=== PATIENT | female | born 1955 | race Caucasian/White ===

== ENCOUNTER 2019-11-20 11:55 | Outpatient (CLI) | payer OTHER, SELFPAY ==
--- NOTE | 2019-11-20 12:44 | ECG_ITS ---
Measurements Intervals [place] Rate: 64 P: 35 [place]: 198 QRS: 9 QRSD: 89 T: 29 QT: 380 QTc: 392 Interpretive Statements SINUS RHYTHM BASELINE ARTIFACT- I, II, III, AVR, AVL, AVF NORMAL ECG Electronically Signed On 11-20-2019 13:54:49 WELDER TACK by Ang Saba D.O.
[2019-11-20 13:44] LABS: Blood Urea Nitrogen 21 mg/dL (7-17); Calcium 8.6 mg/dL (8.4-10.2); Carbon Dioxide 19 mmol/L (22-30); Chloride 95 mmol/L (98-107); Estimated Glomerular Filt Rate > 60; Glucose 94 mg/dL (65-105); Potassium 4.4 mmol/L (3.4-5.0); Sodium 130 mmol/L (137-145)
[2019-11-20 14:21] LABS: Valproic Acid 64.7 ug/mL (50-120)
== END 2019-11-20 11:56 | disposition home or self-care (01) ==
LOC: ANHSURGERY 11:57
PROVIDERS: Anesthesiology; PCP Internal Medicine; Visit Provider Surgery
DX: R56.9 Unspecified convulsions (principal); I10 Essential (primary) hypertension; Z79.899 Other long term (current) drug therapy; K63.5 Polyp of colon
CPT/HCPCS: 36415; 80048; 80164; 86850; 86900; 86901; 93005

== ENCOUNTER 2019-11-29 15:17 | Inpatient (IN) | payer OTHER, SELFPAY ==
[2019-11-20 13:31] VITALS: BP 148/76; PULSE 67; RESP 18; TEMP 36.6; O2SAT 98; BMI 40.2
[2019-11-29] VITALS (17 sets, daily range): BP systolic 112–160; BP diastolic 51–81; PULSE 58–82; RESP 13–20; TEMP 36.7–37; O2SAT 96–100
[2019-11-29] MEDS: ALVIMOPAN 12 MG CAPSULE PO (07:15)
[2019-11-29] MEDS: IBUPROFEN IV 800 MG/200 ML 800 MG/200 ML BAG 400 MG IVPB (07:15)
[2019-11-29] MEDS: LACTATED RINGERS 1,000 ML 30 ML IV CONT ×2 (07:15→12:34)
--- NOTE | 2019-11-29 07:24 | WPDHPUPDATE1 ---
History and Physical Update Update Date/Time: 11/29/19 07:24 History and Physical has been reviewed, including an updated exam of the patient. There are NO changes in the patient's condition. Risks, benefits, and alternatives have been discussed and questions answered. Patient agrees to proceed with procedure.
--- NOTE | 2019-11-29 07:40 | WPDANESEPPF ---
Anes - Initial Pre Proc Eval Procedure: Operation Date: 11/29/19 08:30 Proposed Procedures p Hand Assisted Laparoscopic Sigmoidectomy - Blake Fishman MD Date/Time: 11/29/19 07:40 Surgeon: Blake Fishman MD Pre Op Diagnosis: Sigmoid Colon Polyp Patient Data Age: 64 Gender: F Height: 1.5 m Weight: 90.4 kg Last Vital Signs Temp 36.6 C 11/20/19 13:31 Pulse 67 11/20/19 13:31 Resp 18 11/20/19 13:31 BP 148/76 H 11/20/19 13:31 Pulse Ox 98 11/20/19 13:31 Allergies Allergy/AdvReac Type Severity Reaction Status Date / Time codeine Allergy Intermediate Hives Verified 11/20/19 13:50 latex Allergy Unknown Hives Verified 11/20/19 13:50 Home Medications Medication Instructions Recorded Confirmed Type melatonin 10 mg PO HS 08/31/19 11/22/19 History phenobarbital 129.6 mg PO HS 08/31/19 11/22/19 History atorvastatin 20 mg tablet 20 mg PO DAILY #90 tablet 09/14/19 11/22/19 Rx enalapril maleate 10 mg tablet 10 mg PO DAILY #90 tablet 09/14/19 11/22/19 Rx levothyroxine 137 mcg tablet 137 mcg PO DAILY #90 tablet 09/14/19 11/22/19 Rx divalproex 1,000 mg PO BID 10/11/19 11/22/19 History trazodone 150 mg tablet 150 mg PO HS #30 tablet 10/25/19 11/22/19 Rx amitriptyline 25 mg tablet 50 mg PO HS 10/30/19 11/22/19 History biotin 5,000 mcg sublingual tablet 10,000 mcg SUBLINGUAL DAILY 10/30/19 11/22/19 History calcium carbonate 600 mg calcium 600 mg PO DAILY 10/30/19 11/22/19 History (1,500 mg) tablet ferrous sulfate 325 mg (65 mg 650 mg PO DAILY 10/30/19 11/22/19 History iron) tablet neomycin 500 mg tablet See Rx Instructions .ROUTE 10/31/19 11/22/19 Rx .COMPLEX #6 tablet Patient hx anesthesia problems: none Family hx anesthesia problems: none PMFSH Past Medical History Medical History (Updated 11/29/19 @ 07:41 by Obey Harrison MD) Colonic mass Epilepsy Hypercholesterolemia Hypertension Hyponatremia Hypothyroidism Hypoxia Iron deficiency anemia Morbid obesity with BMI of 40.0-44.9, adult Polyp, sigmoid colon Post-menopausal Seizure Surgical History Surgical History (Updated 10/30/19 @ 09:39 by Kavita Villa) H/O gastric bypass early 70s History of colonoscopy 2020 last one could be 5+ years ago Presence of ankle implant X2 Family History Family History (Updated 10/30/19 @ 09:19 by Gladis Barba [facility]) Father Cancer Cerebrovascular accident Hypertension Mother Breast cancer Lung cancer Diabetes mellitus Hypertension Polymyositis Sibling Hypertension Polymyositis Sibling COPD (chronic obstructive pulmonary disease) Hypertension Social History Social History Smoking status: Never smoker Alcohol intake: never Substance use: never Additional living arrangements comments: lives at [place] Gender identity (if verbalized by the patient): Female Anes - Eval Final PreProcedure Day of Procedure 11/29/19 07:40 Patient weight: morbidly obese Heart: regular rate and rhythm Lungs: clear to auscultation and normal air movement Airway: Mallampati scale class II Neurological: alert and oriented Last oral intake: >/= 8 hours ASA classification: III Emergent: no Anesthetic plan: proceed Anesthesia type and monitoring: general ETT Informed Consent: The patient's anesthetic plan and its attendant risks and benefits were discussed with the patient/family/POA. Questions were solicited and answers provided to the satisfaction of the patient/family/POA.
[2019-11-29 07:43] LABS: Hematocrit 34.1 % (37.0-47.0)
[2019-11-29 07:50] LABS: Sodium 128 mmol/L (137-145)
[2019-11-29] MEDS: ceFAZolin 2 GM/D5W 50 ML 2 GM/50 ML BAG IVPB (09:16)
[2019-11-29] MEDS: metroNIDAZOLE 500 MG/ISO 100ML 500 MG/100 ML BAG 100 MG IVPB (09:16)
[2019-11-29] MEDS: BUPIVACAINE/EPINEPHRINE 0.5% 30 ML VIAL INFILTRATE (10:23)
--- NOTE | 2019-11-29 12:15 | SUR.OPER ---
Ebl=20 [id number]
--- NOTE | 2019-11-29 12:44 | PM.PROC ---
Procedure Note - Detailed Date of procedure: 11/29/19 Pre-op diagnosis: Sigmoid Colon Polyp Sigmoid colon polyp Post-op diagnosis: same Procedure performed: Hand access laparoscopic sigmoidectomy with colorectal anastomosis Description of procedure: The patient was taken to surgery and induced into general anesthesia. She was placed in lithotomy with yellowfin stirrups. A silicone Rosales catheter was placed. Rectal irrigation using a silicone Rosales catheter was performed and used as a rectal tube. The abdomen was prepped and draped. The proposed infraumbilical midline incision was marked on the skin for the hand access port. local was infiltrated into the area of this anticipated incision. Incision was made and dissection was carried down through the midline fascia. Fascia was opened and then the peritoneum was opened. We gained access to the peritoneal cavity without difficulty. This opening was extended the length of the wound. I placed a hand in the abdomen and was able to feel some adhesions in the upper abdomen. There was a clear area in the left mid abdomen. Local anesthetic was infiltrated here and a 10 11 port was placed. We then placed the GelPort and insufflated the abdomen. I was able to see the anterior abdominal wall adhesions and a few these would need to be taken down. A 12 mm port was placed on the right mid abdomen. Another 10 11 port was placed in the right subcostal position. The camera was repositioned to the right sub costal. I took down the adhesions using the Harmonic scalpel. I only took down enough adhesions that we could safely place the midline trocar site and have good visualization of the pelvis. A 10 11 midline trocar was placed above the umbilicus. We then moved the camera back to the left sided 10 11 port. Looking in the abdomen, the tattoo was easily seen. The sigmoid colon was fairly floppy. I divided the lateral peritoneal attachments to the sigmoid colon. The tattoo was in the distal sigmoid colon as expected. The ureter was found and carefully avoided. Dissection was carried down laterally to the upper rectum. Was then able to use the Harmonic scalpel and divided the rectal mesentery over the sacral promontory. I found the area of distal dissection and using the Harmonic scalpel I divided the rectal mesentery up to this point and freed it from the rectum where we plan to divide the bowel. Similarly I divided the mesentery to the sigmoid colon leaving only the superior rectal artery. This was done to the proximal sigmoid distal descending colon junction. The superior rectal artery was divided using the Harmonic 7. This went well and there was no bleeding. The sigmoid and upper rectum were now mobile and able to proceed with anastomosis after resection of the sigmoid. We stopped insufflation and removed the GelPort, leaving the Sandip wound guard in place. I divided the upper rectum with the TLC 75 stapler. I divided the distal descending and upper sigmoid colon with the TLC 75 stapler. The sigmoid colon with the tattoo and palpable polyp were then sent off to pathology in formalin as a specimen. The 2 ends of bowel came together readily with no tension. After removing some superficial fatty tissue from the staple lines, I placed the 2 ends of bowel in proximity. A hand-sewn 2 layer anastomosis was performed. The posterior outer layer of interrupted 4 0 silk Lembert sutures was placed 1st. The staple lines were then excised from both ends of the bowel. The posterior inner layer of bidirectional running 4 0 chromic suture was then placed. The suture was tied completing the anterior inner layer. I should point out that Flo sutures were used for each end and the anterior inner layer. Finally the anterior outer layer of interrupted 4 0 silk suture was placed. The anastomosis was complete and looked quite good. I dropped this back in the abdomen. We replaced the GelPort and resumed insufflation. I laparo
--- NOTE | 2019-11-29 13:59 | SUR.PHASEI ---
1359 called to update family, but no one in waiting room at this time
--- NOTE | 2019-11-29 14:00 | SUR.PHASEI ---
[id number] iv LAC went bad, tried to get another one. dr lee ok with a midline waiting to hear from zaki
--- NOTE | 2019-11-29 14:33 | SUR.PHASEI ---
[id number] sbar faxed to floor notified. family updated and sent to floor
--- NOTE | 2019-11-29 15:03 | ADMGEN ---
This patient, Keely Perkins, was admitted to [facility]. Patient/family oriented to hospital policies and general routines including ID bracelet, bed and alarms, visiting hours, pain management, procedures, bathroom and other care routines, personal items, smoking policy, room service/diet, and visiting hours. Valuables list has been completed. Information on how to activate the Rapid Response Team has been discussed. Patient/Family are encouraged to report perceived risks to care and to ask questions if they do not understand what they are told or what they should do.
--- NOTE | 2019-11-29 15:39 | PC.NURSE ---
Notified Care coordination and Dr Tristan office patient has thoughts of suicide. Also has a plan they would stab themselves.
[2019-11-29] MEDS: LACTATED RINGERS 1,000 ML 80 ML IV CONT (15:54)
[2019-11-29] MEDS: DIVALPROEX SODIUM 250 MG TABEC 1000 MG PO (17:17)
[2019-11-29] MEDS: AMITRIPTYLINE HCL 25 MG TABLET 50 MG PO (20:24)
[2019-11-29] MEDS: TRAZODONE HCL 50 MG TABLET 150 MG PO (20:24)
[2019-11-29] MEDS: FAMOTIDINE 20 MG/2 ML VIAL IV PUSH (20:25)
[2019-11-29] MEDS: MELATONIN 5 MG TABLET 10 MG PO (20:25)
[2019-11-29] MEDS: ENOXAPARIN 30 MG/0.3 ML SYRINGE SUB-Q (20:26)
[2019-11-30 02:00] VITALS: BP 111/48; PULSE 82; RESP 18; TEMP 36.6; O2SAT 92
[2019-11-30] MEDS: LACTATED RINGERS 1,000 ML 80 ML IV CONT (04:36)
[2019-11-30] MEDS: LEVOTHYROXINE SODIUM 112 MCG TABLET PO (05:44)
[2019-11-30] MEDS: LEVOTHYROXINE SODIUM 25 MCG TABLET PO (05:44)
[2019-11-30 06:00] VITALS: BP 139/57; PULSE 80; RESP 16; TEMP 37.1; O2SAT 96
[2019-11-30 06:53] LABS: Basophils Percent Auto 0.3 % (0.2-1.2); Eosinophils Percent Auto 0.2 % (0-4.4); Hematocrit 29.4 % (37.0-47.0); Hemoglobin 9.8 g/dL (12.0-15.0); Immature Granulocyte Absolute 0.04 K/mm3 (0.00-0.031); Immature Granulocyte Percent A 0.4 % (0-0.5); Lymphocytes Absolute Auto 1.36 K/mm3 (0.9-3.2); Lymphocytes Percent Auto 13.5 % (18.3-44.2); Mean Corpuscular HGB Conc 33.3 g/dl (32-36); Mean Corpuscular Hemoglobin 31.9 pg (26-34); Mean Corpuscular Volume 95.8 fl (80-100); Mean Platelet Volume 10.8 fl (7.4-10.4); Monocytes Absolute Auto 1.5 K/mm3 (0.1-0.6); Monocytes Percent Auto 14.8 % (2.6-8.5); Neutrophils Absolute Auto 7.2 K/mm3 (1.3-6.7); Neutrophils Percent Auto 70.8 % (45.5-73.1); Platelet Count Result 137 k/mm3 (150-375); Red Blood Count 3.07 M/mm3 (4.2-5.4); Red Cell Distribution Width 12.9 % (11.5-14.5); White Blood Count 10.1 K/mm3 (4.5-10.0)
[2019-11-30 07:02] LABS: Blood Urea Nitrogen 10 mg/dL (7-17); Calcium 8.3 mg/dL (8.4-10.2); Carbon Dioxide 23 mmol/L (22-30); Chloride 92 mmol/L (98-107); Estimated Glomerular Filt Rate > 60; Glucose 94 mg/dL (65-105); Potassium 4.7 mmol/L (3.4-5.0); Sodium 126 mmol/L (137-145)
--- NOTE | 2019-11-30 07:58 | PM.PNGS ---
Progress Note: A&P Assessment and Plan (1) Polyp, sigmoid colon: Qualifiers: Colon polyp type: unspecified Qualified Code(s): K63.5 - Polyp of colon Code(s): K63.5 - Polyp of colon Status: Chronic Assessment and Plan: doing well postop day 1. Status post hand access laparoscopic sigmoidectomy. Will advance diet as tolerated. Ambulate more today. Saline lock IV. Doing well. (2) Hyponatremia: Code(s): E87.1 - Hypo-osmolality and hyponatremia Status: Acute Assessment and Plan: Will stop peripheral IV fluids. Advance diet and continue to monitor. (3) Hypertension: Qualifiers: Hypertension type: essential hypertension Qualified Code(s): I10 - Essential (primary) hypertension Code(s): I10 - Essential (primary) hypertension Status: Chronic Assessment and Plan: Continue home meds and monitor (4) Epilepsy: Qualifiers: Epilepsy type: unspecified Intractability: not intractable Status epilepticus: without status epilepticus Qualified Code(s): G40.909 - Epilepsy, unspecified, not intractable, without status epilepticus Code(s): G40.909 - Epilepsy, unspecified, not intractable, without status epilepticus Status: Chronic Assessment and Plan: continue home meds and monitor. Subjective Subjective Date/Time Seen: 11/30/19 07:58 Post Op day: 1 Patient reports: no new complaints, pain is less, tolerating liquids well and bowel movement Exam Const: General: comfortable and no acute distress; No confusion Orientation/consciousness: patient oriented x3 and No confusion Resp: Effort & Inspection: normal respiratory effort Auscultation: clear to auscultation bilaterally Cardio: Rate: regular rate Rhythm: regular rhythm GI: Inspection: non-distended, incision ( Healing well) and obesity GI Palp: Yes Soft to palpation, Yes Tenderness to palpation present (GI), No Guarding due to palpation present (GI) and No Rebound tenderness present Auscultation: normal bowel sounds Neuro: General: patient oriented x3, no focal motor deficits and No confusion Extrem: General: no calf tenderness and no edema Psych: Affect: normal affect Insight: Good insight present (Psych) Judgement: Good judgement present (Psych) Objective Data Vital Signs Vital Signs: Vital Signs - 24 hr 11/29/19 12:35 11/29/19 12:50 11/29/19 13:06 Temperature 37.0 C Pulse Rate 61 60 60 Respiratory Rate 13 13 14 Blood Pressure 129/53 L 128/57 L 138/58 L Pulse Oximetry 100 100 100 11/29/19 13:20 11/29/19 13:35 11/29/19 13:50 Temperature Pulse Rate 64 60 66 Respiratory Rate 18 14 20 Blood Pressure 142/59 H 126/71 141/67 H Pulse Oximetry 100 100 100 11/29/19 14:05 11/29/19 14:20 11/29/19 14:30 Temperature Pulse Rate 69 62 68 Respiratory Rate 18 20 18 Blood Pressure 160/81 H 140/68 Pulse Oximetry 100 100 96 11/29/19 14:45 11/29/19 15:00 11/29/19 15:15 Temperature Pulse Rate 66 69 58 L Respiratory Rate 18 18 18 Blood Pressure 134/58 L 145/53 H 112/69 Pulse Oximetry 96 100 100 11/29/19 15:45 11/29/19 16:45 11/29/19 17:48 Temperature 36.7 C Pulse Rate 61 65 Respiratory Rate 18 16 Blood Pressure 120/67 118/60 Pulse Oximetry 100 100 99 11/29/19 22:37 11/30/19 02:00 11/30/19 06:00 Temperature 36.7 C 36.6 C 37.1 C Pulse Rate 82 82 80 Respiratory Rate 18 18 16 Blood Pressure 130/57 L 111/48 L 139/57 L Pulse Oximetry 97 92 96 Intake/Output Intake/Output: Intake & Output 11/27/19 11/28/19 11/29/19 11/30/19 23:59 23:59 23:59 23:59 Intake Total 1850 1300 Output Total 1400 400 Balance 450 900 Meds/Results Medications: Active Medications Generic Name Dose Route Start Last Admin Trade Name Freq PRN Reason Stop Dose Admin Acetaminophen 500 mg 11/29/19 15:17 Tylenol Tablet PO Q6H PRN Mild Pain (1-3) or Fever Alvimopan 12 mg 11/30/19 12:33 Entereg PO 0
[2019-11-30] MEDS: ATORVASTATIN 20 MG TABLET PO (08:12)
[2019-11-30] MEDS: DIVALPROEX SODIUM 250 MG TABEC 1000 MG PO ×2 (08:12→16:33)
[2019-11-30] MEDS: CALCIUM CARBONATE (OSCAL) 500 MG TABLET PO (08:12)
[2019-11-30] MEDS: ENALAPRIL MALEATE 10 MG TABLET PO (08:13)
[2019-11-30] MEDS: FERROUS SULFATE 324 MG TABLET 648 MG PO (08:13)
[2019-11-30] MEDS: FAMOTIDINE 20 MG TABLET PO ×2 (08:15→20:28)
[2019-11-30] MEDS: ENOXAPARIN 40 MG/0.4 ML SYRINGE SUB-Q (08:15)
[2019-11-30] MEDS: FUROSEMIDE 20 MG TABLET PO (10:05)
[2019-11-30 10:30] VITALS: BMI 39.6
[2019-11-30 10:40] VITALS: BP 129/47; PULSE 76; RESP 16; TEMP 36.8; O2SAT 92
[2019-11-30] MEDS: ALVIMOPAN 12 MG CAPSULE PO ×2 (13:43→20:27)
--- NOTE | 2019-11-30 13:58 | WPDANESPN ---
Anes - Prog Note Post-Op Date/Time: 11/30/19 13:58 Cardiovascular status: normal Respiratory status: normal Airway patency: baseline Mental status: baseline Post-Op hydration status: normal Vital Signs: Last Vital Signs Temp 36.8 C 11/30/19 10:40 Pulse 76 11/30/19 10:40 Resp 16 11/30/19 10:40 BP 129/47 L 11/30/19 10:40 Pulse Ox 92 11/30/19 10:40 I/O: Intake & Output 11/29/19 11/30/19 11/30/19 23:59 07:59 15:59 Intake Total 1400 1300 0 Output Total 1400 400 Balance 0 900 0 Laboratory Tests 11/30/19 06:38 11/30/19 06:38 11/30/19 11/30/19 06:38 06:38 WBC 10.1 H RBC 3.07 L Hgb 9.8 L Hct 29.4 L MCV 95.8 MCH 31.9 MCHC 33.3 RDW 12.9 Plt Count 137 L MPV 10.8 H Immature Gran % (Auto) 0.4 Neut % (Auto) 70.8 Lymph % (Auto) 13.5 L Logan % (Auto) 14.8 H Eos % (Auto) 0.2 Baso % (Auto) 0.3 Lymph # (Auto) 1.36 Logan # (Auto) 1.5 H Eos # (Auto) 0.0 Baso # (Auto) 0.0 Abs Immat Gran (auto) 0.04 H Absolute Neuts (auto) 7.2 H Absolute Nucleated RBC 0.0 Nucleated RBC % 0.0 % Immature Plt Fraction 4.0 Sodium 126 L Potassium 4.7 Chloride 92 L Carbon Dioxide 23 BUN 10 D Creatinine 0.80 Estim Creat Clear Calc Not Reportable Estimated GFR > 60 Glucose 94 Calcium 8.3 L Post-procedural complaints: none Patient Feedback: Patient satisfied with anesthetic care.
--- NOTE | 2019-11-30 13:59 | WPDANESPN ---
Anes - Prog Note Post-Op Date/Time: 11/30/19 13:59 Cardiovascular status: normal Respiratory status: normal Airway patency: baseline Mental status: baseline Post-Op hydration status: normal Vital Signs: Last Vital Signs Temp 36.8 C 11/30/19 10:40 Pulse 76 11/30/19 10:40 Resp 16 11/30/19 10:40 BP 129/47 L 11/30/19 10:40 Pulse Ox 92 11/30/19 10:40 I/O: Intake & Output 11/29/19 11/30/19 11/30/19 23:59 07:59 15:59 Intake Total 1400 1300 0 Output Total 1400 400 Balance 0 900 0 Laboratory Tests 11/30/19 06:38 11/30/19 06:38 11/30/19 11/30/19 06:38 06:38 WBC 10.1 H RBC 3.07 L Hgb 9.8 L Hct 29.4 L MCV 95.8 MCH 31.9 MCHC 33.3 RDW 12.9 Plt Count 137 L MPV 10.8 H Immature Gran % (Auto) 0.4 Neut % (Auto) 70.8 Lymph % (Auto) 13.[address] [place] % (Auto) 14.8 H Eos % (Auto) 0.2 Baso % (Auto) 0.3 Lymph # (Auto) 1.36 [place] # (Auto) 1.5 H Eos # (Auto) 0.0 Baso # (Auto) 0.0 Abs Immat Gran (auto) 0.04 H Absolute Neuts (auto) 7.2 H Absolute Nucleated RBC 0.0 Nucleated RBC % 0.0 % Immature Plt Fraction 4.0 Sodium 126 L Potassium 4.7 Chloride 92 L Carbon Dioxide 23 BUN 10 D Creatinine 0.80 Estim Creat Clear Calc Not Reportable Estimated GFR > 60 Glucose 94 Calcium 8.3 L Post-procedural complaints: none Patient Feedback: Patient satisfied with anesthetic care.
[2019-11-30 15:00] VITALS: BP 119/49; PULSE 85; RESP 18; TEMP 36.6; O2SAT 95
[2019-11-30] MEDS: AMITRIPTYLINE HCL 25 MG TABLET 50 MG PO (20:27)
[2019-11-30] MEDS: TRAZODONE HCL 50 MG TABLET 150 MG PO (20:28)
[2019-11-30] MEDS: MELATONIN 5 MG TABLET 10 MG PO (20:28)
[2019-11-30 22:00] VITALS: BP 121/40; PULSE 85; RESP 20; TEMP 36.7; O2SAT 95
[2019-12-01] MEDS: LEVOTHYROXINE SODIUM 25 MCG TABLET PO (05:59)
[2019-12-01] MEDS: LEVOTHYROXINE SODIUM 112 MCG TABLET PO (05:59)
[2019-12-01 06:17] LABS: Hematocrit 28.4 % (37.0-47.0); Hemoglobin 9.3 g/dL (12.0-15.0); Immature Platelet Fraction Pct 3.3 % (0.9-11.2); Mean Corpuscular HGB Conc 32.7 g/dl (32-36); Mean Corpuscular Hemoglobin 31.3 pg (26-34); Mean Corpuscular Volume 95.6 fl (80-100); Mean Platelet Volume 11.1 fl (7.4-10.4); Platelet Count Result 136 k/mm3 (150-375); Red Blood Count 2.97 M/mm3 (4.2-5.4); Red Cell Distribution Width 12.9 % (11.5-14.5); White Blood Count 9.5 K/mm3 (4.5-10.0)
[2019-12-01 06:34] LABS: Blood Urea Nitrogen 12 mg/dL (7-17); Calcium 8.4 mg/dL (8.4-10.2); Carbon Dioxide 21 mmol/L (22-30); Chloride 98 mmol/L (98-107); Estimated Glomerular Filt Rate > 60; Glucose 93 mg/dL (65-105); Potassium 4.2 mmol/L (3.4-5.0); Sodium 127 mmol/L (137-145)
[2019-12-01 07:42] VITALS: BP 141/43; PULSE 90; RESP 20; TEMP 36.8; O2SAT 93
[2019-12-01] MEDS: FAMOTIDINE 20 MG TABLET PO ×2 (08:03→21:28)
[2019-12-01] MEDS: DIVALPROEX SODIUM 250 MG TABEC 1000 MG PO ×2 (08:03→17:01)
[2019-12-01] MEDS: FERROUS SULFATE 324 MG TABLET 648 MG PO (08:03)
[2019-12-01] MEDS: ATORVASTATIN 20 MG TABLET PO (08:04)
[2019-12-01] MEDS: ALVIMOPAN 12 MG CAPSULE PO (08:04)
[2019-12-01] MEDS: FUROSEMIDE 20 MG TABLET PO (08:04)
[2019-12-01] MEDS: CALCIUM CARBONATE (OSCAL) 500 MG TABLET PO (08:04)
[2019-12-01] MEDS: ENALAPRIL MALEATE 10 MG TABLET PO (08:04)
[2019-12-01] MEDS: ENOXAPARIN 40 MG/0.4 ML SYRINGE SUB-Q (08:04)
--- NOTE | 2019-12-01 08:32 | PM.PNGS ---
Progress Note: A&P Assessment and Plan (1) Polyp, sigmoid colon: Qualifiers: Colon polyp type: unspecified Qualified Code(s): K63.5 - Polyp of colon Code(s): K63.5 - Polyp of colon Status: Chronic Assessment and Plan: still having a fair amount of pain and requiring considerable assistance to ambulate. Will increase activity again today. Possibly home tomorrow. (2) Hyponatremia: Code(s): E87.1 - Hypo-osmolality and hyponatremia Status: Acute Assessment and Plan: Sodium still low at 127 today. Will start 1500 cc fluid restriction and DC Lasix. (3) Epilepsy: Qualifiers: Epilepsy type: unspecified Intractability: not intractable Status epilepticus: without status epilepticus Qualified Code(s): G40.909 - Epilepsy, unspecified, not intractable, without status epilepticus Code(s): G40.909 - Epilepsy, unspecified, not intractable, without status epilepticus Status: Chronic (4) Hypertension: Qualifiers: Hypertension type: essential hypertension Qualified Code(s): I10 - Essential (primary) hypertension Code(s): I10 - Essential (primary) hypertension Status: Chronic Subjective Subjective Date/Time Seen: 12/01/19 08:32 Post Op day: 2 Patient reports: still having pain, tolerating a regular diet, bowel movement and afebrile Exam GI: Inspection: non-distended, incision ( Wounds healing well) and obesity GI Palp: Yes Soft to palpation and Yes Tenderness to palpation present (GI) Auscultation: Hypoactive bowel sounds present Objective Data Vital Signs Vital Signs: Vital Signs - 24 hr 11/30/19 10:40 11/30/19 15:00 11/30/19 22:00 Temperature 36.8 C 36.6 C 36.7 C Pulse Rate 76 85 85 Respiratory Rate 16 18 20 Blood Pressure 129/47 L 119/49 L 121/40 L Pulse Oximetry 92 95 95 12/01/19 07:42 Temperature 36.8 C Pulse Rate 90 Respiratory Rate 20 Blood Pressure 141/43 H Pulse Oximetry 93 Intake/Output Intake/Output: Intake & Output 11/28/19 11/29/19 11/30/19 12/01/19 23:59 23:59 23:59 23:59 Intake Total 1850 2640 400 Output Total 1400 1200 Balance 450 1440 400 Meds/Results Medications: Active Medications Generic Name Dose Route Start Last Admin Trade Name Freq PRN Reason Stop Dose Admin Acetaminophen 500 mg 11/29/19 15:17 Tylenol Tablet PO Q6H PRN Mild Pain (1-3) or Fever Amitriptyline HCl 50 mg 11/29/19 21:00 11/30/19 20:27 Elavil PO 50 mg HS PHIL Administration Atorvastatin Calcium 20 mg 11/30/19 09:00 12/01/19 08:04 Lipitor PO 20 mg DAILY PHIL Administration Calcium Carbonate 500 mg 11/30/19 09:00 12/01/19 08:04 Oscal 500 Mg PO 500 mg QAM PHIL Administration Divalproex Sodium 1,000 mg 11/29/19 17:00 12/01/19 08:03 Depakote Ec Tab PO 1,000 mg BID [facility] Administration Enalapril Maleate 10 mg 11/30/19 09:00 12/01/19 08:04 Vasotec PO 10 mg DAILY PHIL Administration Enoxaparin Sodium 40 mg 11/30/19 09:00 12/01/19 08:04 Lovenox SUB-Q 40 mg DAILY [facility] Administration Famotidine 20 mg 11/30/19 09:00 12/01/19 08:03 Pepcid PO 20 mg Q12HR PHIL Administration Ferrous Sulfate 648 mg 11/30/19 09:00 12/01/19 08:03 Ferrous Sulfate PO 648 mg DAILY PHIL Administration Ibuprofen 600 mg 11/29/19 15:34 Motrin PO Q6H PRN Pain Rated 4-6 Levothyroxine Sodium 112 mcg 11/30/19 06:30 12/01/19 05:59 Synthroid PO 112 mcg DAILY@0630 PHIL Administration Levothyroxine Sodium 25 mcg 11/30/19 06:30 12/01/19 05:59 Synthroid PO 25 mcg DAILY@0630 [facility] Administration Melatonin 10 mg 11/29/19 21:00 11/30/19 20:28 Melatonin PO 10 mg HS [facility] Administration Morphine Sulfate 1 mg 11/29/19 15:17 Morphine Sulfate Inj IV PUSH Q2H PRN Pain Rated 4-6 Morphine Sulfate 2 mg 11/29/19 15:17 Morphine Sulfate Inj IV PUSH Q2H PRN Pain Rated 7-10 Nalo
[2019-12-01 14:36] VITALS: BP 147/57; PULSE 72; RESP 16; TEMP 36.5; O2SAT 97
[2019-12-01] MEDS: TRAZODONE HCL 50 MG TABLET 150 MG PO (21:27)
[2019-12-01] MEDS: MELATONIN 5 MG TABLET 10 MG PO (21:28)
[2019-12-01] MEDS: AMITRIPTYLINE HCL 25 MG TABLET 50 MG PO (21:28)
[2019-12-01 22:00] VITALS: BP 132/75; PULSE 71; RESP 20; TEMP 37.2; O2SAT 94
[2019-12-02 06:00] VITALS: BP 135/61; PULSE 77; RESP 20; TEMP 37.3; O2SAT 92
[2019-12-02] MEDS: LEVOTHYROXINE SODIUM 25 MCG TABLET PO (06:12)
[2019-12-02] MEDS: LEVOTHYROXINE SODIUM 112 MCG TABLET PO (06:12)
[2019-12-02 10:05] VITALS: BP 131/93; PULSE 75
[2019-12-02] MEDS: DIVALPROEX SODIUM 250 MG TABEC 1000 MG PO ×2 (10:07→18:11)
[2019-12-02] MEDS: ATORVASTATIN 20 MG TABLET PO (10:08)
[2019-12-02] MEDS: ENOXAPARIN 40 MG/0.4 ML SYRINGE SUB-Q (10:08)
[2019-12-02] MEDS: FAMOTIDINE 20 MG TABLET PO ×2 (10:08→21:40)
[2019-12-02] MEDS: ENALAPRIL MALEATE 10 MG TABLET PO (10:08)
[2019-12-02] MEDS: CALCIUM CARBONATE (OSCAL) 500 MG TABLET PO (10:08)
[2019-12-02] MEDS: FERROUS SULFATE 324 MG TABLET 648 MG PO (10:09)
[2019-12-02 10:21] LABS: Hematocrit 27.2 % (37.0-47.0); Hemoglobin 8.9 g/dL (12.0-15.0); Mean Corpuscular HGB Conc 32.7 g/dl (32-36); Mean Corpuscular Hemoglobin 31.7 pg (26-34); Mean Corpuscular Volume 96.8 fl (80-100); Mean Platelet Volume 11.3 fl (7.4-10.4); Platelet Count Result 95 k/mm3 (150-375); Red Blood Count 2.81 M/mm3 (4.2-5.4); Red Cell Distribution Width 12.7 % (11.5-14.5); White Blood Count 6.9 K/mm3 (4.5-10.0)
[2019-12-02 10:30] LABS: Blood Urea Nitrogen 13 mg/dL (7-17); Calcium 8.7 mg/dL (8.4-10.2); Carbon Dioxide 24 mmol/L (22-30); Chloride 100 mmol/L (98-107); Estimated Glomerular Filt Rate > 60; Glucose 87 mg/dL (65-105); Potassium 4.7 mmol/L (3.4-5.0); Sodium 127 mmol/L (137-145)
--- NOTE | 2019-12-02 13:43 | PM.PNGS ---
Progress Note: A&P Assessment and Plan (1) Polyp, sigmoid colon: Qualifiers: Colon polyp type: unspecified Qualified Code(s): K63.5 - Polyp of colon Code(s): K63.5 - Polyp of colon Status: Chronic Assessment and Plan: Healing well from surgery but still not able to get around very well. Will have physical therapy see her. Will also get the patient up in the chair more. (2) Anemia: Qualifiers: Anemia type: unspecified type Qualified Code(s): D64.9 - Anemia, unspecified Code(s): D64.9 - Anemia, unspecified Status: Acute Assessment and Plan: Probably due to dilutional factors. Will give some Bumex today. (3) Epilepsy: Qualifiers: Epilepsy type: unspecified Intractability: not intractable Status epilepticus: without status epilepticus Qualified Code(s): G40.909 - Epilepsy, unspecified, not intractable, without status epilepticus Code(s): G40.909 - Epilepsy, unspecified, not intractable, without status epilepticus Status: Chronic (4) Hyponatremia: Code(s): E87.1 - Hypo-osmolality and hyponatremia Status: Acute Assessment and Plan: Sodium still 127 today. On fluid restriction. Will give Bumex today. Subjective Subjective Date/Time Seen: 12/02/19 13:43 Still slower and requiring help to get out of bed and go to the bathroom. Does not feel like she could go home yet due to weakness and inability to get around. Post Op day: 3 Patient reports: still having pain, tolerating a regular diet, bowel movement and afebrile Exam GI: Inspection: incision ( All incisions healing well.) GI Palp: Yes Soft to palpation and Yes Tenderness to palpation present (GI) Auscultation: normal bowel sounds Objective Data Vital Signs Vital Signs: Vital Signs - 24 hr 12/01/19 14:36 12/01/19 22:00 12/02/19 06:00 Temperature 36.5 C 37.2 C 37.3 C Pulse Rate 72 71 77 Respiratory Rate 16 20 20 Blood Pressure 147/57 H 132/75 135/61 Pulse Oximetry 97 94 92 12/02/19 10:05 Temperature Pulse Rate 75 Respiratory Rate Blood Pressure 131/93 H Pulse Oximetry Intake/Output Intake/Output: Intake & Output 11/29/19 11/30/19 12/01/19 12/02/19 23:59 23:59 23:59 23:59 Intake Total 1850 2640 1590 290 Output Total 1400 1200 2000 900 Balance 450 3941 -392 -939 Meds/Results Medications: Active Medications Generic Name Dose Route Start Last Admin Trade Name Freq PRN Reason Stop Dose Admin Acetaminophen 500 mg 11/29/19 15:17 Tylenol Tablet PO Q6H PRN Mild Pain (1-3) or Fever Amitriptyline HCl 50 mg 11/29/19 21:00 12/01/19 21:28 Elavil PO 50 mg HS PHIL Administration Atorvastatin Calcium 20 mg 11/30/19 09:00 12/02/19 10:08 Lipitor PO 20 mg DAILY PHIL Administration Calcium Carbonate 500 mg 11/30/19 09:00 12/02/19 10:08 Oscal 500 Mg PO 500 mg QAM PHIL Administration Divalproex Sodium 1,000 mg 11/29/19 17:00 12/02/19 10:07 Depakote Ec Tab PO 1,000 mg BID [facility] Administration Enalapril Maleate 10 mg 11/30/19 09:00 12/02/19 10:08 Vasotec PO 10 mg DAILY [facility]IL Administration Enoxaparin Sodium 40 mg 11/30/19 09:00 12/02/19 10:08 Lovenox SUB-Q 40 mg DAILY PHIL Administration Famotidine 20 mg 11/30/19 09:00 12/02/19 10:08 Pepcid PO 20 mg Q12HR PHIL Administration Ferrous Sulfate 648 mg 11/30/19 09:00 12/02/19 10:09 Ferrous Sulfate PO 648 mg DAILY PHIL Administration Ibuprofen 600 mg 11/29/19 15:34 Motrin PO Q6H PRN Pain Rated 4-6 Levothyroxine Sodium 112 mcg 11/30/19 06:30 12/02/19 06:12 Synthroid PO 112 mcg DAILY@0630 PHIL Administration Levothyroxine Sodium 25 mcg 11/30/19 06:30 12/02/19 06:12 Synthroid PO 25 mcg DAILY@0630 PHIL Administration Melatonin 10 mg 11/29/19 21:00 12/01/19 21:28 Melatonin PO 10 mg HS PHIL Administration Morphine Sulfate 1 mg 11/29/19 15:17
[2019-12-02 14:51] VITALS: BP 123/52; PULSE 76; RESP 16; TEMP 36.9; O2SAT 92
[2019-12-02] MEDS: BUMETANIDE 1 MG TABLET 2 MG PO (15:41)
[2019-12-02] MEDS: AMITRIPTYLINE HCL 25 MG TABLET 50 MG PO (21:40)
[2019-12-02] MEDS: TRAZODONE HCL 50 MG TABLET 150 MG PO (21:40)
[2019-12-02] MEDS: MELATONIN 5 MG TABLET 10 MG PO (21:40)
[2019-12-02 22:05] VITALS: BP 138/53; PULSE 74; RESP 16; TEMP 37.2; O2SAT 92
--- NOTE | 2019-12-03 03:48 | PC.NURSE ---
Daylight Savings Time For Daylight Savings Time Ending in the Fall - Clocks are moved back. For Daylight Savings Time Beginning in the Spring - Clocks are moved ahead. For [facility], the time of change occurs at 0200 hrs. Time is taken from the senior sql server developer. This entry on the patient's chart recognizes the change in time reflected during documentation. Example: 2 entries for vital signs may be charted for 0200 hrs.
[2019-12-03] MEDS: LEVOTHYROXINE SODIUM 25 MCG TABLET PO (06:35)
[2019-12-03] MEDS: LEVOTHYROXINE SODIUM 112 MCG TABLET PO (06:35)
[2019-12-03 06:40] VITALS: BP 118/59; PULSE 74; RESP 20; TEMP 36.9; O2SAT 91
[2019-12-03 06:43] LABS: Hematocrit 28.1 % (37.0-47.0); Hemoglobin 9.2 g/dL (12.0-15.0); Mean Corpuscular HGB Conc 32.7 g/dl (32-36); Mean Corpuscular Hemoglobin 31.2 pg (26-34); Mean Corpuscular Volume 95.3 fl (80-100); Mean Platelet Volume 10.4 fl (7.4-10.4); Platelet Count Result 160 k/mm3 (150-375); Red Blood Count 2.95 M/mm3 (4.2-5.4); Red Cell Distribution Width 12.6 % (11.5-14.5); White Blood Count 6.8 K/mm3 (4.5-10.0)
[2019-12-03 07:06] LABS: Blood Urea Nitrogen 15 mg/dL (7-17); Calcium 8.9 mg/dL (8.4-10.2); Carbon Dioxide 26 mmol/L (22-30); Chloride 99 mmol/L (98-107); Estimated Glomerular Filt Rate > 60; Glucose 87 mg/dL (65-105); Sodium 130 mmol/L (137-145)
[2019-12-03] MEDS: ENOXAPARIN 40 MG/0.4 ML SYRINGE SUB-Q (09:42)
[2019-12-03] MEDS: CALCIUM CARBONATE (OSCAL) 500 MG TABLET PO (09:43)
[2019-12-03] MEDS: ENALAPRIL MALEATE 10 MG TABLET PO (09:43)
[2019-12-03] MEDS: FAMOTIDINE 20 MG TABLET PO (09:43)
[2019-12-03] MEDS: ATORVASTATIN 20 MG TABLET PO (09:43)
[2019-12-03] MEDS: DIVALPROEX SODIUM 250 MG TABEC 1000 MG PO (09:43)
[2019-12-03] MEDS: FERROUS SULFATE 324 MG TABLET 648 MG PO (09:43)
[2019-12-03] MEDS: BUMETANIDE 1 MG TABLET 2 MG PO (11:53)
--- NOTE | 2019-12-03 14:09 | PM.DS ---
DS: Diagnosis Admitting Diagnosis Admitting Diagnosis: SIGMOID COLON POLYP Discharge Diagnosis (1) Polyp, sigmoid colon: Qualifiers: Colon polyp type: unspecified Qualified Code(s): K63.5 - Polyp of colon Code(s): K63.5 - Polyp of colon Status: Chronic Assessment and Plan: STATUS POST HAND ACCESS LAPAROSCOPIC SIGMOIDECTOMY WITH HAND-SEWN ANASTOMOSIS 11/29/2019. Pathology pending on day of discharge. (2) Hyponatremia: Code(s): E87.1 - Hypo-osmolality and hyponatremia Status: Acute Assessment and Plan: IMPROVED TO 130 MILLIMOLES PER L ON DAY OF DISCHARGE. (3) Anemia: Qualifiers: Anemia type: unspecified type Qualified Code(s): D64.9 - Anemia, unspecified Code(s): D64.9 - Anemia, unspecified Status: Acute Assessment and Plan: HEMOGLOBIN STABLE AT 9.2 ON DAY OF DISCHARGE. HEMATOCRIT 28.1%. (4) Hypertension: Qualifiers: Hypertension type: essential hypertension Qualified Code(s): I10 - Essential (primary) hypertension Code(s): I10 - Essential (primary) hypertension Status: Chronic (5) Epilepsy: Qualifiers: Epilepsy type: unspecified Intractability: not intractable Status epilepticus: without status epilepticus Qualified Code(s): G40.909 - Epilepsy, unspecified, not intractable, without status epilepticus Code(s): G40.909 - Epilepsy, unspecified, not intractable, without status epilepticus Status: Chronic (6) Morbid obesity with BMI of 40.0-44.9, adult: Code(s): E66.01 - Morbid (severe) obesity due to excess calories; Z68.41 - Body mass index (BMI) 40.0-44.9, adult Status: Acute DS: Summary Time Spent with Patient Time attestation: Total time spent providing and/or coordinating discharge services: The patient is a 64-year-old woman who underwent colonoscopy by Dr. Linares on 10/17/2019 for iron deficiency anemia. In the distal sigmoid a friable circumferential villous submucosal mass was seen at approximately 25 cm.. Biopsy showed semi pedunculated tubulovillous adenoma. There were many pieces. It was unable to be removed colonoscopically. Patient was seen in the office by Dr. lee. She was noted to have hyponatremia preoperatively. She was seen by her primary care physician. It is noted that she had fluctuating serum sodiums that were low for several years. It was felt this was likely related to Lasix. Her lasix was stopped preoperatively. She was prepared for surgery and on 11/29/2019 underwent hand access laparoscopic sigmoidectomy. A hand-sewn colorectal anastomosis in 2 layers was performed. Postoperatively the patient voiced concerns about suicide to nursing on their admission assessment. Precautions were taken. Seizure precautions were also taken and she was given her home medications. The day of surgery she received clear liquids and her diet was advanced to regular diet by postop day 2. The patient however was sore and had difficulty getting in and out of bed independently. She does have morbid obesity and is fairly frail. Her serum sodium did decrease from 128 to as low as 126 but then increased to 130 by the day of discharge. She was given a dose of Bumex on 12/02/2019 and also another 1 on 12/03/2019. She diuresed very well. Her potassium level was 4.0 on the day of discharge. Her wounds were healing well. She was comfortable on oral analgesics. She was discharged in good condition on 12/03/2019 postop day 4. Exam Const: General: comfortable and no acute distress; No confusion Orientation/consciousness: patient oriented x3 and No confusion Resp: Effort & Inspection: normal respiratory effort Auscultation: clear to auscultation bilaterally Cardio: Rate: regular rate Rhythm: regular rhythm GI: Inspection: non-distended and incision ( All incisions healing well) GI Palp: Yes Soft to palpation, Ye
--- NOTE | 2019-12-03 14:40 | PCPTNOTE ---
Attempted to see patient in PM for Physical Therapy, however patient declined due to discharging soon. Patient's RN present and finishing up discharge with patient.
== END 2019-12-03 15:00 | disposition home or self-care (01) | DRG 231 ==
LOC: ANHSURGERY 15:32 → ANH3MEDSUR 15:32
PROVIDERS: Anesthesiology; Admitting Provider Surgery; PCP Internal Medicine; Visit Provider Surgery
PROC: 0D1E4Z4 Bypass Large Intestine to Cutaneous, Percutaneous Endoscopic Approach (ICD-10-PCS; principal; 2019-11-29 08:30)
DX: D12.5 Benign neoplasm of sigmoid colon (principal); I10 Essential (primary) hypertension; E03.9 Hypothyroidism, unspecified; Z98.84 Bariatric surgery status; E78.00 Pure hypercholesterolemia, unspecified; G40.909 Epilepsy, unspecified, not intractable, without status epilepticus; D50.9 Iron deficiency anemia, unspecified; E87.1 Hypo-osmolality and hyponatremia; T50.1X5A Adverse effect of loop [high-ceiling] diuretics, initial encounter; E66.01 Morbid (severe) obesity due to excess calories; Z68.39 Body mass index [BMI] 39.0-39.9, adult
CPT/HCPCS: 36415; 80048; 84295; 85014; 85018; 85025; 85027; 85055; 87081; 88305; 88309; 97161; A9270; C1713; J0131; J0690; J1100; J1650; J1741; J2250; J2405; J2704; J2710; J3010; J7030; J7120

== ENCOUNTER 2019-12-06 10:41 | Outpatient (CLI) | payer OTHER, SELFPAY ==
[2019-12-06 11:41] LABS: Hematocrit 30.7 % (37.0-47.0); Hemoglobin 9.9 g/dL (12.0-15.0); Mean Corpuscular HGB Conc 32.2 g/dl (32-36); Mean Corpuscular Hemoglobin 31.3 pg (26-34); Mean Corpuscular Volume 97.2 fl (80-100); Mean Platelet Volume 9.8 fl (7.4-10.4); Platelet Count Result 221 k/mm3 (150-375); Red Blood Count 3.16 M/mm3 (4.2-5.4); Red Cell Distribution Width 12.9 % (11.5-14.5); White Blood Count 5.6 K/mm3 (4.5-10.0)
[2019-12-06 12:04] LABS: Blood Urea Nitrogen 21 mg/dL (7-17); Calcium 8.7 mg/dL (8.4-10.2); Carbon Dioxide 24 mmol/L (22-30); Chloride 97 mmol/L (98-107); Estimated Glomerular Filt Rate > 60; Glucose 86 mg/dL (65-105); Potassium 4.4 mmol/L (3.4-5.0); Sodium 129 mmol/L (137-145)
== END 2019-12-06 10:42 | disposition home or self-care (01) ==
PROVIDERS: PCP Internal Medicine; Visit Provider Surgery
DX: E87.1 Hypo-osmolality and hyponatremia (principal); D64.9 Anemia, unspecified
CPT/HCPCS: 36415; 80048; 85027

== ENCOUNTER 2019-12-25 14:47 | Outpatient (CLI) | payer OTHER, SELFPAY ==
--- NOTE | 2019-12-25 14:51 | ECHO_ITS ---
Patient Info Name: Keely Perkins Age: 64 years : 1955 Gender: Female Ht: 60 in Wt: 186 lbs BSA: 1.93 m2 HR: 74 bpm BP: 148 / 72 mmHg Technical Quality: Good Exam Date: 12/25/2019 3:01 PM Exam Location: [facility] Patient Status: Outpatient Admit Date: 12/25/2019 Staff Ordering Physician: Tracie Medrano NP Director Of Pediatric Rehabilitation: Bekah Chandler RDCS Attending Provider: Tracie Medrano NP Referring Physician: Marcela RAMSEY; Exam Type: CA echo doppler color flow Study Info Complete two-dimensional, color flow and Doppler transthoracic echocardiogram is performed. Summary 1. Left ventricular chamber dimension is normal. 2. Left ventricular systolic function is normal, estimated at 65-70%. 3. The left ventricular diastolic function is abnormal. 4. E/e' 15 is elevated. 5. Left atrial chamber dimension is moderately enlarged. 6. The mitral valve has mildly calcified annulus. 7. There is trace tricuspid valve regurgitation. 8. No pulmonary hypertension, estimated pulmonary arterial systolic pressure is 24 mmHg. Left Ventricle E/e' 15 is elevated. Left ventricular chamber dimension is normal. Left ventricular systolic function is normal, estimated at 65-70%. The left ventricular diastolic function is abnormal. Right Ventricle Right ventricular chamber dimension is normal. Right ventricular systolic function is normal. Left Atria Left atrial chamber dimension is moderately enlarged. Right Atria Right atrial chamber dimension is normal. Aortic Valve The aortic valve is trileaflet. There is no aortic valve stenosis. There is no aortic valve regurgitation. Pulmonic Valve There is no pulmonic regurgitation. Mitral Valve The mitral valve has mildly calcified annulus. There is no mitral valve stenosis. There is no mitral valve regurgitation. Tricuspid Valve There is trace tricuspid valve regurgitation. No pulmonary hypertension, estimated pulmonary arterial systolic pressure is 24 mmHg. Pericardium/Pleural There is no pericardial effusion. Inferior Vena Cava Normal inferior vena cava with >50% collapse upon inspiration consistent with normal right atrial pressure, 5 mmHg. Aorta The aortic root size at the sinus of Valsalva is normal. Left Ventricular Outflow Tract Name Value Normal LVOT 2D LVOT Diameter 2.0 cm LVOT Doppler LVOT Peak Gradient 6 mmHg LVOT Mean Gradient 4 mmHg LVOT VTI 30 cm LVOT VTI/AV VTI Ratio 0.8 LVOT Stroke Volume 90 ml LVOT CO 17.0 l/min LVOT CI 8.8 l/min/m2 Pulmonic Valve Name Value Normal PV Doppler PV Peak Gradient 3 mmHg Mitral Valve
== END 2019-12-25 14:48 | disposition home or self-care (01) ==
PROVIDERS: Visit Provider Nurse Practitioner
DX: R60.9 Edema, unspecified (principal); I51.7 Cardiomegaly
CPT/HCPCS: 93306

== ENCOUNTER 2020-04-15 13:56 | Outpatient (CLI) | payer OTHER, SELFPAY ==
[2020-04-15 14:40] LABS: Basophils Absolute Auto 0.1 K/mm3 (0.0-0.1); Eosinophils Absolute Auto 0.1 K/mm3 (0-0.3); Eosinophils Percent Auto 1.5 % (0-4.4); Hematocrit 34.4 % (37.0-47.0); Hemoglobin 11.1 g/dL (12.0-15.0); Immature Granulocyte Absolute 0.01 K/mm3 (0.00-0.031); Immature Granulocyte Percent A 0.2 % (0-0.5); Lymphocytes Absolute Auto 1.61 K/mm3 (0.9-3.2); Lymphocytes Percent Auto 30.9 % (18.3-44.2); Mean Corpuscular HGB Conc 32.3 g/dl (32-36); Mean Corpuscular Hemoglobin 30.5 pg (26-34); Mean Corpuscular Volume 94.5 fl (80-100); Mean Platelet Volume 10.5 fl (7.4-10.4); Monocytes Absolute Auto 0.9 K/mm3 (0.1-0.6); Monocytes Percent Auto 17.5 % (2.6-8.5); Neutrophils Absolute Auto 2.6 K/mm3 (1.3-6.7); Neutrophils Percent Auto 48.9 % (45.5-73.1); Platelet Count Result 148 k/mm3 (150-375); Red Blood Count 3.64 M/mm3 (4.2-5.4); White Blood Count 5.2 K/mm3 (4.5-10.0)
[2020-04-15 14:56] LABS: Alanine Aminotransferase 11 U/L (4-35); Albumin Level 3.6 g/dL (3.5-5.1); Alkaline Phosphatase 74 U/L (38-126); Aspartate Amino Transferase 21 U/L (14-36); Bilirubin,Total 0.3 mg/dL (0.2-1.3); Blood Urea Nitrogen 19 mg/dL (7-17); Calcium 8.9 mg/dL (8.4-10.2); Carbon Dioxide 20 mmol/L (22-30); Chloride 98 mmol/L (98-107); Estimated Glomerular Filt Rate > 60; Glucose 81 mg/dL (65-105); Potassium 4.7 mmol/L (3.4-5.0); Sodium 128 mmol/L (137-145)
[2020-04-15 15:28] LABS: Thyroid Stimulating Hormone 0.478 uIU/mL (0.465-4.680)
[2020-04-15 15:33] LABS: Free T4 Free Thyroxine 1.32 ng/mL (0.78-2.19)
[2020-04-15 16:09] LABS: Folic Acid > 20.0 ng/mL (2.76->20)
== END 2020-04-15 13:57 | disposition home or self-care (01) ==
PROVIDERS: Referring Provider Psychiatry & Neurology Neurology; Visit Provider Clinical Nurse Specialist
DX: R56.9 Unspecified convulsions (principal)
CPT/HCPCS: 36415; 80053; 82607; 82746; 84439; 84443; 85025

== ENCOUNTER 2020-09-23 11:14 | Emergency (ER) | payer OTHER, SELFPAY ==
[2020-09-23] VITALS (25 sets, daily range): BP systolic 117–173; BP diastolic 56–126; PULSE 71; RESP 18; TEMP 36.5; O2SAT 95–100
--- NOTE | 2020-09-23 11:34 | PC.NURSE ---
patient brought back to ED room 5 with c/o LLE pain. see initial notes. patient was seen here a few weeks ago for same. venous doppler then was (-) for DVT. saw PCP today. patient screamed when PCP was palpating her LLE due to increased edema. patient's POA in room now states patient has mentality of a 10 year old due to seizures as a child. patient slightly uncooperative with care at times. in gown. on BP and O2 monitors.
--- NOTE | 2020-09-23 12:01 | PC.NURSE ---
provider has seen patient. order for d-dimer only at this time.
--- NOTE | 2020-09-23 12:09 | ED.GENADULT ---
HPI - General Adult General Chief complaint: Extremity Injury, Lower Stated complaint: left leg swelling Time Seen by Provider: 09/23/20 11:40 Source: patient Mode of arrival: ambulatory Limitations: no limitations History of Present Illness HPI narrative: 65 years old white female referred to the emergency room by her family physician to rule out the possibility of deep vein thrombosis. Patient had history of swelling of the lower extremities for months, left one is bigger than the right one. Venous Doppler on September 12 showed no deep vein thrombosis.. Patient went see her family physician today for regular checkup, during examination he noticed that patient legs hurt when he squeezed it. Patient denies any trauma, new pain, new swelling or shortness of breath. Currently patient is asymptomatic. Related Data Home Medications Medication Instructions Recorded Confirmed amitriptyline 25 mg DAILY 09/23/20 atorvastatin 40 mg HS 09/23/20 divalproex 500 mg PO BID 09/23/20 enalapril maleate 10 mg DAILY 09/23/20 furosemide 20 mg DAILY 09/23/20 levothyroxine 137 mcg DAILY 09/23/20 metoprolol succinate 25 mg PO BID 09/23/20 phenobarbital 64.8 mg DAILY 09/23/20 trazodone 150 mg HS 09/23/20 Allergies Allergy/AdvReac Type Severity Reaction Status Date / Time codeine Allergy Rash Verified 09/23/20 11:42 latex Allergy Rash Verified 09/23/20 11:42 Review of Systems Review of Systems: Narrative: CONSTITUTIONAL: Denies fever, chills, or sweats. EYES: Denies visual changes, redness, or discharge. ENT: Denies rhinorrhea, congestion, sore throat, or otalgia. CARDIOVASCULAR: Denies chest pain, palpitations, or edema. RESPIRATORY: Denies cough or dyspnea. GASTROINTESTINAL: Denies abdominal pain, nausea, vomiting, or diarrhea. GENITOURINARY: Denies dysuria or hematuria. SKIN: Denies rash or itching. MUSCULOSKELETAL: Denies back pain, joint pain, or myalgia. NEUROLOGIC: Denies headache, numbness, or weakness. PSYCHIATRIC: Denies anxiety or depression. [facility] Social History Social History (Updated 09/23/20 @ 12:11 by Concepción Pascal MD) Social History: Patient denies smoking, drinking or using drugs Second hand tobacco smoke exposure: No Exam Narrative: Exam Narrative: General appearance: Well-developed, well-nourished Skin: Normal color Head: Normocephalic, nontraumatic Eyes: Clear conjunctiva ENT: Oropharynx normal, ears normal, nose normal Neck: Supple, nontender Chest and respiratory: Airway patent, no respiratory distress, no accessory muscle use Heart: Regular rate/rhythm Abdomen: Soft, nontender, no organomegaly, quiet bowel sounds Vascular: Normal peripheral pulses, normal capillary refill. Musculoskeletal: Left lower leg is slightly larger than the right 1, diffuse tenderness with bilateral squeezing of the calf muscles or the leg anteriorly mainly on the left side. No erythema, no rash, no blisters discharge. 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 Patient is asympto
--- NOTE | 2020-09-23 12:30 | PC.NURSE ---
patient difficult stick for labs. 3rd RN to bedside. patient and sister aware that d-dimer is the only order at this time. on panel monitor. has warm blanket. call light in reach.
--- NOTE | 2020-09-23 13:40 | PC.NURSE ---
patient was difficult stick. multiple staff attempted. labs finally obtained and sent to lab. patient and sister aware of all and expected wait time.
[2020-09-23 14:00] LABS: D Dimer 0.49 ug/mL (<0.48)
--- NOTE | 2020-09-23 14:16 | PC.NURSE ---
lab resulted. D-dimer elevated. waiting for further orders vs disposition from provider.
--- NOTE | 2020-09-23 15:45 | PC.NURSE ---
provider in room. reviewed lab results with patient. patient's d-dimer at baseline. no need for further testing per Dr. Pascal. patient and sister aware and agreeable to discharge. discussed care for chronic edema with patient and her sister.
== END 2020-09-23 15:56 | disposition home or self-care (01) ==
PROVIDERS: Emergency Provider Emergency Medicine; PCP Emergency Medicine
DX: R60.0 Localized edema (principal)
CPT/HCPCS: 36415; 85380; 99283

== ENCOUNTER 2020-09-25 10:46 | Outpatient (CLI) | payer OTHER, SELFPAY ==
--- NOTE | ~2020-09-25 | US_ITS ---
EXAMINATION: US venous doppler [facility] DATE: 09/25/2020 11:14 INDICATION: Left lower limb pain TECHNIQUE: Grayscale ultrasound images without and with compression and Doppler ultrasound images of the left lower extremity veins were obtained. COMPARISON: None. FINDINGS: The visualized portions of left common femoral vein, profunda (deep) femoral vein, femoral vein, popl iteal vein, peroneal veins, posterior tibial veins, gastrocnemius vein and greater saphenous vein out flow are patent. IMPRESSION: 1. No deep venous thrombosis in the left lower limb. Reviewed, dictated and finalized at location A. H BUGGY OPERATOR
== END 2020-09-25 10:47 | disposition home or self-care (01) ==
LOC: ANHIMG 10:47
PROVIDERS: PCP Emergency Medicine; Visit Provider Emergency Medicine
DX: M79.605 Pain in left leg (principal)
CPT/HCPCS: 93971

== ENCOUNTER 2021-05-13 08:38 | Emergency (ER) | payer OTHER, SELFPAY ==
[2021-05-13 08:51] VITALS: BP 119/51; PULSE 62; RESP 16; TEMP 35.6; O2SAT 98
--- NOTE | 2021-05-13 10:12 | ED.SKABFB ---
HPI - Skin/Abscess/Foreign Bdy General Chief complaint: Skin/Abscess/Foreign Body Stated complaint: Bumps on head,headache History of Present Illness HPI narrative: This is a 66-year-old female comes in complaining of 2 kn on her head the back patient states of couple days ago she was fell back and hit her head and she believes that these nodules are from the patient states they are painful she denies any dizziness nausea vomiting and/or diarrhea. Patient states when she fell she did not lose consciousness Related Data Home Medications Medication Instructions Recorded Confirmed melatonin 10 mg PO HS 08/31/19 05/13/21 biotin 5,000 mcg sublingual tablet 10,000 mcg SUBLINGUAL DAILY 10/30/19 05/13/21 calcium carbonate 600 mg calcium 600 mg PO DAILY 10/30/19 05/13/21 (1,500 mg) tablet atorvastatin 40 mg HS 09/23/20 05/13/21 divalproex 500 mg PO BID 09/23/20 05/13/21 furosemide 20 mg DAILY 09/23/20 05/13/21 metoprolol succinate 25 mg PO BID 09/23/20 05/13/21 Allergies Allergy/AdvReac Type Severity Reaction Status Date / Time codeine Allergy Intermediate Hives Verified 05/13/21 10:04 latex Allergy Unknown Hives Verified 05/13/21 10:04 Review of Systems Review of Systems: CONSTITUTIONAL: Denies fever, chills, or sweats. EYES: Denies visual changes, redness, or discharge. ENT: Denies rhinorrhea, congestion, sore throat, or otalgia. CARDIOVASCULAR:Denies chest pain, palpitations, or edema. RESPIRATORY: Denies cough or dyspnea. GASTROINTESTINAL: Denies abdominal pain, nausea, vomiting, or diarrhea. GENITOURINARY: Denies dysuria or hematuria. SKIN:[Denies rash or itching. Reports a nodule on the back of the head MUSCULOSKELETAL:Denies back pain, joint pain, or myalgia. NEUROLOGIC: Denies headache, numbness, or weakness. PSYCHIATRIC:Denies anxiety or depression [facility] Past Medical History Medical History (Updated 05/13/21 @ 10:13 by Colin Espinosa NP) Epilepsy History of open sigmoidectomy Hypercholesterolemia Hypertension Hyponatremia Hypothyroidism Hypoxia Iron deficiency anemia Morbid obesity with BMI of 40.0-44.9, adult Polyp, sigmoid colon Post-menopausal Seizure Surgical History Surgical History (System 09/26/20 @ 14:05 by Imelda Wood) H/O gastric bypass early 70s History of colonoscopy 2020 last one could be 5+ years ago Presence of ankle implant X2 S/P laparoscopic-assisted sigmoidectomy JEREMY sigmoidectomy with colorectal anastomosis 11/29/19 Family History Family History (System 09/26/20 @ 14:05 by Imelda Wood) Father Cancer Cerebrovascular accident Hypertension Mother Breast cancer Lung cancer Diabetes mellitus Hypertension Polymyositis Sibling Hypertension Polymyositis Sibling COPD (chronic obstructive pulmonary disease) Hypertension Social History Social History (System 09/26/20 @ 14:05 by Imelda Wood) Social History: Patient denies smoking, drinking or using drugs Smoking status: Never smoker Second hand tobacco smoke exposure: No Alcohol intake: never Substance use: never Additional living arrangements comments: lives at [place] Gender identity (if verbalized by the patient): Female Spiritual care concerns: No Agree to blood products: Yes Comments At time as signature, I have reviewed and agree with nursing past medical, social, surgical and family history. Please see nursing chart for further information. There is no relevant family history pertinent to the presenting complaint. Exam Narrative: GENERAL:Well-appearing, well-nourished, and in no acute distress. HEAD:Normocephalic, atraumatic. EYES: PERRLA and EOMI. ENT: Nares clear, no rhinorrhea or epistaxis. Mucous membranes moist. NECK: Supple. CHEST: Clear to auscultation. No respiratory distress. HEART: Regular rate and rhythm. ABDOMEN: Soft, nontender, nondistended, normal active bowel sounds. EXTREMITIES: Normal range of motion. No edema.
== END 2021-05-13 10:39 | disposition home or self-care (01) ==
PROVIDERS: Emergency Provider Nurse Practitioner Family; PCP Emergency Medicine
DX: L02.811 Cutaneous abscess of head [any part, except face] (principal); G40.909 Epilepsy, unspecified, not intractable, without status epilepticus; E78.00 Pure hypercholesterolemia, unspecified; I10 Essential (primary) hypertension; E03.9 Hypothyroidism, unspecified; D50.9 Iron deficiency anemia, unspecified; E66.01 Morbid (severe) obesity due to excess calories; Z68.41 Body mass index [BMI] 40.0-44.9, adult; Z98.84 Bariatric surgery status
CPT/HCPCS: 10060; 87070; 87075; 87147; 87186; 87205; 99213; G0463

== ENCOUNTER 2021-07-11 17:45 | Emergency (ER) | payer OTHER, SELFPAY ==
[2021-07-11 17:56] VITALS: BP 139/78; PULSE 62; RESP 20; TEMP 36.2; O2SAT 100
--- NOTE | 2021-07-11 18:26 | ED.HA ---
HPI - Headache General Chief Complaint: Headache Stated Complaint: jaimes Time Seen by Provider: 07/11/21 18:28 Source: patient Mode of arrival: ambulatory Limitations: no limitations History of Present Illness HPI Narrative: Keely Perkins is a 66 yo female with a PMH of high cholesterol, seizures, hypothyroid, HTN, who comes to [facility] with headache. She had nosebleed for 1 hour and a half on Wednesday blood pressure check and was within normal range Related Data Home Medications Medication Instructions Recorded Confirmed melatonin 10 mg PO HS 08/31/19 05/13/21 biotin 5,000 mcg sublingual tablet 10,000 mcg SUBLINGUAL DAILY 10/30/19 05/13/21 calcium carbonate 600 mg calcium 600 mg PO DAILY 10/30/19 05/13/21 (1,500 mg) tablet atorvastatin 40 mg HS 09/23/20 05/13/21 divalproex 500 mg PO BID 09/23/20 05/13/21 furosemide 20 mg DAILY 09/23/20 05/13/21 metoprolol succinate 25 mg PO BID 09/23/20 05/13/21 Allergies Allergy/AdvReac Type Severity Reaction Status Date / Time codeine Allergy Intermediate Hives Verified 07/11/21 18:26 latex Allergy Unknown Hives Verified 07/11/21 18:26 Review of Systems Review of Systems: CONSTITUTIONAL: Denies fever, chills, sweats. EYES: Denies visual changes, redness, discharge. ENT: Denies rhinorrhea, congestion, sore throat, otalgia. CARDIOVASCULAR: Denies chest pain, palpitations, edema. RESPIRATORY: Denies dyspnea, wheezing, cough GASTROINTESTINAL: Denies abdominal pain, nausea, vomiting, diarrhea. GENITOURINARY: Denies dysuria, hematuria, abnormal discharge SKIN: Denies rash or itching. Had a nosebleed on Wednesday, now has a headache that has been there since the NEUROLOGIC: Denies numbness, or focal weakness. PSYCHIATRIC: Denies anxiety or depression. [facility] Past Medical History Medical History Epilepsy History of open sigmoidectomy Hypercholesterolemia Hypertension Hyponatremia Hypothyroidism Hypoxia Iron deficiency anemia Morbid obesity with BMI of 40.0-44.9, adult Polyp, sigmoid colon Post-menopausal Seizure Surgical History Surgical History H/O gastric bypass early 70s History of colonoscopy 2020 last one could be 5+ years ago Presence of ankle implant X2 S/P laparoscopic-assisted sigmoidectomy JEREMY sigmoidectomy with colorectal anastomosis 11/29/19 Family History Family History Father Cancer Cerebrovascular accident Hypertension Mother Breast cancer Lung cancer Diabetes mellitus Hypertension Polymyositis Sibling Hypertension Polymyositis Sibling COPD (chronic obstructive pulmonary disease) Hypertension Social History Social History Social History: Patient denies smoking, drinking or using drugs Smoking status: Never smoker Second hand tobacco smoke exposure: No Alcohol intake: never Substance use: never Additional living arrangements comments: lives at [place] Gender identity (if verbalized by the patient): Female Spiritual care concerns: No Agree to blood products: Yes Comments At time of signature, I agree with nursing past medical, surgical, social and family history. There is no relevant family history pertinent to the presenting complaint. Exam Narrative: GENERAL: This is a well-nourished, well-developed patient, in mild distress. HEAD: normocephalic, atraumatic. EYES: PERRL. Sclera clear/white. Vision is grossly intact. Cranial nerves grossly intact EARS: External ears normal, auditory canals clear . Hearing grossly intact. NOSE: External nose normal without nasal discharge, nares without redness, no rhinorrhea. THROAT: Mucous membranes moist, NECK: Neck supple, non-tender CARDIOVASCULAR: Regular rate and rhythm without murmurs, gallops, or rubs. RESPIRATORY: Clear to auscultation
== END 2021-07-11 18:55 | disposition short-term general hospital (02) ==
PROVIDERS: Emergency Provider Nurse Practitioner
DX: R51.9 Headache, unspecified (principal); E78.00 Pure hypercholesterolemia, unspecified; I10 Essential (primary) hypertension; E03.9 Hypothyroidism, unspecified; D50.9 Iron deficiency anemia, unspecified; E66.01 Morbid (severe) obesity due to excess calories; Z68.37 Body mass index [BMI] 37.0-37.9, adult
CPT/HCPCS: 99212; G0463

== ENCOUNTER 2021-07-11 19:16 | Emergency (ER) | payer OTHER, SELFPAY ==
--- NOTE | ~2021-07-11 | CT_ITS ---
EXAMINATION: CT brain wo con DATE: 07/11/2021 22:53 INDICATION: Left-sided headache. TECHNIQUE: Computed tomography (CT) of the head was performed without intravenous contrast. The mA wa s adjusted according to patient size. Iterative reconstruction technique was employed. The dose-lengt h product was 605.33 mGy-cm. COMPARISON: Head CT 11/22/2015 FINDINGS: There is diffuse brain volume loss. There are scattered areas of low attenuation in the cer ebral white matter, which is within normal limits for the patient's age. There is no intracranial hem orrhage, acute infarction, or abnormal intracranial mass lesion. The ventricles are normal in size. T here is mucosal thickening in the paranasal sinuses with thickening and sclerosis of the sinus clinton, consistent with chronic sinusitis. There are changes of ethmoidectomies. The mastoid air cells are n ormal. The orbits are normal. IMPRESSION: 1. Normal aging brain. 2. Chronic sinusitis. Reviewed, dictated and finalized at location A.
[2021-07-11 19:42] VITALS: BP 163/65; PULSE 62; RESP 18; TEMP 36.2; O2SAT 100
--- NOTE | 2021-07-11 21:36 | ED.HA ---
HPI - Headache General Chief Complaint: Headache Stated Complaint: headache x 5 days sent from urgent care Time Seen by Provider: 07/11/21 21:21 Source: patient Mode of arrival: ambulatory Limitations: no limitations History of Present Illness HPI Narrative: This is a 66 year old female presents for evaluation of headache. Patient states starting on Wednesday she develop left frontal headache and eye pain. She reports pain is constant throbbing pain. She has been taking tylenol for her pain without relief. She denies associated nausea, vomiting or fever. She states this all started at same time as a nose bleed. Her bleeding only lasted 1 hours and it has not returned since. She reports mild blurred vision. She denies focal deficits. Related Data Allergies Allergy/AdvReac Type Severity Reaction Status Date / Time codeine Allergy Rash Verified 07/11/21 21:56 latex Allergy Rash Verified 07/11/21 21:56 Review of Systems Review of Systems: All systems reviewed & are unremarkable except as noted in HPI and below PMFSH Past Medical History Medical History (Updated 07/12/21 @ 01:39 by Carline Regalado MD) Chronic headache Hypertension Hypothyroid Insomnia Seizure disorder Social History Social History (System 09/26/20 @ 14:05 by Imelda Wood) Social History: Patient denies smoking, drinking or using drugs Second hand tobacco smoke exposure: No Exam Const: General: no acute distress and alert Orientation/consciousness: patient oriented x3 HENMT: Head: normocephalic, atraumatic and no temporal artery tenderness Face and sinus: normal facial exam, sinuses nontender and face symmetric Mouth: Yes Normal oral and palatal mucosa present, Yes lip normal, Yes oropharynx normal and Yes moist mucous membranes Eyes: Conjunctivae: conjunctivae normal Pupils: Equal, round and reactive pupils present EOM: EOMs intact bilaterally Other: IOP right- 17, left -14 Chest: Chest palpation & inspection: normal inspection of the chest Resp: Effort & Inspection: normal respiratory effort and no retractions Auscultation: clear to auscultation bilaterally Cardio: Rate: regular rate Rhythm: regular rhythm Heart sounds: no murmurs GI: GI Palp: Yes Soft to palpation, No Tenderness to palpation present (GI) and No Guarding due to palpation present (GI) Auscultation: normal bowel sounds Skin: General skin exam: normal color Rashes: no rashes Neuro: General: patient oriented x3, moves all extremities and CN's II-XI intact bilaterally Psych: Mental Status: mental status grossly normal Affect: normal affect Course Reevaluation(s) Reevaluation #1: I discussed with patient CT findings. I discussed reasoning behind ordering CTA brain . I discussed with her symptoms I was evaluating for possible venous thrombosis as cause of her pain. I Discussed risk of not performing CTA and she states she understands risk of not getting diagnosis and treatment. She is signing AMA . Date: 07/12/21 Time: 01:10 Vital Signs Vital signs: Vital Signs Temperature 97.2 F L 07/11/21 19:42 Pulse Rate 62 07/11/21 19:42 Respiratory Rate 18 07/11/21 19:42 Blood Pressure 163/65 H 07/11/21 19:42 Pulse Oximetry 100 07/11/21 19:42 Temperature 98.3 F 07/11/21 21:45 Pulse Rate 68 07/12/21 00:53 Respiratory Rate 18 07/12/21 00:53 Blood Pressure 167/73 H 07/12/21 00:53 Pulse Oximetry 100 07/12/21 00:53 MDM - Headache Lab Data Attestation: I reviewed the patient's lab results. Result diagrams: 07/11/21 21:40 07/11/21 22:25 Labs: Lab Results 07/11/21 07/11/21 07/11/21 Range/Units 21:40 21:40 21:40 WBC 5.4 (4.5-10.0) K/mm3 RBC 4.01 L (4.2-5.4) M/mm3 Hgb 12.5 (12.0-15.0) g/dL Hct 41.6 (37.0-47.0) % MCV 103.7 H (80-100) fl MCH 31.2 (26-34) pg MCHC 30.0 L (32-36) g/dl RDW 13.7 (11.5-14.5) % Plt Count 137 L (150-
[2021-07-11 21:45] VITALS: BP 162/70; PULSE 70; RESP 18; TEMP 36.8; O2SAT 99
[2021-07-11 21:55] LABS: INR 0.9; Prothrombin Time 12.4 Seconds (11.1-14.7)
[2021-07-11 21:56] LABS: Partial Thromboplastin Time 27.8 SECONDS (22.3-36.8)
[2021-07-11 22:01] LABS: Basophils Percent Auto 0.6 % (0.2-1.2); Eosinophils Absolute Auto 0.1 K/mm3 (0-0.3); Hematocrit 41.6 % (37.0-47.0); Hemoglobin 12.5 g/dL (12.0-15.0); Immature Granulocyte Absolute 0.03 K/mm3 (0.00-0.031); Immature Granulocyte Percent A 0.6 % (0-0.5); Lymphocytes Absolute Auto 1.62 K/mm3 (0.9-3.2); Lymphocytes Percent Auto 29.8 % (18.3-44.2); Mean Corpuscular Hemoglobin 31.2 pg (26-34); Mean Corpuscular Volume 103.7 fl (80-100); Monocytes Absolute Auto 0.8 K/mm3 (0.1-0.6); Monocytes Percent Auto 15.1 % (2.6-8.5); Neutrophils Absolute Auto 2.8 K/mm3 (1.3-6.7); Neutrophils Percent Auto 51.9 % (45.5-73.1); Platelet Count Result 137 k/mm3 (150-375); Red Blood Count 4.01 M/mm3 (4.2-5.4); Red Cell Distribution Width 13.7 % (11.5-14.5); White Blood Count 5.4 K/mm3 (4.5-10.0)
[2021-07-11 22:54] LABS: Alanine Aminotransferase 12 U/L (4-35); Albumin Level 3.8 g/dL (3.5-5.1); Alkaline Phosphatase 95 U/L (38-126); Anion Gap 8 mmol/L (8-16); Aspartate Amino Transferase 19 U/L (14-36); Bilirubin,Total 0.3 mg/dL (0.2-1.3); Blood Urea Nitrogen 20 mg/dL (7-17); CRP 8.5 mg/dL (<1.0); Calcium 9.3 mg/dL (8.4-10.2); Carbon Dioxide 21 mmol/L (22-30); Chloride 105 mmol/L (98-107); Estimated CRCL calculation 51 ml/min; Estimated Glomerular Filt Rate > 60; Glucose 103 mg/dL (65-110); Potassium 4.9 mmol/L (3.4-5.0); Sodium 134 mmol/L (137-145)
[2021-07-11 23:28] LABS: Erythrocyte Sedimentation Rate 53 mm/hr (0-20)
[2021-07-11] MEDS: SODIUM CHLORIDE 0.9% IV 500 ML 999 ML IV CONT (23:52)
[2021-07-11] MEDS: METOCLOPRAMIDE HCL INJ 10 MG/2 ML VIAL IV PUSH (23:53)
[2021-07-11] MEDS: KETOROLAC 30 MG/ML VIAL (*BKC) IV PUSH (23:55)
[2021-07-11] MEDS: diphenhydrAMINE HCl INJ 50 MG/ML VIAL 25 MG IV PUSH (23:56)
[2021-07-12 00:53] VITALS: BP 167/73; PULSE 68; RESP 18; O2SAT 100
== END 2021-07-12 01:58 | disposition left against medical advice (07) ==
PROVIDERS: Emergency Provider General Practice; PCP Emergency Medicine
DX: R51.9 Headache, unspecified (principal); I10 Essential (primary) hypertension; E03.9 Hypothyroidism, unspecified; G40.909 Epilepsy, unspecified, not intractable, without status epilepticus; J32.9 Chronic sinusitis, unspecified
CPT/HCPCS: 36415; 70450; 80053; 85025; 85610; 85652; 85730; 86140; 96361; 96374; 96375; 99284; J1200; J1885; J2765; J7040

== ENCOUNTER 2021-08-31 14:21 | Emergency (ER) | payer OTHER, SELFPAY ==
--- NOTE | 2021-08-31 14:23 | ED.DENTAL ---
HPI - Dental/Oral General Chief complaint: Dental/Oral Stated complaint: left cheek swelling/tooth pain Time Seen by Provider: 08/31/21 14:23 Source: patient, family and RN notes reviewed History of Present Illness HPI Narrative: Patient is a 66-year-old female who presents the urgent care with her sister with complaints of left-sided facial swelling and left lower dental pain. Patient states that it started last night and progressively got worse this morning. Patient has taken Tylenol. Denies of any fever, chills, nausea, vomiting. Patient does not have a dentist but plans to try to obtain a dentist due to her chronic on and off lower left dental pain. No other acute complaints. No acute distress noted. Patient and sister aware of the plan of care. Some parts of this dictation were generated by voice recognition software and may contain typographical and/or grammatical inaccuracies. Related Data Home Medications Medication Instructions Recorded Confirmed melatonin 10 mg PO HS 08/31/19 07/14/21 biotin 5,000 mcg sublingual tablet 10,000 mcg SUBLINGUAL DAILY 10/30/19 07/14/21 calcium carbonate 600 mg calcium 600 mg PO DAILY 10/30/19 07/14/21 (1,500 mg) tablet atorvastatin 40 mg HS 09/23/20 07/14/21 furosemide 20 mg DAILY 09/23/20 07/14/21 metoprolol succinate 25 mg PO BID 09/23/20 07/14/21 triamcinolone acetonide TOPICAL 08/31/21 Allergies Allergy/AdvReac Type Severity Reaction Status Date / Time codeine Allergy Intermediate Hives Verified 07/14/21 14:04 latex Allergy Unknown Hives Verified 07/14/21 14:04 Review of Systems Review of Systems: CONSTITUTIONAL: Denies fever, chills, or sweats. EYES: Denies visual changes, redness, or discharge. ENT: Denies rhinorrhea, congestion, sore throat, or otalgia. Reports of left-sided facial swelling and left lower dental pain CARDIOVASCULAR: Denies chest pain, palpitations, or edema. RESPIRATORY: Denies cough or dyspnea. GASTROINTESTINAL: Denies abdominal pain, nausea, vomiting, or diarrhea. GENITOURINARY: Denies dysuria or hematuria. SKIN: Denies rash or itching. MUSCULOSKELETAL: Denies back pain, joint pain, or myalgia. NEUROLOGIC: Denies headache, numbness, or weakness. All other systems reviewed are negative, except as documented in HPI. [facility] Past Medical History Medical History Epilepsy History of open sigmoidectomy Hypercholesterolemia Hypertension Hyponatremia Hypothyroidism Hypoxia Iron deficiency anemia Morbid obesity with BMI of 40.0-44.9, adult Polyp, sigmoid colon Post-menopausal Seizure Surgical History Surgical History H/O gastric bypass early 70s History of colonoscopy 2020 last one could be 5+ years ago Presence of ankle implant X2 S/P laparoscopic-assisted sigmoidectomy JEREMY sigmoidectomy with colorectal anastomosis 11/29/19 Family History Family History Father Cancer Cerebrovascular accident Hypertension Mother Breast cancer Lung cancer Diabetes mellitus Hypertension Polymyositis Sibling Hypertension Polymyositis Sibling COPD (chronic obstructive pulmonary disease) Hypertension Social History Social History Social History: Patient denies smoking, drinking or using drugs Smoking status: Never smoker Second hand tobacco smoke exposure: No Alcohol intake: never Substance use: never Additional living arrangements comments: lives at [facility] Gender identity (if verbalized by the patient): Female Spiritual care concerns: No Agree to blood products: Yes Comments At the time of my signature, I reviewed and agree with the nursing past medical, surgical, social, and family history. There is no relevant family history pertinent to the patient complaint. Exam Narrative: GENERAL: This is a well-nourishe
[2021-08-31 14:30] VITALS: BP 141/73; PULSE 80; RESP 16; TEMP 37.2; O2SAT 98
== END 2021-08-31 14:56 | disposition home or self-care (01) ==
PROVIDERS: Emergency Provider Nurse Practitioner Family; PCP Emergency Medicine
DX: K04.7 Periapical abscess without sinus (principal); E78.00 Pure hypercholesterolemia, unspecified; I10 Essential (primary) hypertension; D50.9 Iron deficiency anemia, unspecified; E03.9 Hypothyroidism, unspecified; E66.01 Morbid (severe) obesity due to excess calories; Z68.39 Body mass index [BMI] 39.0-39.9, adult
CPT/HCPCS: 99213; G0463

== ENCOUNTER 2021-09-01 15:12 | Outpatient (CLI) | payer OTHER, SELFPAY ==
--- NOTE | ~2021-09-01 | US_ITS ---
EXAMINATION: US soft tissue head and neck DATE: 09/01/2021 15:40 INDICATION: Posterior scalp mass. TECHNIQUE: Multiple grayscale and Doppler ultrasound images of the head and neck were obtained. COMPARISON: Head CT 07/11/2021, 11/22/2015 FINDINGS: In the posterior scalp, there is a 14 x 12 x 28 mm subcutaneous mixed cystic and solid hypo echoic mass. In the posterior scalp on the right, there is a 7 mm hypoechoic subcutaneous mass. IMPRESSION: 1. Subcutaneous masses in the posterior scalp, most likely inflamed sebaceous cysts and/or hematomas. Reviewed, dictated and finalized at location A. IM ADVOCATE IMPRESSION: 1. Subcutaneous masses in the posterior scalp, most likely inflamed sebaceous c ysts and/or hematomas.
== END 2021-09-01 15:13 | disposition home or self-care (01) ==
LOC: ANHIMG 15:17
PROVIDERS: PCP Emergency Medicine; Visit Provider Emergency Medicine
DX: R22.0 Localized swelling, mass and lump, head (principal)
CPT/HCPCS: 76536

== ENCOUNTER 2021-10-02 11:19 | Outpatient (CLI) | payer OTHER, SELFPAY ==
[2021-10-02 11:49] LABS: Basophils Absolute Auto 0.1 K/mm3 (0.0-0.1); Basophils Percent Auto 0.6 % (0.2-1.2); Eosinophils Absolute Auto 0.1 K/mm3 (0-0.3); Eosinophils Percent Auto 1.2 % (0-4.4); Hematocrit 34.1 % (37.0-47.0); Hemoglobin 10.3 g/dL (12.0-15.0); Immature Granulocyte Absolute 0.05 K/mm3 (0.00-0.031); Immature Granulocyte Percent A 0.6 % (0-0.5); Lymphocytes Percent Auto 23.5 % (18.3-44.2); Mean Corpuscular HGB Conc 30.2 g/dl (32-36); Mean Corpuscular Hemoglobin 30.6 pg (26-34); Mean Corpuscular Volume 101.2 fl (80-100); Mean Platelet Volume 9.5 fl (7.4-10.4); Monocytes Absolute Auto 0.8 K/mm3 (0.1-0.6); Monocytes Percent Auto 10.3 % (2.6-8.5); Neutrophils Absolute Auto 5.2 K/mm3 (1.3-6.7); Neutrophils Percent Auto 63.8 % (45.5-73.1); Platelet Count Result 263 k/mm3 (150-375); Red Blood Count 3.37 M/mm3 (4.2-5.4); White Blood Count 8.1 K/mm3 (4.5-10.0)
[2021-10-02 11:53] LABS: Blood Urea Nitrogen 15 mg/dL (8-26); Carbon Dioxide 23 mmol/L (22-30); Chloride 105 mmol/L (98-109); Estimated Glomerular Filt Rate > 60; Glucose 91 mg/dL (70-105); Sodium 135 mmol/L (138-146)
[2021-10-02 14:20] LABS: Iron 75 ug/dL (37-170)
[2021-10-02 14:29] LABS: Percent Iron Saturation 37 % (20-50)
[2021-10-02 15:27] LABS: Folic Acid 6.3 ng/mL (2.76->20); Vitamin B12 > 1000.0 pg/mL (239-931)
== END 2021-10-02 11:20 | disposition home or self-care (01) ==
LOC: ANHLAB 11:23
PROVIDERS: PCP Emergency Medicine; Visit Provider Internal Medicine Hematology & Oncology
DX: D64.9 Anemia, unspecified (principal)
CPT/HCPCS: 36415; 80048; 82607; 82746; 83540; 83550; 85025

== ENCOUNTER 2021-11-19 01:53 | Day surgery (SDC) | payer OTHER, SELFPAY ==
[2021-11-10 09:26] VITALS: BMI 61.4
--- NOTE | 2021-11-10 09:50 | PC.NURSE ---
Report to the Outpatient Waiting Room, entrance under the green pavilion located off [facility], at time _0800_ on date _11/19/21_. OR Time: _1000__. - You will be asked a series of questions to screen for COVID 19 for your protection. - A mask is required within the hospital. - No visitors are allowed at this time. Preoperative COVID Testing Requirements: NONE Patients may have clear liquids (water, carbonated beverages, clear teas, apple juice) until 3 hours prior to surgery (0700 AM) with a maximum of 20 ounces. - No food from midnight until time of surgery Take the following medications with a SIP of water the morning of surgery: _DIVALPROEX, LEVOTHYROXINE, LIOTHYRONINE, METOPROLOL_ Medications to discontinue per physician __ALL VITAMINS AND SUPPLEMENTS 3 DAYS PRIOR TO SURGERY___ Date to take last dose 11/15/21 Please no make-up, nail mexican, hairspray, perfume, deodorant, or body powder the day of surgery. No jewelry (including any body piercings) or valuables the day of surgery, leave them at home. Please take a shower or bath the night before, or the morning of, surgery with an antibacterial soap. Wear comfortable, loose fitting clothing. - Jewelry must be removed prior to entering the operating room. Rings and piercings that are not removed may be cut off. - The hospital will not accept responsibility for valuables. - Please leave all valuables, including medications, at home the day of surgery. If you are going home after surgery, a licensed class a regional truck driver must drive you home. - NO public transportation without another adult. - We recommend that an adult stay with you for 24 hours following discharge. - We also recommend that you do not drive, make important decision, drink alcoholic beverages, or take any drugs that were not prescribed by your health care provider for at least 24 hours after your discharge time. Follow any additional instructions given to you from your surgeon. Telephone instructions given to __PT'S SISTER Hernando AZEVEDO and asked if any additional questions and then verbalized understanding. Patient advised to call surgeon office or pre surgery nurse liaison [phone] if any additional questions.
--- NOTE | 2021-11-18 14:16 | PM.SD2 ---
Same Day Admit/Disch: HPI History of Present Illness Chief complaint: scalp cyst Narrative: Keely Perkins is a 66 year old female Whom I know from previous sigmoidectomy for a benign polyp 2 years ago. She has seizure disorder and other medical problems. She is not able to live independently and resides at [facility]. She noticed about 6 months ago subcutaneous nodules at the posterior and lower scalp. These were tender and 3 months ago she had 1 of these drained at an urgent care center. The drainage plus antibiotics have reduced the cysts in size but they still are sometimes painful. She had an ultrasound on September 01 which showed a 2.8 cm subcutaneous mass likely cyst. After being seen in the office, she is taken to surgery now for excision of the remnants of scalp cysts. [facility] Past Medical History Medical History Chronic headache Epilepsy History of open sigmoidectomy Hypercholesterolemia Hypertension Hypertension Hyponatremia Hypothyroid Hypothyroidism Hypoxia Insomnia Iron deficiency anemia Morbid obesity with BMI of 40.0-44.9, adult Polyp, sigmoid colon Post-menopausal Seizure Seizure disorder Surgical History Surgical History H/O gastric bypass early 70s History of colonoscopy 2020 last one could be 5+ years ago Presence of ankle implant X2 S/P laparoscopic-assisted sigmoidectomy JEREMY sigmoidectomy with colorectal anastomosis 11/29/19 Family History Family History Father Cancer Cerebrovascular accident Hypertension Mother Breast cancer Lung cancer Diabetes mellitus Hypertension Polymyositis Sibling Hypertension Polymyositis Sibling COPD (chronic obstructive pulmonary disease) Hypertension Social History Social History Social History: Patient denies smoking, drinking or using drugs Smoking status: Never smoker Second hand tobacco smoke exposure: No Alcohol intake: never Substance use: never Substance use type: does not use Living arrangements: alone Additional living arrangements comments: [facility] Gender identity (if verbalized by the patient): Female Spiritual care concerns: No Agree to blood products: Yes Same Day Admit/Disch: Med Pre-admit Medications Home Medications Medication Instructions Recorded Confirmed Type melatonin 10 mg PO HS 08/31/19 11/10/21 History biotin 5,000 mcg sublingual tablet 10,000 mcg SUBLINGUAL DAILY 10/30/19 11/10/21 History calcium carbonate 600 mg calcium 600 mg PO DAILY 10/30/19 11/10/21 History (1,500 mg) tablet atorvastatin 40 mg HS 09/23/20 11/10/21 History furosemide 20 mg DAILY 09/23/20 11/10/21 History metoprolol succinate 25 mg PO BID 09/23/20 11/19/21 History levothyroxine 137 mcg tablet 137 mcg PO DAILY #30 tablet 11/05/20 11/19/21 Rx enalapril maleate 10 mg tablet 10 mg PO DAILY #30 tablet 05/15/21 11/10/21 Rx divalproex 500 mg tablet,delayed See Rx Instructions .ROUTE 07/21/21 11/19/21 Rx release .COMPLEX #120 tablet amitriptyline 25 mg tablet See Rx Instructions .ROUTE 07/31/21 11/10/21 Rx .COMPLEX #60 tablet phenobarbital 64.8 mg tablet 129.6 mg PO HS #60 tablet 08/13/21 11/10/21 Rx triamcinolone acetonide 0.1 applic TOPICAL PRN PRN 08/31/21 11/10/21 History liothyronine 5 mcg BID 11/10/21 11/10/21 History trazodone 150 mg PO HS PRN 11/10/21 11/10/21 History tramadol 50 mg PO Q6H PRN #10 tablet 11/19/21 Rx Exam Const: General: comfortable, no acute distress, alert and awake HENMT: Head: normocephalic and atraumatic Mouth: Yes Normal oral and palatal mucosa present Eyes: Conjunctivae: conjunctivae normal Pupils: Equal, round and reactive pupils present EOM: EOMs intact bilaterally Neck: Neck: normal visual inspection, no l
[2021-11-19 08:00] VITALS: BP 148/63; PULSE 60; RESP 18; TEMP 36.1; O2SAT 100; BMI 40.8
[2021-11-19] MEDS: ACETAMINOPHEN 500 MG TABLET 1000 MG PO (08:00)
--- NOTE | 2021-11-19 08:09 | WPDHPUPDATE1 ---
History and Physical Update Update Date/Time: 11/19/21 08:09 History and Physical has been reviewed, including an updated exam of the patient. There are NO changes in the patient's condition. Risks, benefits, and alternatives have been discussed and questions answered. Patient agrees to proceed with procedure.
[2021-11-19] MEDS: LACTATED RINGERS 1,000 ML 30 ML IV CONT (09:00)
--- NOTE | 2021-11-19 09:29 | WPDANESEPPF ---
Anes - Initial Pre Proc Eval Procedure: Operation Date: 11/19/21 10:00 Proposed Procedures p Excision of Posterior Scalp Cyst - Blake Fishman MD Date/Time: 11/19/21 09:29 Surgeon: Blake Fishman MD Pre Op Diagnosis: scalp cyst Patient Data Age: 66 Gender: F Height: 1.5 m Weight: 91.6 kg Last Vital Signs Temp 36.1 C L 11/19/21 08:00 Pulse 60 11/19/21 08:00 Resp 18 11/19/21 08:00 BP 148/63 H 11/19/21 08:00 Pulse Ox 100 11/19/21 08:00 Allergies Allergy/AdvReac Type Severity Reaction Status Date / Time codeine Allergy Intermediate Hives Verified 11/19/21 08:42 latex Allergy Unknown Hives Verified 11/19/21 08:42 Home Medications Medication Instructions Recorded Confirmed Type melatonin 10 mg PO HS 08/31/19 11/10/21 History biotin 5,000 mcg sublingual tablet 10,000 mcg SUBLINGUAL DAILY 10/30/19 11/10/21 History calcium carbonate 600 mg calcium 600 mg PO DAILY 10/30/19 11/10/21 History (1,500 mg) tablet atorvastatin 40 mg HS 09/23/20 11/10/21 History furosemide 20 mg DAILY 09/23/20 11/10/21 History metoprolol succinate 25 mg PO BID 09/23/20 11/19/21 History levothyroxine 137 mcg tablet 137 mcg PO DAILY #30 tablet 11/05/20 11/19/21 Rx enalapril maleate 10 mg tablet 10 mg PO DAILY #30 tablet 05/15/21 11/10/21 Rx divalproex 500 mg tablet,delayed See Rx Instructions .ROUTE 07/21/21 11/19/21 Rx release .COMPLEX #120 tablet amitriptyline 25 mg tablet See Rx Instructions .ROUTE 07/31/21 11/10/21 Rx .COMPLEX #60 tablet phenobarbital 64.8 mg tablet 129.6 mg PO HS #60 tablet 08/13/21 11/10/21 Rx triamcinolone acetonide 0.1 applic TOPICAL PRN PRN 08/31/21 11/10/21 History liothyronine 5 mcg BID 11/10/21 11/10/21 History trazodone 150 mg PO HS PRN 11/10/21 11/10/21 History Patient hx anesthesia problems: none Family hx anesthesia problems: none Results Review: All pre-operative results and documents have been reviewed as part of the pre-operative evaluation. [facility] Past Medical History Medical History Chronic headache Epilepsy History of open sigmoidectomy Hypercholesterolemia Hypertension Hypertension Hyponatremia Hypothyroid Hypothyroidism Hypoxia Insomnia Iron deficiency anemia Morbid obesity with BMI of 40.0-44.9, adult Polyp, sigmoid colon Post-menopausal Seizure Seizure disorder Surgical History Surgical History H/O gastric bypass early 70s History of colonoscopy 2020 last one could be 5+ years ago Presence of ankle implant X2 S/P laparoscopic-assisted sigmoidectomy JEREMY sigmoidectomy with colorectal anastomosis 11/29/19 Family History Family History Father Cancer Cerebrovascular accident Hypertension Mother Breast cancer Lung cancer Diabetes mellitus Hypertension Polymyositis Sibling Hypertension Polymyositis Sibling COPD (chronic obstructive pulmonary disease) Hypertension Social History Social History Social History: Patient denies smoking, drinking or using drugs Smoking status: Never smoker Second hand tobacco smoke exposure: No Alcohol intake: never Substance use: never Substance use type: does not use Living arrangements: alone Additional living arrangements comments: [facility] Gender identity (if verbalized by the patient): Female Spiritual care concerns: No Agree to blood products: Yes Anes - Eval Final PreProcedure Day of Procedure 11/19/21 09:29 Patient weight: obese Heart: regular rate and rhythm Lungs: clear to auscultation Airway: Mallampati scale class II Neurological: alert and oriented Last oral intake: >/= 8 hours ASA classification: III Emergent: no Anesthetic plan: proceed Anesthesia type and monitoring: general GIVS and standard monitoring
[2021-11-19] MEDS: ceFAZolin 2 GM/D5W 50 ML 2 GM/50 ML BAG IVPB (10:15)
[2021-11-19] MEDS: BUPIVACAINE/EPINEPHRINE 0.5% 10 ML VIAL INFILTRATE (10:56)
[2021-11-19 11:02] VITALS: BP 108/60; PULSE 68; RESP 16
--- NOTE | 2021-11-19 11:04 | P.OP_ITS ---
Procedure Note - Detailed Date of Procedure 11/19/21 Pre-op Diagnosis scalp cyst Post-op Diagnosis same Procedure Performed Excision of 4.1 cm posterior scalp cyst with 2 mm margins. 4.5 cm excision. Surgeon Blake Fishman MD Lining Strap Closer Meenakshi Koch MACHINE DYER Anesthesia MAC and local (0.5% Marcaine with epinephrine) Indications The patient is disabled due to seizure disorder. She resides in a nursing facility. She has a history of infected posterior scalp cysts which had to be drained at an urgent care center. An ultrasound had shown these cysts. She was seen in the office and cyst remnants along with a scar were noted. She is taken to surgery now to excise these cyst remnants to avoid recurrence of the cyst and cyst infection. Findings No real cyst material was noted although the scar was noted as well as some bumps in the superficial skin. Description of Procedure The patient was checked in the preoperative holding area. It was difficult to find the area of the scar and cyst remnants. This had been relatively easy in the office. Eventually these were found. They were marked on the scalp. The patient was then taken to surgery and placed in right lateral decubitus position. Some of the hair over the area was clipped heard away. Residual hair was retracted out of the way. Prep and drape was carried out. A 4.5 cm ellipse was drawn around the area of the old scar. The area of the scar was 4.1 cm and excision would give at least 2 mm margins all around the area of the previous cyst. Local anesthetic was then infiltrated in the area of the ellipse and the deeper subcutaneous tissues. Incision was made through the skin and then into the subcutaneous taking subcutaneous and skin throughout the area that had been marked previously. No cyst wall or cyst material was noted at the lines of resection. This was passed off to pathology in formalin. The wound was made hemostatic with the cautery. I undermined some of the subcutaneous on the caudal margin of the excision to increase the mobility of the skin here. I then closed the wound with vertical mattress suture of 2-0 nylon in interrupted fashion. The wound was dressed with antibiotic ointment. The patient was returned to a supine position, awakened and taken to outpatient surgery in good condition. Counts were correct x2. Estimated Blood Loss -5 Drains No Packing No Pathology yes (Scalp cyst remnants) Complications No immediate complications Condition stable Disposition same day
[2021-11-19 11:30] VITALS: BP 130/58; PULSE 58
[2021-11-19 11:45] VITALS: BP 123/56; PULSE 55
== END 2021-11-19 12:05 | disposition home or self-care (01) ==
PROVIDERS: PCP Emergency Medicine; Visit Provider Surgery
PROC: (CPT 11426; principal; 2021-11-19 10:00)
DX: L90.5 Scar conditions and fibrosis of skin (principal); G40.909 Epilepsy, unspecified, not intractable, without status epilepticus; I10 Essential (primary) hypertension; E78.00 Pure hypercholesterolemia, unspecified; E03.9 Hypothyroidism, unspecified; D50.9 Iron deficiency anemia, unspecified; E66.01 Morbid (severe) obesity due to excess calories; Z68.41 Body mass index [BMI] 40.0-44.9, adult; Z98.84 Bariatric surgery status; Z98.0 Intestinal bypass and anastomosis status; Z90.49 Acquired absence of other specified parts of digestive tract
CPT/HCPCS: 11426; 88305; A9270; J0690; J2250; J2704; J3010; J7120

== ENCOUNTER 2022-01-14 08:42 | Outpatient (CLI) | payer OTHER, SELFPAY ==
--- NOTE | ~2022-01-14 | CT_ITS ---
Macro CT muscle skeletal EXAMINATION: CT pelvis wo con DATE: 01/14/2022 09:14 INDICATION: Localized swelling, mass and lump. TECHNIQUE: High resolution computed tomography (CT) of the pelvis was performed without intravenous c ontrast. Additional sagittal and coronal reconstructions were performed. The dose-length product was 964.42 mGy-cm. COMPARISON: None FINDINGS: 4.0 x 3.6 cm subcutaneous mass which extends to the level of the skin surface at the right side of th e cephalad aspect of the gluteal cleft. Attenuation is relatively low but less than simple fluid atte nuation. Suture line along the tip the cecum likely related to prior appendectomy. Additional postope rative changes with anastomotic suture line along the terminal ileum. No bowel obstruction. Bladder i s normal. Age-appropriate atrophic uterus and bilateral adnexa. No free fluid in the pelvis. No patho logically enlarged pelvic or inguinal lymphadenopathy. Mild degenerative and enthesopathic skeletal c hanges in the pelvis and lower lumbar spine. IMPRESSION: 1. Nonspecific 4.0 x 3.6 cm subcutaneous mass versus complex/sebaceous cyst along the right gluteal c left. Could consider ultrasound-guided biopsy for pathologic correlation. Reviewed, dictated and finalized at location A. IMPRESSION: 1. Nonspecific 4.0 x 3.6 cm subcutaneous mass versus complex/sebaceous cyst sami ng the right gluteal cleft. Could consider ultrasound-guided biopsy for patholo gic correlation.
== END 2022-01-14 08:43 | disposition home or self-care (01) ==
PROVIDERS: PCP Emergency Medicine; Visit Provider Surgery
DX: R22.2 Localized swelling, mass and lump, trunk (principal)
CPT/HCPCS: 72192

== ENCOUNTER 2022-01-14 09:29 | Outpatient (CLI) | payer OTHER, SELFPAY ==
[2022-01-16 12:02] LABS: Tissue Transglutaminase IgG Ab <1.0 U/mL (<15.0)
[2022-01-16 22:10] LABS: Tissue Transglutaminase IgA Ab <1.0 U/mL (<15.0)
== END 2022-01-14 09:30 | disposition home or self-care (01) ==
LOC: ANHLAB 09:32
PROVIDERS: PCP Emergency Medicine; Visit Provider Nurse Practitioner Family
DX: R19.7 Diarrhea, unspecified (principal)
CPT/HCPCS: 36415; 83516

== ENCOUNTER 2022-02-16 13:42 | Outpatient (CLI) | payer OTHER, SELFPAY ==
--- NOTE | 2022-02-16 13:49 | ECG_ITS ---
Measurements Intervals [place] Rate: 55 P: 83 [place]: 202 QRS: 4 QRSD: 94 T: 22 QT: 419 QTc: 404 Interpretive Statements SINUS BRADYCARDIA BORDERLINE AV CONDUCTION DELAY CONSIDER INFERIOR INFARCT, AGE INDETERMINATE BASELINE ARTIFACT- I, III, AVR, AVL, AVF ABNORMAL ECG Electronically Signed On 02-16-2022 14:10:25 CDT by Ang Saba D.O.
[2022-02-16 14:18] LABS: Chloride 102 mmol/L (98-107)
[2022-02-16 14:30] LABS: Anion Gap 6 mmol/L (8-16); Blood Urea Nitrogen 20 mg/dL (7-17); Calcium 8.7 mg/dL (8.4-10.2); Carbon Dioxide 24 mmol/L (22-30); Estimated Glomerular Filt Rate > 60; Glucose 99 mg/dL (65-110); Potassium 5.2 mmol/L (3.4-5.0); Sodium 132 mmol/L (137-145)
[2022-02-16 15:06] LABS: Valproic Acid 73.9 ug/mL (50-120)
== END 2022-02-16 13:43 | disposition home or self-care (01) ==
PROVIDERS: Anesthesiology; PCP Emergency Medicine; Visit Provider Surgery
DX: Z01.818 Encounter for other preprocedural examination (principal); I10 Essential (primary) hypertension; G40.909 Epilepsy, unspecified, not intractable, without status epilepticus; R94.31 Abnormal electrocardiogram [ECG] [EKG]
CPT/HCPCS: 36415; 80048; 80164; 93005

== ENCOUNTER 2022-02-20 00:58 | Day surgery (SDC) | payer OTHER, SELFPAY ==
--- NOTE | 2022-02-16 11:02 | PC.NURSE ---
Addendum entered by Jolly López RN 02/16/22 11:22: MELATONIN HOLD 3 DAYS PRE OP.LAST DOSE 02/16/22 Original Note: Report to the Outpatient Waiting Room, entrance under the green pavilion located off [facility], at time __0600 on date _02/20/22 . OR Time: _0730 . - You and your visitor will be asked a series of questions to screen for COVID 19 for your protection. - Only one visitor is allowed at this time. - The patient visitor is requested to leave or wait in car when not with patient. - A mask is required within the hospital. Patients may have clear liquids (water, carbonated beverages, clear teas, apple juice) until 3 hours prior to surgery with a maximum of 20 ounces. - No food from midnight until time of surgery - Infants may have breast milk until 4 hours before surgery, formula 6 hours prior to surgery. - Children will be allowed to drink immediately following surgery. If applicable, please bring a bottle or sippy cup to assist with drinking. Juice, water, soda, and popsicles are readily available. For infants on formula, please bring formula the day of surgery. Pacifiers are allowed. Take the following medications with a SIP of water the morning of surgery: _DEPAKOTE,LEVOTHYROXINE,METOPROLOL Medications to discontinue per physician BIOTIN 3 DAYS PRE OP Date to take last dose____02/16/22 Please no make-up, nail arabic, hairspray, perfume, deodorant, or body powder the day of surgery. No jewelry (including any body piercings) or valuables the day of surgery, leave them at home. Please take a shower or bath the night before, or the morning of, surgery with an antibacterial soap. Wear comfortable, loose fitting clothing. Children are encouraged to wear pajamas. - Jewelry must be removed prior to entering the operating room. Rings and piercings that are not removed may be cut off. - The hospital will not accept responsibility for valuables. - Please leave all valuables, including medications, at home the day of surgery. If you are going home after surgery, a licensed cpr ambulance driver must drive you home. - NO public transportation without another adult. - We recommend that an adult stay with you for 24 hours following discharge. - We also recommend that you do not drive, make important decision, drink alcoholic beverages, or take any drugs that were not prescribed by your health care provider for at least 24 hours after your discharge time. For Pediatric surgeries, we recommend two adults accompany the child home (only one inside the building at this time). Follow any additional instructions given to you from your surgeon. If you or anyone in your household have experienced Covid symptoms in the past week, please notify your surgeon or the nurse liaison at the phone number below for possible testing. Telephone instructions given to VERBAL CONSENT FROM PT TO GIVE INST TO SISTER JOLLY and asked if any additional questions and then verbalized understanding. Patient advised to call surgeon office or pre surgery nurse liaison [phone] if any additional questions.
[2022-02-16 11:13] VITALS: BMI 38.8
[2022-02-20] VITALS (8 sets, daily range): BP systolic 110–173; BP diastolic 41–67; PULSE 50–62; RESP 16–22; TEMP 36.1–36.6; O2SAT 92–100
--- NOTE | 2022-02-20 06:53 | WPDANESEPPF ---
Anes - Initial Pre Proc Eval Procedure: Operation Date: 02/20/22 07:30 Proposed Procedures p Excision Subcutaneous Mass Right Buttock - Blake Fishman MD Date/Time: 02/20/22 06:53 Surgeon: Blake Fishman MD Pre Op Diagnosis: sub q mass right buttock Patient Data Age: 67 Gender: F Height: 1.52 m Weight: 90.3 kg Allergies Allergy/AdvReac Type Severity Reaction Status Date / Time codeine Allergy Intermediate Hives Verified 02/20/22 06:31 latex Allergy Unknown Hives Verified 02/20/22 06:31 Home Medications Medication Instructions Recorded Confirmed Type melatonin 10 mg tablet 10 mg PO HS 08/31/19 02/20/22 History biotin 5,000 mcg sublingual tablet 10,000 mcg sublingual DAILY 10/30/19 02/20/22 History atorvastatin 40 mg tablet 40 mg PO HS 09/23/20 02/20/22 History furosemide 20 mg tablet 20 mg PO DAILY 09/23/20 02/20/22 History metoprolol succinate 50 mg 25 mg PO BID 09/23/20 02/20/22 History tablet,extended release 24 hr enalapril maleate 10 mg tablet 10 mg PO DAILY #30 tabs 05/15/21 02/20/22 Rx divalproex 500 mg tablet,delayed See Rx Instructions .Route 07/21/21 02/20/22 Rx release .COMPLEX #120 tabs amitriptyline 25 mg tablet See Rx Instructions .Route 07/31/21 02/20/22 Rx .COMPLEX #60 tabs triamcinolone acetonide 0.1 % 0.1 applic topical PRN PRN Skin 08/31/21 02/20/22 History topical ointment Irritation phenobarbital 64.8 mg tablet 129.6 mg PO HS #60 tabs 02/03/22 02/20/22 Rx levothyroxine 137 mcg tablet 137 mcg PO EVERY OTHER DAY 02/16/22 02/20/22 History levothyroxine 150 mcg tablet 150 mcg PO EVERY OTHER DAY 02/16/22 02/20/22 History Patient hx anesthesia problems: none Family hx anesthesia problems: none Results Review: All pre-operative results and documents have been reviewed as part of the pre-operative evaluation. [facility] Past Medical History Medical History Chronic headache Epilepsy History of open sigmoidectomy Hx of hyperlipidemia Hypercholesterolemia Hypertension Hyponatremia Hypothyroid Hypothyroidism Hypoxia Insomnia Iron deficiency anemia Morbid obesity with BMI of 40.0-44.9, adult Polyp, sigmoid colon Post-menopausal Seizure Seizure disorder Surgical History Surgical History H/O excision of mass 4.1 cm posterior scalp cyst, 4.5 cm excision 11/19/21 H/O gastric bypass early 70s History of colonoscopy 2020 last one could be 5+ years ago Presence of ankle implant X2 S/P laparoscopic-assisted sigmoidectomy JEREMY sigmoidectomy with colorectal anastomosis 11/29/19 Family History Family History Father Cancer Cerebrovascular accident Hypertension Mother Breast cancer Lung cancer Diabetes mellitus Hypertension Polymyositis Sibling Hypertension Polymyositis Sibling COPD (chronic obstructive pulmonary disease) Hypertension Social History Social History Social History: Patient denies smoking, drinking or using drugs Second hand tobacco smoke exposure: No Alcohol intake: never Substance use: never Substance use type: does not use Living arrangements: with family Gender identity (if verbalized by the patient): Female Spiritual care concerns: No Agree to blood products: Yes Anes - Eval Final PreProcedure Day of Procedure 02/20/22 06:53 Patient weight: obese Heart: regular rate and rhythm Lungs: clear to auscultation Airway: Mallampati scale class II Neurological: alert and oriented Last oral intake: >/= 8 hours ASA classification: III Emergent: no Anesthetic plan: proceed Anesthesia type and monitoring: general GIVS and standard monitoring Results Review: All pre-operative results and documents have been reviewed as part of the pre-operative evaluation. Informed Consent: The patient's
--- NOTE | 2022-02-20 07:06 | PM.SD2 ---
Same Day Admit/Disch: HPI History of Present Illness Chief complaint: sub q mass right buttock Narrative: Keely Perkins is a 67 year old female With a longstanding subcutaneous nodule in the right upper buttocks near the intergluteal crease. CT scan showed a nonspecific 4 cm subcutaneous mass. By examination, it appears to be an inclusion cyst. She is taken to surgery now for excision. 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 History of colonoscopy 2020 last one could be 5+ years ago Presence of ankle implant X2 S/P laparoscopic-assisted sigmoidectomy JEREMY sigmoidectomy with colorectal anastomosis 11/29/19 Family History Family History Father Cancer Cerebrovascular accident Hypertension Mother Breast cancer Lung cancer Diabetes mellitus Hypertension Polymyositis Sibling Hypertension Polymyositis Sibling COPD (chronic obstructive pulmonary disease) Hypertension Social History Social History Social History: Patient denies smoking, drinking or using drugs Second hand tobacco smoke exposure: No Alcohol intake: never Substance use: never Substance use type: does not use Living arrangements: with family Gender identity (if verbalized by the patient): Female Spiritual care concerns: No Agree to blood products: Yes Same Day Admit/Disch: Med Pre-admit Medications Home Medications Medication Instructions Recorded Confirmed Type melatonin 10 mg tablet 10 mg PO HS 08/31/19 02/20/22 History biotin 5,000 mcg sublingual tablet 10,000 mcg sublingual DAILY 10/30/19 02/20/22 History atorvastatin 40 mg tablet 40 mg PO HS 09/23/20 02/20/22 History furosemide 20 mg tablet 20 mg PO DAILY 09/23/20 02/20/22 History metoprolol succinate 50 mg 25 mg PO BID 09/23/20 02/20/22 History tablet,extended release 24 hr enalapril maleate 10 mg tablet 10 mg PO DAILY #30 tabs 05/15/21 02/20/22 Rx divalproex 500 mg tablet,delayed See Rx Instructions .Route 07/21/21 02/20/22 Rx release .COMPLEX #120 tabs amitriptyline 25 mg tablet See Rx Instructions .Route 07/31/21 02/20/22 Rx .COMPLEX #60 tabs triamcinolone acetonide 0.1 % 0.1 applic topical PRN PRN Skin 08/31/21 02/20/22 History topical ointment Irritation phenobarbital 64.8 mg tablet 129.6 mg PO HS #60 tabs 02/03/22 02/20/22 Rx levothyroxine 137 mcg tablet 137 mcg PO EVERY OTHER DAY 02/16/22 02/20/22 History levothyroxine 150 mcg tablet 150 mcg PO EVERY OTHER DAY 02/16/22 02/20/22 History ibuprofen 600 mg tablet 600 mg PO Q6H PRN pain #10 tabs 02/20/22 Rx tramadol 50 mg tablet 50 mg PO Q6H PRN pain #10 tabs 02/20/22 Rx Exam Const: General: comfortable, no acute distress, alert and awake HENMT: Head: normocephalic and atraumatic Mouth: Yes Normal oral and palatal mucosa present Eyes: Conjunctivae: conjunctivae normal Pupils: Equal, round and reactive pupils present EOM: EOMs intact bilaterally Neck: Neck: normal visual inspection, no lymphadenopathy and nontender Resp: Effort & Inspection: normal respiratory effort Auscultation: clear to auscultation bilaterally Cardio: Rate: regular rate Rhythm: regular rhythm Heart sounds: no gallops, no murmurs and no rubs GI: Inspection: non-distended GI Palp: Yes Soft to palpation, No Tenderness to palpation present (GI), No H
[2022-02-20] MEDS: LACTATED RINGERS 1,000 ML 30 ML IV CONT (07:10)
--- NOTE | 2022-02-20 07:10 | WPDHPUPDATE1 ---
History and Physical Update Update Date/Time: 02/20/22 07:10 History and Physical has been reviewed, including an updated exam of the patient. There are NO changes in the patient's condition. Risks, benefits, and alternatives have been discussed and questions answered. Patient agrees to proceed with procedure.
[2022-02-20] MEDS: ceFAZolin 2 GM/D5W 50 ML 2 GM/50 ML BAG IVPB (07:26)
[2022-02-20] MEDS: LIDO 1%/EPINEPHRINE/PF 1:200,000 30 ML VIAL 60 ML INFILTRATE (07:56)
--- NOTE | 2022-02-20 08:33 | W.PM.PROC2 ---
Procedure Note - Detailed Date of Procedure 02/20/22 Pre-op Diagnosis sub q mass right buttock Post-op Diagnosis Other (Epithelial inclusion cyst right upper buttock) Procedure Performed Excision 4.5 cm skin cyst of the buttock, 13 cm layered closure Surgeon Blake Fishman MD Supervisor Ovens Meenakshi Koch [facility] Anesthesia General and Local (1% lidocaine with epinephrine) Indications Patient is a 67-year-old woman with a subcutaneous mass in the right upper buttock near the intergluteal crease. It is painful particularly when sitting or rolling over on it. Clinically appears to be an inclusion cyst. CT scan was indeterminate. She is taken to surgery now for excision. Findings Showed a 4.5 x 4 x 4 cm epithelial inclusion cyst Description of Procedure Patient was taken to surgery and induced into general anesthesia. She was then turned onto the operating table in a prone position so that the upper gluteal crease was well exposed. Prep and drape was carried out. A sagittally oriented ellipse was drawn on the skin over the subcutaneous mass. Local was infiltrated thoroughly into the areas of the anticipated incision and into the subcutaneous tissue. Incision was made and dissection was carried into the subcutaneous. We carefully dissected around the lesion at its lateral aspects and dissected it away from the subcutaneous. Eventually the entire ellipse was completely excised. I then measured the cyst with findings as above. The wound defect was 13 cm in length. I undermined the subcutaneous particularly on the medial side of the wound so that it would close with less tension. Cautery was used for hemostasis. We then closed the subcutaneous with interrupted 3-0 Vicryl. Multiple subcuticular 3-0 Vicryl interrupted suture were placed. The skin was finally closed with vertical mattress sutures of 3-0 nylon. The wound was dressed with Xeroform gauze fluffs and Medipore tape. Patient was returned to a supine position awakened extubated and then taken to recovery in good condition. Sponge and needle counts were correct x2. Estimated Blood Loss -5 Drains No Packing No Pathology Yes (Subcutaneous mass right upper buttock) Complications No immediate complications Condition Stable Disposition PACU [facility] Billing Surgery - Charge Forward: Surgery Billing (Excision 4.5 cm skin cyst with 13 cm layered closure, no margins.)
== END 2022-02-20 10:34 | disposition home or self-care (01) ==
PROVIDERS: PCP Emergency Medicine; Visit Provider Surgery
PROC: (CPT 11406; principal; 2022-02-20 07:30)
DX: L72.0 Epidermal cyst (principal); I10 Essential (primary) hypertension; D50.9 Iron deficiency anemia, unspecified; E03.9 Hypothyroidism, unspecified; G40.909 Epilepsy, unspecified, not intractable, without status epilepticus; E78.00 Pure hypercholesterolemia, unspecified; Z98.84 Bariatric surgery status; Z90.49 Acquired absence of other specified parts of digestive tract; Z98.0 Intestinal bypass and anastomosis status; E66.9 Obesity, unspecified; Z68.39 Body mass index [BMI] 39.0-39.9, adult
CPT/HCPCS: 11406; 12035; 88304; 88305; A9270; J0330; J0690; J2250; J2270; J2405; J2704; J7120

== ENCOUNTER 2022-03-07 13:40 | Inpatient (IN) | payer OTHER, SELFPAY ==
--- NOTE | ~2022-03-07 | XR_ITS ---
EXAM: XR abdomen obstructive series DATE: 03/07/2022 19:49 HISTORY: diarrhea, recent surg for cyst in buttock area . COMPARISON: None available. FINDINGS: Subsegmental bibasilar opacities may reflect atelectasis. No bowel dilation. Ascending and transverse colonic wall thickening. No organomegaly. Surgical material at the GE junction, anastomot ic sutures in the left mid abdomen. Degenerative changes in the spine. IMPRESSION: Colonic wall thickening as can be seen with colitis. No radiographic evidence of obstruct ion or ileus. Reviewed, dictated and finalized at location K. IMPRESSION: Colonic wall thickening as can be seen with colitis. No radiographi c evidence of obstruction or ileus.
[2022-03-07 13:45] VITALS: BP 127/98; PULSE 87; RESP 16; TEMP 36.1; O2SAT 100
--- NOTE | 2022-03-07 14:08 | ED.GENADULT ---
HPI - General Adult General Chief complaint: Skin/Abscess/Foreign Body Stated complaint: rectal incision may be infected Time Seen by Provider: 03/07/22 13:50 Source: RN notes reviewed History of Present Illness HPI narrative: Patient presents emergency department from home for possible wound infection. Patient states that she had a cyst removed from her right buttocks by Dr Foster on 02/20/2022. She states that she was recently seen in the office and had sutures removed and there was a small opening over the inferior aspect that had had silver nitrate placed states that the area has become more reddened over the past 2 days and then opened today with drainage of purulent material. Patient does note some tenderness to the area she denies any fevers or chills abdominal pain nausea vomiting or any other symptoms states she is not currently on any antibiotics Related Data Home Medications Medication Instructions Recorded Confirmed melatonin 10 mg tablet 10 mg PO HS 08/31/19 03/02/22 biotin 5,000 mcg sublingual tablet 10,000 mcg sublingual DAILY 10/30/19 03/02/22 atorvastatin 40 mg tablet 40 mg PO HS 09/23/20 03/02/22 furosemide 20 mg tablet 20 mg PO DAILY 09/23/20 03/02/22 metoprolol succinate 50 mg 25 mg PO BID 09/23/20 03/02/22 tablet,extended release 24 hr triamcinolone acetonide 0.1 % 0.1 applic topical PRN PRN Skin 08/31/21 03/02/22 topical ointment Irritation levothyroxine 137 mcg tablet 137 mcg PO EVERY OTHER DAY 02/16/22 03/02/22 levothyroxine 150 mcg tablet 150 mcg PO EVERY OTHER DAY 02/16/22 03/02/22 cyanocobalamin (vitamin B-12) ml 03/07/22 1,000 mcg/mL injection solution ergocalciferol (vitamin D2) 1,250 cap 03/07/22 mcg (50,000 unit) capsule Allergies Allergy/AdvReac Type Severity Reaction Status Date / Time codeine Allergy Intermediate Hives Verified 03/07/22 14:11 latex Allergy Unknown Hives Verified 03/07/22 14:11 Review of Systems Review of Systems: Gen.: Denies fevers or chills ENT: Denies congestion Respiratory: Denies shortness of breath CV: Denies chest pain GI: Denies abdominal pain nausea, emesis Musculoskeletal: Denies back pain or muscle pain Neuro: Denies headache or weakness Skin: See HPI Except as documented, all other systems reviewed and negative PMFSH Past Medical History Medical History Chronic headache Epilepsy History of open sigmoidectomy Hx of hyperlipidemia Hypercholesterolemia Hypertension Hyponatremia Hypothyroid Hypothyroidism Hypoxia Insomnia Iron deficiency anemia Morbid obesity with BMI of 40.0-44.9, adult Polyp, sigmoid colon Post-menopausal Seizure Seizure disorder Surgical History Surgical History H/O excision of mass 4.1 cm posterior scalp cyst, 4.5 cm excision 11/19/21 H/O gastric bypass early 70s History of colonoscopy 2020 last one could be 5+ years ago Hx of excision of mass exc of rt buttock mass 02/20/22 Presence of ankle implant X2 S/P laparoscopic-assisted sigmoidectomy JEREMY sigmoidectomy with colorectal anastomosis 11/29/19 Family History Family History Father Cancer Cerebrovascular accident Hypertension Mother Breast cancer Lung cancer Diabetes mellitus Hypertension Polymyositis Sibling Hypertension Polymyositis Sibling COPD (chronic obstructive pulmonary disease) Hypertension Social History Social History Social History: Patient denies smoking, drinking or using drugs Smoking status: Never smoker Second hand tobacco smoke exposure: No Alcohol intake: never Substance use: never Substance use type: does not use Gender identity (if verbalized by the patient): Female Spiritual care concerns: No Agree to blood products: Yes Exam Narrative: APPEARANCE: No acute dis
--- NOTE | 2022-03-07 14:09 | PC.NURSE ---
PT AND HER FAMILY IS REFUSING ANY BLOOD DRAWS OR IV ATTEMPTS UNLESS OBTAINED BY ULTRASOUND.
[2022-03-07 15:36] LABS: Basophils Absolute Auto 0.1 K/mm3 (0.0-0.1); Basophils Percent Auto 0.9 % (0.2-1.2); Eosinophils Absolute Auto 0.1 K/mm3 (0-0.3); Eosinophils Percent Auto 1.3 % (0-4.4); Hematocrit 33.4 % (37.0-47.0); Hemoglobin 10.6 g/dL (12.0-15.0); Immature Granulocyte Absolute 0.02 K/mm3 (0.00-0.031); Immature Granulocyte Percent A 0.4 % (0-0.5); Lymphocytes Absolute Auto 1.37 K/mm3 (0.9-3.2); Lymphocytes Percent Auto 25.1 % (18.3-44.2); Mean Corpuscular HGB Conc 31.7 g/dl (32-36); Mean Corpuscular Hemoglobin 30.5 pg (26-34); Monocytes Absolute Auto 0.8 K/mm3 (0.1-0.6); Neutrophils Absolute Auto 3.1 K/mm3 (1.3-6.7); Neutrophils Percent Auto 57.3 % (45.5-73.1); Platelet Count Result 208 k/mm3 (150-375); Red Blood Count 3.48 M/mm3 (4.2-5.4); Red Cell Distribution Width 14.3 % (11.5-14.5); White Blood Count 5.5 K/mm3 (4.5-10.0)
[2022-03-07 15:50] LABS: Alanine Aminotransferase 10 U/L (6-35); Albumin Level 3.3 g/dL (3.5-5.1); Alkaline Phosphatase 86 U/L (38-126); Anion Gap 7 mmol/L (8-16); Aspartate Amino Transferase 21 U/L (14-36); Bilirubin,Total 0.2 mg/dL (0.2-1.3); Blood Urea Nitrogen 16 mg/dL (7-17); Calcium 8.3 mg/dL (8.4-10.2); Carbon Dioxide 21 mmol/L (22-30); Chloride 109 mmol/L (98-107); Estimated CRCL calculation 52 ml/min; Estimated Glomerular Filt Rate > 60; Glucose 102 mg/dL (65-110); Potassium 4.2 mmol/L (3.4-5.0); Sodium 137 mmol/L (137-145)
[2022-03-07 16:07] VITALS: BP 147/57; PULSE 67; RESP 17; O2SAT 96
--- NOTE | 2022-03-07 16:51 | PC.NURSE ---
Patient's dinner tray ordered to meet her in room 347 at this time.
--- NOTE | 2022-03-07 18:08 | ADMGEN ---
This patient, Keely Perkins, was admitted to Medical Room 347-. Patient/family oriented to hospital policies and general routines including ID bracelet, bed and alarms, visiting hours, pain management, procedures, bathroom and other care routines, personal items, smoking policy, room service/diet, and visiting hours. Information on how to activate the Rapid Response Team has been discussed. Patient/Family are encouraged to report perceived risks to care and to ask questions if they do not understand what they are told or what they should do.
[2022-03-07 18:16] VITALS: BP 123/46; PULSE 76; RESP 16; TEMP 36.7; O2SAT 99; BMI 37.9
[2022-03-07 18:22] VITALS: BMI 37.9
--- NOTE | 2022-03-07 18:45 | PM.IMCN ---
Assessment and Plan Assessment and plan (1) Postoperative wound infection: Code(s): T81.49XA - Infection following a procedure, other surgical site, initial encounter Status: Acute (2) Ruptured epithelial inclusion cyst: Code(s): L72.0 - Epidermal cyst Status: Acute (3) Anemia: Qualifiers: Anemia type: unspecified type Qualified Code(s): D64.9 - Anemia, unspecified Code(s): D64.9 - Anemia, unspecified Status: Acute (4) KENNY (obstructive sleep apnea): Code(s): G47.33 - Obstructive sleep apnea (adult) (pediatric) Status: Acute (5) Seizure disorder: Code(s): G40.909 - Epilepsy, unspecified, not intractable, without status epilepticus Status: Acute (6) Hypertension: Qualifiers: Hypertension type: essential hypertension Qualified Code(s): I10 - Essential (primary) hypertension Code(s): I10 - Essential (primary) hypertension Status: Chronic (7) Hypothyroidism: Qualifiers: Hypothyroidism type: unspecified Qualified Code(s): E03.9 - Hypothyroidism, unspecified Code(s): E03.9 - Hypothyroidism, unspecified Status: Acute Plan Patient has been admitted to medical floor. Continue cefazolin. Continue wound dressing changes. Follow-up on cultures. It appears that she has a chronic anemia. Was noted to be B12 deficient in the past but this has been corrected. Recent iron studies earlier this year showed low TIBC but no iron deficiency. Anemia could be related to her medications. Will continue to monitor. She has sleep apnea and is compliant with CPAP at home. We will continue that here. Resume home medications once a been verified. Check valproic acid level. Monitor blood pressure and adjust medications as needed. Resume home medications once they have been verified. No recent TSH listed so will check this tomorrow. Continue levothyroxine. Lovenox for DVT prophylaxis. Will check obstructive series to exclude fecal impaction given her recent complaints of stool incontinence. Thank you so much for allowing me to be part of this patient's care. Will continue to follow along with you. HPI Data of Consult Consult date: 03/07/22 Requesting Physician: Blake Fishman MD Primary Care Provider: Oscar Mcelroy MD Consult Narrative Reason for consult: Medical management Narrative: Keely Perkins is a 67 year old female with hx of HTN and seizures who presents with complains of wound drainage. Patient was having buttock pain and was found to have a large right buttock cyst. She was seen by General surgery and underwent an excision of a 4.5 cm epithelial inclusion cyst 02/20/2022. Pathology was of a ruptured epidermal inclusion cyst. The patient's sister has been covering the wound with dry dressing since surgery. On March 02, patient was seen in follow-up and the sutures were removed. Patient states that there was a red pruritic rash around this area for about a week and was felt that she may be allergic to the sutures. There was drainage noted from the wound as well. There was superficial bleeding after the sutures were removed and silver nitrate was applied. Patient was discharged home from the office with instructions to apply silver nitrate to wound opening daily and cover with dry gauze. Yesterday the patient states the wound was improving but today they noted greenish yellow exudate from the wound. There was also bleeding noted as well. Patient has been compliant with not sitting on the area. She denies any fever or chills. No abdominal pain, nausea or vomiting. She has over the past 4 months been having loose stools at times with even stool incontinence but no melena or hematochezia. Her last colonoscopy was 2 years ago which was unrevealing. Because of the increasing drainage and concern for infection, she presented to the emergency room for evaluation. In the emergency room, she was [place]
[2022-03-07 20:38] VITALS: BP 130/53; PULSE 69; RESP 14; TEMP 37.4; O2SAT 97
[2022-03-07] MEDS: traZODone HCL 50 MG TABLET PO (21:01)
[2022-03-07] MEDS: MELATONIN 5 MG TABLET 10 MG PO (21:01)
[2022-03-07] MEDS: PHENobarbital (*CRX) 60 MG TABLET 120 MG PO (21:01)
[2022-03-07] MEDS: AMITRIPTYLINE HCL 25 MG TABLET 50 MG PO (21:01)
[2022-03-07] MEDS: DIVALPROEX SODIUM DR 250 MG TABEC 1000 MG PO (21:01)
[2022-03-07] MEDS: WATER FOR IRRIGATION, STERILE 1,000 ML BOTTLE 1000 ML (21:04)
[2022-03-07 21:16] VITALS: PULSE 80; RESP 20; O2SAT 98
[2022-03-08] VITALS (7 sets, daily range): BP systolic 108–153; BP diastolic 47–67; PULSE 58–80; RESP 16–20; TEMP 36.7–37.2; O2SAT 96–99
[2022-03-08] MEDS: LEVOTHYROXINE SODIUM 150 MCG TABLET PO (05:47)
[2022-03-08 06:07] LABS: Basophils Absolute Auto 0.1 K/mm3 (0.0-0.1); Eosinophils Absolute Auto 0.1 K/mm3 (0-0.3); Eosinophils Percent Auto 2.7 % (0-4.4); Hematocrit 34.8 % (37.0-47.0); Hemoglobin 10.8 g/dL (12.0-15.0); Immature Granulocyte Absolute 0.03 K/mm3 (0.00-0.031); Immature Granulocyte Percent A 0.6 % (0-0.5); Lymphocytes Absolute Auto 1.66 K/mm3 (0.9-3.2); Lymphocytes Percent Auto 31.7 % (18.3-44.2); Mean Corpuscular Hemoglobin 30.6 pg (26-34); Mean Corpuscular Volume 98.6 fl (80-100); Mean Platelet Volume 10.1 fl (7.4-10.4); Monocytes Absolute Auto 0.9 K/mm3 (0.1-0.6); Monocytes Percent Auto 16.4 % (2.6-8.5); Neutrophils Absolute Auto 2.5 K/mm3 (1.3-6.7); Neutrophils Percent Auto 47.6 % (45.5-73.1); Platelet Count Result 192 k/mm3 (150-375); Red Blood Count 3.53 M/mm3 (4.2-5.4); Red Cell Distribution Width 14.2 % (11.5-14.5); White Blood Count 5.2 K/mm3 (4.5-10.0)
[2022-03-08 07:03] LABS: Valproic Acid 42.3 ug/mL (50-120)
[2022-03-08 07:05] LABS: Alanine Aminotransferase 9 U/L (6-35); Albumin Level 2.9 g/dL (3.5-5.1); Alkaline Phosphatase 86 U/L (38-126); Anion Gap 6 mmol/L (8-16); Aspartate Amino Transferase 20 U/L (14-36); Bilirubin,Total 0.2 mg/dL (0.2-1.3); Blood Urea Nitrogen 16 mg/dL (7-17); Calcium 8.6 mg/dL (8.4-10.2); Carbon Dioxide 21 mmol/L (22-30); Chloride 109 mmol/L (98-107); Estimated CRCL calculation 57 ml/min; Estimated Glomerular Filt Rate > 60; Glucose 89 mg/dL (65-110); Potassium 4.1 mmol/L (3.4-5.0); Sodium 136 mmol/L (137-145)
[2022-03-08] MEDS: DIVALPROEX SODIUM DR 250 MG TABEC 1000 MG PO ×2 (08:38→20:14)
[2022-03-08] MEDS: FUROSEMIDE 20 MG TABLET PO (08:39)
[2022-03-08] MEDS: ENALAPRIL MALEATE 10 MG TABLET PO (08:39)
[2022-03-08] MEDS: ATORVASTATIN 40 MG TABLET PO (08:39)
[2022-03-08] MEDS: METOPROLOL SUCCINATE EXT REL 12.5 MG TABCR PO ×2 (08:41→20:14)
[2022-03-08] MEDS: ENOXAPARIN 40 MG/0.4 ML SYRINGE SUB-Q (08:41)
--- NOTE | 2022-03-08 11:03 | PM.IMHP ---
H&P: HPI History of Present Illness Date/Time: 03/08/22 11:03 Chief Complaint: Buttocks wound problems Narrative: patient is a 67-year-old woman who developed a large inclusion cyst on the upper right buttock. She was seen in the office and, after discussion, was taken to surgery on 02/20/2022. The 4.5 cm inclusion cyst was excised with a 13 cm layered closure. Pathology showed a ruptured epidermal inclusion cyst, however, the cyst was not ruptured. I opened the cyst after it was removed and it appeared to be ruptured on submission to pathology. Patient was to follow up with me in 6 days (02/26/22), but instead was seen in the office on 03/02/2022. She spends most of her time in a wheelchair and her sisters admit that she was in her wheelchair at least as often as usual after the surgery. The wound had started draining a couple of days before the office visit. In the office, the wound was very erythematous with edema and drainage. It was severely inflamed due to the pressure of sitting on the area as well as the foreign body suture material being in place. Sutures were removed and a 2 cm area of skin in the lower 3rd of the wound. This area was cleaned and some silver nitrate cautery was used to control oozing from skin and subcutaneous. Patient was to clean the wound daily with soap and water and apply dry gauze dressing daily and p.r.n.. She was to see me in the office tomorrow, 03/09/2022 for follow-up appointment. Her sister called me yesterday, reporting that the wound was having increased drainage and looking infected. Patient was not having significant pain but her sister was very uncomfortable with the status of the wound thinking it looked worse. She felt it was necessary to bring Keely to the emergency room. I should point out that the patient does have significant disability and is cared for by her very supportive sisters and her family. 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 Her sister reports that her mental capacity is that of a 10-year-old. The patient can briefly stand with assistance but does not ambulate and spends most of her time in a wheelchair. I have known the patient for some time. She had a sigmoid colon polyp and underwent hand access laparoscopic sigmoidectomy in November of 2019. I also excised scalp cysts on 11/19/2021 as an outpatient at [place]. Patient was seen in the emergency room and we empirically started our on antibiotics even though her white blood cell count was normal. With her disability and concerns over her poorly healing wound, we brought her into the hospital for observation and wound care. She was noted to be afebrile with a normal white count in the emergency room as well as this morning. Hospitalist service has kindly seen her for consultation and medical management. She has been lying largely on her left side since admission. Review of Systems Review of Systems: All systems reviewed & are unremarkable except as noted in HPI and below Constitutional: Constitutional: Reports as per HPI, Denies anorexia, Denies body ache(s), Denies chills, Denies fever(s), Denies headache(s) and Denies night sweats Cardiovascular: Cardiovascular: Denies chest pain and Denies dyspnea Respiratory: Respiratory: Denies cough and Denies dyspnea Gastrointestinal: Gastrointestinal: Denies abdominal pain, Denies bloating, Denies GI cramping, Denies diarrhea, Denies nausea and Denies vomiting Musculoskeletal: Musculoskeletal: Reports as per HPI, Reports abnormal gait and Reports muscle weakness Integumentary/Breasts: Skin/Breast: Reports as per HPI, Denies lesions and Denies rash Neurologic: Reports as per HPI, Denies confusion, Denies headache(s) and Reports disequilibrium Psychiatric: Psychiatric: Reports as per HPI [facility] Past Medical History Medical History B12 deficiency anemia Chronic headache H
[2022-03-08] MEDS: MORPHINE SULFATE (*CRX) 2 MG/ML INJ IV PUSH ×2 (11:29→20:15)
[2022-03-08] MEDS: COLLAGENASE OINT 30 GM TUBE 1 APPLIC TOPICAL (13:00)
--- NOTE | 2022-03-08 14:48 | PM.IMPN ---
Progress Note: A&P Assessment and Plan (1) Postoperative wound infection: Code(s): T81.49XA - Infection following a procedure, other surgical site, initial encounter Status: Deleted (2) Ruptured epithelial inclusion cyst: Code(s): L72.0 - Epidermal cyst Status: Chronic (3) Anemia: Qualifiers: Anemia type: unspecified type Qualified Code(s): D64.9 - Anemia, unspecified Code(s): D64.9 - Anemia, unspecified Status: Acute (4) KENNY (obstructive sleep apnea): Code(s): G47.33 - Obstructive sleep apnea (adult) (pediatric) Status: Acute (5) Seizure disorder: Code(s): G40.909 - Epilepsy, unspecified, not intractable, without status epilepticus Status: Chronic (6) Hypertension: Qualifiers: Hypertension type: essential hypertension Qualified Code(s): I10 - Essential (primary) hypertension Code(s): I10 - Essential (primary) hypertension Status: Chronic (7) Hypothyroidism: Qualifiers: Hypothyroidism type: unspecified Qualified Code(s): E03.9 - Hypothyroidism, unspecified Code(s): E03.9 - Hypothyroidism, unspecified Status: Acute Plan Patient has been admitted to medical floor. Cultures collected and are pending. BCx NGTD. Abx stopped. Continue wound dressing changes. Follow-up on cultures. rehabilitation services counselor to follow. It appears that she has a chronic anemia. Was noted to be B12 deficient in the past but this has been corrected. Recent iron studies earlier this year showed low TIBC but no iron deficiency. Anemia could be related to her medications. Hgb remaining stable. Will continue to monitor. She has sleep apnea and CPAP continued here. Valproic acid level noted but no recent seizures so no change in regiment. BP well controlled. Continue to monitor blood pressure and adjust medications as needed. TSH normal. Continue levothyroxine. She has been having stool incontinence so obstructive series obtained to exclude fecal impaction but this shows colonic wall thickening but doubt colitis. Follow clinically. Add fibercon. DVT prophylaxis: Lovenox Code Status: Full (but patient wishes to be DNR - will clarify) Subjective Date/time seen: 03/08/22 14:48 Interval history: 67yo female with KENNY, seizure disorder and HTN here for post-op wound infection. Patient feels well today. Still with pain in the buttock area requiring morphine. No chest pain or shortness of breath. Tolerated her BiPAP last night Exam Narrative: AF 98.2 108/65 73 16 96% ra Gen - NARD Chest - CTA bilaterally, nml RR CV - RRR S1/S2 Abd - Soft, NT/ND, Positive BS Ext - No pedal edema Psych - Nml mood and affect Skin - Warm and dry. right medial buttock wound with no odor and scant discharge on the ayah. thick adherent yellowish material in the wound Objective Data Vital Signs Vital Signs: Vital Signs - 24 hr 03/07/22 16:07 03/07/22 18:16 03/07/22 20:38 Temperature 98.1 F 99.3 F Pulse Rate 67 76 69 Respiratory Rate 17 16 14 Blood Pressure 147/57 H 123/46 L 130/53 L Pulse Oximetry 96 99 97 Oxygen Delivery 03/07/22 21:16 03/08/22 02:30 03/08/22 06:00 Temperature 98.1 F Pulse Rate 80 80 58 L Respiratory Rate 20 20 16 Blood Pressure 119/47 L Pulse Oximetry 98 98 97 Oxygen Delivery Autopap Autopap 03/08/22 08:00 03/08/22 14:12 Temperature 98.2 F Pulse Rate 73 Respiratory Rate 16 Blood Pressure 108/65 Pulse Oximetry 96 Oxygen Delivery Autopap Intake/Output Intake/Output: Intake & Output 03/05/22 03/06/22 03/07/22 03/08/22 23:59 23:59 23:59 23:59 Intake Total 600 590 Output Total 250 300 Balance 350 290 Meds/Results Medications: Active Medications Generic Name Dose Route Start Last Admin Trade Name Freq PRN Reason Stop Dose Admin Acetaminophen 650 mg 03/08/22 11:40 Acetaminophen 325 Mg Tablet PO Q4H PRN Mild Pain (1-3) or Fever Amitriptyline
[2022-03-08] MEDS: PHENobarbital (*CRX) 60 MG TABLET 120 MG PO (20:14)
[2022-03-08] MEDS: AMITRIPTYLINE HCL 25 MG TABLET 50 MG PO (20:14)
[2022-03-08] MEDS: MELATONIN 5 MG TABLET 10 MG PO (20:14)
[2022-03-08] MEDS: traZODone HCL 50 MG TABLET PO (20:15)
[2022-03-09] VITALS (7 sets, daily range): BP systolic 104–126; BP diastolic 32–63; PULSE 63–82; RESP 14–18; TEMP 35.8–37.1; O2SAT 96–99; BMI 37.9
[2022-03-09] MEDS: LEVOTHYROXINE SODIUM 112 MCG TABLET PO (05:31)
[2022-03-09] MEDS: LEVOTHYROXINE SODIUM 25 MCG TABLET PO (05:31)
[2022-03-09] MEDS: DIVALPROEX SODIUM DR 250 MG TABEC 1000 MG PO ×2 (08:26→20:13)
[2022-03-09] MEDS: FUROSEMIDE 20 MG TABLET PO (08:26)
[2022-03-09] MEDS: METOPROLOL SUCCINATE EXT REL 12.5 MG TABCR PO ×2 (08:26→20:13)
[2022-03-09] MEDS: ENALAPRIL MALEATE 10 MG TABLET PO (08:26)
[2022-03-09] MEDS: ATORVASTATIN 40 MG TABLET PO (08:26)
[2022-03-09] MEDS: COLLAGENASE OINT 30 GM TUBE 1 APPLIC TOPICAL (08:27)
[2022-03-09] MEDS: ENOXAPARIN 40 MG/0.4 ML SYRINGE SUB-Q (08:27)
[2022-03-09] MEDS: calcium polycarbophiL 625 MG TABLET PO (08:27)
[2022-03-09] MEDS: MORPHINE SULFATE (*CRX) 2 MG/ML INJ IV PUSH ×3 (14:18→20:31)
[2022-03-09] MEDS: LIDO 1%/EPINEPHRINE 1:100,000 20 ML VIAL INFILTRATE (14:22)
[2022-03-09] MEDS: HYDROGEN PEROXIDE 3% SOLN(*SP) 473 ML BOTTLE 20 ML IRRIGATION (14:22)
--- NOTE | 2022-03-09 14:47 | PM.IMPN ---
Progress Note: A&P Assessment and Plan (1) Open wound of right buttock: Code(s): S31.819A - Unspecified open wound of right buttock, initial encounter Status: Acute (2) Ruptured epithelial inclusion cyst: Code(s): L72.0 - Epidermal cyst Status: Chronic (3) Anemia: Qualifiers: Anemia type: unspecified type Qualified Code(s): D64.9 - Anemia, unspecified Code(s): D64.9 - Anemia, unspecified Status: Acute (4) KENNY (obstructive sleep apnea): Code(s): G47.33 - Obstructive sleep apnea (adult) (pediatric) Status: Acute (5) Seizure disorder: Code(s): G40.909 - Epilepsy, unspecified, not intractable, without status epilepticus Status: Chronic (6) Hypertension: Qualifiers: Hypertension type: essential hypertension Qualified Code(s): I10 - Essential (primary) hypertension Code(s): I10 - Essential (primary) hypertension Status: Chronic (7) Hypothyroidism: Qualifiers: Hypothyroidism type: unspecified Qualified Code(s): E03.9 - Hypothyroidism, unspecified Code(s): E03.9 - Hypothyroidism, unspecified Status: Acute (8) Postoperative wound infection: Code(s): T81.49XA - Infection following a procedure, other surgical site, initial encounter Status: Deleted Assessment and Plan: Not felt to be infected - post-op wound infection ruled out Plan Patient has been admitted to medical floor. Wound Cx collected and now growing Bacteroides, Staph aureus and EColi. BCx NGTD. Abx stopped since not felt to be a wound infection. Continue wound dressing changes. route rider supervisor to follow. It appears that she has a chronic anemia. Was noted to be B12 deficient in the past but this has been corrected. Recent iron studies earlier this year showed low TIBC but no iron deficiency. Anemia could be related to her medications. Hgb remaining stable. Will continue to monitor. She has sleep apnea and compliant with CPAP here. Valproic acid level noted but no recent seizures so no change in regiment. Continue PB and VPA. BP well controlled. Continue to monitor blood pressure and adjust medications as needed. TSH normal. Continue levothyroxine. She has been having stool incontinence so obstructive series obtained which excluded fecal impaction but this shows colonic wall thickening but doubt colitis. Follow clinically. Fibercon added. DVT prophylaxis: Lovenox Code Status: DNR Subjective Date/time seen: 03/09/22 14:47 Interval history: 67yo female with KENNY, seizure disorder and HTN here for post-op wound infection. No issues overnight. She denies fever or chills. No nausea or vomiting. Normal bowel movements. Exam Narrative: AF 96.5 104/32 63 14 96% ra Gen - NARD Chest - CTA bilaterally, nml RR CV - RRR S1/S2 Abd - Soft, NT/ND, Positive BS Ext - No pitting pedal edema Psych - Nml mood and affect Skin - Warm and dry. right medial buttock wound not visualized today Objective Data Vital Signs Vital Signs: Vital Signs - 24 hr 03/08/22 20:14 03/08/22 20:00 03/08/22 22:00 Temperature 98.9 F Pulse Rate 63 63 Respiratory Rate 18 Blood Pressure 153/67 H Pulse Oximetry 99 Oxygen Delivery Room Air Fraction of Inspired Oxygen 03/08/22 22:44 03/08/22 22:45 03/09/22 02:46 Temperature Pulse Rate 79 82 Respiratory Rate 17 18 Blood Pressure Pulse Oximetry 97 97 98 Oxygen Delivery Autopap CPAP Autopap Fraction of Inspired Oxygen 03/09/22 05:28 03/09/22 08:26 03/09/22 13:45 Temperature 97.4 F L 96.5 F L Pulse Rate 78 80 63 Respiratory Rate 16 14 Blood Pressure 126/63 104/32 L Pulse Oximetry 99 96 Oxygen Delivery Fraction of Inspired Oxygen Intake/Output Intake/Output: Intake & Output 03/06/22 03/07/22 03/08/22 03/09/22 23:59 23:59 23:59 23:59 Intake Total 488 079 0282 Output Total 250 300 600 Balance 350 440 430 Meds/
--- NOTE | 2022-03-09 15:03 | PM.PNGS ---
Progress Note: A&P Assessment and Plan (1) Open wound of right buttock: Code(s): S31.819A - Unspecified open wound of right buttock, initial encounter Status: Acute Assessment and Plan: wound now found to have a deeper subcutaneous pocket which will need to be addressed. I will open wound at the bedside under local anesthetic. Wound care nurses were present when I was evaluating the wound today. Most likely we will proceed with wound VAC application after the wound is opened. We will then arrange for home health as well as outpatient wound VAC care. Patient will likely be in the hospital a couple more days. 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 (3) Seizure disorder: Code(s): G40.909 - Epilepsy, unspecified, not intractable, without status epilepticus Status: Chronic (4) KENNY (obstructive sleep apnea): Code(s): G47.33 - Obstructive sleep apnea (adult) (pediatric) Status: Acute Subjective Subjective Date/Time Seen: 03/09/22 15:03 Patient reports: no new complaints, tolerating a regular diet, bowel movement and afebrile Review of Systems Review of Systems: All systems reviewed & are unremarkable except as noted in HPI and below ( HPI and those items noted below) Constitutional: Constitutional: Denies body ache(s), Denies chills, Denies fever(s) and Denies malaise Exam Const: General: cooperative, alert and awake Back/Spine/Pelvis: Sacrum: tenderness on the right ( Upper buttocks wound) Other: right upper buttocks wound shows decreased exudate but on probing with a Q-tip, shows a deeper pocket with serosanguineous fluid in the pocket. On probing this with my finger, a deep subcutaneous pocket was noted. Objective Data Vital Signs Vital Signs: Vital Signs - 24 hr 03/08/22 20:14 03/08/22 20:00 03/08/22 22:00 Temperature 37.2 C Pulse Rate 63 63 Respiratory Rate 18 Blood Pressure 153/67 H Pulse Oximetry 99 Oxygen Delivery Room Air Fraction of Inspired Oxygen 03/08/22 22:44 03/08/22 22:45 03/09/22 02:46 Temperature Pulse Rate 79 82 Respiratory Rate 17 18 Blood Pressure Pulse Oximetry 97 97 98 Oxygen Delivery Autopap CPAP Autopap Fraction of Inspired Oxygen 03/09/22 05:28 03/09/22 08:26 03/09/22 13:45 Temperature 36.3 C L 35.8 C L Pulse Rate 78 80 63 Respiratory Rate 16 14 Blood Pressure 126/63 104/32 L Pulse Oximetry 99 96 Oxygen Delivery Fraction of Inspired Oxygen Intake/Output Intake/Output: Intake & Output 03/06/22 03/07/22 03/08/22 03/09/22 23:59 23:59 23:59 23:59 Intake Total 678 301 3849 Output Total 250 300 600 Balance 350 440 430 Meds/Results Medications: Active Medications Generic Name Dose Route Start Last Admin Trade Name Freq PRN Reason Stop Dose Admin Acetaminophen 650 mg 03/08/22 11:40 Acetaminophen 325 Mg Tablet PO Q4H PRN Mild Pain (1-3) or Fever Amitriptyline HCl 50 mg 03/07/22 21:00 03/08/22 20:14 Amitriptyline Hcl 25 Mg Tablet PO 50 mg HS PHIL Administration Atorvastatin Calcium 40 mg 03/08/22 09:00 03/09/22 08:26 Atorvastatin 40 Mg Tablet PO 40 mg DAILY PHIL Administration Calcium Polycarbophil 625 mg 03/09/22 09:00 03/09/22 08:27 Calcium Polycarbophil 625 Mg Tablet PO 625 mg QAM PHIL Administration Cyanocobalamin 1,000 mcg 03/14/22 09:00 Cyanocobalamin Inj 1,000 Mcg/Ml Vial IM [id number] PHIL Divalproex Sodium 1,000 mg 03/07/22 21:00 03/09/22 08:[address] 250 Mg Tabec PO 1,000 mg Q12HR PHIL Administration Enalapril Maleate 10 mg 03/08/22 09:00 03/09/22 08:26 Enalapril Maleate 10 Mg Tablet PO 10 mg DAILY PHIL Administration Enoxaparin Sodium 40 mg 03/08/22 09:00 03/09/22 08:27 Enoxaparin 40 Mg/0.4 Ml Syringe SUB-Q 40 mg DAILY PHIL Administration Furosemide 20 mg 03/08/22 09:00 03/09/22 08:26 Furose
--- NOTE | 2022-03-09 15:08 | W.PM.PROC2 ---
Procedure Note - Detailed Date of Procedure 03/09/22 Pre-op Diagnosis Open postsurgical wound Post-op Diagnosis Same Procedure Performed Incision and drainage of open postoperative wound Surgeon Blake Fishman MD Anesthesia Local ( 1% lidocaine with epinephrine) Indications patient had a large inclusion cyst removed from the right buttocks on 02/20/2022. She is disabled and spends much of her time in a chair. When she came to the office on 03/02 for suture removal, the wound was very red and macerated and edematous. The sutures were removed and a small area of the skin opened. she came to the emergency room on Wednesday as her family thought the wound was looking worse. She was admitted for wound care. Today it was found that there is a deep subcutaneous pocket associated with the location of the cyst that is not being adequately drained. She is having incision and drainage of the deeper wound pocket at the bedside at this time. Findings seroma and hematoma were found. No purulent fluid. No necrosis. The deep pocket was associated with the location of the large cyst. Description of Procedure The patient was in left lateral decubitus position in her hospital bed. Local anesthetic was infiltrated into the subcutaneous as well as the skin associated with the upper more parts of the previous wound. When these areas were thoroughly anesthetized, an 11 blade scalpel was used and the skin and some subcutaneous closure was opened. There was minimal bleeding. Using gauze, I was able to examine the wound. I also palpated the wound. There were no further pockets. The surgical wound was completely opened. No necrosis or purulent fluid was noted. Some blood and seroma fluid was noted. The wound was packed with plans to place a wound VAC later today. Estimated Blood Loss -10 Urine Output 0 Packing Yes ( 4 x 4 gauze packing) Pathology None sent Complications None Condition Stable Disposition No change [facility] Billing Surgery - Charge Forward: Surgery Billing ( incision and drainage of open postsurgical wound)
--- NOTE | 2022-03-09 15:17 | PCNSR ---
On 03/09/22, the student, Leon Barragan, provided care and completed [facility] documentation on this patient. I have reviewed the student's documentation and agree with the findings.
[2022-03-09] MEDS: SILVER NITRATE (*SP) STICK 10 EACH TOPICAL (16:51)
[2022-03-09] MEDS: PHENobarbital (*CRX) 60 MG TABLET 120 MG PO (20:13)
[2022-03-09] MEDS: MELATONIN 5 MG TABLET 10 MG PO (20:13)
[2022-03-09] MEDS: AMITRIPTYLINE HCL 25 MG TABLET 50 MG PO (20:13)
[2022-03-10 05:45] VITALS: BP 90/54; PULSE 65; RESP 18; TEMP 36.7; O2SAT 98
[2022-03-10] MEDS: LEVOTHYROXINE SODIUM 150 MCG TABLET PO (05:58)
[2022-03-10] MEDS: MORPHINE SULFATE (*CRX) 2 MG/ML INJ IV PUSH ×4 (09:15→20:22)
[2022-03-10] MEDS: DIVALPROEX SODIUM DR 250 MG TABEC 1000 MG PO ×2 (09:15→20:20)
[2022-03-10] MEDS: calcium polycarbophiL 625 MG TABLET PO (09:15)
[2022-03-10 09:16] VITALS: PULSE 70
[2022-03-10] MEDS: METOPROLOL SUCCINATE EXT REL 12.5 MG TABCR PO ×2 (09:16→20:21)
[2022-03-10] MEDS: ATORVASTATIN 40 MG TABLET PO (09:16)
[2022-03-10] MEDS: ENOXAPARIN 40 MG/0.4 ML SYRINGE SUB-Q (09:16)
[2022-03-10] MEDS: FUROSEMIDE 20 MG TABLET PO (09:16)
[2022-03-10] MEDS: ENALAPRIL MALEATE 10 MG TABLET PO (09:16)
--- NOTE | 2022-03-10 11:05 | PM.PNGS ---
Progress Note: A&P Assessment and Plan (1) Open wound of right buttock: Code(s): S31.819A - Unspecified open wound of right buttock, initial encounter Status: Acute Assessment and Plan: Wound VAC in place working well. So far, unable to find home health for home wound VAC care. (2) Seizure disorder: Code(s): G40.909 - Epilepsy, unspecified, not intractable, without status epilepticus Status: Chronic Assessment and Plan: Has associated cognitive impairment as well as some physical disability, only able to ambulate short distances. (3) KENNY (obstructive sleep apnea): Code(s): G47.33 - Obstructive sleep apnea (adult) (pediatric) Status: Acute Assessment and Plan: Uses CPAP at home. Subjective Subjective Date/Time Seen: 03/10/22 11:05 Post Op day: 1 Patient reports: no new complaints, still having pain ( Hurts to lay or sit on wound VAC.), tolerating a regular diet, bowel movement and afebrile Interval history: wound VAC placed yesterday. Has been working well. Review of Systems Review of Systems: All systems reviewed & are unremarkable except as noted in HPI and below ( HPI. No additional complaints.) ROS unobtainable: Yes unobtainable due to medical condition ( Cognitive impairment from seizure disorder) Exam GI: Rectal Exam: other ( Wound VAC in place over right upper buttocks wound, working well.) Objective Data Vital Signs Vital Signs: Vital Signs - 24 hr 03/09/22 13:45 03/09/22 20:13 03/09/22 20:36 Temperature 35.8 C L 37.1 C Pulse Rate 63 65 66 Respiratory Rate 14 18 Blood Pressure 104/32 L 111/50 L Pulse Oximetry 96 96 Oxygen Delivery 03/09/22 23:07 03/10/22 05:45 03/10/22 09:16 Temperature 36.7 C Pulse Rate 65 70 Respiratory Rate 18 Blood Pressure 90/54 L Pulse Oximetry 96 98 Oxygen Delivery Room Air Intake/Output Intake/Output: Intake & Output 03/07/22 03/08/22 03/09/22 03/10/22 23:59 23:59 23:59 23:59 Intake Total 013 596 5163 240 Output Total 250 300 600 Balance 350 440 910 240 Meds/Results Medications: Active Medications Generic Name Dose Route Start Last Admin Trade Name Laurent PRN Reason Stop Dose Admin Acetaminophen 650 mg 03/08/22 11:40 Acetaminophen 325 Mg Tablet PO Q4H PRN Mild Pain (1-3) or Fever Amitriptyline HCl 50 mg 03/07/22 21:00 03/09/22 20:13 Amitriptyline Hcl 25 Mg Tablet PO 50 mg HS PHIL Administration Atorvastatin Calcium 40 mg 03/08/22 09:00 03/10/22 09:16 Atorvastatin 40 Mg Tablet PO 40 mg DAILY PHIL Administration Calcium Polycarbophil 625 mg 03/09/22 09:00 03/10/22 09:15 Calcium Polycarbophil 625 Mg Tablet PO 625 mg QAM PHIL Administration Cyanocobalamin 1,000 mcg 03/14/22 09:00 Cyanocobalamin Inj 1,000 Mcg/Ml Vial IM [id number] PHIL Divalproex Sodium 1,000 mg 03/07/22 21:00 03/10/22 09:[address] 250 Mg Tabec PO 1,000 mg Q12HR PHIL Administration Enalapril Maleate 10 mg 03/08/22 09:00 03/10/22 09:16 Enalapril Maleate 10 Mg Tablet PO 10 mg DAILY PHIL Administration Enoxaparin Sodium 40 mg 03/08/22 09:00 03/10/22 09:16 Enoxaparin 40 Mg/0.4 Ml Syringe SUB-Q 40 mg DAILY PHIL Administration Furosemide 20 mg 03/08/22 09:00 03/10/22 09:16 Furosemide 20 Mg Tablet PO 20 mg DAILY PHIL Administration Ibuprofen 600 mg 03/08/22 11:06 Ibuprofen 600 Mg Tablet PO Q6H PRN Cramping Levothyroxine Sodium 25 mcg 03/09/22 06:30 03/09/22 05:31 Levothyroxine Sodium 25 Mcg Tablet PO 25 mcg Q48H PHIL Administration Levothyroxine Sodium 150 mcg 03/08/22 06:30 03/10/22 05:58 Levothyroxine Sodium 150 Mcg Tablet PO 150 mcg Q48H PHIL Administration Levothyroxine Sodium 112 mcg 03/09/22 06:30 03/09/22 05:31 Levothyroxine Sodium 112 Mcg Tablet PO 112 mcg Q48H PHIL Administration Melatonin 10 mg 03/07/22 21:00 03/09/22 20:13
[2022-03-10 14:00] VITALS: BP 93/58; PULSE 68; RESP 18; TEMP 36.8; O2SAT 98
--- NOTE | 2022-03-10 14:08 | PM.IMPN ---
Progress Note: A&P Assessment and Plan (1) Open wound of right buttock: Code(s): S31.819A - Unspecified open wound of right buttock, initial encounter Status: Acute (2) Ruptured epithelial inclusion cyst: Code(s): L72.0 - Epidermal cyst Status: Chronic (3) Anemia: Qualifiers: Anemia type: unspecified type Qualified Code(s): D64.9 - Anemia, unspecified Code(s): D64.9 - Anemia, unspecified Status: Deleted (4) KENNY (obstructive sleep apnea): Code(s): G47.33 - Obstructive sleep apnea (adult) (pediatric) Status: Acute (5) Seizure disorder: Code(s): G40.909 - Epilepsy, unspecified, not intractable, without status epilepticus Status: Chronic (6) Hypertension: Qualifiers: Hypertension type: essential hypertension Qualified Code(s): I10 - Essential (primary) hypertension Code(s): I10 - Essential (primary) hypertension Status: Chronic (7) Hypothyroidism: Qualifiers: Hypothyroidism type: unspecified Qualified Code(s): E03.9 - Hypothyroidism, unspecified Code(s): E03.9 - Hypothyroidism, unspecified Status: Acute Plan Patient has been admitted to medical floor. Wound Cx collected and now growing Bacteroides, Staph aureus and EColi. BCx NGTD. Abx stopped since not felt to be a wound infection; probably colonization. Wound vac added. 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 It appears that she has a chronic anemia. Was noted to be B12 deficient in the past but this has been corrected. Recent iron studies earlier this year showed low TIBC but no iron deficiency. Anemia could be related to her medications. Hgb remaining stable. Check periodically. She has sleep apnea and compliant with CPAP here. Valproic acid level noted but no recent seizures so no change in regiment. Continue PB and VPA. BP softer now. Will hold Lasix. Continue to monitor blood pressure and adjust medications as needed. TSH normal. Continue levothyroxine. She has been having stool incontinence so obstructive series obtained which excluded fecal impaction but this shows colonic wall thickening but doubt colitis. Follow clinically. Continue Fibercon. DVT prophylaxis: Lovenox Code Status: DNR Subjective Date/time seen: 03/10/22 14:08 Interval history: 67yo female with KENNY, seizure disorder and HTN here for post-op wound infection. More pain since the procedure yesterday. Wound vac in place now. No nausea or vomiting. Pain is controlled with current medications. Exam Narrative: AF 98.1 90/54 70 18 98% ra Gen - NARD Chest - CTA bilaterally, nml RR CV - RRR S1/S2 Abd - Soft, NT/ND, Positive BS Ext - No pitting pedal edema Psych - Nml mood and affect Skin - Warm and dry. wound vac to the right buttock Objective Data Vital Signs Vital Signs: Vital Signs - 24 hr 03/09/22 20:13 03/09/22 20:36 03/09/22 23:07 Temperature 98.8 F Pulse Rate 65 66 Respiratory Rate 18 Blood Pressure 111/50 L Pulse Oximetry 96 96 Oxygen Delivery Room Air 03/10/22 05:45 03/10/22 09:16 03/10/22 08:45 Temperature 98.1 F Pulse Rate 65 70 Respiratory Rate 18 Blood Pressure 90/54 L Pulse Oximetry 98 Oxygen Delivery Room Air Intake/Output Intake/Output: Intake & Output 03/07/22 03/08/22 03/09/22 03/10/22 23:59 23:59 23:59 23:59 Intake Total 783 047 4462 240 Output Total 250 300 600 Balance 350 440 910 240 Meds/Results Medications: Active Medications Generic Name Dose Route Start Last Admin Trade Name Freq PRN Reason Stop Dose Admin Acetaminophen 650 mg 03/08/22 11:40 Acetaminophen 325 Mg Tablet PO Q4H PRN Mild Pain (1-3) or Fever Amitriptyline HCl 50 mg 03/07/22 21:00 03/09/22 20:13 Amitriptyline Hcl 25 Mg Tablet PO 50 mg HS PHIL Administration Atorvastatin Calcium 40 mg 03/08/22 09:00 03/10/22 09:16 Atorvastatin 40 Mg Tablet PO 40 mg DAILY PHIL Administration
[2022-03-10] MEDS: AMITRIPTYLINE HCL 25 MG TABLET 50 MG PO (20:20)
[2022-03-10] MEDS: PHENobarbital (*CRX) 60 MG TABLET 120 MG PO (20:20)
[2022-03-10] MEDS: MELATONIN 5 MG TABLET 10 MG PO (20:20)
[2022-03-10 20:21] VITALS: PULSE 68
[2022-03-10 20:45] VITALS: BP 104/52; PULSE 66; RESP 18; TEMP 36.4; O2SAT 96
[2022-03-10 22:52] VITALS: PULSE 80; O2SAT 96
[2022-03-11 04:21] VITALS: BP 102/46; PULSE 58; RESP 16; TEMP 36.6; O2SAT 95
[2022-03-11] MEDS: LEVOTHYROXINE SODIUM 112 MCG TABLET PO (05:43)
[2022-03-11] MEDS: LEVOTHYROXINE SODIUM 25 MCG TABLET PO (05:43)
[2022-03-11 08:19] VITALS: PULSE 62
[2022-03-11] MEDS: METOPROLOL SUCCINATE EXT REL 12.5 MG TABCR PO ×2 (08:19→20:48)
[2022-03-11] MEDS: MORPHINE SULFATE (*CRX) 2 MG/ML INJ IV PUSH (08:19)
[2022-03-11] MEDS: calcium polycarbophiL 625 MG TABLET PO (08:19)
[2022-03-11] MEDS: ATORVASTATIN 40 MG TABLET PO (08:19)
[2022-03-11] MEDS: DIVALPROEX SODIUM DR 250 MG TABEC 1000 MG PO ×2 (08:19→20:47)
[2022-03-11] MEDS: ENOXAPARIN 40 MG/0.4 ML SYRINGE SUB-Q (08:20)
[2022-03-11] MEDS: ENALAPRIL MALEATE 10 MG TABLET PO (08:20)
--- NOTE | 2022-03-11 13:26 | PM.IMPN ---
Progress Note: A&P Assessment and Plan (1) Open wound of right buttock: Code(s): S31.819A - Unspecified open wound of right buttock, initial encounter Status: Acute (2) Ruptured epithelial inclusion cyst: Code(s): L72.0 - Epidermal cyst Status: Chronic (3) Anemia: Qualifiers: Anemia type: unspecified type Qualified Code(s): D64.9 - Anemia, unspecified Code(s): D64.9 - Anemia, unspecified Status: Deleted (4) KENNY (obstructive sleep apnea): Code(s): G47.33 - Obstructive sleep apnea (adult) (pediatric) Status: Acute (5) Seizure disorder: Code(s): G40.909 - Epilepsy, unspecified, not intractable, without status epilepticus Status: Chronic (6) Hypertension: Qualifiers: Hypertension type: essential hypertension Qualified Code(s): I10 - Essential (primary) hypertension Code(s): I10 - Essential (primary) hypertension Status: Chronic (7) Hypothyroidism: Qualifiers: Hypothyroidism type: unspecified Qualified Code(s): E03.9 - Hypothyroidism, unspecified Code(s): E03.9 - Hypothyroidism, unspecified Status: Acute Plan # buttock postop wound infection. Wound culture growing Bacteroides, Staph aureus, E coli. Blood culture no growth to date. Debridement done and is currently on wound VAC. wound Care and General surgery following # chronic anemia: Was noted to be B12 deficient in the past but this has been corrected. Recent iron studies earlier this year showed low TIBC but no iron deficiency. Anemia could be related to her medications. Hgb remaining stable. Continue to monitor # She has sleep apnea and compliant with CPAP here. # seizure disorder Valproic acid level noted but no recent seizures so no change in regiment. Continue PB and VPA. # hypertension BP softer now. Will hold Lasix. Continue to monitor blood pressure and adjust medications as needed. # hypothyroidism TSH normal. Continue levothyroxine. # stool incontinence She has been having stool incontinence so obstructive series obtained which excluded fecal impaction but this shows colonic wall thickening but doubt colitis. Follow clinically. Continue Fibercon. # DVT prophylaxis: Lovenox # Code Status: DNR Subjective Date/time seen: 03/11/22 13:26 Interval history: 67yo female with KENNY, seizure disorder and HTN here for post-op wound infection. No new complaint. Back still hurts. Wound VAC in place. No fever chills. Denies any abdominal pain nausea vomiting. Discussed the patient and family at bedside Review of Systems Review of Systems: All systems reviewed & are unremarkable except as noted in HPI and below Exam Narrative: Gen - NARD Chest - CTA bilaterally, nml RR CV - RRR S1/S2 Abd - Soft, NT/ND, Positive BS Ext - No pitting pedal edema Psych - Nml mood and affect Skin - Warm and dry. wound vac to the right buttock Objective Data Vital Signs Vital Signs: Vital Signs - 24 hr 03/10/22 14:00 03/10/22 20:21 03/10/22 20:45 Temperature 98.3 F 97.6 F Pulse Rate 68 68 66 Respiratory Rate 18 18 Blood Pressure 93/58 L 104/52 L Pulse Oximetry 98 96 Oxygen Delivery 03/10/22 22:52 03/11/22 04:21 03/11/22 08:19 Temperature 97.8 F Pulse Rate 80 58 L 62 Respiratory Rate 16 Blood Pressure 102/46 L Pulse Oximetry 96 95 Oxygen Delivery 03/11/22 08:45 Temperature Pulse Rate Respiratory Rate Blood Pressure Pulse Oximetry Oxygen Delivery Room Air Intake/Output Intake/Output: Intake & Output 03/08/22 03/09/22 03/10/22 03/11/22 23:59 23:59 23:59 23:59 Intake Total 740 1510 1710 240 Output Total 300 600 53 Balance 948 248 9512 240 Meds/Results Medications: Active Medications Generic Name Dose Route Start Last Admin Trade Name Freq PRN Reason Stop Dose Admin Acetaminophen 650 mg 03/08/22 11:40 Acetaminophen 325 Mg Tablet PO Q4H PRN Mild Pain (1-
[2022-03-11 14:00] VITALS: BP 120/54; PULSE 64; RESP 18; TEMP 36.8; O2SAT 96
--- NOTE | 2022-03-11 14:33 | PM.PNGS ---
Progress Note: A&P Assessment and Plan (1) Open wound of right buttock: Code(s): S31.819A - Unspecified open wound of right buttock, initial encounter Status: Acute Assessment and Plan: Wound vac changed today and right buttock wound appears to be healing well with granulation tissue forming. Will try to transition to oral analgesics for pain control. Continue wound vac therapy. Spoke with care coordination - plan is for the patient to discharge home with [facility] to her residence in [place]. Her sister, Erica, will stay with her there. Could be discharged in the next few days if she continues to improve and pain is controlled. (2) Seizure disorder: Code(s): G40.909 - Epilepsy, unspecified, not intractable, without status epilepticus Status: Chronic Assessment and Plan: Has associated cognitive impairment as well as some physical disability, only able to ambulate short distances. Hospitalist managing medications. (3) KENNY (obstructive sleep apnea): Code(s): G47.33 - Obstructive sleep apnea (adult) (pediatric) Status: Acute Assessment and Plan: Continue CPAP while inpatient. Plan I have discussed the patient's case and plan of care with Dr. Fishman. Subjective Subjective Date/Time Seen: 03/11/22 14:33 Patient reports: no new complaints, still having pain and afebrile Interval history: Patient seen and examined with the wound care nurses. Her sister, Erica, is also at the bedside. She is still receiving IV Morphine for her right buttock wound pain. No other complaints at this time. Per , plan is for patient to discharge to her residence in [place] and [facility] is set up. Review of Systems Review of Systems: ROS unobtainable: Yes unobtainable due to medical condition ( Cognitive impairment from seizure disorder) Exam Const: General: comfortable and no acute distress Orientation/consciousness: patient oriented x3 Skin: Other: Right buttock wound vac dressing removed, the entire wound bed appears to have healthy granulating tissue forming with serosanguineous drainage, no surrounding erythema or warmth Psych: Insight: Limited insight present (Psych) Judgement: Limited judgement present (Psych) Objective Data Vital Signs Vital Signs: Vital Signs - 24 hr 03/10/22 20:21 03/10/22 20:45 03/10/22 22:52 Temperature 97.6 F Pulse Rate 68 66 80 Respiratory Rate 18 Blood Pressure 104/52 L Pulse Oximetry 96 96 Oxygen Delivery 03/11/22 04:21 03/11/22 08:19 03/11/22 08:45 Temperature 97.8 F Pulse Rate 58 L 62 Respiratory Rate 16 Blood Pressure 102/46 L Pulse Oximetry 95 Oxygen Delivery Room Air Intake/Output Intake/Output: Intake & Output 03/08/22 03/09/22 03/10/22 03/11/22 23:59 23:59 23:59 23:59 Intake Total 740 1510 1710 240 Output Total 300 600 53 Balance 812 646 9181 240 Meds/Results Medications: Active Medications Generic Name Dose Route Start Last Admin Trade Name Freq PRN Reason Stop Dose Admin Acetaminophen 650 mg 03/08/22 11:40 Acetaminophen 325 Mg Tablet PO Q4H PRN Mild Pain (1-3) or Fever Amitriptyline HCl 50 mg 03/07/22 21:00 03/10/22 20:20 Amitriptyline Hcl 25 Mg Tablet PO 50 mg HS PHIL Administration Atorvastatin Calcium 40 mg 03/08/22 09:00 03/11/22 08:19 Atorvastatin 40 Mg Tablet PO 40 mg DAILY PHIL Administration Calcium Polycarbophil 625 mg 03/09/22 09:00 03/11/22 08:19 Calcium Polycarbophil 625 Mg Tablet PO 625 mg QAM PHIL Administration Cyanocobalamin 1,000 mcg 03/14/22 09:00 Cyanocobalamin Inj 1,000 Mcg/Ml Vial IM [id number] PHIL Divalproex Sodium 1,000 mg 03/07/22 21:00 03/11/22 08:[address] 250 Mg Tabec PO 1,000 mg Q12HR PHIL Administration Enalapril Maleate 10 mg 03/08/22 09:00 03/11/22 08:20 Enalapril Maleate 10 Mg Tablet PO 10 mg DAILY PHIL Administration Enoxap
[2022-03-11] MEDS: HYDROcodone/acetaminophen (*CRX) 5-325 MG TABLET 1 TAB PO (16:36)
[2022-03-11 19:29] VITALS: BP 155/89; PULSE 65; RESP 18; TEMP 36.6; O2SAT 100
[2022-03-11] MEDS: PHENobarbital (*CRX) 60 MG TABLET 120 MG PO (20:47)
[2022-03-11] MEDS: MELATONIN 5 MG TABLET 10 MG PO (20:47)
[2022-03-11] MEDS: AMITRIPTYLINE HCL 25 MG TABLET 50 MG PO (20:47)
[2022-03-11 20:48] VITALS: PULSE 68
[2022-03-11] MEDS: HYDROcodone/acetaminophen (*CRX) 7.5-325 MG TABLET 1 TAB PO (20:48)
[2022-03-12 04:23] VITALS: BP 121/55; PULSE 54; RESP 16; TEMP 36.1; O2SAT 95
[2022-03-12] MEDS: HYDROcodone/acetaminophen (*CRX) 7.5-325 MG TABLET 1 TAB PO (04:29)
[2022-03-12] MEDS: LEVOTHYROXINE SODIUM 150 MCG TABLET PO (05:49)
[2022-03-12 08:00] VITALS: PULSE 54; RESP 16; O2SAT 95
[2022-03-12] MEDS: METOPROLOL SUCCINATE EXT REL 12.5 MG TABCR PO ×2 (08:41→20:33)
[2022-03-12] MEDS: ENALAPRIL MALEATE 10 MG TABLET PO (08:41)
[2022-03-12] MEDS: DIVALPROEX SODIUM DR 250 MG TABEC 1000 MG PO ×2 (08:41→20:32)
[2022-03-12] MEDS: ENOXAPARIN 40 MG/0.4 ML SYRINGE SUB-Q (08:41)
[2022-03-12] MEDS: ATORVASTATIN 40 MG TABLET PO (08:42)
[2022-03-12] MEDS: calcium polycarbophiL 625 MG TABLET PO (08:42)
[2022-03-12] MEDS: MORPHINE SULFATE (*CRX) 2 MG/ML INJ IV PUSH (08:50)
--- NOTE | 2022-03-12 11:08 | PM.DS ---
DS: Admitting Diagnosis Discharge Date 03/13/22 Admitting Diagnosis Open wound of right buttock Ruptured epithelial inclusion cyst s/p excision on 02/20/22 Seizure disorder KENNY Hypertension Hypothyroidism Wheelchair dependent BMI 38 DS: Discharge Diagnosis Discharge Diagnosis (1) Open wound of right buttock: Code(s): S31.819A - Unspecified open wound of right buttock, initial encounter Status: Acute Assessment and Plan: See discharge summary. (2) Ruptured epithelial inclusion cyst: Code(s): L72.0 - Epidermal cyst Status: Chronic Assessment and Plan: S/p excision 4.5 cm skin cyst of right buttock with layered closure on 02/20/[address] Fishman. Pathology showed ruptured epidermal inclusion cyst. (3) Seizure disorder: Code(s): G40.909 - Epilepsy, unspecified, not intractable, without status epilepticus Status: Chronic Assessment and Plan: Home medications resumed. Managed by the Hospitalist, who was consulted for medical management. Valproic acid and phenobarbital levels checked. VA level low, but no seizure activity so medication was continued at current dose. (4) KENNY (obstructive sleep apnea): Code(s): G47.33 - Obstructive sleep apnea (adult) (pediatric) Status: Acute Assessment and Plan: CPAP with home settings continued while inpatient. (5) Hypertension: Qualifiers: Hypertension type: essential hypertension Qualified Code(s): I10 - Essential (primary) hypertension Code(s): I10 - Essential (primary) hypertension Status: Chronic Assessment and Plan: Home medications resumed post-op and continued. BP monitored and remained stable. Medications were adjusted as needed. (6) Hypothyroidism: Qualifiers: Hypothyroidism type: unspecified Qualified Code(s): E03.9 - Hypothyroidism, unspecified Code(s): E03.9 - Hypothyroidism, unspecified Status: Acute Assessment and Plan: Home medication resumed. TSH checked and normal. Continue home medication on discharge. F/u with PCP. (7) B12 deficiency anemia: Code(s): D51.9 - Vitamin B12 deficiency anemia, unspecified Status: Acute Assessment and Plan: Patient with chronic anemia, noted to be B12 deficient int he past but this has not been corrected. Recent iron studies this year showed low TIBC but no iron deficiency. Anemia could be related to her medications. Hemoglobin 10.6 on admission, monitored with labs, and remained stable. No active bleeding. Follow-up with PCP. (8) Wheelchair bound: Code(s): Z99.3 - Dependence on wheelchair Status: Acute (9) BMI 38.0-38.9,adult: Code(s): Z68.38 - Body mass index [BMI] 38.0-38.9, adult Status: Chronic DS: Summary Hospital Course Reason for hospitalization: This is a 67-year-old woman who developed a large inclusion cyst on the upper right buttock.? She was seen in the office and, after discussion, was taken to surgery on 02/20/2022. The 4.5 cm inclusion cyst was excised with a 13 cm layered closure.? Pathology showed a ruptured epidermal inclusion cyst, however, the cyst was not ruptured. The cyst was opened after it was removed and it appeared to be ruptured on submission to pathology.? Patient was seen in the office on 03/02/2022 due to concerns with the wound.?In the office, the wound was very erythematous with edema and drainage, and the sutures were removed. There was a 2 cm area of skin in the lower 3rd of the wound.? This area was cleaned and some silver nitrate cautery was used to control oozing from skin and subcutaneous.? Patient was to clean the wound daily with soap and water and apply dry gauze dressing daily and p.r.n.. She had multiple seizures as a child resulting in cognitive and physical impairment.? She has significant disability and is cared for by her sisters and family at home (See H&P for full descriptive history). She was to see Dr. Fishman in the o
--- NOTE | 2022-03-12 12:21 | PM.IMPN ---
Progress Note: A&P Assessment and Plan (1) Open wound of right buttock: Code(s): S31.819A - Unspecified open wound of right buttock, initial encounter Status: Acute (2) Ruptured epithelial inclusion cyst: Code(s): L72.0 - Epidermal cyst Status: Chronic (3) Anemia: Qualifiers: Anemia type: unspecified type Qualified Code(s): D64.9 - Anemia, unspecified Code(s): D64.9 - Anemia, unspecified Status: Deleted (4) KENNY (obstructive sleep apnea): Code(s): G47.33 - Obstructive sleep apnea (adult) (pediatric) Status: Acute (5) Seizure disorder: Code(s): G40.909 - Epilepsy, unspecified, not intractable, without status epilepticus Status: Chronic (6) Hypertension: Qualifiers: Hypertension type: essential hypertension Qualified Code(s): I10 - Essential (primary) hypertension Code(s): I10 - Essential (primary) hypertension Status: Chronic (7) Hypothyroidism: Qualifiers: Hypothyroidism type: unspecified Qualified Code(s): E03.9 - Hypothyroidism, unspecified Code(s): E03.9 - Hypothyroidism, unspecified Status: Acute Plan # buttock postop wound infection. Wound culture growing Bacteroides, Staph aureus, E coli. Blood culture no growth to date. Debridement done and is currently on wound VAC. wound Care and General surgery following. Pain control per General surgery. Plan for discharge per General surgery # chronic anemia: Was noted to be B12 deficient in the past but this has been corrected. Recent iron studies earlier this year showed low TIBC but no iron deficiency. Anemia could be related to her medications. Hgb remaining stable. Continue to monitor # She has sleep apnea and compliant with CPAP here. # seizure disorder Valproic acid level noted but no recent seizures so no change in regiment. Continue PB and VPA. # hypertension BP softer now. Will hold Lasix. Continue to monitor blood pressure and adjust medications as needed. # hypothyroidism TSH normal. Continue levothyroxine. # stool incontinence She has been having stool incontinence so obstructive series obtained which excluded fecal impaction but this shows colonic wall thickening but doubt colitis. Follow clinically. Continue Fibercon. # DVT prophylaxis: Lovenox # Code Status: DNR Subjective Date/time seen: 03/12/22 12:21 Interval history: 67yo female with KENNY, seizure disorder and HTN here for post-op wound infection. Patient continues to complain of pain in her buttocks with wound VAC is in place. Denies any fever or chills. No nausea vomiting abdominal pain or diarrhea. Review of Systems Review of Systems: All systems reviewed & are unremarkable except as noted in HPI and below Exam Narrative: Gen - NARD Chest - CTA bilaterally, nml RR CV - RRR S1/S2 Abd - Soft, NT/ND, Positive BS Ext - No pitting pedal edema Psych - Nml mood and affect Skin - Warm and dry. wound vac to the right buttock Objective Data Vital Signs Vital Signs: Vital Signs - 24 hr 03/11/22 14:00 03/11/22 19:29 03/11/22 20:48 Temperature 98.2 F 97.8 F Pulse Rate 64 65 68 Respiratory Rate 18 18 Blood Pressure 120/54 L 155/89 H Pulse Oximetry 96 100 Oxygen Delivery Fraction of Inspired Oxygen 03/12/22 04:23 03/12/22 08:00 Temperature 97 F L Pulse Rate 54 L 54 L Respiratory Rate 16 16 Blood Pressure 121/55 L Pulse Oximetry 95 95 Oxygen Delivery Room Air Fraction of Inspired Oxygen 21 Intake/Output Intake/Output: Intake & Output 03/09/22 03/10/22 03/11/22 03/12/22 23:59 23:59 23:59 23:59 Intake Total 1510 1710 480 440 Output Total 600 53 Balance 910 1657 480 440 Meds/Results Medications: Active Medications Generic Name Dose Route Start Last Admin Trade Name Freq PRN Reason Stop Dose Admin Acetaminophen 650 mg 03/08/22 11:40 Acetaminophen 325 Mg Tablet PO Q4H PRN Mild Pain (1-3)
[2022-03-12 14:00] VITALS: BP 105/43; PULSE 66; RESP 18; TEMP 36.5; O2SAT 95
[2022-03-12] MEDS: MELATONIN 5 MG TABLET 10 MG PO (20:32)
[2022-03-12 20:33] VITALS: PULSE 68
[2022-03-12] MEDS: AMITRIPTYLINE HCL 25 MG TABLET 50 MG PO (20:33)
[2022-03-12] MEDS: traZODone HCL 50 MG TABLET PO (20:34)
[2022-03-12] MEDS: PHENobarbital (*CRX) 60 MG TABLET 120 MG PO (20:36)
[2022-03-12] MEDS: HYDROcodone/acetaminophen (*CRX) 5-325 MG TABLET 1 TAB PO (21:11)
[2022-03-12 21:30] VITALS: BP 114/43; PULSE 61; RESP 18; TEMP 36.5; O2SAT 100
[2022-03-13 04:30] VITALS: BP 120/54; PULSE 55; RESP 16; TEMP 36.5; O2SAT 99
[2022-03-13] MEDS: LEVOTHYROXINE SODIUM 112 MCG TABLET PO (06:59)
[2022-03-13] MEDS: LEVOTHYROXINE SODIUM 25 MCG TABLET PO (06:59)
[2022-03-13] MEDS: ATORVASTATIN 40 MG TABLET PO (09:22)
[2022-03-13] MEDS: DIVALPROEX SODIUM DR 250 MG TABEC 1000 MG PO (09:22)
[2022-03-13] MEDS: ENALAPRIL MALEATE 10 MG TABLET PO (09:22)
--- NOTE | 2022-03-13 09:22 | PM.DS ---
DS: Admitting Diagnosis Discharge Date 03/13/2022 Admitting Diagnosis open wound right buttock history excision epithelial inclusion cyst right buttock seizure disorder DS: Discharge Diagnosis Discharge Diagnosis (1) Open wound of right buttock: Code(s): S31.819A - Unspecified open wound of right buttock, initial encounter Status: Acute Assessment and Plan: initially seemed to be a skin separation. Probing revealed a deep subcutaneous seroma. With the location of the wound and the patient's disability requiring that she has been most of her time sitting, this was judged to be high risk for infection. The wound was opened under local anesthesia at the bedside and wound VAC therapy was started. Wound VAC worked well and the patient is discharged with continued wound VAC therapy and home health. (2) Seizure disorder: Code(s): G40.909 - Epilepsy, unspecified, not intractable, without status epilepticus Status: Chronic (3) Ruptured epithelial inclusion cyst: Code(s): L72.0 - Epidermal cyst Status: Chronic Assessment and Plan: excised 02/20/2022 (4) B12 deficiency anemia: Code(s): D51.9 - Vitamin B12 deficiency anemia, unspecified Status: Chronic Assessment and Plan: Supplemented (5) KENNY (obstructive sleep apnea): Code(s): G47.33 - Obstructive sleep apnea (adult) (pediatric) Status: Chronic (6) BMI 38.0-38.9,adult: Code(s): Z68.38 - Body mass index [BMI] 38.0-38.9, adult Status: Chronic DS: Summary Time Spent with Patient Time attestation: Total time spent providing and/or coordinating discharge services: Discharge Plan Discharge Attending physician on discharge: Blake Fishman Consulting providers: Anup Ochoa ; Martínez Loco Anticipated Discharge Date/Time: 03/13/22 12:00 Patient Disposition: Home Health Service Activity: other - see discharge instructions Wound Care Instructions: keep dressing dry Discharge Instructions: Care Coordination: Patient to have [facility] for wound care. They can be reached at [phone] and will contact you to schedule their first visit. Patient Instructions: Antibiotic Form Stand Alone Forms: General Discharge Information Follow-up/Referrals: Blake Fishman MD [Physician] - 2 Weeks Discharge Medications: Continued melatonin 10 mg Tablet 10 mg PO HS triamcinolone acetonide 0.1 % ointment 0.1 applic TOPICAL PRN PRN (Reason: Skin Irritation) Rx Instructions: breast and abdomen folds, groin biotin 5,000 mcg tablet, sublingual 10,000 mcg SUBLINGUAL DAILY cyanocobalamin (vitamin B-12) 1,000 mcg/mL solution 1 ml IM [id number] trazodone 50 mg tablet 1 tablet PO HS divalproex 500 mg tablet,delayed release (DR/EC) 1,000 mg PO QAM AND QHS amitriptyline 25 mg tablet 50 mg PO HS atorvastatin 40 mg tablet 40 mg PO DAILY metoprolol succinate 50 mg tablet extended release 24 hr 12.5 mg PO BID furosemide 20 mg tablet 20 mg PO DAILY levothyroxine 137 mcg tablet 137 mcg PO EVERY OTHER DAY Rx Instructions: LAST REFILL UNTIL SEEN levothyroxine 150 mcg Tablet 150 mcg PO EVERY OTHER DAY ibuprofen 600 mg tablet 600 mg PO Q6H PRN (Reason: pain) Qty: 10 0RF enalapril maleate 10 mg tablet 10 mg PO DAILY Qty: 30 0RF Rx Instructions: LAST REFILL UNTIL SEEN phenobarbital 64.8 mg tablet 129.6 mg PO HS Qty: 60 5RF Rx Instructions: 2 at hs Date of admission: 03/09/22 16:56 Primary Care Provider: Oscar Mcelroy Admitting Provider: Blake Fishman Attending physician on admission: Blake Fishman Condition: Stable Quality VTE Prophylaxis VTE prophylaxis: pharmacologic ordered
[2022-03-13 09:23] VITALS: PULSE 55
[2022-03-13] MEDS: calcium polycarbophiL 625 MG TABLET PO (09:23)
[2022-03-13] MEDS: ENOXAPARIN 40 MG/0.4 ML SYRINGE SUB-Q (09:23)
[2022-03-13] MEDS: HYDROcodone/acetaminophen (*CRX) 7.5-325 MG TABLET 1 TAB PO (09:26)
--- NOTE | 2022-03-13 10:53 | PCNFU ---
Nutrition Follow-Up Complete: Increased protein needs related to woundvac on pressure ulcer as evidenced by increased daily protein needs of 63-72gms/day at 1.4-1.6g/kg. Goal: Increased protein intake and Jama supplement BID (90 kcal, 2.5 gms protein each). Pt is not meeting goal, continue with current goal. Pt current nutrition is heart healthy diet. Last recorded weight is 88.1 kg, no new weight records. Bowel Motility:+BM (03/13). Labs Reviewed: No new labs reported. Meds Noted: B-complex, B-12,l FiberCon (laxative). Skin: Wound vac right buttocks Additional Notes: Pt reports good appetite and that she is drinking her Jama supplements BID. However, she states food is dull tasting and for that reason her oral intake is about 50%, down 40% from initial meeting. Monitor meal intake % with Jama and labs every 5 days.
--- NOTE | 2022-03-13 12:15 | PCNSR ---
On 03/13/22, the student, Leon Barragan, provided care and completed [facility] documentation on this patient. I have reviewed the student's documentation and agree with the findings.
== END 2022-03-13 14:40 | disposition home health service (06) | DRG 793 ==
LOC: ANHED 15:54 → ANH3MED 16:45
PROVIDERS: Internal Medicine; Admitting Provider Surgery; Emergency Provider Emergency Medicine; PCP Emergency Medicine; Visit Provider Nurse Practitioner Family
DX: L76.34 Postprocedural seroma of skin and subcutaneous tissue following other procedure (principal); L76.32 Postprocedural hematoma of skin and subcutaneous tissue following other procedure; Z22.39 Carrier of other specified bacterial diseases; B96.89 Other specified bacterial agents as the cause of diseases classified elsewhere; D64.9 Anemia, unspecified; G47.33 Obstructive sleep apnea (adult) (pediatric); G40.909 Epilepsy, unspecified, not intractable, without status epilepticus; E03.9 Hypothyroidism, unspecified; I10 Essential (primary) hypertension; R15.9 Full incontinence of feces; G31.84 Mild cognitive impairment of uncertain or unknown etiology; Z99.3 Dependence on wheelchair
CPT/HCPCS: 36415; 74019; 80053; 80164; 80184; 83605; 84443; 85025; 87040; 87070; 87075; 87076; 87077; 87147; 87181; 87186; 87205; 94002; 96365; 96372; 96374; 96375; 96376; 99285; A9270; G0378; G0379; J0690; J1650; J2270

== ENCOUNTER 2022-05-04 07:25 | Outpatient (RCR) | payer OTHER, SELFPAY ==
--- NOTE | 2022-03-23 12:54 | WPDWOUNDNOTE ---
Wound Care Note Date/Time: 03/23/22 12:54 History: History of excision inclusion cyst right upper buttocks near intergluteal crease. Developed wound separation and subcutaneous pocket. Wound history: Wound opened during recent hospitalization and wound VAC therapy started. Wound approximation: No Drainage: Serosanguineous Surrounding tissue appearance: Some fungal dermatitis Percentage granulation tissue: 100%, some evidence of fungus in the wound too. Treatment/Procedures: Continue wound VAC therapy Dressings: Sprinkle crushed 250 mg metronidazole capsule into wound prior to wound VAC replacement. Tolnaftate 1% powder antifungal to skin around buttocks wound. Assessment and Plan Assessment and plan (1) Open wound of right buttock: Code(s): S31.819A - Unspecified open wound of right buttock, initial encounter Status: Acute Assessment and Plan: Continue wound VAC therapy with home health. Start antifungal powder to skin around the wound. Crush metronidazole tablet and sprinkle into wound prior to wound VAC replacement each time wound VAC is changed. Recheck in 2 weeks. Review of Systems Review of Systems: All systems reviewed & are unremarkable except as noted in HPI and below (Wound care note above) Exam Const: General: cooperative, comfortable and no acute distress Back/Spine/Pelvis: Sacrum: erythema, tenderness and other (Granulating open wound with yeast in and around wound) Other: See wound care note
[2022-03-23 14:50] VITALS: BMI 37.9
--- NOTE | 2022-04-07 17:09 | WPDWOUNDNOTE ---
Wound Care Note Date/Time: 04/06/22 08:19 History: Excision sebaceous cyst right upper buttocks Wound history: wound drainage after suture removal, seroma and subsequent opening of the entire wound. Wound VAC placed. Wound approximation: No Wound width: 2 cm, improved from 2.5 cm Wound length: 6.5 cm, improved from 8.5 cm Wound depth: 1.5 cm, much improved from 4.9 cm deep. Drainage: Serosanguineous Surrounding tissue appearance: some maceration Tunneling: none Percentage granulation tissue: 100 Treatment/Procedures: none Dressings: DC wound VAC. Start gentamicin and Aquacel Silver rope daily. Assessment and Plan Assessment and plan (1) Open wound of right buttock: Code(s): S31.819A - Unspecified open wound of right buttock, initial encounter Status: Chronic Assessment and Plan: Wound is much smaller and beefy red. Will DC wound VAC which has made the patient quite happy. Will start gentamicin to the wound bed with Aquacel Silver rope and gauze daily. Recheck again in 2 weeks. Making good progress at this point. Review of Systems Review of Systems: All systems reviewed & are unremarkable except as noted in HPI and below ( Wound care note) Constitutional: Constitutional: Denies chills and Denies fever(s) Exam GI: Other: right upper buttocks wound beefy red and much smaller than on previous visit. Some reddish areas of maceration and irritation from wound VAC on surrounding skin.
--- NOTE | 2022-04-20 08:23 | P.PNWOUND_ITS ---
Wound Care Note Date/Time: 04/20/22 08:23 History: Patient is a 67-year-old woman with cognitive and physical disability. She can ambulate but spends most of her time in a chair. She always rides to her office visits in a wheelchair. She had a 4.5 cm skin cyst on the right upper bu ttocks which was painful for her. On February 20, 2022 she had this excised in the operating room. When she was seen in the office there was a lot of swelling and edema associated with the incision. Her sutures were removed but some of the incision had skin separation. Patient was at home on wound care but came to the emergency room on March 08 with further wound problems. After being admitted, it was found there was a deep subcutaneous seroma hematoma that was draining and the wound had to be fully opened. Cultures were obtained but showed multiple bacteria consistent with colonization. Wound history: Patient was on wound VAC therapy after her discharge on 03/13/2022. This worked well. She had some problems was yeast in the wound and in the surrounding skin. Metronidazole tablets were sprinkled into the wound prior to each wound VAC change. She was also started on Gerald to the triple antifungal cream. These problems resolved. The wound VAC was discontinued on 04/06/2022 and she was started on gentamicin ointment to the wound bed with Aquacel Silver rope daily. She is seen now for 2 week follow-up. Wound approximation: No Wound width: 1 cm, decreased from 2 cm on 04/06/2022 Wound length: 4.5 cm, decreased to 4 cm from 8.5 cm 03/23/2022 Wound depth: 0.5 cm, decreased from 4.9 cm 03/23/2022 Drainage: pink serosanguineous Surrounding tissue appearance: dry, healthy Tunneling: none Percentage granulation tissue: 100% Treatment/Procedures: lateral edge had some hypertrophic granulation tissue which was treated with silver nitrate cautery Dressings: continue gentamicin ointment with Aquacel Silver rope and ABD. Assessment and Plan Assessment and plan (1) Open wound of right buttock: Code(s): S31.819A - Unspecified open wound of right buttock, initial encounter Status: Deleted (2) Unspecified open wound of right buttock, subsequent encounter: Code(s): S31.819D - Unspecified open wound of right buttock, subsequent encounter Status: Chronic Assessment and Plan: rate of wound healing has increased significantly. Granulation tissue will be treated with silver nitrate but otherwise continue gentamicin ointment with silver rope and gauze or ABD dressings. Will see patient again in 2-3 weeks in the [facility]ound Clinic. Should be close to healed by that time. Review of Systems Review of Systems: All systems reviewed & are unremarkable except as noted in HPI and below ( Wound care note and those items below) Constitutional: Constitutional: Denies body ache(s), Denies chills and Denies fever(s) Gastrointestinal: Gastrointestinal: Denies diarrhea, Denies loose stools and Denies nausea Exam GI: Other: right buttocks wound pink and granulating, nearly half the size it was the last time I saw her patient. Depth as come in significantly.
--- NOTE | 2022-05-04 19:45 | WPDWOUNDNOTE ---
Wound Care Note Date/Time: 05/04/22 08:45 History: skin cyst removed right upper buttocks. Wound problems resulted in open wound. Wound history: wound vac followed by daily care, wound healing well Wound approximation: No Wound width: .2 cm Wound length: 1.8c, Wound depth: 0.1cm Drainage: serous Surrounding tissue appearance: dry, healthy Percentage granulation tissue: 100 Treatment/Procedures: none Dressings: Stop Aquacel Ag, use gent ointment, dry gauze daily. Assessment and Plan Assessment and plan (1) Unspecified open wound of right buttock, subsequent encounter: Code(s): S31.819D - Unspecified open wound of right buttock, subsequent encounter Status: Chronic Assessment and Plan: essentially healed. Stop dressings when no further drainage and no open wound. If not closed in 2 weeks, call Dr. Fishman. Otherwise f/u prn. Review of Systems Constitutional: Constitutional: Denies fever(s) Exam Back/Spine/Pelvis: Coccyx: Other pelvic findings (healing superficial wound, nearly closed.)
== END 2022-06-21 23:59 | disposition home or self-care (01) ==
LOC: ANHWOC 07:25
PROVIDERS: PCP Emergency Medicine; Visit Provider Surgery
DX: Z48.01 Encounter for change or removal of surgical wound dressing (principal); S31.819D Unspecified open wound of right buttock, subsequent encounter
CPT/HCPCS: 97605; 99212; 99213; A9270; G0463

== ENCOUNTER 2022-05-29 08:18 | Emergency (ER) | payer OTHER, SELFPAY ==
--- NOTE | 2022-05-29 08:20 | ED.DENTAL ---
HPI - Dental/Oral General Chief complaint: Dental/Oral Stated complaint: lft side facial swelling Time Seen by Provider: 05/29/22 08:28 Source: patient, RN notes reviewed and old records reviewed Mode of arrival: ambulatory Limitations: no limitations History of Present Illness HPI Narrative: 67-year-old female presents to the [facility] with sister with complaints of left lower facial swelling, dental pain to the left lower molars. Has a history of an abscess to the same side a year or so ago per sister. Sister states that she has been trying to get her into a dental provider but cannot find one to take her insurance. No cellulitic changes noted. MD Complaint: tooth pain Related Data Home Medications Medication Instructions Recorded Confirmed melatonin 10 mg tablet 10 mg PO HS 08/31/19 05/29/22 biotin 5,000 mcg sublingual tablet 10,000 mcg sublingual DAILY 10/30/19 05/29/22 atorvastatin 40 mg tablet 40 mg PO DAILY 09/23/20 05/29/22 furosemide 20 mg tablet 20 mg PO DAILY 09/23/20 05/29/22 metoprolol succinate 50 mg 12.5 mg PO BID 09/23/20 05/29/22 tablet,extended release 24 hr triamcinolone acetonide 0.1 % 0.1 applic topical PRN PRN Skin 08/31/21 05/29/22 topical ointment Irritation levothyroxine 137 mcg tablet 137 mcg PO EVERY OTHER DAY 02/16/22 05/29/22 levothyroxine 150 mcg tablet 150 mcg PO EVERY OTHER DAY 02/16/22 05/29/22 amitriptyline 25 mg tablet 50 mg PO HS 03/07/22 05/29/22 cyanocobalamin (vitamin B-12) 1 ml IM [id number] 03/07/22 05/29/22 1,000 mcg/mL injection solution divalproex 500 mg tablet,delayed 1,000 mg PO QAM AND QHS 03/07/22 05/29/22 release trazodone 50 mg tablet 1 tablet PO HS 03/07/22 05/29/22 Allergies Allergy/AdvReac Type Severity Reaction Status Date / Time codeine Allergy Intermediate Hives Verified 05/29/22 08:27 latex Allergy Unknown Hives Verified 05/29/22 08:27 Review of Systems Review of Systems: All systems reviewed & are unremarkable except as noted in HPI and below Constitutional: Constitutional: Reports no additional constitutional complaints, Denies chills and Denies fever(s) Eyes: Eyes: Reports no additional eye complaints ENT: Reports as per HPI Comments: Dental pain left lower. Swelling Cardiovascular: Cardiovascular: Reports no additional cardiovascular complaints, Denies chest pain and Denies dyspnea Respiratory: Respiratory: Reports no additional respiratory complaints, Denies cough and Denies dyspnea Musculoskeletal: Musculoskeletal: Reports no additional musculoskeletal complaints Integumentary/Breasts: Skin/Breast: Reports system reviewed and no additional complaints, except as docu Neurologic: Reports system reviewed and no additional complaints, except as documented Psychiatric: Psychiatric: Reports no additional psychiatric complaints Allergic/Immunologic: Allergic/Immunologic: Reports no additional allergic/immunologic complaints [facility] Past Medical History Medical History B12 deficiency anemia Chronic headache History of open sigmoidectomy Hypercholesterolemia Hypertension Hyponatremia Hypothyroidism Insomnia Learning disability KENNY (obstructive sleep apnea) Polyp, sigmoid colon Post-menopausal Scalp cyst Seizure disorder Vision loss, left eye Surgical History Surgical History H/O excision of mass 4.1 cm posterior scalp cyst, 4.5 cm excision 11/19/21 H/O gastric bypass early 70s History of colonoscopy 2020 last one could be 5+ years ago Hx of excision of mass exc of rt buttock mass 02/20/22 Presence of ankle implant X2 S/P laparoscopic-assisted sigmoidectomy JEREMY sigmoidectomy with colorectal anastomosis 11/29/19 Family History Family History Father Cancer Cerebrovascular accident Hypertension Mother Breast cancer Lung cancer Diabetes mellitus Hypertension
[2022-05-29 08:32] VITALS: BP 144/57; PULSE 84; RESP 20; TEMP 35.9; O2SAT 97
== END 2022-05-29 08:43 | disposition home or self-care (01) ==
PROVIDERS: Emergency Provider Nurse Practitioner; PCP Emergency Medicine
DX: K04.7 Periapical abscess without sinus (principal); E78.00 Pure hypercholesterolemia, unspecified; I10 Essential (primary) hypertension; E03.9 Hypothyroidism, unspecified; G47.33 Obstructive sleep apnea (adult) (pediatric); E53.8 Deficiency of other specified B group vitamins; Z98.84 Bariatric surgery status
CPT/HCPCS: 99213; G0463

== ENCOUNTER 2023-02-23 08:16 | Outpatient (CLI) | payer OTHER, SELFPAY ==
[2023-02-23 08:38] LABS: Basophils Percent Auto 0.7 % (0.2-1.2); Eosinophils Absolute Auto 0.1 K/mm3 (0-0.3); Eosinophils Percent Auto 1.7 % (0-4.4); Hematocrit 33.2 % (37.0-47.0); Hemoglobin 10.6 g/dL (12.0-15.0); Immature Granulocyte Absolute 0.01 K/mm3 (0.00-0.031); Immature Granulocyte Percent A 0.2 % (0-0.5); Lymphocytes Absolute Auto 1.68 K/mm3 (0.9-3.2); Lymphocytes Percent Auto 27.9 % (18.3-44.2); Mean Corpuscular HGB Conc 31.9 g/dl (32-36); Mean Corpuscular Hemoglobin 30.6 pg (26-34); Mean Platelet Volume 10.2 fl (7.4-10.4); Monocytes Absolute Auto 0.7 K/mm3 (0.1-0.6); Neutrophils Absolute Auto 3.5 K/mm3 (1.3-6.7); Neutrophils Percent Auto 57.5 % (45.5-73.1); Platelet Count Result 146 k/mm3 (150-375); Red Blood Count 3.46 M/mm3 (4.2-5.4); Red Cell Distribution Width 14.1 % (11.5-14.5)
[2023-02-23 09:55] LABS: Alanine Aminotransferase 15 U/L (6-35); Albumin Level 3.7 g/dL (3.5-5.1); Alkaline Phosphatase 97 U/L (38-126); Anion Gap 8 mmol/L (8-16); Aspartate Amino Transferase 21 U/L (14-36); Bilirubin,Total 0.3 mg/dL (0.2-1.3); Blood Urea Nitrogen 23 mg/dL (7-17); Calcium 8.1 mg/dL (8.4-10.2); Carbon Dioxide 21 mmol/L (22-30); Chloride 100 mmol/L (98-107); Estimated Glomerular Filt Rate > 60; Glucose 84 mg/dL (65-110); Potassium 4.5 mmol/L (3.4-5.0); Sodium 129 mmol/L (137-145)
[2023-02-23 10:11] LABS: Iron 89 ug/dL (37-170)
[2023-02-23 10:21] LABS: Percent Iron Saturation 33 % (20-50)
[2023-02-23 10:48] LABS: Ferritin 7.77 ng/mL (11.1-264)
[2023-02-23 11:12] LABS: Folic Acid > 20.0 ng/mL (2.76->20); Vitamin B12 > 1000.0 pg/mL (239-931)
== END 2023-02-23 08:17 | disposition home or self-care (01) ==
PROVIDERS: PCP Emergency Medicine; Visit Provider Internal Medicine Hematology & Oncology
DX: D64.9 Anemia, unspecified (principal)
CPT/HCPCS: 36415; 80053; 82607; 82728; 82746; 83540; 83550; 85025

== ENCOUNTER 2023-03-03 06:36 | Outpatient (CLI) | payer OTHER, SELFPAY ==
--- NOTE | ~2023-03-03 | MR_ITS ---
EXAMINATION: MR pituitary wo/w con DATE: 03/03/2023 07:43 INDICATION: Abnormal pituitary function tests. TECHNIQUE: Magnetic resonance imaging (MRI) of the brain and brainstem was performed without and with 17 mL MultiHance intravenous contrast. COMPARISON: Head CT 07/11/2021 FINDINGS: There is diffuse brain volume loss. The pituitary is normal in size with height of 5 mm and concave superior margin. There is no intracranial hemorrhage, acute infarction, or abnormal intracra nial mass lesion. There are scattered areas of nonspecific increased T2-weighted signal intensity in the cerebral white matter, which is within normal limits for the patient's age. The ventricles are no rmal in size. There is mild mucosal thickening in the paranasal sinuses. The orbits are normal. There is a small right mastoid effusion. IMPRESSION: 1. Normal aging brain. Normal pituitary. Reviewed, dictated and finalized at location A.
== END 2023-03-03 06:37 | disposition home or self-care (01) ==
PROVIDERS: PCP Emergency Medicine; Visit Provider Internal Medicine Endocrinology, Diabetes & Metabolism
DX: R94.7 Abnormal results of other endocrine function studies (principal)
CPT/HCPCS: 70553; A9577

== ENCOUNTER 2023-03-15 06:37 | Outpatient (CLI) | payer OTHER, SELFPAY ==
--- NOTE | ~2023-03-15 | XR_ITS ---
Clinical Indication: Hyponatremia PA and lateral views of the chest: Comparison: 11/25/2015 Findings: The lungs are clear, without evidence of focal consolidation or pleural effusion. Cardiome diastinal silhouette is within normal limits. 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 Impression: Clear lungs. Reviewed, dictated and finalized at location . Impression: Clear lungs.
[2023-03-15 07:51] LABS: Appearance Urine Cloudy (Clear); Bacteria Urine Rare /hpf; Bilirubin Urine Negative (Negative); Color Urine Yellow (Yellow); Glucose Urine UA Negative (Negative); Ketones Urine Negative (Negative); Leukocyte Esterase Ur 3+ LEU/UL (NEGATIVE); Nitrate Urine Negative (Negative); Non Pathogenic Casts 0-2; Protein Urine 1+ mg/dL (Negative); RBC Urine 0-2 /hpf (0-2); Specific Grav Ur 1.012 (1.001-1.035); Squamous Epithelial Cell Urine None seen /hpf (Few); WBC Urine >100 /hpf (0-3)
[2023-03-15 08:01] LABS: Add Urine Microscopic? YES
[2023-03-15 08:13] LABS: Creatinine Urine 46.6 mg/dL; Total Protein Urine Random 42 mg/dL
[2023-03-18 01:16] LABS: Albumin 3.4 g/dL (3.8-4.8); Alpha 1 Globulin 0.4 g/dL (0.2-0.3); Alpha 2 Globulin 0.5 g/dL (0.5-0.9); Beta 1 Globulin 0.4 g/dL (0.4-0.6); Gamma Globulin 0.9 g/dL (0.8-1.7)
[2023-03-18 20:17] LABS: Osmolality, Urine 350 mOsm/kg (50-1200)
== END 2023-03-15 06:38 | disposition home or self-care (01) ==
PROVIDERS: PCP Emergency Medicine; Visit Provider Internal Medicine Nephrology
DX: E87.1 Hypo-osmolality and hyponatremia (principal); R94.7 Abnormal results of other endocrine function studies; I95.1 Orthostatic hypotension; E87.5 Hyperkalemia
CPT/HCPCS: 36415; 71046; 81001; 82533; 82570; 83930; 83935; 84155; 84156; 84165; 96372; J0834

== ENCOUNTER 2023-03-16 14:20 | Outpatient (CLI) | payer OTHER, SELFPAY | END 2023-03-16 14:21 | disposition home or self-care (01) | PROVIDERS: PCP Emergency Medicine; Visit Provider Internal Medicine Nephrology | DX: R82.81 Pyuria (principal) | CPT/HCPCS: 87077; 87086; 87088; 87186 ==

== ENCOUNTER 2023-04-01 08:05 | Outpatient (CLI) | payer OTHER, SELFPAY ==
--- NOTE | ~2023-04-01 | DEXA_ITS ---
Bone Density Report Name: DAVEY BEYER Age: 68 Sex: Female Ethnicity: White Date of : 1955 Indication: postmenopausal; screening for osteoporosis; height loss; seizure disorder; Referring Provider: DENISSE FERNANDES Study: Bone densitometry was performed. Exam Date: April 01, 2023 Accession number: [id number] Bone Density: Region BMD T-score Z-score Classification AP Spine(L1, L2) 1.151 1.6 3.5 Normal Femoral Neck (Left) 0.655 -1.7 0.1 Osteopenia Total Hip (Left) 0.791 -1.2 0.3 Osteopenia Femoral Neck (Right) 0.693 -1.4 0.4 Osteopenia Total Hip (Right) 0.824 -1.0 0.5 Normal Total Hip Mean 0.807 -1.1 0.4 Osteopenia World Health Organization criteria for BMD impression classify patients as: Normal (T-score at or above -1.0), Osteopenia (T-score between -1.0 and -2.5), or Osteoporosis (T-score at or below -2.5). 10-year Fracture Risk(1): Major Osteoporotic Fracture 9.4% Hip Fracture 1.5% Reported Risk Factors: [place] (), Neck BMD=0.655, BMI=38.8 (1) FRAX(R) Version 3.08. Fracture probability calculated for an untreated patient. Fracture probability may be lower if the patient has received treatment. Clinical Information Provided by Patient: Has used the following medications: Vitamin D, Calcium Has the following medical conditions: Any Seizure Disorders Patient maximum height was 63 Menopause Age: 38 Drinks caffeinated beverages Onset of menses at age 11 Number of children 0 Impression: The patient has low bone mass, based on the Left Femoral Neck T-score. The patient has an estimated ten-year risk of hip fracture of 1.5% and an estimated ten-year risk of major fracture of 9.4%, based on the WHO FRAX algorithm. Discussion: BONE DENSITY IS LOW AT ONE OR MORE SKELETAL SITES. This patient's lowest T-score is low at one or more skeletal sites. It meets the World Health Organization's (WHO) criteria for ?low bone mass? (T-score between -1.0 and -2.5). The patient's 10-year risk of fracture as calculated by FRAX is less than the threshold where pharmacological therapy is recommended by the National Osteoporosis Foundation (NOF). However, all treatment decisions require clinical judgment and consideration of individual patient factors, including patient preferences, comorbidities, previous drug use, risk factors not captured in the FRAX model (e.g., frailty, falls, vitamin D deficiency, increased bone turnover, interval significant decline in bone density) and possible under or overestimation of fracture risk by FRAX. The patient should follow a healthful lifestyle (good nutrition with adequate calcium and vitamin D, and appropriate weight-bearing exercise). Follow-Up: Consider repeating this study in 2 to 3 years to reassess this patient's status, or sooner if there is s
--- NOTE | ~2023-04-01 | MM_ITS ---
EXAMINATION: MM screening eva BI w leon HISTORY: Screening mammogram, family history of breast cancer in her mother. TECHNIQUE: Craniocaudal and mediolateral oblique 3-D tomosynthesis images were obtained and synthetic 2-D images were generated. CAD analysis was submitted and interpreted. COMPARISON: 10/16/2019 BREAST PARENCHYMAL COMPOSITION: There are scattered areas of fibroglandular density. FINDINGS: No suspicious mass, calcification, or architectural distortion are identified in either juliana ast to suggest malignancy. There has been no suspicious interval change. IMPRESSION: 1. No mammographic evidence of malignancy. 2. Recommend routine screening mammography in one year. BI-RADS Category 1: Negative Reviewed, dictated and finalized at location A.
== END 2023-04-01 08:06 | disposition home or self-care (01) ==
LOC: ANHIMG 08:07
PROVIDERS: PCP Emergency Medicine; Visit Provider Emergency Medicine
DX: Z12.31 Encounter for screening mammogram for malignant neoplasm of breast (principal); Z78.0 Asymptomatic menopausal state; M85.852 Other specified disorders of bone density and structure, left thigh; M85.851 Other specified disorders of bone density and structure, right thigh
CPT/HCPCS: 77063; 77067; 77080

== ENCOUNTER 2023-08-25 08:02 | Outpatient (CLI) | payer OTHER, SELFPAY ==
[2023-08-25 08:20] LABS: Basophils Absolute Auto 0.1 K/mm3 (0.0-0.1); Basophils Percent Auto 0.7 % (0.2-1.2); Eosinophils Absolute Auto 0.2 K/mm3 (0-0.3); Hematocrit 35.2 % (37.0-47.0); Hemoglobin 11.6 g/dL (12.0-15.0); Immature Granulocyte Absolute 0.05 K/mm3 (0.00-0.031); Immature Granulocyte Percent A 0.7 % (0-0.5); Mean Corpuscular Hemoglobin 30.9 pg (26-34); Mean Corpuscular Volume 93.9 fl (80-100); Mean Platelet Volume 10.1 fl (7.4-10.4); Monocytes Absolute Auto 1.1 K/mm3 (0.1-0.6); Monocytes Percent Auto 15.2 % (2.6-8.5); Neutrophils Absolute Auto 3.7 K/mm3 (1.3-6.7); Neutrophils Percent Auto 50.4 % (45.5-73.1); Platelet Count Result 139 k/mm3 (150-375); Red Blood Count 3.75 M/mm3 (4.2-5.4); White Blood Count 7.4 K/mm3 (4.5-10.0)
[2023-08-25 14:19] LABS: Alanine Aminotransferase 13 U/L (6-35); Albumin Level 3.5 g/dL (3.5-5.1); Alkaline Phosphatase 82 U/L (38-126); Anion Gap 8 mmol/L (8-16); Aspartate Amino Transferase 21 U/L (14-36); Bilirubin,Total 0.3 mg/dL (0.2-1.3); Blood Urea Nitrogen 15 mg/dL (7-17); Carbon Dioxide 24 mmol/L (22-30); Chloride 99 mmol/L (98-107); Estimated Glomerular Filt Rate > 60; Glucose 85 mg/dL (65-110); Potassium 5.1 mmol/L (3.4-5.0); Sodium 131 mmol/L (137-145)
[2023-08-25 15:22] LABS: Folic Acid > 20.0 ng/mL (2.76->20); Vitamin B12 > 1000.0 pg/mL (239-931)
== END 2023-08-25 08:03 | disposition home or self-care (01) ==
LOC: ANHLAB 08:04
PROVIDERS: PCP Emergency Medicine; Visit Provider Internal Medicine Hematology & Oncology
DX: D64.9 Anemia, unspecified (principal)
CPT/HCPCS: 36415; 80053; 82607; 82746; 85025

== ENCOUNTER 2024-02-29 08:00 | Outpatient (CLI) | payer OTHER, SELFPAY ==
[2024-02-29 08:23] LABS: Basophils Percent Auto 0.7 % (0.2-1.2); Eosinophils Absolute Auto 0.1 K/mm3 (0-0.3); Hematocrit 33.3 % (37.0-47.0); Hemoglobin 10.9 g/dL (12.0-15.0); Immature Granulocyte Absolute 0.05 K/mm3 (0.00-0.031); Immature Granulocyte Percent A 0.9 % (0-0.5); Lymphocytes Absolute Auto 1.67 K/mm3 (0.9-3.2); Lymphocytes Percent Auto 29.1 % (18.3-44.2); Mean Corpuscular HGB Conc 32.7 g/dl (32-36); Mean Corpuscular Hemoglobin 30.7 pg (26-34); Mean Corpuscular Volume 93.8 fl (80-100); Mean Platelet Volume 9.3 fl (7.4-10.4); Monocytes Absolute Auto 0.9 K/mm3 (0.1-0.6); Monocytes Percent Auto 16.4 % (2.6-8.5); Neutrophils Percent Auto 51.9 % (45.5-73.1); Platelet Count Result 141 k/mm3 (150-375); Red Blood Count 3.55 M/mm3 (4.2-5.4); Red Cell Distribution Width 14.4 % (11.5-14.5); White Blood Count 5.7 K/mm3 (4.5-10.0)
[2024-02-29 10:17] LABS: Anion Gap 4 mmol/L (4-12); Blood Urea Nitrogen 12 mg/dL (7-17); Calcium 9.1 mg/dL (8.4-10.2); Carbon Dioxide 23 mmol/L (22-30); Chloride 100 mmol/L (98-107); Estimated Glomerular Filt Rate > 60; Glucose 90 mg/dL (65-110); Iron 88 ug/dL (37-170); Potassium 5.2 mmol/L (3.4-5.0); Sodium 127 mmol/L (137-145)
[2024-02-29 10:26] LABS: Percent Iron Saturation 37 % (20-50)
[2024-02-29 11:28] LABS: Folic Acid > 20.0 ng/mL (2.76->20); Vitamin B12 > 1000.0 pg/mL (239-931)
== END 2024-02-29 08:01 | disposition home or self-care (01) ==
LOC: ANHLAB 08:03
PROVIDERS: PCP Emergency Medicine; Visit Provider Internal Medicine Hematology & Oncology
DX: D64.9 Anemia, unspecified (principal)
CPT/HCPCS: 36415; 80048; 82607; 82728; 82746; 83540; 83550; 85025

== ENCOUNTER 2024-09-01 17:54 | Emergency (ER) | payer OTHER, SELFPAY ==
[2024-09-01 18:08] VITALS: BP 157/57; PULSE 63; RESP 20; TEMP 36.9; O2SAT 100
--- NOTE | 2024-09-01 18:45 | ED_ITS ---
HPI - URI/Sore Throat General Chief Complaint: Upper Respiratory Infection Stated Complaint: cold symptoms Time Seen by Provider: 09/01/24 18:45 Source: patient, RN notes reviewed and old records reviewed Mode of arrival: ambulatory Limitations: no limitations History of Present Illness HPI Narrative: Patient presents accompanied by her sister. She is complaining of productive cough with occasional wheezing. Symptoms present for 3 weeks. Patient reports she only came today because she is concerned because she has cataract surgery scheduled for next week. She denies all injury and trauma. She is not in any distress, including respiratory distress. Related Data Home Medications Medication Instructions Recorded Confirmed biotin 5,000 mcg sublingual tablet 10,000 mcg sublingual DAILY 10/30/19 09/01/24 atorvastatin 40 mg tablet 40 mg PO DAILY 09/23/20 09/01/24 furosemide 20 mg tablet 20 mg PO DAILY 09/23/20 09/01/24 levothyroxine 125 mcg tablet 125 mcg PO DAILY 09/28/23 09/01/24 (Unithroid) Allergies Allergy/AdvReac Type Severity Reaction Status Date / Time codeine Allergy Intermediate Hives Verified 09/01/24 18:06 latex Allergy Unknown Hives Verified 09/01/24 18:06 Review of Systems Review of Systems: All systems reviewed & are unremarkable except as noted in HPI and below Constitutional: Constitutional: Reports no additional constitutional complaint s and Reports lethargy ENT: Reports system reviewed and no additional complaints, except as documented Cardiovascular: Cardiovascular: Reports no additional cardiovascular complaints Respiratory: Respiratory: Reports no additional respiratory complaints, Reports chest congestion and Reports cough Gastrointestinal: Gastrointestinal: Reports no additional gastrointestinal complaints [facility] Past Medical History Medical History B12 deficiency anemia Chronic headache History of open sigmoidectomy Hypercholesterolemia Hypertension Hyponatremia Hypothyroidism Insomnia Learning disability KENNY (obstructive sleep apnea) Polyp, sigmoid colon Post-menopausal Scalp cyst Seizure disorder Vision loss, left eye Surgical History Surgical History H/O excision of mass 4.1 cm posterior scalp cyst, 4.5 cm excision 11/19/21 H/O gastric bypass early 70s History of colonoscopy 2020 last one could be 5+ years ago Hx of excision of mass exc of rt buttock mass 02/20/22 Presence of ankle implant X2 S/P laparoscopic-assisted sigmoidectomy JEREMY sigmoidectomy with colorectal anastomosis 11/29/19 Family History Family History Father Cancer Cerebrovascular accident Hypertension Mother Breast cancer Lung cancer Diabetes mellitus Hypertension Polymyositis Sibling Hypertension Polymyositis Sibling COPD (chronic obstructive pulmonary disease) Hypertension Social History Social History (Updated 08/08/24 @ 08:32 by Agustina Christopher) Social History: Patient denies smoking, drinking or using drugs. She lives alone. She lives in senior housing. 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 She nominates Karyn, her sister to be the individual would make medical decisions for her if she is unable. Smoking status: Never smoker Second hand tobacco smoke exposure: No Alcohol intake: never Substance use: never Substance use type: does not use Do You Feel Safe in your Home?: Yes Lack of Transportation: No Lack of Food: Never True Current Housing: I Have Housing Concerned About Future Housing: No Difficulty Paying Gas/Electric Bills: Decline to Answer Difficulty Paying for Meds: No Currently Unemployed: No Education: Decline to Answer Difficulty w/ Childcare or Family Care: No Living arrangements: with family Occupation/Education: unemployed Gender identity (if verbalized by the patient): Female Spiritual care concerns: No Agree to blood products: Yes Comments At the time of my signature, I reviewed and agree with the nursing past medical, surgical, social, and family history. There is no relevant family his tory pertinent to the patient complaint. Exam Const: General: no acute distress, alert and awake; No acute distress Orientation/consciousness: oriented to person, oriented to place and oriented to time HENMT: Head: normal to inspection Ears: TM's normal bilaterally Mouth: Yes moist mucous membranes Throat: posterior oropharynx abnormal erythema Resp: Effort & Inspection: normal respiratory effort and able to speak in complete sentences Auscultation: clear to auscultation bilaterally, no crackles, no rales, no rhonchi and no wheezes Cardio: Palpation: normal PMI Rate: regular rate Rhythm: regular rhythm Heart sounds: S1 normal heart sound present and S2 normal heart sound present Neuro: General: oriented to person, oriented to place and oriented to time Cranial nerves: Yes CN's II-XII intact bilaterally Psych: Appearance: grossly normal Thought process: Normal thought process present Insight: Good insight present (Psych) Judgement: Good judgement present (Psych) Course Course Level of Care: Express Care Visit Vital Signs Vital signs: Vital Signs Temperature 98.4 F 09/01/24 18:08 Pulse Rate 63 09/01/24 18:08 Respiratory Rate 20 09/01/24 18:08 Blood Pressure 157/57 H 09/01/24 18:08 Pulse Oximetry 100 09/01/24 18:08 Oxygen Delivery Room Air 09/01/24 18:08 Temperature 98.4 F 09/01/24 18:08 Pulse Rate 63 09/01/24 18:08 Respiratory Rate 20 09/01/24 18:08 Blood Pressure 157/57 H 09/01/24 18:08 Pulse Oximetry 100 09/01/24 18:08 Oxygen Delivery Room Air 09/01/24 18:08 Reviewed MDM - URI/Sore Throat MDM Narrative Medical decision making narrative: Patient reports 3 weeks of symptoms. She verbalizes that she would prefer not to have any treatment. She vehemently refuses steroid treatment. Will prescribe azithromycin for anti-inflammatory benefits, albuterol. Patient advised to follow with primary care provider, alert surgeon that she has current symptoms. She reports that she has no intention of doing this. She is advised to go to emergency department with new or worse symptoms. Discharge instructions reviewed with patient, as well as provided in writing per nursing staff. The instructions also include specific and strict return/GO TO THE ER as well as f/u information. All questions have been answered, and the patient deny any further questions with discharge and discharge plan. Some parts of this dictation were generated by voice recognition software and may contain typographical and/or grammatical inaccuracies. Differential Diagnosis Differential diagnosis: Likely upper respiratory infection, sinusitis, viral infection and bronchitis Medical Records Attestation: I reviewed the patient's medical records. Discharge Plan Discharge Clinical Impression: Bronchitis Patient Disposition: Home, Self-Care Condition: Stable Instructions: Antibiotic Form, Acute Bronchitis (ED) Additional Instructions: Take medications as prescribed. Follow-up with primary care provider. Emergency department for new or worsening symptoms. It is highly recommended that she contact the doctor who is scheduled to perform your surgery next week and make this person aware that you have had a cough Patient Language: Sammarinese Prescriptions: New azithromycin 250 mg tablet See Rx Instructions .ROUTE .COMPLEX Qty: 6 0RF Rx Instructions: For 250 mg dose pack: take 500 mg today (day 1), then 250 mg for 4 days (days 2-5) albuterol sulfate [Ventolin HFA] 90 mcg/actuation HFA aerosol inhaler 2 puff inhalation QID PRN (Reason: shortness of breath or wheezing) Qty: 8.5 0RF No Action levothyroxine [Unithroid] 125 mcg tablet 125 mcg PO DAILY biotin 5,000 mcg tablet, sublingual 10,000 mcg SUBLINGUAL DAILY divalproex 500 mg tablet,delayed release (DR/EC) See Rx Instructions .ROUTE .COMPLEX Qty: 120 11RF Dose Instruction: TAKE 2 TABLETS BY MOUTH TWICE A DAY Rx Instructions: TAKE 2 TABLETS BY MOUTH TWICE A DAY amitriptyline 25 mg tablet 50 mg PO QHS Qty: 90 0RF atorvastatin 40 mg tablet 40 mg PO DAILY furosemide 20 mg tablet 20 mg PO DAILY enalapril maleate 10 mg tablet 10 mg PO DAILY Qty: 30 0RF Rx Instructions: LAST REFILL UNTIL SEEN phenobarbital 64.8 mg tablet 129.6 mg PO HS Qty: 60 5RF Follow-up/Referrals: Oscar Mcelroy MD [Primary Care Provider] - 1 Week Time of Disposition: 18:55
== END 2024-09-01 19:00 | disposition home or self-care (01) ==
PROVIDERS: Emergency Provider Nurse Practitioner Family; PCP Emergency Medicine
DX: J40 Bronchitis, not specified as acute or chronic (principal); I10 Essential (primary) hypertension; E78.00 Pure hypercholesterolemia, unspecified; E03.9 Hypothyroidism, unspecified; Z66 Do not resuscitate
CPT/HCPCS: 99213; G0463

== ENCOUNTER 2024-09-15 07:59 | Outpatient (CLI) | payer OTHER, SELFPAY ==
--- NOTE | ~2024-09-15 | MM_ITS ---
EXAMINATION: MM screening eva BI w leon HISTORY: Screening TECHNIQUE: Craniocaudal and mediolateral oblique 3-D tomosynthesis images were obtained and synthetic 2-D images were generated. CAD analysis was submitted and interpreted. COMPARISON: Comparison to multiple prior studies sequentially, with oldest reviewed study dated 10/16. BREAST PARENCHYMAL COMPOSITION: Not dense: There are scattered areas of fibroglandular density. FINDINGS: There is no evidence of suspicious mass, calcification, or architectural distortion to sugg est malignancy in either breast. There has been no suspicious interval change. IMPRESSION: 1. No mammographic evidence of malignancy. 2. Recommend routine screening mammography in one year. BI-RADS Category 1: Negative Reviewed, dictated and finalized at location B. 6 [employer]
== END 2024-09-15 08:00 | disposition home or self-care (01) ==
LOC: ANHIMG 08:02
PROVIDERS: PCP Emergency Medicine; Visit Provider Emergency Medicine
DX: Z12.31 Encounter for screening mammogram for malignant neoplasm of breast (principal)
CPT/HCPCS: 77063; 77067

== ENCOUNTER 2024-11-02 13:24 | Emergency (ER) | payer OTHER, SELFPAY ==
--- NOTE | 2024-11-02 13:28 | ED.URI ---
HPI - URI/Sore Throat General Chief Complaint: Upper Respiratory Infection Stated Complaint: Cough Time Seen by Provider: 11/02/24 13:40 Source: patient Mode of arrival: ambulatory Limitations: no limitations History of Present Illness HPI Narrative: Keely is a 69 year old female patient presenting to the clinic today with c/o cough x 1 week. No fever, chills, body aches, or chest pain, or shortness of breath. Cough is productive with some clear sputum. Family wanted her to be brought in to make sure that she did not have bronchitis. Offer to do COVID and influenza testing and she declined. MD elicited complaint: sore throat and nasal congestion Related Data Home Medications ?Medication ?Instructions ?Recorded ?Confirmed ?Last Taken ?Type biotin 5,000 mcg sublingual tablet 10,000 mcg sublingual DAILY 10/30/19 09/01/24 11/26/19 History atorvastatin 40 mg tablet 40 mg PO DAILY 09/23/20 09/01/24 Unknown History furosemide 20 mg tablet 20 mg PO DAILY 09/23/20 09/01/24 Unknown History levothyroxine 125 mcg tablet 125 mcg PO DAILY 09/28/23 09/01/24 Unknown History (Unithroid) Allergies Allergy/AdvReac Type Severity Reaction Status Date / Time codeine Allergy Intermediate Hives Verified 11/02/24 13:44 latex Allergy Unknown Hives Verified 11/02/24 13:44 Review of Systems Review of Systems: Pertinent positives per HPI. Patient denies any fever, chills, rash, headache, visual changes, dizziness, shortness of breath, chest pain, palpitations, nausea, vomiting, diarrhea, constipation, abdominal pain, or any urinary issues. [facility] Past Medical History Medical History B12 deficiency anemia Chronic headache History of open sigmoidectomy Hypercholesterolemia Hypertension Hyponatremia Hypothyroidism Insomnia Learning disability KENNY (obstructive sleep apnea) Polyp, sigmoid colon Post-menopausal Scalp cyst Seizure disorder Vision loss, left eye Surgical History Surgical History H/O excision of mass 4.1 cm posterior scalp cyst, 4.5 cm excision 11/19/21 H/O gastric bypass early 70s History of colonoscopy 2020 last one could be 5+ years ago Hx of excision of mass exc of rt buttock mass 02/20/22 Presence of ankle implant X2 S/P laparoscopic-assisted sigmoidectomy JEREMY sigmoidectomy with colorectal anastomosis 11/29/19 Family History Family History Father Cancer Cerebrovascular accident Hypertension Mother Breast cancer Lung cancer Diabetes mellitus Hypertension Polymyositis Sibling Hypertension Polymyositis Sibling COPD (chronic obstructive pulmonary disease) Hypertension Social History Social History (Updated 08/08/24 @ 08:32 by Agustina Christopher) Social History: Patient denies smoking, drinking or using drugs. She lives alone. She lives in senior housing. 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 She nominates Karyn, her sister to be the individual would make medical decisions for her if she is unable. Smoking status: Never smoker Second hand tobacco smoke exposure: No Alcohol intake: never Substance use: never Substance use type: does not use Do You Feel Safe in your Home?: Yes Lack of Transportation: No Lack of Food: Never True Current Housing: I Have Housing Concerned About Future Housing: No Difficulty Paying Gas/Electric Bills: Decline to Answer Difficulty Paying for Meds: No Currently Unemployed: No Education: Decline to Answer Difficulty w/ Childcare or Family Care: No Living arrangements: with family Occupation/Education: unemployed Gender identity (if verbalized by the patient): Female Spiritual care concerns: No Agree to blood products: Yes Comments At the time of my signature, I reviewed and agree with the nursing past medical, surgical, social, and family history. There is no relevant family history pertinent to the patient complaint. Exam Narrative: General: Well-developed, well nourished, in no apparent distress Head: Normocephalic, atraumatic Eyes: Pupils equally round and reactive to light bilaterally, EOM intact, sclera and conjunctive clear, no discharge, lids normal Ears: TMs intact and clear, ear canals clear, no drainage, grossly hearing normal. Nose: Nares patent, clear nasal discharge, no inflammation, no sinus tenderness. Mouth: Oral pharynx without lesions or masses, good dentition, MMM. Postnasal drip Neck: Supple, trachea midline, no enlargement of anterior or posterior cervical nodes, no thyroid masses or goiter palpable. Cardio: Regular rate and rhythm, s1 and s2 normal, no murmur appreciated. Resp: Clear to auscultation bilaterally, no rhonchi, rales, wheezing or rubs Course Course Emergency Course: Portions of this record may have been created with voice recognition software. Level of Care: Express Care Visit Vital Signs Vital signs: Vital signs reviewed MDM - URI/Sore Throat MDM Narrative Medical decision making narrative: At the time of visit patient is resting comfortably on the exam table. Patient appears to be nontoxic. Plan: Patient declined COVID and influenza testing. Patient is coughing up clear sputum and is having postnasal drip. I suspect patient has URI/rhinitis Discussed using Flonase and [id number] antihistamines. We will send in a prescription for Tessalon Perles. Supportive measures were discussed with the patient and they voiced understanding discharge instructions and agrees to treatment plan. Return precautions reviewed Differential Diagnosis Differential diagnosis: Likely upper respiratory infection, otitis media, sinusitis, viral infection, bronchitis, influenza, pharyngitis and other (COVID) Discharge Plan Discharge Clinical Impression: URI (upper respiratory infection) Qualifiers: URI type: unspecified URI Qualified Code(s): J06.9 - Acute upper respiratory infection, unspecified Patient Disposition: Home, Self-Care Condition: Stable Instructions: Antibiotic Form, Upper Respiratory Infection (ED) Additional Instructions: You declined COVID and influenza testing in the clinic today. Lungs are clear there is no sign of a bacterial infection in the clinic today Take prescription medications only as prescribed-Tessalon Perles Increase fluids and stay well hydrated Tylenol/motrin for pain/fever Flonase and OTC antihistamines as directed Vicks vapor rub to open sinuses Sinus rinses for congestion Cepacol spray, cough drops, throat lozenges, warm tea with honey/lemon, gargle salt water to soothe throat BRAT diet for diarrhea Clear liquids x 24 hours then advance as tolerated for nausea/vomiting Go to the ED if you develop a worsening in your condition- high fever not controlled by Tylenol or Motrin, dehydration, weakness, lethargy, shortness of breath, or chest pain. Follow up with your PCP in 3-5 days if symptoms persist. Patient Language: Greek Prescriptions: New benzonatate 200 mg capsule 200 mg PO TID 7 Days Qty: 21 0RF No Action albuterol sulfate [Ventolin HFA] 90 mcg/actuation HFA aerosol inhaler 2 puff inhalation QID PRN (Reason: shortness of breath or wheezing) Qty: 8.5 0RF levothyroxine [Unithroid] 125 mcg tablet 125 mcg PO DAILY biotin 5,000 mcg tablet, sublingual 10,000 mcg SUBLINGUAL DAILY atorvastatin 40 mg tablet 40 mg PO DAILY furosemide 20 mg tablet 20 mg PO DAILY enalapril maleate 10 mg tablet 10 mg PO DAILY Qty: 30 0RF Rx Instructions: LAST REFILL UNTIL SEEN phenobarbital 64.8 mg tablet 129.6 mg PO HS Qty: 60 5RF amitriptyline 25 mg tablet 50 mg PO QHS Qty: 90 0RF divalproex 500 mg tablet,delayed release (DR/EC) See Rx Instructions .ROUTE .COMPLEX Qty: 120 1RF Dose Instruction: TAKE 2 TABLETS BY MOUTH TWICE A DAY Rx Instructions: TAKE 2 TABLETS BY MOUTH TWICE A DAY Follow-up/Referrals: Oscar Mcelroy MD [Primary Care Provider] - Time of Disposition: 13:52 Quality NIHSS Nursing Documentation ED NIHSS nursing documentation: reviewed/agree
[2024-11-02 13:37] VITALS: BP 134/46; PULSE 89; RESP 15; TEMP 36.7; O2SAT 100
[2024-11-02 13:40] VITALS: PULSE 89; RESP 15; O2SAT 100
== END 2024-11-02 13:55 | disposition home or self-care (01) ==
PROVIDERS: Emergency Provider Nurse Practitioner Family; PCP Emergency Medicine
DX: J06.9 Acute upper respiratory infection, unspecified (principal); I10 Essential (primary) hypertension; E78.00 Pure hypercholesterolemia, unspecified; E03.9 Hypothyroidism, unspecified; Z98.84 Bariatric surgery status
CPT/HCPCS: 99213; G0463

== ENCOUNTER 2025-01-25 08:16 | Outpatient (CLI) | payer OTHER, SELFPAY ==
--- OUTSIDE RECORDS SUMMARY | 2025-01-25 08:21 | XMS_ITS | Encounter Summary ---
Author Organization [facility] Address [address] [place] [address] Care Team Providers Care Nursing Education Specialist Name Role Phone Oscar Mcelroy MD Primary Care Provider Encounter Details Date Type Department Care Team (Late st Contact Info) Description 10/26/2002 Outpatient [facility] [address] [place] [address]. 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 Gender Identity Not on file Sexual Orientation Not on file documented as of this encounter Plan of Treatment Upcoming Encounters Date Type Department Care Team (Late st Contact Info) Description 01/26/2025 9:45 AM CDT Office Visit [facility] Oncology and Hematology - [place] [address] [facility] [address] [place] [address] Bird Sales MD [address] [facility] [address] [place] [address] documented as of this encounter Visit Diagnoses Not on filedocumented in this encounter Care Teams Nursing Education Specialist Relationship Specialty Start Date End Date Oscar Mcelroy MD [address] [place] [address] [address] [place] [id number] PCP - General Emergency Medicine 08/29/20 documented as of this encounter
--- OUTSIDE RECORDS SUMMARY | 2025-01-25 08:21 | XMS_ITS | Clinical Summary ---
Author Organization [address] Address [address] [place] [address] Care Team Providers Care Broke Beater Machine Operator Name Role Phone Oscar Mcelroy MD Primary Care Provider [phone] Allergies Active Allergy Reactions Criticality Noted Date Comments Codeine Rash,Itching Reaction: Rash, Itching, Latex Rash,Itching Reaction: Rash, Itching, Medications atorvastatin (LIPITOR) 20 mg tablet Take 2 tablets (40 mg total) by mouth daily Active biotin 5 mg capsule biotin 5 mg capsule [address] (DEPAKOTE) 500 mg EC tablet Take 2 tablets (1,000 mg total) by mouth 2 (two) times a day Active enalapril (VASOTEC) 10 mg tablet Take 1 tablet (10 mg total) by mouth daily Active furosemide (LASIX) 20 mg tablet Take 1 tablet (20 mg total) by mouth daily Active ibuprofen (ADVIL,MOTRIN) 600 mg tablet ibuprofen 600 mg tablet Active melatonin tablet melatonin 3 mg tablet 969 Active metoprolol XL (TOPROL-XL) 50 mg extended release tablet Take 0.5 tablets (25 mg total) by mouth 2 (two) times a day Active nystatin ointment nystatin 100,000 unit/gram topical ointment PLEASE SEE ATTACHED FOR DETAILED DIRECTIONS Active PHENobarbitaL 64.8 mg tablet Take by mouth nightly Active syringe with needle (BD Luer-Alireza Syringe) 3 mL 25 gauge x 1 syringe Use twice monthly with B12 injections. 023 Active BD SafetyGlide TB Reg Bevel 1 mL 27 x 1/2 syringe USE WITH B-12 INJECTIONS. Active triamcinolone (KENALOG) 0.1 % ointment triamcinolone acetonide 0.1 % topical ointment Active Unithroid 125 mcg tabletIndications :Acquired hypothyroidism Take 1 tablet (125 mcg total) by mouth every morning 90 tablet 3 024 2024 Active ergocalciferol (VITAMIN D) 50,000 unit capsuleIndication s:Vitamin D deficiency Take 1 capsule (50,000 Units total) by mouth once a week 4 capsule 3 025 Active ergocalciferol (VITAMIN D) 50,000 unit capsule TAKE 1 CAPSULE BY MOUTH ONE TIME PER WEEK 4 capsule 025 2024 Discontinued Active Problems Problem Noted Date Diagnosed Date Acquired hypothyroidism 03/06/2024 Assessment & Plan (03/06/2024 2:17 PM CDT): Chronic, unknown status Patient currently on Unithroid 125 mcg oral daily Recheck thyroid function test today and further plans based on it Vitamin D deficiency 03/06/2024 Assessment & Plan (03/06/2024 2:18 PM CDT): Continue current vitamin-D supplements Hypertension 01/09/2013 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 Class 3 severe obesity due t o excess calories with serious comorbidity and body mass index (BMI) of 40.0 to 44.9 in adult 08/19/2010 Assessment & Plan (03/06/2024 2:18 PM CDT): Advised patient to include resistance training exercises 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 Medical History Medical History Date Comments High blood pressure Seizure (HCC) Family History Medical History Relation Name Comments Cancer Father Hypertension Father Cancer Mother Hypertension Mother Relation Name Status Comments Father Mother Social History Tobacco Use Types Packs/Day Years Used Date Smoking Tobacco: Never Smokeless Tobacco: Never Tobacco Cessation:Counseling Given: Not Answered Personal Safety Answer Date Recorded Getting School Help Needed Not on file 10/04 Comments Unknown Sex and Gender Information Value Date Recorded Sex Assigned at Not on file 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 Gender Identity Not on file Sexual Orientation Not on file Obstetrics History Last Filed Vital Signs Vital Sign Reading Time Taken Comments Blood Pressure 136/70 03/06/2024 1:42 PM CDT Pulse 56 03/06/2024 1:42 PM CDT Temperature 36.4 C (97.6 F) 07/14/2015 2:19 AM CDT Respiratory Rate - - Oxygen Saturation 97% 07/14/2015 2:19 AM CDT Inhaled Oxygen Concentration - - Weight 84.4 kg (186 lb) 03/06/2024 1:42 PM CDT Height 142.2 cm (4' 8 ) 03/06/2024 1:42 PM CDT Body Mass Index 41.7 03/06/2024 1:42 PM CDT Plan of Treatment Health Maintenance Due Date Last Done Comments Breast Cancer Screening-Mammogram 1955 Colon Cancer Screening-Colonoscopy 1955 Depression Screening 1955 Hepatitis C Screening 1955 Osteoporosis Screening-Bone Density Scan 1955 DTaP/Tdap/Td Vaccine (1 - Tdap) 01/23/1964 Hepatitis B Screening 1971 Zoster Vaccine (1 of 2) 2003 Well Visit 65+ 2018 Covid-19 Vaccine (2023-2 5 season) 2024 08/26/2023, 07/04/2021, 12/17/2020, Additional history exists Fall Risk Assessment 03/06/2025 03/06/2024 Influenza Vaccine (Season Ended) 2025 08/26/2023, 06/28/2021, 06/17/2020, Additional history exists Pneumococcal vaccine 65+ Completed 023, 06/10/2018, 07/14/2015, Additional history exists Insurance [facility] Nahid White [address] Advance Directives For more information, please contact: [phone] Documents on File Type Date Recorded Patient Revenue Investigator Expl anation ADVANCE DIRECTIVE 07/18/2015 12:00 AM POW ER OF HOSPICE VOLUNTEER COORDINATOR FINANCIAL/MEDICAL Care Teams Broke Beater Machine Operator Relationship Specialty Start Date End Date Oscar Mcelroy MD PCP - General Emergency Medicine 10/04/23
--- OUTSIDE RECORDS SUMMARY | 2025-01-25 08:21 | XMS_ITS | Encounter Summary ---
Author Organization [facility] Address 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 Gender Identity Not on file Sexual Orientation Not on file documented as of this encounter Plan of Treatment Upcoming Encounters Date Type Department Care Team (Late st Contact Info) Description 01/26/2025 9:45 AM CDT Office Visit [facility] Oncology and Hematology - [place] [address] [place] [address] [address] [place] [address] [place] [address] [place] [address] [address] [place] [address] documented as of this encounter Visit Diagnoses Not on filedocumented in this encounter Care Teams Trimmer And Reinforcer Relationship Specialty Start Date End Date Oscar Mcelroy MD [address] [place] [address] [address] [place] [address] PCP - General Emergency Medicine 08/29/20 documented as of this encounter
--- OUTSIDE RECORDS SUMMARY | 2025-01-25 08:21 | XMS_ITS | CONTINUITY OF CARE DOCUMENT ---
Author Name tabitha lu Address Unknown Organization [facility] Address [address] [place] [address] Phone [phone] Care Team Providers Care Traffic Monitor Specialist Name Role Phone Shukri VIEIRA, Ashanti Ku Unavailable [phone] DENISSE FERNANDES MD Unavailable [phone] DENISSE FERNANDES MD Unavailable [phone] PROBLEMS Condition Status Date Provider Notes Family History of Hypertension: active Black Sheth NP Family History of CVA or Stroke: active Skye Sheth NP Family History of Hypertension: active Black Sheth NP Palpitations active Fatoumata Sheth NP Edema, chronic. LLE worse than RLE active Caprice Sheth NP Hyperlipidemia: LDL 126 active Fatoumata reed [employer]INE[employer] HTN active Fatoumata Sheth NP Increased frequency of urination active Skye Sheth NP Leg pain, left active Ashanti Watt MD Hyperthyroidism active Ashanti Watt MD Cardiovascular Condition Screening active Caprice Watt MD Bradycardia - sinus active Ashanti Watt MD Sleep apnea active Ashanti Watt MD SARS-associated coronavirus active Ashanti Watt MD Hypothyroidism active Ashanti Watt MD Cardiology examination active Ashanti ley MD ENCOUNTERS Date Type Provider Location Encounter Diag nosis 7 - 6 In-person encounter Office Visit Ashanti Watt MD [facility] 8 - 5 In-person encounter Office Visit Ashanti Watt MD [facility] Cardiology examination 4 - 4 In-person encounter Office Visit Ashanti Watt MD [facility] 8 - 8 In-person encounter Office Visit Ashanti Watt MD [facility] 7 - 9 In-person encounter Office Visit Ashanti Watt MD [facility] Hypothyroidism 1 - 1 In-person encounter Office Visit Ashanti Watt MD [facility] 1 - 1 In-person encounter Office Visit Ashanti Watt MD [facility] 9 - 0 In-person encounter Office Visit Ashanti Watt MD [facility] Sleep apneaSARS-associated coronavirus 5 - 5 In-person encounter Office Visit Ashanti Watt MD [facility] HyperthyroidismCardiovascular Condition ScreeningBradycardia - sinus 7 - 3 In-person encounter Office Visit Ashanti Watt MD [facility] Leg pain, left 0 - 1 In-person encounter Office Visit Gloria Jones MD [facility] Family History of Hypertension:Family History of CVA or Stroke:Family History of Hypertension:PalpitationsEdema, chronic. LLE worse than RLEHyperlipidemia: LDL 126HTNIncreased frequency of urination VITAL SIGNS Date Observation Value Provider Body Mass Index (Ratio) 33.82 kg/m2 Desire Watt MD blood pressure, diastolic 73 mm[Hg] Li nkLogic blood pressure, systolic 141 mm[Hg] Preeti kLogic oxygen saturation, oximetry 98 % Anna Castrejon pulse rate 58 /min Anna [facility] weight E&M 179 [lb_av] Anna [facility] blood pressure, cuff size regular Wilber carrillo [facility] blood pressure, diastolic 73 mm[Hg] Wilber carrillo [facility] blood pressure, systolic 141 mm[Hg] Vani will [facility] height E&M 61 [in_i] Anna [facility] Body Mass Index (Ratio) 33.33 kg/m2 Desire Watt MD blood pressure, cuff size large Tanner rodriguez Montiel blood pressure, diastolic 64 mm[Hg] Tanner rodriguez Montiel blood pressure, systolic 144 mm[Hg] Tab jose manuela [place] oxygen saturation, oximetry 94 % Vaishnavi Montiel pulse rate 52 /min Vaishnavi Montiel weight E&M 176.4 [lb_av] Vaishnavi Montiel respiratory rate E&M 12 /min Vaishnavi Montiel height E&M 61 [in_i] Vaishnavi [place]rie Body Mass Index (Ratio) 34.95 kg/m2 Desire Watt MD blood pressure, diastolic 75 mm[Hg] Soco nkLogic blood pressure, systolic 146 mm[Hg] Preeti kLogic blood pressure, cuff size regular Micky rret blood pressure, diastolic 75 mm[Hg] Ja rret blood pressure, systolic 146 mm[Hg] Jar ret pulse rate 68 /min Librado er y oxygen saturation, oximetry 96 % Librado respiratory rate E&M 12 /min Librado weight E&M 185 [lb_av] Librado erda y height E&M 61 [in_i] Librado erda y Body Mass Index (Ratio) 36.84 kg/m2 Desire Watt MD blood pressure, diastolic 66 mm[Hg] Li nkLogic blood pressure, systolic 129 mm[Hg] Preeti kLogic blood pressure, diastolic 66 mm[Hg] Mi lilli [place] blood pressure, systolic 129 mm[Hg] Darryl helarlen [place] blood pressure, cuff size large June reeder [place] oxygen saturation, oximetry 96 % Imelda Tripp pulse rate 74 /min Imelda bates weight E&M 195 [lb_av] Imelda bates respiratory rate E&M 16 /min Toya Tripp height E&M 61 [in_i] Imelda bates Body Mass Index (Ratio) 37.03 kg/m2 Desire Watt MD blood pressure, diastolic 75 mm[Hg] Ri lilli Vanegaserson blood pressure, systolic 159 mm[Hg] Anshu tato Quinones blood pressure, cuff size large Ri lilli [place] oxygen saturation, oximetry 99 % Jelena Quinones respiratory rate E&M 16 /min Fatou Quinones pulse rate 71 /min Jelena Brantley son weight E&M 196 [lb_av] Jleena Brantley son height E&M 61 [in_i] Jelena Brantley son Body Mass Index (Ratio) 38.54 kg/m2 Desire Watt MD blood pressure, cuff size large Ke rri Gustabo blood pressure, diastolic 80 mm[Hg] Ke rri Adityanfbj blood pressure, systolic 132 mm[Hg] Ker salty [place] oxygen saturation, oximetry 96 % Natali Dahlmaritzaaubreebj respiratory rate E&M 14 /min Natali del rosario pulse rate 60 /min Natali Prado mervin weight E&M 204 [lb_av] Natali Prado mervin height E&M 61 [in_i] Natali Prado mervin Body Mass Index (Ratio) 39.49 kg/m2 Desire Watt MD blood pressure, cuff size large June reeder Qasim blood pressure, diastolic 72 mm[Hg] June reeder Tripp blood pressure, systolic 136 mm[Hg] Darryl tato Tripp oxygen saturation, oximetry 90 % Imelda Tripp respiratory rate E&M 16 /min Toya Tripp pulse rate 66 /min Imelda bates weight E&M 209 [lb_av] Imelda bates height E&M 61 [in_i] Imelda bates Body Mass Index (Ratio) 39.67 kg/m2 Desire Watt MD blood pressure, diastolic 61 mm[Hg] Soco nkLogjonna blood pressure, systolic 114 mm[Hg] Preeti Doughertyogjonna blood pressure, diastolic 61 mm[Hg] Ezra Sequeira blood pressure, systolic 114 mm[Hg] Rho beni Sequeira oxygen saturation, oximetry 98 % Kourtney Sequeira respiratory rate E&M 18 /min Kourtney Sequeira pulse rate 58 /min Kourtney Sequeira blood pressure, resting Yes Reji Morgan blood pressure, cuff size regular Ezra Sequeira weight E&M 210 [lb_av] Kourtney Sequeira height E&M 61 [in_i] Kourtney Sequeira Body Mass Index (Ratio) 38.92 kg/m2 Desire Watt MD blood pressure, cuff size regular Fabian Johnsonby pulse rate 58 /min Marcela [place] blood pressure, diastolic 70 mm[Hg] Fabian Johnsonby blood pressure, systolic 142 mm[Hg] Fabiani gurmeet Johnsonby respiratory rate E&M 19 /min Marcela Leela weight E&M 206 [lb_av] Marcela Leela height E&M 61 [in_i] Marcela Leela Body Mass Index (Ratio) 37.03 kg/m2 Desire Watt MD blood pressure, diastolic 80 mm[Hg] Br ittany Block blood pressure, systolic 136 mm[Hg] Yadira ttany Block oxygen saturation, oximetry 91 % Nimco Block pulse rate 60 /min Nimco Block weight E&M 196 [lb_av] Nimco Block blood pressure, resting Yes Brit jarett Block respiratory rate E&M 16 /min [facility] E&M 61 [in_i] Nimco Block Body Mass Index (Ratio) 37.75 kg/m2 Jesse Jones MD blood pressure, diastolic 70 mm[Hg] Cl Bloom blood pressure, systolic 148 mm[Hg] Lolis Bloom oxygen saturation, oximetry 96 % Anni Bloom respiratory rate E&M 20 /min Giselle Bloom pulse rate 64 /min Anni hagen weight E&M 199.8 [lb_av] Anni reyna height E&M 61 [in_i] Anni hagen ALLERGIES Allergy Name Onset Date Reaction Criticality Status LATEX High Criticality active CODEINE High Criticality active RESULTS Date Observation Value Provider Reference Range Interpretation Location 4 alanine aminotransferase (SGPT), serum 15 1/L [facility] 6-29 Normal 4 aspartate aminotransferase (SGOT), serum 19 1/L [facility] 10-35 Normal 4 alkaline phosphatase, serum 84 1/L [facility] 37-153 Normal 4 bilirubin, serum, total 0.4 mg/dL [facility] 0.2-1.2 Normal 4 albumin/globulin ratio, serum 1.5 (calc) [facility] 1.0-2.5 Normal 4 globulins, serum, total 2.6 G/DL (CALC) [facility] 1.9-3.7 Normal 4 albumin, serum 3.8 g/dL [facility] 3.6-5.1 Normal 4 protein, total, serum 6.4 g/dL [facility] 6.1-8.1 Normal 4 calcium, serum 9.3 mg/dL [facility] 8.6-10.4 Normal 4 carbon dioxide, venous blood 25 mmol/L [facility] 20-32 Normal 4 chloride, serum 98 mmol/L [facility] 98-110 Normal 4 potassium, serum 4.3 mmol/L [facility] 3.5-5.3 Normal 4 sodium, serum 129 mmol/L [facility] 135-146 Low 4 urea nitrogen/creatinine ratio, serum SEE NOTE: (calc) [facility] 6-22 4 creatinine, serum 0.75 mg/dL [facility] 0.60-1.00 Normal 4 urea nitrogen, blood 23 mg/dL [facility] 7-25 Normal 4 blood glucose, random 89 mg/dL [facility] 65-99 Normal 4 cholesterol, non-HDL, total 119 MG/DL (CALC) [facility] <130 Normal 4 cholesterol/HDL ratio, serum, percent 2.4 (calc) [facility] <5.0 Normal 4 LDL cholesterol, serum 102 MG/DL (CALC) [facility] High 4 triglyceride, serum, fasting 81 mg/dL [facility] <150 Normal 4 HDL cholesterol, serum 85 mg/dL Link[facility]ic > OR = 50 Normal 4 cholesterol, serum 204 mg/dL [facility] <200 High HISTORY OF MEDICATION USE Medication Status Instructions Dates Provider Indications Com ments metoprolol succinate 50 mg tablet extended release 24 hr completed TAKE 1/2 TABLET BY MOUTH ONCE A DAY (TAKE ONLY 25 MG) - Ashanti Watt MD Unithroid 125 mcg tablet active Imelda Tripp metoprolol succinate 50 mg tablet extended release 24 hr completed TAKE 1/2 TABLET BY MOUTH TWICE DAILY - Fatoumata Donaldson metoprolol succinate 50 mg tablet extended release 24 hr completed TAKE A HALF TABLET TWICE A DAY - Izabela Yeh atorvastatin 40 mg tablet active TAKE 1 TABLET BY MOUTH EVERY DAY Kana Polk furosemide 20 mg tablet active TAKE 1 TABLET BY MOUTH EVERY DAY Kana Polk meclizine 25 mg tablet active Take 1 tablet by mouth once a day Marcela Swenson cyanocobalamin (vitamin B-12) 1,000 mcg tablet active Take 1 tablet by mouth once a day Marcela Swenson phenobarbital 64.8 mg tablet active Take 2 tablet by mouth once a day Marcela Swenson #60, 30 days supply, Prescribed by KIKA DIAS, Filled 12/14/2020 amitriptyline 25 mg tablet active Take 2 tablet by mouth every night Marcela Swenson #60, 30 days supply, Prescribed by KIKA DIAS, Filled 12/14/2020 cyanocobalamin (vitamin B-12) 1,000 mcg/mL solution active INJECT 1 ML IM WEEKLY FOR THE FIRST 5 WEEKS AND THEN MONTHLY Marcela Swenson Hyperlipidemi a: LDL 126 #4, 28 days supply, Prescribed by DALIA MELCHOR, Filled 01/03/2021 Lasix 20 mg tablet completed 1 tablet by mouth once a day - Fatoumata Sheth NP metoprolol succinate 50 mg tablet extended release 24 hr completed Take 0.5 tablet twice a day - Mikaela Jernigan melatonin 3 mg tablet active 10 mg every night Anni Bloom biotin 5 mg capsule active 2 tablet once a day Anni Bloom FE TABS 325 (65 FE) MG ORAL TABLET DELAYED RELEASE completed ONE TABLET DAILY - Marcela Swenson CALCIUM CARBONATE 600 MG ORAL TABLET completed ONE TAB BY MOUTH DAILY - Marcela Swenson TRAZODONE HCL TABLET active 150 mg every night Anni Bloom AMITRIPTYLINE HCL 10 MG ORAL TABLET completed ONE TAB. twice DAILY - Marcela Swenson atorvastatin 40 mg tablet completed 1 tablet once a day - Fatoumata Sheth NP enalapril maleate 10 mg tablet active 1 tablet once a day Anni Bloom levothyroxine 137 mcg tablet completed 1 tablet once a day - Imelda Tripp Depakote ER 500 mg tablet extended release 24 hr active 2 tablet twice a day Anni Bloom SOCIAL HISTORY Date Observation Value Provider smoking status Never smoker Ashanti ley MD smoking status Never smoker Ashanti ley MD smoking status Never smoker Ashanti ley MD social history E&M S moking History: Quang miller has never smoked. Ashanti Watt MD social history reviewed E&M revi ewed - no changes required Ashanti Watt MD smoking status Never smoker Imelda Lazcano social history E&M S moking History: Quang miller has never smoked. Ashanti Watt MD social history reviewed E&M revi ewed - no changes required Ashanti Watt MD smoking status Never smoker Jelena rubio social history E&M S moking History: P angela has never smoked. Ashanti Watt MD social history reviewed E&M revi ewed - no changes required Ashanti Watt MD smoking status Never smoker Natali Dahlaashish noelle smoking status Never smoker Imelda Tylor and social history E&M S moking History: P angela has never smoked. Ashanti Watt MD social history reviewed E&M revi ewed - no changes required Ashanti Watt MD smoking status Never smoker Kourtneybeni Sequeira social history E&M S moking History: P angela has never smoked. Ashanti Watt MD social history reviewed E&M revi ewed - no changes required Ashanti Watt MD smoking status Never smoker Marcela Johnsonby number of grandchildren Ashanti Watt MD social history E&M S moking History: Quang miller has never smoked. Ashanti Watt MD social history reviewed E&M revi ewed - no changes required Ashanti Watt MD smoking status Never smoker Nimco andrade number of grandchildren Gloria Sheth NP social history E&M S moking History: Quang miller has never smoked. Fatoumata Sheth NP social history reviewed E&M revi ewed - no changes required Fatoumata Sheth NP smoking status Never smoker Annimajo Zhou FAMILY HISTORY Family Member Condition Father Family History of Hy pertension: Father Family History of CV A or Stroke: Mother Family History of Hy pertension: Mother Family History of Di abetes: INSURANCE PROVIDERS Payer name Policy type / Coverage type [place] [employer] [place] [employer] MEDICAID (2) Medicaid [id number] ADVANCE DIRECTIVES Name Date DISCUSSED - NO DECISION MADE TREATMENT PLAN Date Name Performer [id number],C, P susanne for titration study. Moderate KENNY AHI January 15, 2022 P ending KENNY equipment N ovember 2021 g ot cpap but not using the machine February 11, 2023 r einforced the importance of using cpap. s he has moderate KENNY Ashanti Watt MD [id number],C,o n synthroid and metoprolol H er updated medication list for this problem includes: Levothyroxine 137 Mcg Tablet (Levothyroxine) ..... 1 tablet once a day Ashanti aWtt MD [id number],C, H er updated medication list for this problem includes: Metoprolol Succinate 50 Mg Tablet Extended Release 24 Hr (Metoprolol succinate) ..... Take a half tablet twice a day Ashanti Watt MD [id number],C, B P today: 159/75 P rior BP: 132/80 (01/15/2022) Her updated medication list for this problem includes: Furosemide 20 Mg Tablet (Furosemide) ..... Take 1 tablet by mouth every day Metoprolol Succinate 50 Mg Tablet Extended Release 24 Hr (Metoprolol succinate) ..... Take a half tablet twice a day Enalapril Maleate 10 Mg Tablet (Enalapril maleate) ..... 1 tablet once a day Ashanti aWtt MD [id number],C, H er updated medication list for this problem includes: Atorvastatin 40 Mg Tablet (Atorvastatin) ..... Take 1 tablet by mouth every day Ashanti Watt MD [id number],S, I mproved with compression stockings and diauretic August 13, 2022 n ot using compression stockings Ashanti Watt MD [id number],C, P susanne for titration study. Moderate KENNY AHI January 15, 2022 P ending KENNY equipment N ovember 2021 g ot cpap but not using the machine Ashanti Watt MD [id number],C, b radycardia, will reduce beta shereen, check telemonitor, home sleep study April 24, 2021 R martinawed results of sleep study. moderate KENNY. Patient will get titration study Sinus Rhythm First Degree with Rare Ventricular Ectopy M inimum Heart Rate was 48 bpm, Average Heart Rate was 66 bpm, and Maximum Heart Rate was 112 bpm. S inus Bradycardia minutes were 1171; and Sinus Tachycardia minutes were 72. V entricular Ectopy was 55, with 1 V-Run. August 13, 2022 SR on the ekg Ashanti Watt MD [id number],C, H er updated medication list for this problem includes: Atorvastatin 40 Mg Tablet (Atorvastatin) ..... Take 1 tablet by mouth every day Ashanti Watt MD [id number],C, I mproved with compression stockings and diauretic Ashanti Watt MD [id number],C, A BI 08/16/2020 rules out PVD for the cause of her swelling and pain. FINDINGS: R ight Lower Extremity: Triphasic waveforms are seen in the common femoral, proximal femoral, mid femoral and distal f emoral. Biphasic waveforms are seen in the profunda femoris, popliteal, anterior tibial and posterior tibial. The TAMERA is 1.09. L eft Lower Extremity: Triphasic waveforms are seen in the proximal femoral, mid femoral and distal femoral. Biphasic waveforms a re seen in the common femoral, profunda femoris, popliteal, anterior tibial and posterior tibial. The TAMERA is 1.14. - C ONCLUSIONS: 1 . Mild arterial disease of the lower extremities bilaterally. NO SIGNIFICANT ARTERIAL DISEASE NOTED A pril 2021 S till has left greater than right has MTS most likely. Offered her IVUS and Venogram/Stenting will think about it Ashanti Watt MD [id number],C, B P today: 132/80 P rior BP: 136/72 (07/17/2021) Her updated medication list for this problem includes: Metoprolol Succinate 50 Mg Tablet Extended Release 24 Hr (Metoprolol succinate) ..... Take a half tablet twice a day Furosemide 20 Mg Tablet (Furosemide) ..... Take 1 tablet by mouth every day Enalapril Maleate 10 Mg Tablet (Enalapril maleate) ..... 1 tablet once a day Ashanti Watt MD [id number],C, s /p vaccination Ashanti Watt MD [id number],C, P susanne for titration study. Moderate KENNY AHI January 15, 2022 P ending KENNY equipment Ashanti Watt MD [id number],S, H er updated medication list for this problem includes: Metoprolol Succinate 50 Mg Tablet Extended Release 24 Hr (Metoprolol succinate) ..... Take 0.5 tablet twice a day Ashanti Watt MD [id number],C, H er updated medication list for this problem includes: Atorvastatin 40 Mg Tablet (Atorvastatin) ..... 1 tablet once a day Ashanti Watt MD [id number],C, b radycardia, will reduce beta shereen, check telemonitor, home sleep study April 24, 2021 R eviewed results of sleep study. moderate KENNY. Patient will get titration study Sinus Rhythm First Degree with Rare Ventricular Ectopy M inimum Heart Rate was 48 bpm, Average Heart Rate was 66 bpm, and Maximum Heart Rate was 112 bpm. S inus Bradycardia minutes were 1171; and Sinus Tachycardia minutes were 72. V entricular Ectopy was 55, with 1 V-Run. Ashanti Watt MD [id number],C, s /p vaccination Ashanti Watt MD [id number],S, P susanne for titration study. Moderate KENNY AHI Ashanti Watt MD [id number],C, s /p vaccination Ashanti Watt MD [id number],S, R eveiewed with her regarding treatment for KENNY. Needs titration CONCLUSIONS: 1 . Technically difficult study, limited views secondary to poor acoustic windows. Interpretation is based on available limited v iews. Normal left ventricular systolic function. Normal left ventricular size. Normal left ventricular wall thickness. Normal l eft ventricular diastolic function. E/E': 5.0. Left ventricular ejection fraction is measured at 65 %. 2 . Normal right ventricular size. Normal right ventricular systolic function. 3 . There is trace physiologic mitral valve regurgitation. 4 . There is trace physiologic tricuspid valve regurgitation. 5 . There is trace physiologic pulmonic valve regurgitation. Ashanti Watt MD [id number],C, T elemonitor and reduce Lopressor. On Thyroid, sees endocrine April 24, 2021 c moo sleep titration study. S inus Rhythm First Degree with Rare Ventricular Ectopy M inimum Heart Rate was 48 bpm, Average Heart Rate was 66 bpm, and Maximum Heart Rate was 112 bpm. S inus Bradycardia minutes were 1171; and Sinus Tachycardia minutes were 72. V entricular Ectopy was 55, with 1 V-Run. R eport Date: 01/29/2021///LA E nd of Session P age Ashanti Watt MD [id number],C, B P today: 114/61 P rior BP: 142/70 (01/09/2021) Ashanti Watt MD [id number],S, b radycardia, will reduce beta shereen, check telemonitor, home sleep study April 24, 2021 R eviewed results of sleep study. moderate KENNY. Patient will get titration study Sinus Rhythm First Degree with Rare Ventricular Ectopy M inimum Heart Rate was 48 bpm, Average Heart Rate was 66 bpm, and Maximum Heart Rate was 112 bpm. S inus Bradycardia minutes were 1171; and Sinus Tachycardia minutes were 72. V entricular Ectopy was 55, with 1 V-Run. Ashanti Watt MD [id number],S,M oderate KENNY. Reviewed pros and cons of CPAP. Recommend titration and equipment. Ashanti Watt MD Cardiology: H er updated medication list for this problem includes: Atorvastatin 40 Mg Tablet (Atorvastatin) ..... Take 1 tablet by mouth every day Ashanti Watt MD Cardiology:This visi t has been a part of the consistent, comprehensive, and ongoing management of the chronic medical condition(s) listed above for the patient. T he following medications were removed from the medication list: Metoprolol Succinate 50 Mg Tablet Extended Release 24 Hr (Metoprolol succinate) ..... Take 1/2 tablet by mouth once a day (take only 25 mg) Her updated medication list for this problem includes: Furosemide 20 Mg Tablet (Furosemide) ..... Take 1 tablet by mouth every day Enalapril Maleate 10 Mg Tablet (Enalapril maleate) ..... 1 tablet once a day BP today: 141/73 P rior BP: 144/64 (04/13/2024) Ashanti Watt MD Cardiology:Reviewed home bp and Hr consisstently in 60s, will D/C Lopressor 25 mg Ashanti Watt MD Cardiology:The patie nt is using CPAP on a regular basis. The patient has been benefiting from therapy and should continue use. This visit has been a part of the consistent, comprehensive, and ongoing management of the chronic medical condition(s) listed above for the patient. FInally got fitting mask with cpap Ashanti Watt MD Cardiology: H er updated medication list for this problem includes: Atorvastatin 40 Mg Tablet (Atorvastatin) ..... Take 1 tablet by mouth every day Ashanti Watt MD Cardiology:This visi t has been a part of the consistent, comprehensive, and ongoing management of the chronic medical condition(s) listed above for the patient. Discussion of benefits for remote patient monitoring took place. Patient gives consent for remote monitoring of physiologic parameters including, but not limited to, weight, blood pressure, pulse oximetry, respiratory flow rate. T LAWRENCE 1/2 TABLET BY MOUTH ONCE A DAY (TAKE ONLY 25 MG) H er updated medication list for this problem includes: Metoprolol Succinate 50 Mg Tablet Extended Release 24 Hr (Metoprolol succinate) ..... Take 1/2 tablet by mouth once daily Furosemide 20 Mg Tablet (Furosemide) ..... Take 1 tablet by mouth every day Enalapril Maleate 10 Mg Tablet (Enalapril maleate) ..... 1 tablet once a day BP today: 144/64 P rior BP: 146/75 (09/30/2023) Ashanti Watt MD Cardiology: R eveiewed with her regarding treatment for KENNY. Needs titration CONCLUSIONS: 1 . Technically difficult study, limited views secondary to poor acoustic windows. Interpretation is based on available limited v iews. Normal left ventricular systolic function. Normal left ventricular size. Normal left ventricular wall thickness. Normal l eft ventricular diastolic function. E/E': 5.0. Left ventricular ejection fraction is measured at 65 %. 2 . Normal right ventricular size. Normal right ventricular systolic function. 3 . There is trace physiologic mitral valve regurgitation. 4 . There is trace physiologic tricuspid valve regurgitation. 5 . There is trace physiologic pulmonic valve regurgitation. Ashanti Watt MD Cardiology:Needs mask readjustme nt Ashanti Watt MD Cardiology:Says she is on thryoid meds Ashanti Watt MD Cardiology: A BI 08/16/2020 rules out PVD for the cause of her swelling and pain. FINDINGS: R ight Lower Extremity: Triphasic waveforms are seen in the common femoral, proximal femoral, mid femoral and distal f emoral. Biphasic waveforms are seen in the profunda femoris, popliteal, anterior tibial and posterior tibial. The TAMERA is 1.09. L eft Lower Extremity: Triphasic waveforms are seen in the proximal femoral, mid femoral and distal femoral. Biphasic waveforms a re seen in the common femoral, profunda femoris, popliteal, anterior tibial and posterior tibial. The TAMERA is 1.14. - C ONCLUSIONS: 1 . Mild arterial disease of the lower extremities bilaterally. NO SIGNIFICANT ARTERIAL DISEASE NOTED A pril 2021 S till has left greater than right has MTS most likely. Offered her IVUS and Venogram/Stenting will think about it September 30, 2023 N otices improvement in leg swelling since she started using CPAP daily. Ashanti Watt MD Cardiology: b radycardia, will reduce beta shereen, check telemonitor, home sleep study April 24, 2021 R eviewed results of sleep study. moderate KENNY. Patient will get titration study S inus Rhythm First Degree with Rare Ventricular Ectopy M inimum Heart Rate was 48 bpm, Average Heart Rate was 66 bpm, and Maximum Heart Rate was 112 bpm. S inus Bradycardia minutes were 1171; and Sinus Tachycardia minutes were 72. V entricular Ectopy was 55, with 1 V-Run. August 13, 2022 SR on the ekg Ashanti Watt MD Cardiology: o n synthroid and metoprolol H er updated medication list for this problem includes: Levothyroxine 137 Mcg Tablet (Levothyroxine) ..... 1 tablet once a day Ashanti Watt MD Cardiology: I mproved with compression stockings and diauretic Ashanti Watt MD Cardiology: H er updated medication list for this problem includes: Atorvastatin 40 Mg Tablet (Atorvastatin) ..... Take 1 tablet by mouth every day Ashanti Watt MD Cardiology: B P today: 146/75 P rior BP: 129/66 (02/11/2023) Her updated medication list for this problem includes: Metoprolol Succinate 50 Mg Tablet Extended Release 24 Hr (Metoprolol succinate) ..... Take 1/2 tablet by mouth twice a day Furosemide 20 Mg Tablet (Furosemide) ..... Take 1 tablet by mouth every day Enalapril Maleate 10 Mg Tablet (Enalapril maleate) ..... 1 tablet once a day Ashanti Watt MD Cardiology: P susanne for titration study. Moderate KENNY AHI January 15, 2022 P ending KENNY equipment N ovember 2021 g ot cpap but not using the machine February 11, 2023 r einforced the importance of using cpap. s he has moderate KENNY September 30, 2023 O n CPAP, notices improvement in fatigue. The patient is using CPAP on a regular basis. The patient has been benefiting from therapy and should continue use. Ashanti Watt MD Cardiology: P susanne for titration study. Moderate KENNY AHI January 15, 2022 P ending KENNY equipment N ovember 2021 g ot cpap but not using the machine February 11, 2023 r einforced the importance of using cpap. s he has moderate KENNY Ashanti Watt MD Cardiology:on synthr oid and metoprolol H er updated medication list for this problem includes: Levothyroxine 137 Mcg Tablet (Levothyroxine) ..... 1 tablet once a day Ashanti Watt MD Cardiology: H er updated medication list for this problem includes: Metoprolol Succinate 50 Mg Tablet Extended Release 24 Hr (Metoprolol succinate) ..... Take a half tablet twice a day Ashanti Watt MD Cardiology: B P today: 159/75 P rior BP: 132/80 (01/15/2022) Her updated medication list for this problem includes: Furosemide 20 Mg Tablet (Furosemide) ..... Take 1 tablet by mouth every day Metoprolol Succinate 50 Mg Tablet Extended Release 24 Hr (Metoprolol succinate) ..... Take a half tablet twice a day Enalapril Maleate 10 Mg Tablet (Enalapril maleate) ..... 1 tablet once a day Ashanti Watt MD Cardiology: H er updated medication list for this problem includes: Atorvastatin 40 Mg Tablet (Atorvastatin) ..... Take 1 tablet by mouth every day Ashanti Watt MD Cardiology: I mproved with compression stockings and diauretic August 13, 2022 n ot using compression stockings Ashanti Watt MD Cardiology: P susanne for titration study. Moderate KENNY AHI January 15, 2022 P ending KENNY equipment N ovember 2021 g ot cpap but not using the machine Ashanti Watt MD Cardiology: b radycardia, will reduce beta shereen, check telemonitor, home sleep study April 24, 2021 R martinawed results of sleep study. moderate KENNY. Patient will get titration study S inus Rhythm First Degree with Rare Ventricular Ectopy M inimum Heart Rate was 48 bpm, Average Heart Rate was 66 bpm, and Maximum Heart Rate was 112 bpm. S inus Bradycardia minutes were 1171; and Sinus Tachycardia minutes were 72. V entricular Ectopy was 55, with 1 V-Run. August 13, 2022 SR on the ekg Ashanti Watt MD Cardiology: H er updated medication list for this problem includes: Atorvastatin 40 Mg Tablet (Atorvastatin) ..... Take 1 tablet by mouth every day Ashanti Watt MD Cardiology: I mproved with compression stockings and diauretic Ashanti Watt MD Cardiology: A BI 08/16/2020 rules out PVD for the cause of her swelling and pain. FINDINGS: R ight Lower Extremity: Triphasic waveforms are seen in the common femoral, proximal femoral, mid femoral and distal f emoral. Biphasic waveforms are seen in the profunda femoris, popliteal, anterior tibial and posterior tibial. The TAMERA is 1.09. L eft Lower Extremity: Triphasic waveforms are seen in the proximal femoral, mid femoral and distal femoral. Biphasic waveforms a re seen in the common femoral, profunda femoris, popliteal, anterior tibial and posterior tibial. The TAMERA is 1.14. - C ONCLUSIONS: 1 . Mild arterial disease of the lower extremities bilaterally. NO SIGNIFICANT ARTERIAL DISEASE NOTED A pril 2021 S till has left greater than right has MTS most likely. Offered her IVUS and Venogram/Stenting will think about it Ashanti Watt MD Cardiology: B P today: 132/80 P rior BP: 136/72 (07/17/2021) Her updated medication list for this problem includes: Metoprolol Succinate 50 Mg Tablet Extended Release 24 Hr (Metoprolol succinate) ..... Take a half tablet twice a day Furosemide 20 Mg Tablet (Furosemide) ..... Take 1 tablet by mouth every day Enalapril Maleate 10 Mg Tablet (Enalapril maleate) ..... 1 tablet once a day Ashanti Watt MD Cardiology: s /p vaccination Ashanti Watt MD Cardiology: P susanne for titration study. Moderate KENNY AHI January 15, 2022 P ending KENNY equipment Ashanti Watt MD Cardiology: H er updated medication list for this problem includes: Metoprolol Succinate 50 Mg Tablet Extended Release 24 Hr (Metoprolol succinate) ..... Take 0.5 tablet twice a day Ashanti Watt MD Cardiology: H er updated medication list for this problem includes: Atorvastatin 40 Mg Tablet (Atorvastatin) ..... 1 tablet once a day Ashanti Watt MD Cardiology: b radycardia, will reduce beta shereen, check telemonitor, home sleep study April 24, 2021 R martinawed results of sleep study. moderate KENNY. Patient will get titration study S inus Rhythm First Degree with Rare Ventricular Ectopy M inimum Heart Rate was 48 bpm, Average Heart Rate was 66 bpm, and Maximum Heart Rate was 112 bpm. S inus Bradycardia minutes were 1171; and Sinus Tachycardia minutes were 72. V entricular Ectopy was 55, with 1 V-Run. Ashanti Watt MD Cardiology: s /p vaccination Ashanti Watt MD Cardiology: P susanne for titration study. Moderate KENNY AHI 21 Ashanti Watt MD Cardiology: s /p vaccination Ashanti Watt MD Cardiology: R chidieiewed with her regarding treatment for KENNY. Needs titration CONCLUSIONS: 1 . Technically difficult study, limited views secondary to poor acoustic windows. Interpretation is based on available limited v iews. Normal left ventricular systolic function. Normal left ventricular size. Normal left ventricular wall thickness. Normal l eft ventricular diastolic function. E/E': 5.0. Left ventricular ejection fraction is measured at 65 %. 2 . Normal right ventricular size. Normal right ventricular systolic function. 3 . There is trace physiologic mitral valve regurgitation. 4 . There is trace physiologic tricuspid valve regurgitation. 5 . There is trace physiologic pulmonic valve regurgitation. Ashanti Watt MD Cardiology: T elemonitor and reduce Lopressor. On Thyroid, sees endocrine April 24, 2021 wilmer cortés sleep titration study. S inus Rhythm First Degree with Rare Ventricular Ectopy M inimum Heart Rate was 48 bpm, Average Heart Rate was 66 bpm, and Maximum Heart Rate was 112 bpm. S inus Bradycardia minutes were 1171; and Sinus Tachycardia minutes were 72. V entricular Ectopy was 55, with 1 V-Run. R eport Date: 01/29/2021///LA E nd of Session P age Ashanti Watt MD Cardiology: B P today: 114/61 P rior BP: 142/70 (01/09/2021) Ashanti Watt MD Cardiology: b radycardia, will reduce beta shereen, check telemonitor, home sleep study April 24, 2021 R eviewed results of sleep study. moderate KENNY. Patient will get titration study S inus Rhythm First Degree with Rare Ventricular Ectopy M inimum Heart Rate was 48 bpm, Average Heart Rate was 66 bpm, and Maximum Heart Rate was 112 bpm. S inus Bradycardia minutes were 1171; and Sinus Tachycardia minutes were 72. V entricular Ectopy was 55, with 1 V-Run. Ashanti Watt MD Cardiology:Moderate KENNY. Reviewed pros and cons of CPAP. Recommend titration and equipment. Ashanti Watt MD Cardiology:bradycard ia, will reduce beta shereen, check telemonitor, home sleep study Ashanti Watt MD Cardiology:CONCLUSIO NS: 1 . Technically difficult study, limited views secondary to poor acoustic windows. Interpretation is based on available limited v iews. Normal left ventricular systolic function. Normal left ventricular size. Normal left ventricular wall thickness. Normal l eft ventricular diastolic function. E/E': 5.0. Left ventricular ejection fraction is measured at 65 %. 2 . Normal right ventricular size. Normal right ventricular systolic function. 3 . There is trace physiologic mitral valve regurgitation. 4 . There is trace physiologic tricuspid valve regurgitation. 5 . There is trace physiologic pulmonic valve regurgitation. Ashanti Watt MD Cardiology:Sees endo , on synthrodi H er updated medication list for this problem includes: Metoprolol Succ Er 50 Mg Tab (Metoprolol succinate) ..... Take 1/2 tablet by mouth once daily Ashanti Watt MD Cardiology:Telemonit or and reduce Lopressor. On Thyroid, sees endocrine Ashanti Watt MD Cardiology:Improved with compression stockings and diauretic Ashanti Watt MD Cardiology:Reduce Lo pressor to 25 once daily B P today: 142/70 P rior BP: 136/80 (09/12/2020) Her updated medication list for this problem includes: Lasix 20 Mg Oral Tablet (Furosemide) ..... One tab by mouth daily Metoprolol Succ Er 50 Mg Tab (Metoprolol succinate) ..... Take 1/2 tablet by mouth once daily Enalapril Maleate 10 Mg Oral Tablet (Enalapril maleate) ..... One tab. once daily Ashanti Watt MD Cardiology:Venous US rules out venous insufficiency. The patient has swelling L worse than R but her sx are not lifestyle limiting. She was presented with the option of undergoing a venogram to rule out May-Thurners but would like to proceed with just compression therapy at this time. CONCLUSIONS: 1 . No evidence of a deep vein thrombosis of the lower extremities bilaterally. 2 . No evidence of significant venous insufficiency of the lower extremities bilaterally. 3 . Pulsitile venous flow seen bilaterally consistant with elevated right heart pressures. Venous Study somewhat suggestive of haing May thurners. Reviewed with patients sister. Would recommend non invasive management with compression stockings which can be graduated from XL-Large. Ashanti Watt MD Cardiology: 0 Echo C ONCLUSIONS: 1 . Technically difficult study, limited views secondary to poor acoustic windows. Interpretation is based on available limited v iews. Normal left ventricular systolic function. Normal left ventricular size. Normal left ventricular wall thickness. Normal l eft ventricular diastolic function. E/E': 5.0. Left ventricular ejection fraction is measured at 65 %. 2 . Normal right ventricular size. Normal right ventricular systolic function. 3 . There is trace physiologic mitral valve regurgitation. 4 . There is trace physiologic tricuspid valve regurgitation. 5 . There is trace physiologic pulmonic valve regurgitation. BP is well controlled. HR of 60. Would continue with med rx BP today: 136/80 P rior BP: 148/70 (08/16/2020) Her updated medication list for this problem includes: Lasix 20 Mg Oral Tablet (Furosemide) ..... One tab by mouth daily Metoprolol Succinate Er 50 Mg Oral Tablet Extended Release 24 Hour (Metoprolol succinate) ..... 1/2 tab twice a day Enalapril Maleate 10 Mg Oral Tablet (Enalapril maleate) ..... One tab. once daily Ashanti Watt MD Cardiology:TAMERA 08/16 rules out PVD for the cause of her swelling and pain. FINDINGS: R ight Lower Extremity: Triphasic waveforms are seen in the common femoral, proximal femoral, mid femoral and distal f emoral. Biphasic waveforms are seen in the profunda femoris, popliteal, anterior tibial and posterior tibial. The TAMERA is 1.09. L eft Lower Extremity: Triphasic waveforms are seen in the proximal femoral, mid femoral and distal femoral. Biphasic waveforms a re seen in the common femoral, profunda femoris, popliteal, anterior tibial and posterior tibial. The TAMERA is 1.14. - C ONCLUSIONS: 1 . Mild arterial disease of the lower extremities bilaterally. NO SIGNIFICANT ARTERIAL DISEASE NOTED Ashanti Watt MD Cardiology:Will eval uate with TAMERA, venous doppler. W ill start her on lasix 20mg. She was advised to take 40mg for the first three days L LE is markedly more swollen than RLE W ill obtain echo Fatoumata Sheth NP Cardiology:Will eval uate with TAMERA, venous doppler. W ill start her on lasix 20mg. She was advised to take 40mg for the first three days L LE is markedly more swollen than RLE Fatoumata Sheth NP Cardiology:Does not want to undergo holter study W ill start on Toprol 25mg one tablet per day Fatoumata Sheth NP Cardiology:LDL 126, will increase lipitor to 40mg one tablet per day H er updated medication list for this problem includes: Atorvastatin Calcium 40 Mg Oral Tablet (Atorvastatin calcium) ..... One tab daily Fatoumata Sheth NP Cardiology:Slightly elevated today. Started on Metorpolol BP today: 148/70 Her updated medication list for this problem includes: Lasix 20 Mg Oral Tablet (Furosemide) ..... One tab by mouth daily Metoprolol Succinate Er 25 Mg Oral Tablet Extended Release 24 Hour (Metoprolol succinate) ..... One tablet twice daily Enalapril Maleate 10 Mg Oral Tablet (Enalapril maleate) ..... One tab. once daily Fatoumata Sheth BEBA Date Name Complete Echo LIPID PANEL COMPREHENSIVE METABO LIC PANEL, W/EGFR Complete Echo RPM (remote patient monitoring) Holter Monitor 48 hr EKG Stress Regadenoson Sleep Study Titratio n Sleep Study Titratio n Sleep Study Home Monitor - Telemetry (Mobile Cardiac) Complete Echo Venous Doppler Bilat eral LE - Reflux Arterial Duplex Bi-L jacobo EX HISTORY OF PROCEDURES Procedure Date Procedure Name Provider Procedure Notes S tatus Complex e/m visit ad d on Dino Carpenter MD completed EKG Dino Carpenter MD completed Complex e/m visit ad d on Ashanti Watt MD completed EKG Ashanti Watt MD compl eted EKG Ashanti Watt MD compl eted EKG Ashanti Watt MD compl eted EKG Ashanti Watt MD compl eted EKG Ashanti Watt MD compl eted EKG Ashanti Watt MD compl eted Event Monitor Ashanti Watt MD co mpleted EKG Ashanti Watt MD compl eted EKG Ashanti Watt MD compl eted EKG Gloria Jones MD comp leted
--- OUTSIDE RECORDS SUMMARY | 2025-01-25 08:21 | XMS_ITS | Referral Summary ---
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 Advance Directives For more information, please contact: [phone] Documents on File Type Date Recorded Patient General Merchandise Salesperson Expl anation ADVANCE DIRECTIVE 07/18/2015 12:00 AM POW ER OF SECURITIES TRADER FINANCIAL/MEDICAL Care Teams Glove Maker Relationship Specialty Start Date End Date Oscar Mcelroy MD PCP - General Emergency Medicine 10/04/23
--- OUTSIDE RECORDS SUMMARY | 2025-01-25 08:21 | XMS_ITS | Clinical Summary ---
Author Organization [facility] Address [address] [facility] [place] [address] Care Team Providers Care Playground Director Name Role Phone Oscar Mcelroy MD Primary Care Provider [phone] Allergies Active Allergy Reactions Criticality Noted Date Comments Codeine Itching,Rash High 08/16/2020 Reaction: Rash, Itching, Reaction: Rash, Itching, Reaction: Rash, Itching, Latex Itching,Rash,Anaphylaxis High 08/16/2020 Reaction: Rash, Itching, Medications atorvastatin (LIPITOR) 40 mg tablet Take by mouth. 0 Active divalproex (DEPAKOTE) 500 mg delayed release tablet TAKE 2 TABLETS BY MOUTH TWICE A DAY 0 Active enalapril (VASOTEC) 10 mg tablet TAKE 1 TABLET BY MOUTH EVERY DAY 0 Active furosemide (Lasix) 20 mg tablet Take by mouth. 0 Active levothyroxine 137 mcg tablet TAKE 1 TABLET BY MOUTH EVERY DAY 0 Active metoprolol succinate (TOPROL XL) 50 mg Extended Release 24 hour tablet Take 25 mg by mouth 2 times daily. 0 Active PHENobarbitaL (LUMINAL) 64.8 mg Tablet tablet 0 Active triamcinolone acetonide (KENALOG) 0.1 % Ointment triamcinolone acetonide 0.1 % topical ointment Active ibuprofen (MOTRIN) 600 mg tablet ibuprofen 600 mg tablet Active nystatin (MYCOSTATIN) 100,000 unit/gram Ointment nystatin 100,000 unit/gram topical ointment PLEASE SEE ATTACHED FOR DETAILED DIRECTIONS Active atorvastatin (LIPITOR) 20 mg tablet atorvastatin 20 mg tablet TAKE 1 TABLET BY MOUTH DAILY Active metoprolol succinate (TOPROL XL) 25 mg Extended Release 24 hour tablet metoprolol succinate ER 25 mg tablet,extended release 24 hr Active Syringe with Needle, Disp, (BD Luer-Alireza Syringe) 3 mL 25 gauge x 1 SyringeIndicat ions:Other dietary vitamin B12 deficiency anemia Use twice monthly with B12 injections. 6 Each 4 3 Active Syringe with Needle, Disp, 1 mL 27 x 1/2 Syringe Use with B-12 injections. 1 Each 2 4 Active cyanocobalamin (VITAMIN B-12) 1,000 mcg/mL Solution INJECT 1 ML (1,000 MCG) BY INTRAMUSCULAR INJECTION EVERY 6 WEEKS. 1 mL 3 4 Active Active Problems Problem Noted Date Diagnosed Date Other dietary vitamin B12 deficiency anemia 08/29 Chronic anemia 09/11/2020 Seizure disorder 09/11/2020 Hypothyroidism 09/11/2020 Benign hypertension 09/11/2020 Encounters Date Type Department Care Team Description 01/25/2025 Orders Only [facility] [place] [address] [place] [address] Bird Sales MD Chronic anemia (Primary Dx) 12/13/2024 External Device Data STL ABSTRACTION Provider, Abstract 12/02/2024 External Device Data STL ABSTRACTION Provider, Abstract 12/01/2024 External Device Data STL ABSTRACTION Provider, Abstract 11/28/2024 External Device Data STL ABSTRACTION Provider, Abstract 11/14/2024 External Device Data STL ABSTRACTION Provider, Abstract from Last 3 Months Family History Medical History Relation Name Comments Healthy Brother 1 Healthy Brother 2 Brain Cancer Father Breast Cancer Mother Emphysema Sister 1 Healthy Sister 2 Healthy Sister 3 Relation Name Status Comments Brother 1 Alive Brother 2 Alive Father Mother Sister 1 Alive Sister 2 Alive Sister 3 Alive Social History Tobacco Use Types Packs/Day Years Used Date Smoking Tobacco: Never Tobacco Cessation:Counseling Given: Not Answered Alcohol Use Standard Drinks/Week Comments Never 0 (1 standard drink = 0.6 oz pur e alcohol) Comments No Sex and Gender Information Value Date Recorded Sex Assigned at Not on file Legal 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 Female 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 Gender Identity Not on file Sexual Orientation Not on file Last Filed Vital Signs Vital Sign Reading Time Taken Comments Blood Pressure 159/65 03/01/2024 9:50 AM CDT Pulse 56 03/01/2024 9:47 AM CDT Temperature 36.2 C (97.1 F) 03/01/2024 9:47 AM CDT Respiratory Rate 14 03/01/2024 9:47 AM CDT Oxygen Saturation 95% 03/01/2024 9:47 AM CDT Inhaled Oxygen Concentration - - Weight 84.8 kg (187 lb) 03/01/2024 9:47 AM CDT Height 147.3 cm (4' 10 ) 10/02/2021 10:41 AM TIRE GROOVER Body Mass Index 39.08 10/02/2021 10:41 AM TIRE GROOVER Plan of Treatment Upcoming Encounters Date Type Department Care Team (Late st Contact Info) Description 01/26/2025 9:45 AM CDT Office Visit [facility] [address] [facility] [address] [place] [address] Bird Sales MD [address] [facility] [address] [place] [address] Health Maintenance Due Date Last Done Comments DTAP/TDAP/TD VACCINES (1 - Tdap) 01/23/1972 Preventative Visit-Managed Medicaid 01/23/1972 BREAST CANCER SCREENING 1993 COLORECTAL SCREENING 1998 Colorectal Cancer Screening 1998 FIT-DNA Q 3 years 1998 FIT/FOBT Q 1 year 1998 Flex Sig/CT Colonography Q 5 years 1998 PNEUMOCOCCAL VACCINE 50+ YEA RS (1 of 1 - PCV) 2003 05/28/2013 ZOSTER VACCINE (1 of 2) 2003 OSTEOPOROSIS SCREENING 2018 INFLUENZA VACCINE (#1) 2024 , 06/17/2020, 06/17/2020 RSV VACCINE (60+ or ) (1 - 1-dose 75+ series) 01/23/2028 Procedures Procedure Name Priority Date/Time Associated Diagnosis Comments VITAMIN B12 AND FOLATE Routine 01/15/2025 7:59 AM CDT Chronic anemia IRON, TIBC, AND PERCENT SATURATION Routine 01/15/2025 7:59 AM CDT Chronic anemia FERRITIN Routine 01/15/2025 7:59 AM CDT Chronic anemia from Last 3 Months Results * (ABNORMAL) VITAMIN B12 AND FOLATE (01/15/2025 7:59 AM CDT) VITAMIN B12 1137(H) 200 - 1100 pg/mL [facility] FOLATE, SERUM 17.9 ng/mL [facility] Comment: Reference Range Low: <3.4 Borderline: 3.4-5.4 Normal: >5.4 FASTING:YES FASTING: YES Test Performed at: [facility] [address] Shahla Vasquez MD Blood 01/15/2025 7:59 AM CDT 01/15/2025 8:00 AM CDT us Bird Sales MD CHEMISTRY ORDERABLES Final Resu lt [facility] [phone] [facility] [address] * IRON, TIBC, AND PERCENT SATURATION (01/15/2025 7:59 AM CDT) IRON 90 45 - 160 mcg/dL [facility] TIBC 262 250 - 450 mcg/dL (calc) [facility] IRON % SATURATION 34 16 - 45 % (calc) [facility] Comment: FASTING:YES FASTING: YES Test Performed at: [facility] [address] Shahla Vasquez MD Blood 01/15/2025 7:59 AM CDT 01/15/2025 8:00 AM CDT us Bird Sales MD CHEMISTRY ORDERABLES Final Resu lt [facility] [phone] [facility] [address] [place] [address] * FERRITIN (01/15/2025 7:59 AM CDT) FERRITIN 32 16 - 288 ng/mL [facility] Comment: Test Performed at: [facility] [address] [place] [phone] Shahla Vasquez MD Blood 01/15/2025 7:59 AM CDT 01/15/2025 8:00 AM CDT us Bird Sales MD CHEMISTRY ORDERABLES Final Resu lt [facility] [phone] [facility] [address] [place] [address] from Last 3 Months Insurance Care Teams Playground Director Relationship Specialty Start Date End Date Oscar Mcelroy MD [address] [place] [phone] PCP - General Emergency Medicine 08/29/20
--- OUTSIDE RECORDS SUMMARY | 2025-01-25 08:21 | XMS_ITS | Encounter Summary ---
Author Organization [facility] Address [address] [place] [address] Care Team Providers Care Change House Attendant Name Role Phone Oscar Mcelroy MD Primary Care Provider [phone] Encounter Details Date Type Department Care Team (Late Contact Info) Description 10/22/2002 Outpatient Historical [facility], [address] Social History Tobacco Use Types Packs/Day Years Used Date Smoking Tobacco: Never Assessed Comments Unknown Sex and Gender Information Value Date Recorded Sex Assigned at Not on file Legal Sex Female 2:41 AM MANAGER ED Gender Identity Not on file Sexual Orientation Not on file documented as of this encounter Plan of Treatment Upcoming Encounters Date Type Department Care Team (Late st Contact Info) Description 01/26/2025 9:45 AM CDT Office Visit [facility] Oncology and Hematology - [place] [address] [place] [address] [address] [place] [address] [place] [address] [place] [address] [address] [place] [address] documented as of this encounter Visit Diagnoses Not on filedocumented in this encounter Care Teams Change House Attendant Relationship Specialty Start Date End Date Oscar Mcelroy MD [address] [place] [address] [address] [place] [address] PCP - General Emergency Medicine 08/29/20 documented as of this encounter
--- OUTSIDE RECORDS SUMMARY | 2025-01-25 08:22 | XMS_ITS | Clinical Summary ---
Author Organization [facility] Address [address] [place] [address] Care Team Providers Care Professor Of Kinesiology Name Role Phone Oscar Mcelroy MD Primary Care Provider [phone] Source Comments [facility],non-[facility] Affiliates and Associated Physician Practices is amultiple site organization consisting of ambulatory clinics and hospital sitesin [place], [place], [place] and [place]. This disclosure is being madepursuant to the Care Everywhere program and may not contain all information available regarding this patient. Last updated 18.[facility] Allergies Active Allergy Reactions Criticality Noted Date Comments Codeine Itching,Rash Medium 09/11/2020 Reaction: Rash, Itching, Reaction: Rash, Itching, Medications * Be aware that medications may not be up to date on this document. Alwaysverify current medications with the patient. amitriptyline (ELAVIL) 25 MG tablet Take 50 mg by mouth 0 Active atorvastatin (LIPITOR) 40 MG tablet Take 40 mg by mouth once daily [address] (DEPAKOTE) 500 MG tablet TAKE 2 TABLETS BY MOUTH TWICE A DAY 0 Active enalapril (VASOTEC) 10 MG tablet TAKE 1 TABLET BY MOUTH EVERY DAY 0 Active levothyroxine (SYNTHROID) 137 MCG tablet TAKE 1 TABLET BY MOUTH EVERY DAY 0 Active metoprolol succinate XL 24hr (TOPROL XL) 50 MG tablet Take 25 mg by mouth 2 times daily 0 Active PHENobarbital (LUMINAL) 64.8 MG tablet 0 Active traZODone (DESYREL) 150 MG tablet TRAZODONE HCL TABLET 0 Active amitriptyline (Elavil) 25 MG tablet Take 2 (two) tablets by mouth at bedtime 2 Active atorvastatin (Lipitor) 20 MG tablet Take 2 (two) tablets by mouth once daily Active cyanocobalamin (Vitamin B-12) injection cyanocobalamin (vit B-12) 1,000 mcg/mL injection solution INJECT 1 ML EVERY [address] (Depakote) 500 MG tablet Take 2 (two) tablets by mouth 2 times daily 2 Active enalapril (Vasotec) 10 MG tablet Take 1 (one) tablet by mouth once daily 2 Active furosemide (Lasix) 20 MG tablet furosemide 20 mg tablet 1 Active metoprolol succinate XL 24hr (Toprol XL) 25 MG tablet metoprolol succinate ER 25 mg tablet,extended release 24 hr Active PHENobarbital (Luminal) 64.8 MG tablet Take 2 (two) tablets by mouth at bedtime 2 Active Active Problems Problem Noted Date Diagnosed Date Hypertensive disorder 10/21/2020 Hyperlipidemia 08/16/2020 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 (FLUZONE HIGH-DOSE QUADRIVALENT; 65Y+), 0.7 ML (HD-IIV4) 06/17/2020 Social History Tobacco Use Types Packs/Day Years Used Date Smoking Tobacco: Never Smokeless Tobacco: Never Alcohol Use Standard Drinks/Week Comments Never 0 (1 standard drink = 0.6 oz pur e alcohol) AUDIT-C Answer Date Recorded Q1: How often do you have a drink containing alc ohol? Never 10/09/2020 Average Number of Drinks Not on file 021 Frequency of Binge Drinking Not on file 09/27 Comments Unknown Sex and Gender Information Value Date Recorded Sex Assigned at Not on file Legal Sex Female 3:58 PM MARKETING SALES REPRESENTATIVE Gender Identity Not on file Sexual Orientation Not on file Last Filed Vital Signs Vital Sign Reading Time Taken Comments Blood Pressure 136/80 10/09/2020 10:03 AM MARKETING SALES REPRESENTATIVE Pulse 70 11/27/2020 10:21 AM MARKETING SALES REPRESENTATIVE Temperature 36.1 C (97 F) 11/27/2020 10:21 AM MARKETING SALES REPRESENTATIVE Respiratory Rate 18 11/27/2020 10:21 AM MARKETING SALES REPRESENTATIVE Oxygen Saturation 100% 11/27/2020 10:21 AM MARKETING SALES REPRESENTATIVE Inhaled Oxygen Concentration - - Weight 91.6 kg (202 lb) 11/27/2020 10:21 AM MARKETING SALES REPRESENTATIVE Height 152.4 cm (5') 11/27/2020 10:21 AM MARKETING SALES REPRESENTATIVE Body Mass Index 39.45 11/27/2020 10:21 AM MARKETING SALES REPRESENTATIVE Plan of Treatment Health Maintenance Due Date Last Done Comments BONE DENSITY TESTING 1955 COLOGUARD (AGES 45-75) - COL ON CA SCREENING 1955 COLON MONITORING 1953 COLONOSCOPY - COLON CA SCREENING 1953 CT COLONOGRAPHY - COLON CA SCREENING 1953 Colorectal Cancer Screening 1955 FIT - COLON CA SCREENING 1953 FLEX SIG - COLON CA SCREENING 1955 MAMMOGRAM 1953 HEPATITIS C SCREENING 01/18/1971 DTAP/TDAP/TD VACCINES (1 - Tdap) 01/23/1972 PNEUMOCOCCAL VACCINE 50+ (1 of 1 - PCV) 2003 ZOSTER VACCINE (1 of 2) 2003 SCREENING FOR DIABETES 10/09/2020 COVID-19 VACCINE (1 - 2023-2 5 season) 2024 DEPRESSION SCREENING 09/27/2024 INFLUENZA VACCINE (Season Ended) 2025 09/27/2020, 06/17/2020 Respiratory Syncytial Virus (RSV) Vaccine Pt: or over 60 yrs (1 - 1-dose 75+ series) 01/23/2028 HEPATITIS B VACCINE Aged Out No longe r eligible based on patient's age to complete this topic HIB VACCINE Aged Out No longer eligi ble based on patient's age to complete this topic HPV VACCINE Aged Out No longer eligi ble based on patient's age to complete this topic MENINGOCOCCAL (Group B) VACCINE SHARED DECISION-MAKING Aged Out No longer eligible based on patient's age to complete this topic MENINGOCOCCAL GROUPS A/C/Y/W VACCINE Aged Out No longer eligible b ased on patient's age to complete this topic Insurance Care Teams Professor Of Kinesiology Relationship Specialty Start Date End Date Oscar Mcelroy MD [address] [facility] [address] [place] [address] PCP - General 11/20/21
--- OUTSIDE RECORDS SUMMARY | 2025-01-25 08:22 | XMS_ITS | Encounter Summary ---
Author Organization [facility] [employer] Address [address] [place] [address] Care Team Providers Care Vehicle Dismantler Name Role Phone Oscar Mcelroy MD Primary Care Provider [phone] Encounter Details Date Type Department Care Team (Late Contact Info) Description 01/25/2025 Orders Only [facility] Oncology and Hematology - [place] [address] [place] [address] Bird Sales MD [address] [place] [phone] Chronic anemia (Primary Dx) Social History Tobacco Use Types Packs/Day Years Used Date Smoking Tobacco: Never Alcohol Use Standard Drinks/Week Comments Never 0 (1 standard drink = 0.6 oz pur e alcohol) Comments No Sex and Gender Information Value Date Recorded Sex Assigned at Not on file Legal Sex Female 2:41 AM CHIEF ANALYTICS OFFICER Gender Identity Not on file Sexual Orientation Not on file documented as of this encounter Plan of Treatment Upcoming Encounters Date Type Department Care Team (Late st Contact Info) Description 01/26/2025 9:45 AM CDT Office Visit [facility] Oncology and Hematology - [place] [address] [place] [address] Bird Sales MD [address] [place] [address] Scheduled Orders Name Type Priority Associated Diagnoses Orde r Schedule CBC WITH DIFFERENTIAL Lab Routine Chronic anemia Expected: 01/25/2025, Expires: 01/25/2026 documented as of this encounter Visit Diagnoses Diagnosis Chronic anemia- Primary Anemia, unspecified documented in this encounter Care Teams Vehicle Dismantler Relationship Specialty Start Date End Date Oscar Mcelroy MD [address] [place] [id number] PCP - General Emergency Medicine 08/29/20 documented as of this encounter
--- OUTSIDE RECORDS SUMMARY | 2025-01-25 08:22 | XMS_ITS | Data Portability ---
Author Organization [facility], [place] Address [address] [place] [address] Care Team Providers Care Floriculture Teacher Name Role Phone DENISSE FERNANDES Primary Care Provider [phone] Assessment Encounter Date Assessment Date Assessment LastModified by Organization Details LastModified Time 10/21/2020 10/21/2020 healthy female exam/menopause pap done, one more at 68 mammogram UTD colonoscopy UTD, unsure when FU colonoscopy should be dexa due in next couple years likely, sister will find out when discussed LS diagnosis and need for vulvar biopsy due to ulcerated area. will schedule. Encouraged weight bearing exercise and 1500mg daily of Calcium with Vitamin D FU 1 year or prn [email or web address] Not available 10/21/2020 12:08:42 10/30/2020 10/30/2020 vulvar biopsy done, will contact with results, call in 1 week if has not heard strongly suspect LS, will start clobetasol FU 09/2021 for WWE [email or web address] Not available 10/30/2020 13:17:27 02/17/2021 02/17/2021 stop nystatin continue triamcinolone, but once weekly. consider clobetasol ointment if still symptomatic. WWE due in Oct Not available 02/17/2021 14:13:21 Plan of Treatment Reminders Order Date Submit Date Provider Last Modified By Organization Details Last Modified Time Details Appointments None record ed. Lab None record ed. Referral None record ed. Procedures None record ed. Surgeries None record ed. Imaging None record ed. Medication Orders None record ed. Patient TargetsNo targets recorded. Patient InstructionsNo instructions recorded. Reason for Referral None Reported. Results Created Date Observation Date Name Description Value Unit Range Abnormal Flag Note LastModifiedBy Organization Detail LastModifiedTime Result Notes None recorded. Problems Name Problem SNOMED Code Status Onset Date Resolution Date Notes Provider Name and Address Organization Details Recorded Time Seizure disorder 450207426 Active 2020 Sade Garsia MD [address], [place], [address], [facility] 11:52:59 Body mass index 30+ - obesity 874044698 Active 2020 Sade Garsia MD [address], [place], [address], [facility] 11:53:05 Hypothyroidi sm 15184666 Active 2020 Sade Garsia MD [address], [place], [address], [facility] 11:53:12 Hypertensive disorder 71456808 Active 2020 Sade Garsia MD [address], [place], [address], [facility] 11:53:20 Genital lichen sclerosus 025188644 Active 2020 Sade Garsia MD [address], [place], [address], [facility] 13:13:36 Lichen sclerosus of female genitalia Active 2020 Sade Garsia MD [address], [place], [address], [facility] 14:12:36 Problem Notes None recorded. Procedures Surgical History Date Name Laterality Status Provider Name and Address Organization Details Recorded Time 10/30/19 21 Vulvar Biopsy completed Sade Garsia MD [address], [place], [address], [facility] 10/30/2020 13:14:55 10/29/19 21 Date of Last Pap Smear completed Anika Whiteside [facility] 11/25/2020 10:43:11 11/26/19 20 partial resection of colon completed Sade Garsia MD [address], [place], [address], [facility] 10/21/2020 11:54:04 09/27/18 80 procedure on ankle completed Gissel [facility] 10/21/2020 11:42:40 09/27/18 70 laparoscopic sleeve gastrectomy completed [facility] 10/21/2020 11:56:56 Imaging Results None recorded. Procedure Notes None recorded. Medical Equipment None Reported. Allergies Allergen ID Allergen Name Allergen Category Reaction Reaction Severity Criticality Documentation Date Start Date Code Code System Note Provider Name and Address Organization Details Recorded Time 55720 codeine medicatio n Not available Not available Not available 10/21/2020 2670 RxNorm [facility], [facility] 11:33:30 94570 latex environme nt,medica tion Not available Not available Not available 10/21/2020 46783 91 RxNorm Gissel [facility] eric [facility] 11:33:34 Medications Name Sig Start Date Stop Date Status Note LastModified by Organization Details LastModified Time atorvastati n 40 mg tablet TAKE 1 TABLET BY MOUTH EVERY DAY active Not Available Not Available No t Available levothyroxi ne 137 mcg tablet TAKE 1 TABLET BY MOUTH EVERY DAY active Not Available Not Available No t Available atorvastati n 20 mg tablet TAKE 1 TABLET BY MOUTH DAILY 10/21 completed Not Available Not Available Not Available erythromyci n 500 mg tablet TAKE 2 TABLETS AT 12PM AND 1PM,AND,1 1PM,THE DAY PRIOR TO SURGERY 10/21 completed Not Available Not Available Not Available enalapril maleate 10 mg tablet TAKE 1 TABLET BY MOUTH EVERY DAY active Not Available Not Available No t Available trazodone 50 mg tablet TAKE 1 TABLET BY MOUTH EVERY DAY AT BEDTIME NEEDED active Not Available Not Available No t Available nystatin 100,000 unit/gram topical ointment PLEASE SEE ATTACHED FOR DETAILED DIRECTION S active Not Available Not Available No t Available metoprolol succinate ER 50 mg tablet,exte nded release 24 hr TAKE 1/2 TABLET BY MOUTH TWICE A DAY active Not Available Not Available No t Available BD Luer-Alireza Syringe 3 mL 20 gauge x 1 TO BE USED WITH B12 INJECTION S active Not Available Not Available No t Available divalproex 500 mg tablet,prema yed release TAKE 2 TABLETS BY MOUTH TWICE A DAY active Not Available Not Available No t Available nystatin-tr iamcinolone 100,000 unit/gram-0 .1 % topical ointment Apply to affected area twice a day for 4 weeks active Not Available Not Available No t Available oxycodone-a cetaminophe n 5 mg-325 mg tablet TAKE 1/2 1 TABLET BY MOUTH EVERY 6 HOURS NEEDED FOR PAIN 10/21 completed Not Available Not Available Not Available amitriptyli ne 25 mg tablet TAKE 2 TABLETS BY MOUTH AT BEDTIME active Not Available Not Available No t Available dexamethaso ne 1 mg tablet TAKE 1 TABLET NEEDED BY ORAL ROUTE AT BEDTIME FOR 1 DAY. active Not Available Not Available No t Available cyanocobala min (vit B-12) 1,000 mcg/mL injection solution INJECT 1 ML IM WEEKLY FOR THE FIRST 5 WEEKS AND THEN MONTHLY active Not Available Not Available No t Available trazodone 150 mg tablet TAKE 1 TABLET BY MOUTH AT BEDTIME 02/17 completed Not Available Not Available Not Available triamcinolo ne acetonide 0.1 % topical ointment APPLY TO AFFECTED AREA 2X/DAY FOR 4 WEEKS, THEN DAILY FOR 4 WEEKS, THEN 3 TIMES PER WEEK FOR 4 WEEKS 2021 active Not Available Not Available Not Avai lable phenobarbit al 64.8 mg tablet TAKE 2 TABLETS BY MOUTH EVERY DAY active Not Available Not Available No t Available furosemide 20 mg tablet TAKE 1 TABLET BY MOUTH EVERY DAY active Not Available Not Available No t Available metoprolol succinate ER 25 mg tablet,exte nded release 24 hr 02/17 completed Not Available Not Available Not Available ibuprofen 600 mg tablet TAKE 1 TABLET BY MOUTH EVERY 6 HOURS NEEDED FOR PAIN 10/21 completed Not Available Not Available Not Available neomycin 500 mg tablet TAKE 2 TABLETS BY MOUTH AT 12:00 P.M., 1:00 P.M. AND 11:00 P.M. 10/21 completed Not Available Not Available Not Available nitrofurant oin monohydrate /macrocryst als 100 mg capsule TAKE 1 CAPSULE BY MOUTH EVERY 12 HOURS FOR 3 DAYS WITH FOOD 10/21 completed Not Available Not Available Not Available Vitamin B-6 active Not Available Not A vailable Not Available melatonin active Not Available Not Ashley ilable Not Available atorvastati n 02/17 completed Not Available Not Available Not Available calcium active Not Available Not Avail able Not Available folic acid active Not Available Not Av ailable Not Available biotin active Not Available Not Availa ble Not Available meclizine active Not Available Not Ashley ilable Not Available Vitamin D3 active Not Available Not Av ailable Not Available Fluzone High-Dose Quad 2020-21 (PF) 240 mcg/0.7 mL IM syringe PHARMACY ADMINISTE [facility] 10/21 completed Not Available Not Available Not Available Vitals Date Recorded Body height Body mass index (BMI) Body weight Systolic blood pressure Diastolic blood pressure Provider Name and Address Organization Details Last Updated DateTime 11/25/2020 152.4 cm 39.5 kg/m2 48887.66 g 138 mm[Hg] 78 mm[Hg] Anika Whiteside [facility] 12:25:41 Date Recorded Body height Body mass index (BMI) Body weight Systolic blood pressure Diastolic blood pressure Provider Name and Address Organization Details Last Updated DateTime 02/17/2021 152.4 cm 40.2 kg/m2 14573.03 g 131 mm[Hg] 66 mm[Hg] Gissel [facility] 1 10:06:33 Date Recorded Body height Body mass index (BMI) Body weight Systolic blood pressure Diastolic blood pressure Systolic blood pressure Diastolic blood pressure Provider Name and Address Organization Details Last Updated DateTime 152.4 cm 38.3 kg/m2 13045.1 g 146 mm[Hg] 85 mm[Hg] 130 mm[Hg] 70 mm[Hg] [facility] 11:33:25 Date Recorded Body height Body mass index (BMI) Body weight Systolic blood pressure Diastolic blood pressure Provider Name and Address Organization Details Last Updated DateTime 10/30/2020 152.4 cm 38.7 kg/m2 06114.29 g 139 mm[Hg] 83 mm[Hg] Gissel Box [facility] 12:48:07 Social History Question Answer Notes LastModified by [employer] Details LastModified Time Tobacco Smoking Status Never Smoker Gissel Box [facility], [facility] 10/21/2020 11:34:10 What Is Your Level Of Alcohol Consumption? None Information not available 10/21/2020 What Is Your Level Of Caffeine Consumption? Moderate Information not available 10/21/2020 How Many Days Of Moderate To Strenuous Exercise, Like A Brisk Walk, Did You Do In The Last 7 Days? 0 Information not available 10/21/2020 Do You Use Any Illicit Or Recreational Drugs? No Information not available 10/21/2020 Has Tobacco Cessation Counseling Been Provided? No Information not available 10/21/2020 Do You Or Have You Ever Used Any Other Forms Of Tobacco Or Nicotine? No Information not available 10/21/2020 Sex: Unknown Functional Status Question Answer Note LastModified by [employer] Details LastModified Time What is your exercise level? Occasional Information not available 10/21/2020 Mental Status None recorded. Family History Relationship Description Onset Age of this Age Resolved Age Notes LastModified by Organization Details LastModified Time Mother Carcinoma in situ of breast [email or web address] Not available 2020 11:40:03 Mother Diabetes mellitus [email or web address] Not available 2020 11:40:10 Mother Carcinoma in situ of lung [email or web address] Not available 11:40:33 Father Carcinoma in situ of lung [email or web address] Not available 11:40:33 Father Carcinoma of brain [email or web address] Not available 2020 11:41:05 Medical History Condition Response Allergies (Food, seasonal, environmental ) N Other N Drug/Latex Allergies/Reactions N Breast Cancer N Blood Transfusion N Lung Disease N Dermatologic Disorders N Defects or Inherited Disease N Breast Problem N Gestational Diabetes N Hematologic disorders N Anesthesia Complications N History of STI N Deep Vein Thrombosis N Polycystic ovary syndrome N Anxiety Disorder N Autoimmune disease N Arthritis N Polyps N Infertility N History of abnormal pap N Acid Reflux (GERD) N Cancer N Varicosities N Stroke N Neurologic/Epilepsy Y Endometriosis N High Cholesterol N Headaches N Fibromyalgia N Kidney Disease N Heart Problems N Thyroid Problems Y Kidney or Bladder Problems N GI Problems N Eating Disorder N Anemia Y Art (IVF or FET) N Psychiatric Illness N Ovarian Cancer N Diabetes N Pulmonary (TB, Asthma) N Hepatitis/Liver Disease N Eczema N Urinary Tract Infection N Abuse/Domestic Violence N Asthma N Trauma/Violence N Depression/ depression N Heart Disease N Pre-Eclampsia N Hypertension Y Osteoporosis N Thrombophilias N Gynecological History Statement/Question Response Date of Last Pap Smear 10/29/2020 Current Control Method None Desired Control Method None Obstetrics History GPAL:G 0 P 0 0 0 0 Past Encounters Encounter ID Performer Location Encounter Start Date Encounter Closed Date Diagnosis/Indication Diagnosis SNOMED-CT Code Diagnosis ICD10 Code Diagnosis Note [id number] Sade Garsia MD [place] [address],[place] [address] 10/21/2020 11:21:56 10/21/2020 12:10:29 Gynecologic examination 85812545 Z01.419 Body mass index 30+ - obesity 581799216 Z68.38 Lichen scl erosus of female genitalia 637929234 N90.4 [id number] Sade Garsia MD [place] [address],[place] [address] 10/30/2020 12:16:57 10/30/2020 17:58:33 Genital lichen sclerosus 761770758 L90.0 Ulceration of vulva 6864 0004 N76.6 [id number] [facility] [address],[place] [address] 11/25/2020 12:11:57 11/25/2020 15:27:22 Genital lichen sclerosus 242130145 L90.0 We reviewed biopsy results in full and discuss at length LS with handouts given for home review. She has only just started the mycolog ointment x 1wks due to a delay in insurance coverage. Medication is covered separately but not mixed together as mycolog She is noticing much improvemen t in regards to itching frequency. We reviewed the vulvar guidelines list with emphasis on vegetable based moisturize r of choice as a imperative addition to her current plan of care. We reviewed again how to use Mycolog ointment (lay on moisturize r, triamcinol one & nystatin as instructed ). We will have her use this regimen for the next 2.5-3mos then RTO for a f/u to assess her progress. Caregiver Erica also voices she herself has this condition & see's Dr. Elizabeth Eubanks at [facility] where she uses a similar regimen. We agreed that if we are not able to adequately manage moving forward a referral to [facility] vulvar clinic will be necessary F/U with Dr. Garsia next visit. Additional precaution lary measures were taken to minimize potential exposure to the Covid-19 virus during this patient s visit, including available hand banquet prep cook upon arrive, temperatur e check and being asked a series of screening questions. All staff wore face coverings during this encounter, as well as provided additional cleaning and sanitizing of all surfaces, including countertop s, pens, chairs, door handles, light switches, etc, prior to and following the patient s visit. Time spent in visit is a total of 28 mins with at least 50% of visit consisting of counseling and review of plan of care not including time spent charting/r eviewing results/no tito. [id number] Sade Garsia MD [place] [address] [address] 02/17/2021 09:43:14 02/17/2021 16:43:52 Lichen sclerosus of female genitalia 842137239 N90.4 Health Concerns Section Related Observation LastModified by Organization Detai ls LastModified Time None Recorded Concern Status LastModified by Organization Details LastModified Time None Recorded Advance Directives Directive None Recorded Payers Encounter Date Sequence Insurance Name Policy Number Policy Cifuentes Covered Member ID Cifuentes Member ID Guarantor Name 10/21/2020 1 [facility] PRIOR TO 03/27/2021 (MEDICAID REPLACEMENT - HMO) Keely Perkins [id number] Keely Perkins 10/30/2020 1 [facility] PRIOR TO 03/27/2021 (MEDICAID REPLACEMENT - HMO) Keely Perkins [id number] Keely Perkins 11/25/2020 1 [facility] PRIOR TO 2021 (MEDICAID REPLACEMENT - HMO) Keely Perkins [id number] Keely Perkins 02/17/2021 1 [facility] PRIOR TO 2021 (MEDICAID REPLACEMENT - HMO) Keely Meyerin [id number] Keely Perkins Notes Date Note Type Note Provider Name and Address Organization Details Recorded Time 10/21/2020 text/html Patient is a 65y o G0 who presents for an annual exam. Here with her sister. Was in detention, now living with her. Has not seen nuclear spectroscopist in 30 years. Menopause age 43. last pap-30 years mammo-03/2020 colonoscopy-10/2019, had benign mass removed in November dexa-few years menopause-43 sexually active-no seatbelts-yes exercise-no, encouraged depression-denies domestic violence-denies tobacco-no concerns-no Sade Garsia MD [address], [place], [address], [facility] 10/21/2020 12:09:55 10/30/2020 text/html here for vulvar biopsy suspected LS but ulcerated area inner right labia Sade Garsia MD [address], [place], [address], [facility] 10/30/2020 13:18:17 11/25/2020 text/html Patient is a 65y o postmenopausal female here today with caregiver Erica to review recent vulvar bx results. RYLIE Cruz- [address], [place], [address], [facility] 11/25/2020 14:13:57 02/17/2021 text/html Here for follow up lichen sclerosus. Diagnosed in Oct, seen by CF in November. Using nystatin cream and triamcinolone cream both TID. Itching and rash much better. NO other concerns. no bleeding. Sade Garsia MD [address], [place], [address], [facility] 02/17/2021 14:13:37 OBGyn Episode No OBEpisode recorded.
--- OUTSIDE RECORDS SUMMARY | 2025-01-25 08:22 | XMS_ITS | Data Portability ---
Author Organization [facility] [employer], Main Office Address [address] [place] [address] Care Team Providers Care Rn Corrections Name Role Phone DENISSE FERNANDES Primary Care Provider [phone] Assessment No assessment recorded. Plan of Treatment Reminders Order Date Submit Date Provider Last Modified By Organization Details Last Modified Time Details Appointments None recorded. Lab vitamin D, 25-hydroxy, total, serum 2022 023 [facility], [address] , [place], [address], 3 08:54:58 TSH + free T4, serum 2022 023 [facility], [address], [place], [address], 3 08:54:59 T3, free, serum or plasma 2022 023 [facility], [address], [place], [address], 3 08:54:57 vitamin B12 + folate, serum or blood 2022 023 [facility], [address], [place], [address], 3 08:54:56 CMP, serum or plasma 2022 023 [facility], [address], [place], [address], 3 21:28:13 Referral None recorded. Procedures None recorded. Surgeries None recorded. Imaging bone density 2022 023 [facility], [address], [place], [address], 3 09:43:14 Medication Orders ergocalcife rol (vitamin D2) 1,250 mcg (50,000 unit) capsule 2022 023 [id number], [address] [place], [address], 3 09:49:06 Unithroid 125 mcg tablet 2022 023 [id number], [address] [place], [address], 3 09:48:03 cholecalcif matt (vitamin D3) 50 mcg (2,000 unit) capsule 2022 023 [id number], [address] [place], [address], 3 09:33:56 Unithroid 125 mcg tablet 2022 023 [id number] [address] [place], [address], 3 09:33:56 Patient TargetsNo targets recorded. Patient InstructionsNo instructions recorded. Reason for Referral None Reported. Results Created Date Observation Date Name Description Value Unit Range Abnormal Flag Note LastModifiedBy Organization Detail LastModifiedTime 10/20/1910/24/2021 TSH+F REE T4 TSH 0.78 mIU/L 0.40-4 .50 normal Not Available [facility] [address] [place], [address], 10/24/2021 05:01:39 10/20/19 22 10/24/2021 TSH+F REE T4 T4, free 1.3 NG/dL 0.8-1. 8 normal Not Available [facility] [address] [place], [address], 10/24/2021 05:01:39 10/20/19 22 10/24/2021 T3, FREE T3, free 2.8 pg/mL 2.3-4. 2 normal Not Available [address], [address], 10/24/2021 05:01:38 10/20/19 22 10/24/2021 ACTH, PLASM A acth, plasma 18 pg/mL 6-50 Refer ence range appli es only to speci mens colle cted betwe en 7am-1 0am. Not Available [address], [address], 10/24/2021 05:01:38 01/22/20 22 01/26/2022 TSH+F REE T4 TSH 1.08 mIU/L 0.40-4 .50 normal Not Available [address], [address], 01/26/2022 17:33:11 01/22/20 22 01/26/2022 TSH+F REE T4 T4, free 1.2 NG/dL 0.8-1. 8 normal Not Available [address], [address], 01/26/2022 17:33:11 01/22/20 22 01/26/2022 T3, FREE T3, free 2.8 pg/mL 2.3-4. 2 normal Not Available [address], [address], 01/26/2022 17:33:10 01/22/20 22 01/26/2022 CORTI JACLYN, A.M. cortisol, A.M. 10.4 mcg/d L normal Refer ence Range 8 a.m. (7-9 a.m.) Speci men: 4.0-2 2.0 Not Available [address], [address], 01/26/2022 17:33:09 01/22/20 22 01/26/2022 THYRO ID PEROX IDASE ANTIB ODIES thyroid peroxidase antibodies 5 IU/mL <9 normal Not Available [address], [address], 01/26/2022 17:33:09 01/22/20 22 01/26/2022 ACTH, PLASM A acth, plasma 29 pg/mL 6-50 Refer ence range appli es only to speci mens colle cted betwe en 7am-1 0am. Not Available [address], [address], 01/26/2022 17:33:08 01/22/20 22 01/26/2022 COMPR EHENS CABRERA METAB OLIC PANEL creatinine 0.79 mg/dL 0.50-0 .99 normal For patie nts >49 years of age, the refer ence limit for Creat inine is appro ximat kyra 13% highe r for peopl e ident ified as Afric an-Am ke n. Not Available [address], [address], 01/26/2022 17:33:08 01/22/20 22 01/26/2022 COMPR EHENS CABRERA METAB OLIC PANEL glucose 83 mg/dL 65-99 normal Fasti ng refer ence inter marbella Not Available [address], [address], 01/26/2022 17:33:08 01/22/20 22 01/26/2022 COMPR EHENS CABRERA METAB OLIC PANEL urea nitrogen (BUN) 17 mg/dL 7-25 normal Not Available [address], [address], 01/26/2022 17:33:08 01/22/20 22 01/26/2022 COMPR EHENS CABRERA METAB OLIC PANEL eGFR non-afr. swazi 77 mL/mi n/1.7 3m2 > or = 60 normal Not Available [facility] [address] [place], [address], 01/26/2022 17:33:08 01/22/20 22 01/26/2022 COMPR EHENS CABRERA METAB OLIC PANEL eGFR 89 mL/mi n/1.7 3m2 > or = 60 normal Not Available [address], [address], 01/26/2022 17:33:08 01/22/20 22 01/26/2022 COMPR EHENS CABRERA METAB OLIC PANEL BUN/creatini ne ratio not applic able (calc ) 6-22 Not Available [address], [address], 01/26/2022 17:33:08 01/22/20 22 01/26/2022 COMPR EHENS CABRERA METAB OLIC PANEL sodium 138 mmol/ L 135-14 6 normal Not Available [address], [address], 01/26/2022 17:33:08 01/22/20 22 01/26/2022 COMPR EHENS CABRERA METAB OLIC PANEL potassium 5.1 mmol/ L 3.5-5. 3 normal Not Available [address], [address], 01/26/2022 17:33:08 01/22/20 22 01/26/2022 COMPR EHENS CABRERA METAB OLIC PANEL chloride 106 mmol/ L 98-110 normal Not Available [address], [address], 01/26/2022 17:33:08 01/22/20 22 01/26/2022 COMPR EHENS CABRERA METAB OLIC PANEL carbon dioxide 23 mmol/ L 20-32 normal Not Available [address], [address], 01/26/2022 17:33:08 04/27/20 22 01/26/2022 COMPR EHENS CABRERA METAB OLIC PANEL calcium 8.4 mg/dL 8.6-10 .4 low Not Available [address], [address], 01/26/2022 17:33:08 01/22/20 22 01/26/2022 COMPR EHENS CABRERA METAB OLIC PANEL protein, total 6.0 g/dL 6.1-8. 1 low Not Available [address], [address], 01/26/2022 17:33:08 01/22/20 22 01/26/2022 COMPR EHENS CABRERA METAB OLIC PANEL albumin 3.5 g/dL 3.6-5. 1 low Not Available [address], [address], 01/26/2022 17:33:08 01/22/20 22 01/26/2022 COMPR EHENS CABRERA METAB OLIC PANEL globulin 2.5 g/dL_ (calc ) 1.9-3. 7 normal Not Available [address], [address], 01/26/2022 17:33:08 01/22/20 22 01/26/2022 COMPR EHENS CABRERA METAB OLIC PANEL albumin/glob ulin ratio 1.4 (calc ) 1.0-2. 5 normal Not Available [address], [address], 01/26/2022 17:33:08 01/22/20 22 01/26/2022 COMPR EHENS CABRERA METAB OLIC PANEL bilirubin, total 0.3 mg/dL 0.2-1. 2 normal Not Available [address], [address], 01/26/2022 17:33:08 01/22/20 22 01/26/2022 COMPR EHENS CABRERA METAB OLIC PANEL alkaline phosphatase 82 U/L 37-153 normal Not Available [facility] [employer] [address], [address], 01/26/2022 17:33:08 01/22/20 22 01/26/2022 COMPR EHENS CABRERA METAB OLIC PANEL AST 14 U/L 10-35 normal Not Available [address], [address], 01/26/2022 17:33:08 01/22/20 22 01/26/2022 COMPR EHENS CABRERA METAB OLIC PANEL ALT 8 U/L 6-29 normal Not Available [address], [address], 01/26/2022 17:33:08 07/22/20 22 07/23/2022 TSH+F REE T4 TSH 0.26 mIU/L 0.40-4 .50 low Not Available [address], [address], 07/23/2022 17:22:22 07/22/20 22 07/23/2022 TSH+F REE T4 T4, free 1.1 NG/dL 0.8-1. 8 normal Not Available [address], [address], 07/23/2022 17:22:22 07/22/20 22 07/23/2022 VITAM IN D,25- OH,TO KLARISSA,I A vitamin D,25-oh,tota l,ia 40 NG/mL 30-100 normal Vitam in D Statu s 25-OH Vitam in D: Defic iency : <20 ng/mL Insuf ficie ncy: 20 - 29 ng/mL Optim al: > or = 30 ng/mL For 25-OH Vitam in D testi ng on patie nts on D2-machado pplem entat ion and patie nts for whom quant itati on of D2 and D3 fract ions is requi red, the [facility] Ass[facility] eD(TM ) 25-OH VIT D, (D2,D 3), LC/MS /MS is recom carmen d: order code 43794 (terrance ents >2yrs ). See Note 1 Note 1 For addit ional infor micheline bowles refer to http: //[facility] maria luz Jessicaia gnost ics.c om/fa q/FAQ 199 (This link is being provi ded for infor iesha lance/ miguel douglas purpo ses only. ) Not Available [address] [place], [address], 07/23/2022 17:22:21 07/22/20 22 07/23/2022 T3, FREE T3, free 2.2 pg/mL 2.3-4. 2 low Not Available [address], [address], 07/23/2022 17:22:21 07/22/20 22 07/23/2022 VITAM IN B12/F OLATE , SERUM PANEL vitamin B12 795 pg/mL 200-11 00 normal Not Available [address], [address], 07/23/2022 17:22:21 07/22/20 22 07/23/2022 VITAM IN B12/F OLATE , SERUM PANEL folate, serum >24.0 NG/mL normal Refer ence Range Low: <3.4 Borde rline : 3.4-5 .4 Marline l: >5.4 Not Available [address], [address], 07/23/2022 17:22:21 07/22/20 22 07/23/2022 THYRO ID PEROX IDASE ANTIB ODIES thyroid peroxidase antibodies 7 IU/mL <9 normal Not Available [address], [address], 07/23/2022 17:22:20 10/26/20 22 07/23/2022 COMPR EHENS CABRERA METAB OLIC PANEL eGFR 72 mL/mi n/1.7 3m2 > or = 60 normal The eGFR is based on the CKD-E PI 2020 equat ion. To calcu late the new eGFR from a previ ous Creat inine or Cysta tin C resul t, go to https ://renee stanford.patito tapia/torey velez s/ kdoqi /gfr% 5Fcal culat or Not Available [address], [address], 07/23/2022 17:22:19 07/22/20 22 07/23/2022 COMPR EHENS CABRERA METAB OLIC PANEL glucose 82 mg/dL 65-99 normal Fasti ng refer ence inter marbella Not Available [address], [address], 07/23/2022 17:22:19 07/22/20 22 07/23/2022 COMPR EHENS CABRERA METAB OLIC PANEL urea nitrogen (BUN) 23 mg/dL 7-25 normal Not Available [address], [address], 07/23/2022 17:22:19 07/22/20 22 07/23/2022 COMPR EHENS CABRERA METAB OLIC PANEL creatinine 0.87 mg/dL 0.50-1 .05 normal Not Available [address], [address], 07/23/2022 17:22:19 07/22/20 22 07/23/2022 COMPR EHENS CABRERA METAB OLIC PANEL BUN/creatini ne ratio not applic able (calc ) 6-22 Not Available [address], [address], 07/23/2022 17:22:19 07/22/20 22 07/23/2022 COMPR EHENS CABRERA METAB OLIC PANEL sodium 131 mmol/ L 135-14 6 low Not Available [address], [address], 07/23/2022 17:22:19 07/22/20 22 07/23/2022 COMPR EHENS CABRERA METAB OLIC PANEL potassium 5.2 mmol/ L 3.5-5. 3 normal Not Available [address], [address], 07/23/2022 17:22:19 07/22/20 22 07/23/2022 COMPR EHENS CABRERA METAB OLIC PANEL chloride 101 mmol/ L 98-110 normal Not Available [address], [address], 07/23/2022 17:22:19 07/22/20 22 07/23/2022 COMPR EHENS CABRERA METAB OLIC PANEL carbon dioxide 22 mmol/ L 20-32 normal Not Available [address], [address], 07/23/2022 17:22:19 07/22/20 22 07/23/2022 COMPR EHENS CABRERA METAB OLIC PANEL calcium 8.2 mg/dL 8.6-10 .4 low Not Available [address], [address], 07/23/2022 17:22:19 07/22/20 22 07/23/2022 COMPR EHENS CABRERA METAB OLIC PANEL protein, total 5.9 g/dL 6.1-8. 1 low Not Available [address], [address], 07/23/2022 17:22:19 07/22/20 22 07/23/2022 COMPR EHENS CABRERA METAB OLIC PANEL albumin 3.4 g/dL 3.6-5. 1 low Not Available [address], [address], 07/23/2022 17:22:19 07/22/20 22 07/23/2022 COMPR EHENS CABRERA METAB OLIC PANEL globulin 2.5 g/dL_ (calc ) 1.9-3. 7 normal Not Available [address], [address], 07/23/2022 17:22:19 07/22/20 22 07/23/2022 COMPR EHENS CABRERA METAB OLIC PANEL albumin/glob ulin ratio 1.4 (calc ) 1.0-2. 5 normal Not Available [address], [address], 07/23/2022 17:22:19 07/22/20 22 07/23/2022 COMPR EHENS CABRERA METAB OLIC PANEL bilirubin, total 0.2 mg/dL 0.2-1. 2 normal Not Available [address], [address], 07/23/2022 17:22:19 07/22/20 22 07/23/2022 COMPR EHENS CABRERA METAB OLIC PANEL alkaline phosphatase 75 U/L 37-153 normal Not Available [address], [address], 07/23/2022 17:22:19 07/22/20 22 07/23/2022 COMPR EHENS CABRERA METAB OLIC PANEL AST 19 U/L 10-35 normal Not Available [address], [address], 07/23/2022 17:22:19 07/22/20 22 07/23/2022 COMPR EHENS CABRERA METAB OLIC PANEL ALT 10 U/L 6-29 normal Not Available [address], [address], 07/23/2022 17:22:19 12/31/19 23 12/31/2022 LIPID PANEL , STAND BILLIE cholesterol, total 199 mg/dL <200 normal Not Available [address], [address], 12/31/2022 05:54:21 12/31/19 23 12/31/2022 LIPID PANEL , STAND BILLIE HDL cholesterol 85 mg/dL > or = 50 normal Not Available [address], [address], 12/31/2022 05:54:21 12/31/19 23 12/31/2022 LIPID PANEL , STAND BILLIE triglyceride s 62 mg/dL <150 normal Not Available [address], [address], 12/31/2022 05:54:21 12/31/19 23 12/31/2022 LIPID PANEL , STAND BILLIE LDL-choleste rol 100 mg/dL _(sara c) high Refer ence range : <100 Jen able range <100 mg/dL for prima ry preve ntion ; <70 mg/dL for patie nts with CHD or diabe tic patie nts with > or = 2 CHD risk facto rs. LDL-C is now calcu lated using the April n-Hop kins calcu latwisam n, which is a valid ated novel remy rodriguez accur acy than the Fried tigre equat ion in the estim ation of LDL-C . April kasper SS et al. HONEY. 2013; 310(1 9): 2061- 2068 (http ://ed ucati on.Chandana Zepeda SIRION BIOTECH. com/f aq/FA Q164) Not Available [address], [address], 12/31/2022 05:54:21 12/31/19 23 12/31/2022 LIPID PANEL , STAND BILLIE chol/HDLC ratio 2.3 (calc ) <5.0 normal Not Available [address], [address], 12/31/2022 05:54:21 12/31/19 23 12/31/2022 LIPID PANEL , STAND BILLIE non HDL cholesterol 114 mg/dL _(sara c) <130 normal For patie nts with diabe tito plus 1 major ASCVD risk facto r, treat ing to a non-H DL-C goal of <100 mg/dL (LDL- C of <70 mg/dL ) is dwayne guillen optio n. Not Available [address] [address] [place], [address], 12/31/2022 05:54:21 12/31/19 23 12/31/2022 COMPR EHENS CABRERA METAB OLIC PANEL glucose 83 mg/dL 65-99 normal Fasti ng refer ence inter marbella Not Available [facility] [address] [address] [place], [address], 12/31/2022 05:54:22 12/31/19 23 12/31/2022 COMPR EHENS CABRERA METAB OLIC PANEL urea nitrogen (BUN) 29 mg/dL 7-25 high Not Available [facility] [address] [address] [place], [address], 12/31/2022 05:54:22 12/31/19 23 12/31/2022 COMPR EHENS CABRERA METAB OLIC PANEL creatinine 0.76 mg/dL 0.50-1 .05 normal Not Available [address] [address] [place], [address], 12/31/2022 05:54:22 12/31/19 23 12/31/2022 COMPR EHENS CABRERA METAB OLIC PANEL eGFR 85 mL/mi n/1.7 3m2 > or = 60 normal The eGFR is based on the CKD-E PI 2020 equat ion. To calcu late the new eGFR from a previ ous Creat inine or Cysta luana C resul t, go to https ://renee tapia/torey morton/ kdoqi /gfr% 5Fcal culat or Not Available [address] [address] [place], [address], 12/31/2022 05:54:22 12/31/19 23 12/31/2022 COMPR EHENS CABRERA METAB OLIC PANEL BUN/creatini ne ratio 38 (calc ) 6-22 high Not Available [address], [address], 12/31/2022 05:54:22 12/31/19 23 12/31/2022 COMPR EHENS CABRERA METAB OLIC PANEL sodium 126 mmol/ L 135-14 6 low Not Available [address], [address], 12/31/2022 05:54:22 12/31/19 23 12/31/2022 COMPR EHENS CABRERA METAB OLIC PANEL potassium 5.4 mmol/ L 3.5-5. 3 high Not Available [address], [address], 12/31/2022 05:54:22 12/31/19 23 12/31/2022 COMPR EHENS CABRERA METAB OLIC PANEL chloride 98 mmol/ L 98-110 normal Not Available [address], [address], 12/31/2022 05:54:22 12/31/19 23 12/31/2022 COMPR EHENS CABRERA METAB OLIC PANEL carbon dioxide 21 mmol/ L 20-32 normal Not Available [address], [address], 12/31/2022 05:54:22 12/31/19 23 12/31/2022 COMPR EHENS CABRERA METAB OLIC PANEL calcium 8.3 mg/dL 8.6-10 .4 low Not Available [email or web address] [address], [address], 12/31/2022 05:54:22 12/31/19 23 12/31/2022 COMPR EHENS CABRERA METAB OLIC PANEL protein, total 6.0 g/dL 6.1-8. 1 low Not Available [email or web address] [address], [address], 12/31/2022 05:54:22 12/31/19 23 12/31/2022 COMPR EHENS CABRERA METAB OLIC PANEL albumin 3.5 g/dL 3.6-5. 1 low Not Available [address], [address], 12/31/2022 05:54:22 12/31/19 23 12/31/2022 COMPR EHENS CABRERA METAB OLIC PANEL globulin 2.5 g/dL_ (calc ) 1.9-3. 7 normal Not Available [address], [address], 12/31/2022 05:54:22 12/31/19 23 12/31/2022 COMPR EHENS CABRERA METAB OLIC PANEL albumin/glob ulin ratio 1.4 (calc ) 1.0-2. 5 normal Not Available [address], [address], 12/31/2022 05:54:22 12/31/19 23 12/31/2022 COMPR EHENS CABRERA METAB OLIC PANEL bilirubin, total 0.3 mg/dL 0.2-1. 2 normal Not Available [address], [address], 12/31/2022 05:54:22 12/31/19 23 12/31/2022 COMPR EHENS CABRERA METAB OLIC PANEL alkaline phosphatase 85 U/L 37-153 normal Not Available [facility] [employer] [address], [address], 12/31/2022 05:54:22 12/31/19 23 12/31/2022 COMPR EHENS CABRERA METAB OLIC PANEL AST 13 U/L 10-35 normal Not Available [address], [address], 12/31/2022 05:54:22 12/31/19 23 12/31/2022 COMPR EHENS CABRERA METAB OLIC PANEL ALT 10 U/L 6-29 normal Not Available [address], [address], 12/31/2022 05:54:22 12/31/19 23 12/31/2022 CBC (INCL UDES DIFF/ PLT) white blood cell count 5.3 thous and/u L 3.8-10 .8 normal Not Available [facility] [address], [address], 12/31/2022 05:54:23 12/31/1912/31/2022 CBC (INCL UDES DIFF/ PLT) red blood cell count 3.36 venu on/uL 3.80-5 .10 low Not Available [address], [address], 12/31/2022 05:54:23 12/31/19 23 12/31/2022 CBC (INCL UDES DIFF/ PLT) hemoglobin 10.2 g/dL 11.7-1 5.5 low Not Available [email or web address] [address], [address], 12/31/2022 05:54:23 12/31/19 23 12/31/2022 CBC (INCL UDES DIFF/ PLT) hematocrit 31.2 % 35.0-4 5.0 low Not Available [email or web address] [address], [address], 12/31/2022 05:54:23 12/31/19 23 12/31/2022 CBC (INCL UDES DIFF/ PLT) MCV 92.9 fL 80.0-1 00.0 normal Not Available [facility] [address], [address], 12/31/2022 05:54:23 12/31/19 23 12/31/2022 CBC (INCL UDES DIFF/ PLT) MCH 30.4 pg 27.0-3 3.0 normal Not Available [facility] [place] [address], [place], [address], 12/31/2022 05:54:23 12/31/1912/31/2022 CBC (INCL UDES DIFF/ PLT) MCHC 32.7 g/dL 32.0-3 6.0 normal Not Available [address], [address], 12/31/2022 05:54:23 12/31/19 23 12/31/2022 CBC (INCL UDES DIFF/ PLT) RDW 14.3 % 11.0-1 5.0 normal Not Available [address], [address], 12/31/2022 05:54:23 12/31/19 23 12/31/2022 CBC (INCL UDES DIFF/ PLT) platelet count 150 thous and/u L 140-40 0 normal Not Available [address], [address], 12/31/2022 05:54:23 12/31/19 23 12/31/2022 CBC (INCL UDES DIFF/ PLT) MPV 10.9 fL 7.5-12 .5 normal Not Available [address], [address], 12/31/2022 05:54:23 12/31/19 23 12/31/2022 CBC (INCL UDES DIFF/ PLT) absolute neutrophils 2629 cells /uL 1500-7 800 normal Not Available [facility] [address], [address], 12/31/2022 05:54:23 12/31/19 23 12/31/2022 CBC (INCL UDES DIFF/ PLT) absolute lymphocytes 1675 cells /uL 850-39 00 normal Not Available [facility] [address], [address], 12/31/2022 05:54:23 04/05/20 23 12/31/2022 CBC (INCL UDES DIFF/ PLT) absolute monocytes 875 cells /uL 200-95 0 normal Not Available [facility] [address], [address], 12/31/2022 05:54:23 12/31/19 23 12/31/2022 CBC (INCL UDES DIFF/ PLT) absolute eosinophils 80 cells /uL 15-500 normal Not Available [facility] [address], [address], 12/31/2022 05:54:23 12/31/19 23 12/31/2022 CBC (INCL UDES DIFF/ PLT) absolute basophils 42 cells /uL 0-200 normal Not Available [facility] [address], [address], 12/31/2022 05:54:23 12/31/19 23 12/31/2022 CBC (INCL UDES DIFF/ PLT) neutrophils 49.6 % normal Not Available [facility] [address], [address], 12/31/2022 05:54:23 12/31/19 23 12/31/2022 CBC (INCL UDES DIFF/ PLT) lymphocytes 31.6 % normal Not Available [facility] [address], [address], 12/31/2022 05:54:23 12/31/19 23 12/31/2022 CBC (INCL UDES DIFF/ PLT) monocytes 16.5 % normal Not Available [facility] [address], [address], 12/31/2022 05:54:23 12/31/19 23 12/31/2022 CBC (INCL UDES DIFF/ PLT) eosinophils 1.5 % normal Not Available [facility] [address], [address], 12/31/2022 05:54:23 12/31/19 23 12/31/2022 CBC (INCL UDES DIFF/ PLT) basophils 0.8 % normal Not Available [address], [address], 12/31/2022 05:54:23 12/31/19 23 12/31/2022 VITAM IN B12/F OLATE , SERUM PANEL vitamin B12 692 pg/mL 200-11 00 normal Not Available [address], [address], 12/31/2022 05:54:24 12/31/19 23 12/31/2022 VITAM IN B12/F OLATE , SERUM PANEL folate, serum 23.0 NG/mL normal Refer ence Range Low: <3.4 Borde rline : 3.4-5 .4 Marline l: >5.4 Not Available [address], [address], 12/31/2022 05:54:24 12/31/19 23 12/31/2022 T3, FREE T3, free 2.9 pg/mL 2.3-4. 2 normal Not Available [address], [address], 12/31/2022 05:54:24 12/31/1912/31/2022 VITAM IN D,25- OH,TO KLARISSA,I A vitamin D,25-oh,tota l,ia 28 NG/mL 30-100 low Vitam in D Statu s 25-OH Vitam in D: Defic iency : <20 ng/mL Insuf ficie ncy: 20 - 29 ng/mL Optim al: > or = 30 ng/mL For 25-OH Vitam in D testi ng on patie nts on D2-machado pplem entat ion and patie nts for whom quant itati on of D2 and D3 fract ions is requi red, the [facility] Ass[facility] eD(TM ) 25-OH VIT D, (D2,D 3), LC/MS /MS is recom carmen d: order code 34703 (terrance ents >2yrs ). See Note 1 Note 1 For addit ional infor micheline bowles e refer to http: //[facility] maria luz Jessicaia gnost ics.c om/fa q/FAQ 199 (This link is being provi ded for infor iesha lance/ educalberto douglas purpo ses only. ) Not Available [address], [address], 12/31/2022 05:54:25 12/31/19 23 12/31/2022 TSH+F REE T4 TSH 0.17 mIU/L 0.40-4 .50 low Not Available [address], [address], 12/31/2022 05:54:26 12/31/19 23 12/31/2022 TSH+F REE T4 T4, free 1.5 NG/dL 0.8-1. 8 normal Not Available [address], [address], 12/31/2022 05:54:26 01/15/20 23 01/19/2023 ACTH, PLASM A acth, plasma 29 pg/mL 6-50 Refer ence range appli es only to speci mens colle cted betwe en 7am-1 0am. Not Available [address], [address], 01/19/2023 21:38:14 01/15/20 23 01/19/2023 CORTI JACLYN, A.M. cortisol, A.M. 11.8 mcg/d L normal Refer ence Range 8 a.m. (7-9 a.m.) Speci men: 4.0-2 2.0 Not Available [address], [address], 01/19/2023 21:38:15 02/09/20 23 02/08/2023 COMPR EHENS CABRERA METAB OLIC PANEL glucose 73 mg/dL 65-99 normal Fasti ng refer ence inter marbella Not Available [facility] [address] [address] [place], [address], 02/08/2023 21:28:13 02/09/20 23 02/08/2023 COMPR EHENS CABRERA METAB OLIC PANEL urea nitrogen (BUN) 21 mg/dL 7-25 normal Not Available [address] [address] [place], [address], 02/08/2023 21:28:13 02/09/20 23 02/08/2023 COMPR EHENS CABRERA METAB OLIC PANEL creatinine 0.80 mg/dL 0.60-1 .00 normal Not Available [address], [address], 02/08/2023 21:28:13 02/09/20 23 02/08/2023 COMPR EHENS CABRERA METAB OLIC PANEL eGFR 79 mL/mi n/1.7 3m2 > or = 60 normal The eGFR is based on the CKD-E PI 2020 equat ion. To calcu late the new eGFR from a previ ous Creat inine or Cysta luana C resul t, go to https :[email or web address] [email or web address] tapia/[email or web address] velez s/ kdoqi /gfr% 5Fcal culat or Not Available [address] [address] [place], [address], 02/08/2023 21:28:13 02/09/20 23 02/08/2023 COMPR EHENS CABRERA METAB OLIC PANEL BUN/creatini ne ratio NOT APPLIC ABLE (calc ) 6-22 Not Available [address] [address] [place], [address], 02/08/2023 21:28:13 02/09/20 23 02/08/2023 COMPR EHENS CABRERA METAB OLIC PANEL sodium 128 mmol/ L 135-14 6 low Not Available [address] [address] [place], [address], 02/08/2023 21:28:13 02/09/20 23 02/08/2023 COMPR EHENS CABRERA METAB OLIC PANEL potassium 4.7 mmol/ L 3.5-5. 3 normal Not Available [address], [address], 02/08/2023 21:28:13 02/09/20 23 02/08/2023 COMPR EHENS CABRERA METAB OLIC PANEL chloride 99 mmol/ L 98-110 normal Not Available [address], [address], 02/08/2023 21:28:13 02/09/20 23 02/08/2023 COMPR EHENS CABRERA METAB OLIC PANEL carbon dioxide 17 mmol/ L 20-32 low Not Available [address], [address], 02/08/2023 21:28:13 02/09/20 23 02/08/2023 COMPR EHENS CABRERA METAB OLIC PANEL calcium 8.5 mg/dL 8.6-10 .4 low Not Available [address], [address], 02/08/2023 21:28:13 02/09/20 23 02/08/2023 COMPR EHENS CABRERA METAB OLIC PANEL protein, total 6.6 g/dL 6.1-8. 1 normal Not Available [address], [address], 02/08/2023 21:28:13 02/09/20 23 02/08/2023 COMPR EHENS CABRERA METAB OLIC PANEL albumin 3.9 g/dL 3.6-5. 1 normal Not Available [address], [address], 02/08/2023 21:28:13 02/09/20 23 02/08/2023 COMPR EHENS CABRERA METAB OLIC PANEL globulin 2.7 g/dL_ (calc ) 1.9-3. 7 normal Not Available [address], [address], 02/08/2023 21:28:13 02/09/20 23 02/08/2023 COMPR EHENS CABRERA METAB OLIC PANEL albumin/glob ulin ratio 1.4 (calc ) 1.0-2. 5 normal Not Available [address], [address], 02/08/2023 21:28:13 02/09/20 23 02/08/2023 COMPR EHENS CABRERA METAB OLIC PANEL bilirubin, total 0.3 mg/dL 0.2-1. 2 normal Not Available [address], [address], 02/08/2023 21:28:13 02/09/20 23 02/08/2023 COMPR EHENS CABRERA METAB OLIC PANEL alkaline phosphatase 104 U/L 37-153 normal Not Available [address], [address], 02/08/2023 21:28:13 02/09/20 23 02/08/2023 COMPR EHENS CABRERA METAB OLIC PANEL AST 14 U/L 10-35 normal Not Available [address], [address], 02/08/2023 21:28:13 02/09/20 23 02/08/2023 COMPR EHENS CABRERA METAB OLIC PANEL ALT 6 U/L 6-29 normal Not Available [address], [address], 02/08/2023 21:28:13 05/17/20 23 05/18/2023 CBC (INCL UDES DIFF/ PLT) white blood cell count 5.2 thous and/u L 3.8-10 .8 normal Not Available [address], [address], 05/18/2023 08:54:56 05/17/20 23 05/18/2023 CBC (INCL UDES DIFF/ PLT) red blood cell count 3.54 venu on/uL 3.80-5 .10 low Not Available [address], [address], 05/18/2023 08:54:56 05/17/20 23 05/18/2023 CBC (INCL UDES DIFF/ PLT) hemoglobin 10.8 g/dL 11.7-1 5.5 low Not Available [address], [address], 05/18/2023 08:54:56 05/17/20 23 05/18/2023 CBC (INCL UDES DIFF/ PLT) hematocrit 32.5 % 35.0-4 5.0 low Not Available [address], [address], 05/18/2023 08:54:56 05/17/20 23 05/18/2023 CBC (INCL UDES DIFF/ PLT) MCV 91.8 fL 80.0-1 00.0 normal Not Available [address], [address], 05/18/2023 08:54:56 05/17/20 23 05/18/2023 CBC (INCL UDES DIFF/ PLT) MCH 30.5 pg 27.0-3 3.0 normal Not Available [address], [address], 05/18/2023 08:54:56 05/17/20 23 05/18/2023 CBC (INCL UDES DIFF/ PLT) MCHC 33.2 g/dL 32.0-3 6.0 normal Not Available [address], [address], 05/18/2023 08:54:56 05/17/20 23 05/18/2023 CBC (INCL UDES DIFF/ PLT) RDW 14.4 % 11.0-1 5.0 normal Not Available [address], [address], 05/18/2023 08:54:56 05/17/20 23 05/18/2023 CBC (INCL UDES DIFF/ PLT) absolute neutrophils 2496 cells /uL 1500-7 800 normal Not Available [address], [address], 05/18/2023 08:54:56 05/17/20 23 05/18/2023 CBC (INCL UDES DIFF/ PLT) absolute lymphocytes 1966 cells /uL 850-39 00 normal Not Available [address], [address], 05/18/2023 08:54:56 05/17/20 23 05/18/2023 CBC (INCL UDES DIFF/ PLT) absolute monocytes 598 cells /uL 200-95 0 normal Not Available [address], [address], 05/18/2023 08:54:56 05/17/20 23 05/18/2023 CBC (INCL UDES DIFF/ PLT) absolute eosinophils 109 cells /uL 15-500 normal Not Available [address], [address], 05/18/2023 08:54:56 05/17/20 23 05/18/2023 CBC (INCL UDES DIFF/ PLT) absolute basophils 31 cells /uL 0-200 normal Not Available [email or web address] [address], [address], 05/18/2023 08:54:56 05/17/20 23 05/18/2023 CBC (INCL UDES DIFF/ PLT) neutrophils 48 % normal Not Available [address], [address], 05/18/2023 08:54:56 05/17/20 23 05/18/2023 CBC (INCL UDES DIFF/ PLT) lymphocytes 37.8 % normal Not Available [address], [address], 05/18/2023 08:54:56 05/17/20 23 05/18/2023 CBC (INCL UDES DIFF/ PLT) monocytes 11.5 % normal Not Available [address], [address], 05/18/2023 08:54:56 05/17/20 23 05/18/2023 CBC (INCL UDES DIFF/ PLT) eosinophils 2.1 % normal Not Available [address], [address], 05/18/2023 08:54:56 05/17/20 23 05/18/2023 CBC (INCL UDES DIFF/ PLT) basophils 0.6 % normal Not Available [address], [address], 05/18/2023 08:54:56 05/17/20 23 05/18/2023 CBC (INCL UDES DIFF/ PLT) comment(s) Revie w of perip heral smear confi doreen autom ated resul ts. Not Available [address], [address], 05/18/2023 08:54:56 05/17/20 23 05/18/2023 CBC (INCL UDES DIFF/ PLT) platelet count TNP TEST( S) NOT PERFO RMED: PLATE LET COUNT Unabl e to repor t due to signi fican t plate let clump ing. Plate let estim ate appea rs marline l. Not Available [address], [address], 05/18/2023 08:54:56 05/17/20 23 05/18/2023 VITAM IN B12/F OLATE , SERUM PANEL vitamin B12 759 pg/mL 200-11 00 normal Not Available [address] [address] [place], [address], 05/18/2023 08:54:56 05/17/20 23 05/18/2023 VITAM IN B12/F OLATE , SERUM PANEL folate, serum 18.7 NG/mL normal Refer ence Range Low: <3.4 Borde rline : 3.4-5 .4 Marline l: >5.4 Not Available [address] [address] [place], [address], 05/18/2023 08:54:56 05/17/2005/18/2023 T3, FREE T3, free 2.5 pg/mL 2.3-4. 2 normal Not Available [address] [address] [place], [address], 05/18/2023 08:54:57 05/17/2005/18/2023 VITAM IN D,25- OH,TO KLARISSA,I A vitamin D,25-oh,tota l,ia 35 NG/mL 30-100 normal Vitam in D Statu s 25-OH Vitam in D: Defic iency : <20 ng/mL Insuf ficie ncy: 20 - 29 ng/mL Optim al: > or = 30 ng/mL For 25-OH Vitam in D testi ng on patie nts on D2-machado pplem entat ion and patie nts for whom quant itati on of D2 and D3 fract ions is requi red, the [facility] eD(TM ) 25-OH VIT D, (D2,D 3), LC/MS /MS is recom carmen d: order code 52053 (terrance ents >2yrs ). See Note 1 Note 1 For addit ional infor micheline bowles refer to http: //la Price stDia gnost ics.c om/fa q/FAQ 199 (This link is being provi ded for infor iesha lance/ miguel douglas purpo ses only. ) Not Available [address], [address], 05/18/2023 08:54:58 05/17/2005/18/2023 TSH+F REE T4 TSH 2.82 mIU/L 0.40-4 .50 normal Not Available [address], [address], 05/18/2023 08:54:59 05/17/20 23 05/18/2023 TSH+F REE T4 T4, free 0.9 NG/dL 0.8-1. 8 normal Not Available [address], [address], 05/18/2023 08:54:59 05/17/2005/20/2023 LIPID PANEL , STAND BILLIE cholesterol, total 216 mg/dL <200 high Not Available [address], [address], 05/20/2023 12:38:43 05/17/20 23 05/20/2023 LIPID PANEL , STAND BILLIE HDL cholesterol 89 mg/dL > or = 50 normal Not Available [address], [address], 05/20/2023 12:38:43 05/17/20 23 05/20/2023 LIPID PANEL , STAND BILLIE triglyceride s 76 mg/dL <150 normal Not Available [address], [address], 05/20/2023 12:38:43 05/17/20 23 05/20/2023 LIPID PANEL , STAND BILLIE LDL-choleste rol 110 mg/dL _(sara c) high Refer ence range : <100 Jen able range <100 mg/dL for prima ry preve ntion ; <70 mg/dL for patie nts with CHD or diabe tic patie nts with > or = 2 CHD risk facto rs. LDL-C is now calcu lated using the April [facility] margarita spence n, which is a valid ated novel metho d provi ding lupe r accur acy than the Fried tigre equat ion in the estim ation of LDL-C . April kasper SS et al. HONEY. 2013; 310(1 9): 2061- 2068 (http ://ed ucati on.Qu oliverDi maniPropables. com/f aq/FA Q164) Not Available [address] [address] [place], [address], 05/20/2023 12:38:43 05/17/20 23 05/20/2023 LIPID PANEL , STAND BILLIE chol/HDLC ratio 2.4 (calc ) <5.0 normal Not Available [address] [address] [place], [address], 05/20/2023 12:38:43 05/17/20 23 05/20/2023 LIPID PANEL , STAND BILLIE non HDL cholesterol 127 mg/dL _(sara c) <130 normal For patie nts with diabe tito plus 1 major ASCVD risk facto r, treat ing to a non-H DL-C goal of <100 mg/dL (LDL- C of <70 mg/dL ) is dwayne guillen optio n. Not Available [address] [address] [address], [place], [address], 05/20/2023 12:38:43 05/17/20 23 05/20/2023 COMPR EHENS CABRERA METAB OLIC PANEL glucose 79 mg/dL 65-139 normal Non-f astin g refer ence inter marbella Not Available [facility] [address] [address] [place], [address], 05/20/2023 12:38:44 05/17/20 23 05/20/2023 COMPR EHENS CABRERA METAB OLIC PANEL urea nitrogen (BUN) 20 mg/dL 7-25 normal Not Available [facility] [address] [address] [place], [address], 05/20/2023 12:38:44 05/17/20 23 05/20/2023 COMPR EHENS CABRERA METAB OLIC PANEL creatinine 0.85 mg/dL 0.60-1 .00 normal Not Available [address], [address], 05/20/2023 12:38:44 05/17/20 23 05/20/2023 COMPR EHENS CABRERA METAB OLIC PANEL eGFR 74 mL/mi n/1.7 3m2 > or = 60 normal Not Available [address], [address], 05/20/2023 12:38:44 05/17/20 23 05/20/2023 COMPR EHENS CABRERA METAB OLIC PANEL BUN/creatini ne ratio SEE NOTE: (calc ) 6-22 Not Repor juany: BUN and Creat inine are withi n refer ence range . Not Available [address], [address], 05/20/2023 12:38:44 05/17/20 23 05/20/2023 COMPR EHENS CABRERA METAB OLIC PANEL sodium 127 mmol/ L 135-14 6 low Not Available [address], [address], 05/20/2023 12:38:44 05/17/20 23 05/20/2023 COMPR EHENS CABRERA METAB OLIC PANEL potassium 5.0 mmol/ L 3.5-5. 3 normal Not Available [address], [address], 05/20/2023 12:38:44 05/17/20 23 05/20/2023 COMPR EHENS CABRERA METAB OLIC PANEL chloride 95 mmol/ L 98-110 low Not Available [address], [address], 05/20/2023 12:38:44 05/17/20 23 05/20/2023 COMPR EHENS CABRERA METAB OLIC PANEL carbon dioxide 21 mmol/ L 20-32 normal Not Available [address], [address], 05/20/2023 12:38:44 05/17/20 23 05/20/2023 COMPR EHENS CABRERA METAB OLIC PANEL calcium 8.7 mg/dL 8.6-10 .4 normal Not Available [address], [address], 05/20/2023 12:38:44 05/17/20 23 05/20/2023 COMPR EHENS CABRERA METAB OLIC PANEL protein, total 6.4 g/dL 6.1-8. 1 normal Not Available [address], [address], 05/20/2023 12:38:44 05/17/20 23 05/20/2023 COMPR EHENS CABRERA METAB OLIC PANEL albumin 3.9 g/dL 3.6-5. 1 normal Not Available [address], [address], 05/20/2023 12:38:44 05/17/20 23 05/20/2023 COMPR EHENS CABRERA METAB OLIC PANEL globulin 2.5 g/dL_ (calc ) 1.9-3. 7 normal Not Available [address], [address], 05/20/2023 12:38:44 05/17/20 23 05/20/2023 COMPR EHENS CABRERA METAB OLIC PANEL albumin/glob ulin ratio 1.6 (calc ) 1.0-2. 5 normal Not Available [address], [address], 05/20/2023 12:38:44 05/17/20 23 05/20/2023 COMPR EHENS CABRERA METAB OLIC PANEL bilirubin, total 0.3 mg/dL 0.2-1. 2 normal Not Available [address] [address] [place], [address], 05/20/2023 12:38:44 05/17/20 23 05/20/2023 COMPR EHENS CABRERA METAB OLIC PANEL alkaline phosphatase 92 U/L 37-153 normal Not Available [facility] [address] [place], [address], 05/20/2023 12:38:44 05/17/20 23 05/20/2023 COMPR EHENS CABRERA METAB OLIC PANEL AST 16 U/L 10-35 normal Not Available [address] [address] [place], [address], 05/20/2023 12:38:44 05/17/20 23 05/20/2023 COMPR EHENS CABRERA METAB OLIC PANEL ALT 9 U/L 6-29 normal Not Available [address] [address] [place], [address], 05/20/2023 12:38:44 03/03/20 23 03/03/2023 MRI, pitui tary, w/wo contr ast No observ ation record ed. [address], [place], [address], 03/07/2023 22:31:42 Result Notes None recorded. Problems Name Problem SNOMED Code Status Onset Date Resolution Date Notes Provider Name and Address Organization Details Recorded Time Acquired hypothyroidis m 632061858 Active 2021 Not Available [facility] 3 02:38:27 Seizure disorder 364379343 Active 1954 Not Available [facility] 3 02:38:27 History of anemia vitamin B12 deficient 539232712 Active 2020 Not Available [facility] 3 02:38:27 Postoperative hypothyroidis m 64143456 Active 2021 Not Available [facility] 3 02:38:27 Screening for osteoporosis Active 2021 Not Available [facility] 3 02:38:27 Vitamin D deficiency 21376051 Active 2021 Not Available [facility] 3 02:38:27 Hypertensive disorder 80782265 Active 2020 Not Available [facility] 3 02:38:27 Hypothyroidis m 81922287 Active 2020 Not Available [facility] 3 02:38:27 Hypothyroidis m in 348537920 Active 2021 Not Available [facility] 3 02:38:27 Hypercortisol ism 34106548 Active 2021 Not Available [facility] 3 02:38:28 Disorder of vulva 6559288 Active 2020 Not Available [facility] 3 02:38:28 Hypocalcemia 4474542 Active 2021 Not Available [facility] 3 02:38:28 Hyperlipidemi a 95680686 Active 2020 Not Available [facility] 3 02:38:28 Vitamin B12 deficiency (non anemic) 72575976 Active 2021 Not Available [facility] 3 02:38:28 Dyslipidemia 345082140 Active 2022 MD Nellie M[address] [facility] [place], [place], [address] , [facility] [employer] [facility] 3 14:12:04 Pituitary function test outside reference range 857325727 Active 2022 MD Nellie [address], [place], [address] , [facility] [employer] [facility] 3 00:51:48 Menopausal and postmenopausa l disorders 847579087 Active 2022 MD Nellie [address], [place], [address] , [facility] [facility] 3 09:32:01 Hyponatremia 27131632 Active 2022 MD Nellie [address], [place], [address] , [facility] 3 09:33:49 Problem Notes None recorded. Procedures Surgical History Date Name Laterality Status Provider Name and Address Organization Details Recorded Time 2 Cyst Removal completed Not Available [facility] 023 02:32:22 Ankle Surgery completed Not Available [facility] 11/25/2022 02:32:22 bariatric operative procedure completed Not Available [facility] 11/25/2022 02:32:22 Colon Surgery completed Not Available [facility] 11/25/2022 02:32:22 Imaging Results Imaging Date Name Status LastModified by Organiz ation Details LastModified Time 03/03/2023 MRI, pituitary, w/wo contrast completed [address] [facility] [address], [place], [address], 03/07/2023 22:31:42 Procedure Notes None recorded. Medical Equipment None Reported. Allergies Allergen ID Allergen Name Allergen Category Reaction Reaction Severity Criticality Documentation Date Start Date Code Code System Note Provider Name and Address Organization Details Recorded Time 3801 latex environme nt,medica tion anaphylax is severe Not available 11/25/2022 399[address] 91 RxNorm Not Available [facility] 3 02:49:06 3802 codeine medicatio n itching moderate Not available 11/25/2022 2670 RxNorm Not Available [facility] 3 02:49:06 Medications Name Sig Start Date Stop Date Status Note LastModified by Organization Details LastModified Time atorvastati n 40 mg tablet TAKE 1 TABLET BY MOUTH EVERY DAY active Not Available Not Available No t Available levothyroxi ne 137 mcg tablet TAKE 1 TABLET BY MOUTH EVERY OTHER DAY IN THE MORNING 01/25 completed Not Available Not Available Not Available atorvastati n 20 mg tablet TAKE 1 TABLET BY MOUTH DAILY active Not Available Not Available No t Available enalapril maleate 10 mg tablet TAKE 1 TABLET BY MOUTH EVERY DAY active Not Available Not Available No t Available clindamycin HCl 300 mg capsule TAKE 1 CAPSULE BY MOUTH EVERY 8 HOURS FOR 10 DAYS 01/25 completed Not Available Not Available Not Available trazodone 50 mg tablet TAKE 1 TABLET BY MOUTH EVERY DAY AT BEDTIME NEEDED 11/03 completed Not Available Not Available Not Available nystatin 100,000 unit/gram topical ointment PLEASE SEE ATTACHED FOR DETAILED DIRECTION S active Not Available Not Available No t Available metoprolol succinate ER 50 mg tablet,exte nded release 24 hr TAKE 1/2 TABLET BY MOUTH TWICE A DAY active Not Available Not Available No t Available hydrocodone 5 mg-acetamin ophen 325 mg tablet TAKE 1 TO 2 TABLETS EVERY 6 HOURS NEEDED 01/25 completed Not Available Not Available Not Available BD Luer-Alireza Syringe 3 mL 20 gauge x 1 USE TWICE MONTHLY WITH B12 INJECTION S active Not Available Not Available No t Available metronidazo le 250 mg tablet CRUSH AND SPRINKLE INTO OPEN WOUND PRIOR TO WOUND VAC REPLACEME NT 01/25 completed Not Available Not Available Not Available ciprofloxac in 250 mg tablet TAKE 1 TABLET BY MOUTH EVERY 12 HOURS 06/18 completed Not Available Not Available Not Available divalproex 500 mg tablet,prema yed release TAKE 2 TABLETS BY MOUTH TWICE A DAY active Not Available Not Available No t Available liothyronin e 5 mcg tablet TAKE 1 TABLET BY MOUTH TWICE A DAY 01/25 completed Not Available Not Available Not Available tramadol 50 mg tablet TAKE 1 TABLET BY MOUTH EVERY 6 HOURS NEEDED FOR PAIN 01/25 completed Not Available Not Available Not Available Unithroid 125 mcg tablet TAKE 1 TABLET BY MOUTH EVERY DAY IN THE MORNING 2022 active Not Available Not Available Not Avai lable oxycodone-a cetaminophe n 5 mg-325 mg tablet TAKE 1/2 1 TABLET BY MOUTH EVERY 6 HOURS NEEDED FOR PAIN 11/11 completed Not Available Not Available Not Available amitriptyli ne 25 mg tablet TAKE 2 TABLETS BY MOUTH AT BEDTIME active Not Available Not Available No t Available dexamethaso ne 1 mg tablet TAKE TABLET AT 10 P.M. THE NIGHT BEFORE CORTISOL TEST 01/25 completed Not Available Not Available Not Available cephalexin 500 mg capsule TAKE 1 CAPSULE BY MOUTH EVERY 12 HOURS FOR 10 DAYS 02/02 completed Not Available Not Available Not Available cyanocobala min (vit B-12) 1,000 mcg/mL injection solution INJECT 1 ML EVERY 2 WEEKS active Not Available Not Available No t Available trazodone 150 mg tablet TAKE 1 TABLET BY MOUTH AT BEDTIME active Not Available Not Available No t Available triamcinolo ne acetonide 0.1 % topical ointment APPLY TO AFFECTED AREA 2X/DAY FOR 4 WEEKS, THEN DAILY FOR 4 WEEKS, THEN 3 TIMES PER WEEK FOR 4 WEEKS active Not Available Not Available No t Available levothyroxi ne 150 mcg tablet TAKE 1 TABLET EVERY OTHER DAY BY ORAL ROUTE FOR 30 DAYS. 06/18 completed Not Available Not Available Not Available BD Luer-Alireza Syringe 3 mL 25 gauge x 1 USE TWICE MONTHLY WITH B12 INJECTION S. active Not Available Not Available No t Available phenobarbit al 64.8 mg tablet TAKE 2 TABLETS (129.6 MG) ORALLY EVERY DAY BEDTIME active Not Available Not Available No t Available furosemide 20 mg tablet TAKE 1 TABLET BY MOUTH EVERY DAY active Not Available Not Available No t Available metoprolol succinate ER 25 mg tablet,exte nded release 24 hr 11/03 completed Not Available Not Available Not Available ergocalcife rol (vitamin D2) 1,250 mcg (50,000 unit) capsule TAKE 1 CAPSULE (1.25 MG) BY MOUTH WEEKLY active Not Available Not Available No t Available ibuprofen 600 mg tablet TAKE 1 TABLET BY MOUTH EVERY 6 HOURS NEEDED FOR PAIN 01/25 completed Not Available Not Available Not Available methylpredn isolone 4 mg tablets in a dose pack TAKE 6 TABLETS ON DAY 1 DIRECTED ON PACKAGE AND DECREASE BY 1 TAB EACH DAY FOR A TOTAL OF 6 DAYS 02/02 completed Not Available Not Available Not Available amoxicillin 500 mg-potassiu m clavulanate 125 mg tablet TAKE 1 TABLET (500 MG) BY MOUTH EVERY 12 HOURS FOR 7 DAYS 11/03 completed Not Available Not Available Not Available nitrofurant oin monohydrate /macrocryst als 100 mg capsule TAKE 1 CAPSULE BY MOUTH EVERY 12 HOURS FOR 7 DAYS WITH FOOD 01/25 completed Not Available Not Available Not Available Vitamin D3 50 mcg (2,000 unit) capsule TAKE 1 CAPSULE BY MOUTH EVERY DAY IN THE MORNING FOR 90 DAYS active Not Available Not Available No t Available Vitals Date Recorded Body mass index (BMI) Body height Oxygen saturation Oxygen saturation in Arterial blood by Pulse oximetry Heart rate Body temperature Body weight Systolic blood pressure Diastolic blood pressure Provider Name and Address Organization Details Last Updated DateTime 2 40.6 kg/m2 149.86 cm 97 % 97 % 60 /min 97.7 [degF] 88983.0 7 g 110 mm[Hg] 72 mm[Hg] Not Available [facility] 3 02:34:44 Date Recorded Body mass index (BMI) Body height Oxygen saturation Oxygen saturation in Arterial blood by Pulse oximetry Heart rate Body temperature Body weight Systolic blood pressure Diastolic blood pressure Provider Name and Address Organization Details Last Updated DateTime 2 42.5 kg/m2 149.86 cm 94 % 94 % 57 /min 98 [degF] 38164.1 9 g 110 mm[Hg] 65 mm[Hg] Not Available [facility] 3 02:34:45 Date Recorded Body mass index (BMI) Body height Heart rate Body temperature Body weight Systolic blood pressure Diastolic blood pressure Provider Name and Address Organization Details Last Updated DateTime 2 37.7 kg/m2 149.86 cm 66 /min 96.9 [degF] 34219.0 5 g 108 mm[Hg] 62 mm[Hg] Not Available [facility] 3 02:34:45 Date Recorded Body height Body mass index (BMI) Body weight Body temperature Respiratory rate Heart rate Systolic blood pressure Diastolic blood pressure Provider Name and Address Organization Details Last Updated DateTime 3 149.86 cm 38.1 kg/m2 01466.2 4 g 97.2 [degF] 18 /min 65 /min 142 mm[Hg] 65 mm[Hg] DAPHNEY Gallagher [facility] [employer] [facility] 3 09:15:01 Date Recorded Body height Body mass index (BMI) Body weight Body temperature Respiratory rate Heart rate Systolic blood pressure Diastolic blood pressure Provider Name and Address Organization Details Last Updated DateTime 3 149.86 cm 38.8 kg/m2 77706.7 4 g 97.7 [degF] 18 /min 61 /min 133 mm[Hg] 62 mm[Hg] Ольга Joseph RN [facility] [employer] [facility] 3 09:17:14 Social History Question Answer Notes LastModified by Organizat ion Details LastModified Time Tobacco Smoking Status Never Smoker Not Available [facility] 11/25/2022 02:29:16 What Is Your Level Of Alcohol Consumption? None [id number] Information not available 11/25/2022 Are You Blind Or Do You Have Difficulty Seeing? No [id number] Information not available 11/25/2022 What Is Your Level Of Caffeine Consumption? Moderate [id number] Information not available 11/25/2022 How Much Tobacco Do You Chew? None [id number] Information not available 11/25/2022 In The 14 Days Before Symptom Onset, Have You Had Close Contact With A Laboratory-confir med COVID-19 While That Case Was Ill? No [id number] Information not available 11/25/2022 In The 14 Days Before Symptom Onset, Have You Had Close Contact With A Person Who Is Under Investigation For COVID-19 While That Person Was Ill? No [id number] Information not available 11/25/2022 Are You Deaf Or Do You Have Serious Difficulty Hearing? No [id number].[id number] Information not available 11/25/2022 What Type Of Diet Are You Following? REGULAR [id number] Information not available 11/25/2022 Which Illicit Or Recreational Drugs Have You Used? None [id number] Information not available 11/25/2022 Do You Or Have You Ever Used E-cigarettes Or Vape? Never Used Electronic Cigarettes [id number] Information not available 11/25/2022 What Is Your Relationship Status? Single [id number].[id number] Information not available 11/25/2022 Do You Or Have You Ever Used Smokeless Tobacco? Never Used Smokeless Tobacco MIGRATION.[id number] Information not available 11/25/2022 Do You Use Any Illicit Or Recreational Drugs? No [id number] Information not available 11/25/2022 Have You Recently Traveled Abroad? No [id number].[id number] Information not available 11/25/2022 Do You Have Any Dietary Restrictions? No MIGRATION.[id number] 8430 Information not available 11/25/2022 Sex: Female Functional Status Question Answer Note LastModified by Organizat ion Details LastModified Time Do you have difficulty walking or climbing stairs? No [id number] Information not available 11/25/2022 Do you have transportation difficulties? No [id number].[id number] 026 Information not available 11/25/2022 Are you able to walk? YESWOREST [id number].[id number] 026 Information not available 11/25/2022 Do you have difficulty doing errands alone? No [id number] Information not available 11/25/2022 Are you able to care for yourself? Yes [id number] Information not available 11/25/2022 Do you have difficulty dressing or bathing? No [id number] Information not available 11/25/2022 Mental Status Question Answer Note LastModified by Organizat ion Details LastModified Time Do you have difficulty concentrating, remembering or making decisions? No [id number] Information not available 11/25/2022 Family History Nothing Reported. Medical History Condition Response USE OF BLOOD THINNERS N SLEEP APNEA Y MRSA N DIABETES, TYPE N ALLERGIES/HAYFEVER N PARATHYROID DISEASE N ENT N SEASONAL ALLERGIES Y LUNG DISEASE/DISORDER N INSOMNIA N HEARTBURN / REFLUX N RADIATION / CHEMOTHERAPY N COPD N HIGH CHOLESTEROL / HYPERLIPIDEMIA Y HYPERTHYROIDISM N BLOOD DISEASES N EAR OR HEARING PROBLEMS N HYPOTHYROIDISM Y HEPATITIS / LIVER DISEASE N SLEEP DISORDER N DEPRESSION (INCLUDING POST ) Y HAVE YOU BEEN HOSPITALIZED OR SEEN IN [facility] ER IN THE PAST YEAR ? N STROKE/TIA N ULCERS N SEIZURES/EPILEPSY Y HEADACHES/MIGRAINES Y CHF N PACEMAKER N DIZZINESS N HEART DISEASE/HEART PROBLEMS N AIDS/HIV N FRACTURES N HYPERTENSION Y CANCER: SPECIFY N TOURETTE'S N OBESITY N BLOOD TRANSFUSION N ANEMIA/BLOOD DISORDER Y ANESTHESIA COMPLICATIONS N HISTORY WITH COMPLICATIONS WITH ANESTHES IA ? N CHRONIC EAR INFECTIONS N ANEURYSM N TUBERCULOSIS N Gynecological HistoryNo gynecological history recorded. Obstetrics History GPAL:G 0 P 0 0 0 0 Immunizations Vaccine Type Date Status Note Provider Nam e and Address Organization Details Recorded Time Influenza, adjuvanted, trivalent, PF 09/27/2020 completed Not Available [facility] 2022 02:48:53 Past Encounters Encounter ID Performer Location Encounter Start Date Encounter Closed Date Diagnosis/Indication Diagnosis SNOMED-CT Code Diagnosis ICD10 Code Diagnosis Note [id number] Carmen Hathaway MD [facility] [place] [address] [place] [address] 12/30/2020 00:00:00 12/30/2020 13:01:22 [id number] Chidi Lam MD [facility] [place] [address] [place] [address] 03/24/2021 00:00:00 03/24/2021 15:11:27 [id number] [facility] [place] [address] [place] [address] 11/03/2021 00:00:00 11/03/2021 15:45:30 [id number] [facility] [place] [address] [place] [address] 02/02/2022 00:00:00 02/02/2022 09:58:25 [id number] [facility] [place] [address] [place] [address] 09/01/2022 00:00:00 09/01/2022 10:16:52 [id number] Carmen Hathaway MD [facility] [place] [address] [place] [address] 01/25/2023 09:03:51 01/25/2023 09:43:14 Hypothyroidism 19710813 E03.9 FT4 high normal range- will reduce unithroid to 125 mcg daily as patient has had over 25 pound weight loss this past year. She was reminded to take her unithroid on empty stomach with glass of water and wait one hour to eat or have her coffee in morning and up to 4 hours if ever taking any heartburn or reflux medication s to help optimize absorption . Discussed paleo like diet with restrictio n of GMOs to help with energy and to optimize absorption of vitamins and minerals and reduce inflammati on. She had hyponatrem ia on most recent bloodwork- ACTH/Corti jaclyn in normal range not suggestive of adrenal insufficie ncy. Will have patient restrict fluid intake to 1.5 liters per day and repeat CMP in 2 weeks. Menopausal and postmenopausal disorders [id number] N95.9 Send for bone density scan to screen for bone loss. Vitamin D deficiency 347 42988 E55.9 Continue on vitamin D 50 once weekly and add low dose vitamin D 3 2000 IU daily for bone and immune health- levels are still low- goal of 50 ng/Ml. Spent up to 25 minutes preparing to see the patient (eg, review of tests), obtaining and/or reviewing separately obtained history, performing a medically appropriat e examinatio n and evaluation , counseling and educating the patient, ordering medication s, tests, along with diannein g clinical informatio n in the electronic health record, chanelle jade interpreti ng results and communicat ing results to the patient. RTC in 4-6 months. Patient was provided a handwritte n lab order which contains our fax number. If she chooses to go outside of the [facility] system to obtain labwork she was advised to provide our fax number and my informatio n to the lab she will be obtaining labwork from in order to have her labs properly forwarded over for me to review so there is no loss of follow up due to use of outside network. She was also advised to contact our clinic informing us that she has completed her labwork so we are aware we will need to reach out to the appropriat e laboratory to request her results be forwarded to us so I might have the ability to review and make further medical decision making in her case. She voiced understand ing. [id number] Carmen Hathaway MD [facility] [place] [address] [place] [address] 06/18/2023 09:10:58 06/18/2023 10:24:21 Hypothyroidism 13328951 E03.9 FT4 now in ideal range- continue on unithroid at 125 mcg daily. She was reminded to take her unithroid on empty stomach with glass of water and wait one hour to eat or have her coffee in morning and up to 4 hours if ever taking any heartburn or reflux medication s to help optimize absorption . Discussed paleo like diet with restrictio n of GMOs to help with energy and to optimize absorption of vitamins and minerals and reduce inflammati on. She had hyponatrem ia on most recent bloodwork- ACTH/Corti jaclyn in normal range not suggestive of adrenal insufficie ncy. Will have patient continue to restrict fluid intake to 1.5 liters per day. Vitamin D deficiency 347 24095 E55.9 Continue on vitamin D 50 once weekly and add low dose vitamin D 3 2000 IU daily for bone and immune health- levels are at 35 ng/mL- goal of 50 ng/Ml. Spent up to 25 minutes preparing to see the patient (eg, review of tests), obtaining and/or reviewing separately obtained history, performing a medically appropriat e examinatio n and evaluation , counseling and educating the patient, ordering medication s, tests, along with documentin g clinical informatio n in the electronic health record, fengen tly interpreti ng results and communicat ing results to the patient. Patient can be followed by PCP - she/he is aware of my resignatio n and last day of July 09. If needed his/her PCP can refer patient to another endocrinol ogist in the area. All questions /concerns answered and refills necessary at visit today. Health Concerns Section Related Observation LastModified by Organization Detai ls LastModified Time None Recorded Concern Status LastModified by Organization Details LastModified Time None Recorded Advance Directives Directive None Recorded Payers Encounter Date Sequence Insurance Name Policy Number Policy Cifuentes Covered Member ID Cifuentes Member ID Guarantor Name 01/25/[address] [facility] ON OR AFTER 03/27/21 (MEDICAID REPLACEMENT - HMO) Keely Perkins [id number] Keely Perkins 06/18/[address] [facility] ON OR AFTER 03/27/21 (MEDICAID REPLACEMENT - HMO) Keely Perkins [id number] Keely Perkins Notes Date Note Type Note Provider Name and Address Organization Details Recorded Time 01/25/2023 text/html 68 yo female com es in for follow up in management of hypothyroidism, vit B12/D deficiency. last seen in August at that time we continued LT4 150 mcg daily. we continued B12 monthly and vit D weekly. advised to get bone density scan from Aug visit and refused to get this done. She is willing to go now as it has been many years since her last scan. She has not had any falls or fractures but does feel off balance on occasion. She has had over 25 pound weight loss in the past year. BP typically under 140/90 mmHg at home per sister and patient. labs from 01/14/23:cortisol 11.8 ug/dLacth 29 pg/mL labs from 12/30/22:199/62/85/10 0TSH of 0.17 uIU/mlFT4 of 1.5 ng/dLvit D 28 ng/mLFT3 of 2.9 pg/MLB12/folate normalH/H low 10.2/31.2Na low/K highprotein lowglucose 83 mg/dl Carmen Wood, MD [address], [facility] [address], [place], [address], [facility] [employer] [facility] 01/25/2023 10:04:55 06/18/2023 text/html 68 yo female com es in for follow up in management of hypothyroidism, vit D def last seen in January we reduced her unithroid to 125 mcg daily. patient had a normal pituitary gland from February She is taking an iron supplement through her department helper along with B12 shots. She feels better when taking her iron and B12. She is still on vitamin D 50 once weekly and vitamin D in range. labs from 05/17/23:TSH of 2.82 uIU/mlFT4 of 0.9 ng/dLFT3 of 2.5 pg/mLvit D 35 ng/mLB12/folate normalglucose 79 mg/dLCr normalLFT normalH/H lowmcv /76/89/110 Carmen Hathaway MD [address] [facility] [address], [place], [address], [facility] [employer] [facility] [employer] [facility] 06/18/2023 09:53:38 OBGyn Episode No OBEpisode recorded.
[2025-01-25 08:44] LABS: Basophils Absolute Auto 0.1 K/mm3 (0.0-0.1); Basophils Percent Auto 0.9 % (0.2-1.2); Eosinophils Absolute Auto 0.1 K/mm3 (0-0.3); Eosinophils Percent Auto 2.1 % (0-4.4); Hematocrit 33.4 % (37.0-47.0); Immature Granulocyte Absolute 0.02 K/mm3 (0.00-0.031); Immature Granulocyte Percent A 0.4 % (0-0.5); Lymphocytes Absolute Auto 1.92 K/mm3 (0.9-3.2); Lymphocytes Percent Auto 36.1 % (18.3-44.2); Mean Corpuscular HGB Conc 32.9 g/dl (32-36); Mean Corpuscular Hemoglobin 30.6 pg (26-34); Mean Platelet Volume 10.6 fl (7.4-10.4); Monocytes Absolute Auto 0.7 K/mm3 (0.1-0.6); Monocytes Percent Auto 12.8 % (2.6-8.5); Neutrophils Absolute Auto 2.5 K/mm3 (1.3-6.7); Neutrophils Percent Auto 47.7 % (45.5-73.1); Platelet Count Result 153 k/mm3 (150-375); Red Blood Count 3.59 M/mm3 (4.2-5.4); White Blood Count 5.3 K/mm3 (4.5-10.0)
[2025-01-25 10:16] LABS: Alanine Aminotransferase 24 U/L (6-35); Albumin Level 3.8 g/dL (3.5-5.1); Alkaline Phosphatase 109 U/L (38-126); Anion Gap 6 mmol/L (4-12); Aspartate Amino Transferase 40 U/L (14-36); Bilirubin,Total 0.3 mg/dL (0.2-1.3); Blood Urea Nitrogen 19 mg/dL (7-17); Calcium 8.8 mg/dL (8.4-10.2); Carbon Dioxide 23 mmol/L (22-30); Chloride 96 mmol/L (98-107); Estimated Glomerular Filt Rate > 60; Glucose 87 mg/dL (65-110); Potassium 5.3 mmol/L (3.4-5.0); Sodium 125 mmol/L (137-145)
[2025-01-25 10:26] LABS: Iron 101 ug/dL (37-170)
== END 2025-01-25 08:17 | disposition home or self-care (01) ==
LOC: ANHLAB 08:18
PROVIDERS: PCP Emergency Medicine; Visit Provider Internal Medicine Hematology & Oncology
DX: D64.9 Anemia, unspecified (principal)
CPT/HCPCS: 36415; 80053; 82607; 82728; 83540; 85025

== ENCOUNTER 2025-03-13 07:38 | Outpatient (CLI) | payer OTHER, SELFPAY ==
--- NOTE | ~2025-03-13 | US_ITS ---
Renal-Bladder ultrasound Clinical History: Hyponatremia Technique: Real-time sonographic imaging of the kidneys and urinary bladder was performed. Findings: The right kidney measures 10.1 cm in length and the left kidney measures 11.2 cm. There is no hydronephrosis or renal calculus identified. Renal cortical echogenicity is mildly increased. Smal l bilateral renal cysts are present. The urinary bladder is moderately distended at the time of this exam. No intraluminal echoes are iden tified. No abnormal wall thickening is seen. Impression: Echogenic kidneys suggest chronic medical renal disease. Small bilateral renal cysts. Reviewed, dictated and finalized at location . Impression: Echogenic kidneys suggest chronic medical renal disease. Small bilateral renal cysts.
== END 2025-03-13 07:39 | disposition home or self-care (01) ==
PROVIDERS: PCP Emergency Medicine; Visit Provider Internal Medicine Nephrology
DX: R93.421 Abnormal radiologic findings on diagnostic imaging of right kidney (principal); N28.1 Cyst of kidney, acquired; E87.1 Hypo-osmolality and hyponatremia; R80.1 Persistent proteinuria, unspecified
CPT/HCPCS: 76775

== ENCOUNTER 2025-09-21 07:09 | Outpatient (CLI) | payer MEDICAID, SELFPAY ==
--- NOTE | ~2025-09-21 | MM_ITS ---
EXAMINATION: MM screening eva BI w leon HISTORY: Screening TECHNIQUE: Craniocaudal and mediolateral oblique 3-D tomosynthesis images were obtained and synthetic 2-D images were generated. CAD analysis was submitted and interpreted. COMPARISON: Comparison to multiple prior studies sequentially, with oldest reviewed study dated 10/16/2019. BREAST PARENCHYMAL COMPOSITION: Not dense: There are scattered areas of fibroglandular density. FINDINGS: There is no evidence of suspicious mass, calcification, or architectural distortion to suggest malignancy in either breast. There has been no suspicious interval change. IMPRESSION: 1. No mammographic evidence of malignancy. 2. Recommend routine screening mammography in one year. BI-RADS Category 1: Negative Reviewed, dictated and finalized at location O. ICAL DESIGN ENGINEER
--- OUTSIDE RECORDS SUMMARY | 2025-09-21 07:12 | XMS_ITS | Encounter Summary ---
Author Organization [facility] Address [address] [place] [address] Care Team Providers Care Seafood Fisherman Name Role Phone Oscar Mcelroy MD Primary Care Provider [phone] Encounter Details Date Type Department Care Team (Late st Contact Info) Description 10/26/2002 Outpatient [facility] [address] [place] [address]. 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
--- OUTSIDE RECORDS SUMMARY | 2025-09-21 07:12 | XMS_ITS | Clinical Summary ---
Author Organization [facility] Address [address] [place] [address] Phone Care Team Providers Care Sleeping Car Conductor Name Role Phone Oscar Mcelroy MD Primary Care Provider [phone] Allergies Active Allergy Reactions Criticality Noted Date Comments Codeine Itching,Rash High 08/15/2020 Reaction: Rash, Itching, Reaction: Rash, Itching, Reaction: Rash, Itching, Reaction: Rash, Itching, Reaction: Rash, Itching, Latex Anaphylaxis,Itching,Rash High 08/15/2020 Reaction: Rash, Itching, Medications amitriptyline (ELAVIL) 25 MG tablet Take 50 mg by mouth every night 2 Active atorvastatin (LIPITOR) 40 MG tablet Take 40 mg by mouth 1 (one) time each day 2 Active biotin (SM Biotin) 5 MG capsule capsule biotin 5 mg capsule 9 Active cyanocobalamin (VITAMIN B-12) 1000 MCG/ML injection cyanocobalamin (vitamin B-12) 1,000 mcg/mL solution 1 Active divalproex (DEPAKOTE) 500 MG EC tablet Take 1,000 mg by mouth in the morning and 1,000 mg before bedtime. 2 Active enalapril (VASOTEC) 10 MG tablet Take 10 mg by mouth 1 (one) time each day 2 Active ergocalciferol (VITAMIN D2) 1.25 MG (45523 UT) capsule TAKE 1 CAPSULE (1.25 MG) BY MOUTH WEEKLY 2 Active furosemide (LASIX) 20 MG tablet Take 20 mg by mouth 1 (one) time each day 2 Active levothyroxine (SYNTHROID) 150 MCG tablet Every other day (alt w 137) 2 Active levothyroxine (SYNTHROID) 137 MCG tablet Every other day (alt w 150) 2 Active melatonin 3 MG tablet melatonin 3 mg tablet 9 Active metoprolol succinate XL (TOPROL-XL) 50 MG 24 hr tablet Take 25 mg by mouth in the morning and 25 mg before bedtime. 2 Active PHENobarbital (LUMINAL) 64.8 MG tablet Take 129.6 mg by mouth every night 2 Active B-D 3CC LUER-LUIS SYR 20GX1 20G X 1 3 ML misc USE TWICE MONTHLY WITH B12 INJECTIONS 2 Active Active Problems Problem Noted Date Diagnosed Date Persistent proteinuria 08/29/2022 Obstructive sleep apnea 04/23/2021 Benign hypertension 09/11/2020 Hypothyroidism 09/11/2020 Edema 08/15/2020 Refractory generalized nonconvulsive epilepsy Immunizations Immunization Administration Dates Next Due Influenza Split High Dose Preservative Free IM 0 06/17/2020 Pneumococcal Conjugate 05/28/2013 Family History Medical History Relation Comments Kidney disease Neg Hx Social History Tobacco Use Types Packs/Day Years Used Date Smoking Tobacco: Never Smokeless Tobacco: Never Tobacco Cessation:Counseling Given: Not Answered Alcohol Use Standard Drinks/Week Comments Not Currently 0 (1 standard drink = 0.6 oz pur e alcohol) Comments Unknown Sex and Gender Information Value Date Recorded Sex Assigned at Not on file Legal Sex Female 9:07 AM [facility] Gender Identity Not on file Sexual Orientation Not on file Last Filed Vital Signs Vital Sign Reading Time Taken Comments Blood Pressure 122/60 08/31/2022 9:11 AM COMMERCIAL CREDIT SPECIALIST Pulse 72 08/31/2022 9:11 AM COMMERCIAL CREDIT SPECIALIST Temperature 35.8 C (96.4 F) 08/31/2022 9:11 AM COMMERCIAL CREDIT SPECIALIST Respiratory Rate - - Oxygen Saturation - - Inhaled Oxygen Concentration - - Weight 83.9 kg (185 lb) 08/31/2022 9:11 AM COMMERCIAL CREDIT SPECIALIST Height 149.9 cm (4' 11) 08/31/2022 9:11 AM COMMERCIAL CREDIT SPECIALIST Body Mass Index 37.37 08/31/2022 9:11 AM COMMERCIAL CREDIT SPECIALIST Plan of Treatment Health Maintenance Due Date Last Done Comments Pneumococcal PPSV23/PCV13 65 + Years / Low and Medium Risk (1 of 2 - PCV) 2003 Influenza Vaccine (#1) 2025 Insurance [employer] Care Teams Sleeping Car Conductor Relationship Specialty Start Date End Date Oscar Mcelroy MD PCP - General Family Medicine 08/04/22
--- OUTSIDE RECORDS SUMMARY | 2025-09-21 07:12 | XMS_ITS | Clinical Summary ---
Author Organization [address] Address [facility] [place] [address] Care Team Providers Care Videotape Recording Engineer Name Role Phone Oscar Mcelroy MD Primary Care Provider [phone] Allergies Active Allergy Reactions Criticality Noted Date Comments Codeine Itching,Rash High 08/16/2020 Reaction: Rash, Itching, Latex Itching,Rash High 08/16/2020 Reaction: Rash, Itching, Medications atorvastatin (LIPITOR) 20 mg tablet Take 2 tablets (40 mg total) by mouth daily Active biotin 5 mg capsule biotin 5 mg capsule 09/26/[address] (DEPAKOTE) 500 mg EC [...] Active melatonin tablet melatonin 3 mg tablet 09/26/19 Active metoprolol XL (TOPROL-XL) 50 mg extended [...] syringe Use twice monthly with B12 injections. 10/12/19 23 Active BD SafetyGlide TB Reg Bevel 1 mL 27 x 1/2 syringe USE WITH B-12 INJECTIONS. Active triamcinolone (KENALOG) 0.1 % ointment triamcinolone acetonide 0.1 % topical ointment Active Unithroid 125 mcg tabletIndications: Acquired hypothyroidism Take 1 tablet (125 mcg total) by mouth every morning 90 tablet 3 03/05/20 25 026 Active ergocalciferol (VITAMIN D) 50,000 unit capsuleIndications :Vitamin D deficiency Take 1 capsule (50,000 Units total) by mouth once a week 12 capsule 3 03/05/20 25 Active Active Problems Problem Noted Date Diagnosed Date Bilateral lower extremity edema 04/09/2025 Dyslipidemia 04/09/2025 Obstructive sleep apnea on CPAP 04/09/2025 Severe obesity 04/09/2025 Acquired hypothyroidism 03/06/2024 Assessment & Plan (03/06/2024 [...] Tobacco: Never Tobacco Cessation:Counseling Given: Not Answered Comments Unknown Sex and Gender Information Value Date Recorded Sex Assigned at Not on file Legal Sex Female 11:32 PM [employer]ER[employer] Gender Identity Not on file Sexual Orientation Not on file Last Filed Vital Signs Vital Sign Reading Time Taken Comments Blood Pressure 138/62 04/09/2025 10:42 AM CDT Pulse 75 04/09/2025 10:42 AM CDT Temperature 36.4 C (97.6 F) 07/14/2015 2:19 AM CDT Respiratory Rate 16 04/09/2025 10:42 AM CDT Oxygen Saturation 98% 04/09/2025 10:42 AM CDT Inhaled Oxygen Concentration - - Weight 82.1 kg (181 lb) 04/09/2025 10:42 AM CDT Height 147.3 cm (4' 10) 04/09/2025 10:42 AM CDT Body Mass Index 37.83 04/09/2025 10:42 AM CDT Plan of Treatment Health Maintenance Due Date Last Done Comments Breast Cancer Screening-Mammogram 1955 Colon Cancer Screening-Colonoscopy 1955 Depression Screening 1955 Hepatitis C Screening 1955 Osteoporosis Screening-Bone Density Scan 1955 DTaP/Tdap/Td Vaccine (1 - Tdap) 01/23/1964 Hepatitis B Screening 1971 Zoster Vaccine (1 of 2) 2003 Well Visit 65+ 2018 Fall Risk Assessment 03/06/2025 03/06/2024 Covid-19 Vaccine (2024-10 6 season) 2025 08/26/2023, 07/04/2021, 12/17/2020, Additional history exists Influenza Vaccine (#1) 2025 , 06/28/2021, 09/27/2020, Additional history exists Pneumococcal vaccine 65+ Completed 023, 06/10/2018, 07/14/2015, Additional history exists Insurance [facility] Advance Directives For more information, please contact: [phone] Documents on File Type Date Recorded Patient Clinical Data Analyst Expl anation ADVANCE DIRECTIVE 07/18/2015 12:00 AM [facility] [employer] HELPER FINANCIAL/MEDICAL Care Teams Videotape Recording Engineer Relationship Specialty Start Date End Date Oscar Mcelroy MD PCP - General Emergency Medicine 10/04/23
--- OUTSIDE RECORDS SUMMARY | 2025-09-21 07:12 | XMS_ITS | Data Portability ---
Author Organization [place] - [facility]Less, Main Office Address [address] [place] [address] Care Team Providers Care Medical Safety Director Name Role Phone DENA DENISSE Primary Care Provider Assessment No assessment recorded. Plan of Treatment Reminders Order Date Submit Date Provider Last Modified By Organization Details Last Modified Time Details Appointments None recorded. Lab vitamin D, 25-hydroxy, total, serum 2022 023 [facility], [address] , [place], [address], 3 08:54:58 TSH + free T4, serum 2022 023 [facility], [address] , [place], [address], 3 08:54:59 T3, free, serum or plasma 2022 023 [facility], [address] , [place], [address], 3 08:54:57 vitamin B12 + folate, serum or blood 2022 023 [facility], [address] , [place], [address], 3 08:54:56 CMP, serum or plasma 2022 023 [facility], [address] , [place], [address], 3 21:28:13 Referral None recorded. Procedures None recorded. Surgeries None recorded. Imaging bone density 2022 023 [facility], [address], [place], [address], 3 09:43:14 Medication Orders ergocalcife rol (vitamin D2) 1,250 mcg (50,000 unit) capsule 2022 023 [facility] [address] [place], [address], 3 09:49:06 Unithroid 125 mcg tablet 2022 023 [facility] [address] [place], [address], 3 09:48:03 cholecalcif matt (vitamin D3) 50 mcg (2,000 unit) capsule 2022 023 [facility] [address] [place], [address], 3 09:33:56 Unithroid 125 mcg tablet 2022 023 [facility] [address] [place], [address], 3 09:33:56 Patient TargetsNo targets recorded. Patient InstructionsNo instructions recorded. Reason for Referral None Reported. Results Created Date Observation Date Name Description Value Unit Range Abnormal Flag Note LastModifiedBy Organization Detail LastModifiedTime 10/20/1910/24/2021 TSH+F REE T4 TSH 0.78 mIU/L 0.40-4 .50 normal Not Available [facility] [address] [place], [address], 10/24/2021 05:01:39 10/20/19 22 10/24/2021 TSH+F REE T4 T4, free 1.3 NG/dL 0.8-1. 8 normal Not Available [facility] [address] [place], [address], 10/24/2021 05:01:39 10/20/19 22 10/24/2021 T3, FREE T3, free 2.8 pg/mL 2.3-4. 2 normal Not Available [address], [address], 10/24/2021 05:01:38 10/20/19 22 10/24/2021 ACTH, PLASM A acth, plasma 18 pg/mL 6-50 Refer ence range appli es only to speci mens colle cted betwe en 7am-1 0am. Not Available [address], [address], 10/24/2021 05:01:38 01/22/20 22 01/26/2022 TSH+F REE T4 TSH 1.08 mIU/L 0.40-4 .50 normal Not Available [address], [address], 01/26/2022 17:33:11 01/22/20 22 01/26/2022 TSH+F REE T4 T4, free 1.2 NG/dL 0.8-1. 8 normal Not Available [address], [address], 01/26/2022 17:33:11 01/22/20 22 01/26/2022 T3, FREE T3, free 2.8 pg/mL 2.3-4. 2 normal Not Available [address], [address], 01/26/2022 17:33:10 01/22/20 22 01/26/2022 CORTI JACLYN, A.M. cortisol, A.M. 10.4 mcg/d L normal Refer ence Range 8 a.m. (7-9 a.m.) Speci men: 4.0-2 2.0 Not Available [address], [address], 01/26/2022 17:33:09 01/22/20 22 01/26/2022 THYRO ID PEROX IDASE ANTIB ODIES thyroid peroxidase antibodies 5 IU/mL <9 normal Not Available [address], [address], 01/26/2022 17:33:09 01/22/20 22 01/26/2022 ACTH, PLASM A acth, plasma 29 pg/mL 6-50 Refer ence range appli es only to speci mens colle cted betwe en 7am-1 0am. Not Available [address], [address], 01/26/2022 17:33:08 01/22/20 22 01/26/2022 COMPR EHENS CABRERA METAB OLIC PANEL creatinine 0.79 mg/dL 0.50-0 .99 normal For patie nts >49 years of age, the refer ence limit for Creat inine is appro ximat kyra 13% highe r for peopl e ident ified as Afric an-Am ke n. Not Available [address], [address], 01/26/2022 17:33:08 01/22/20 22 01/26/2022 COMPR EHENS CABRERA METAB OLIC PANEL glucose 83 mg/dL 65-99 normal Fasti ng refer ence inter marbella Not Available [address], [address], 01/26/2022 17:33:08 01/22/20 22 01/26/2022 COMPR EHENS CABRERA METAB OLIC PANEL urea nitrogen (BUN) 17 mg/dL 7-25 normal Not Available [address], [address], 01/26/2022 17:33:08 01/22/20 22 01/26/2022 COMPR EHENS CABRERA METAB OLIC PANEL eGFR non-afr. monegasque 77 mL/mi n/1.7 3m2 > or = 60 normal Not Available [address], [address], 01/26/2022 17:33:08 01/22/20 22 01/26/2022 COMPR EHENS CABRERA METAB OLIC PANEL eGFR 89 mL/mi n/1.7 3m2 > or = 60 normal Not Available [address], [address], 01/26/2022 17:33:08 01/22/20 22 01/26/2022 COMPR EHENS CABRERA METAB OLIC PANEL BUN/creatini ne ratio not applic able (calc ) 6-22 Not Available [address], [address], 01/26/2022 17:33:08 01/22/20 22 01/26/2022 COMPR EHENS CABRERA METAB OLIC PANEL sodium 138 mmol/ L 135-14 6 normal Not Available [address], [address], 01/26/2022 17:33:08 01/22/20 22 01/26/2022 COMPR EHENS CABRERA METAB OLIC PANEL potassium 5.1 mmol/ L 3.5-5. 3 normal Not Available [address], [address], 01/26/2022 17:33:08 01/22/20 22 01/26/2022 COMPR EHENS CABRERA METAB OLIC PANEL chloride 106 mmol/ L 98-110 normal Not Available [address], [address], 01/26/2022 17:33:08 01/22/20 22 01/26/2022 COMPR EHENS CABRERA METAB OLIC PANEL carbon dioxide 23 mmol/ L 20-32 normal Not Available [address], [address], 01/26/2022 17:33:08 01/22/20 22 01/26/2022 COMPR EHENS CABRERA METAB OLIC PANEL calcium 8.4 mg/dL 8.6-10 .4 low Not Available [address], [address], 01/26/2022 17:33:08 01/22/20 22 01/26/2022 COMPR EHENS CABRERA METAB OLIC PANEL protein, total 6.0 g/dL 6.1-8. 1 low Not Available [address], [address], 01/26/2022 17:33:08 01/22/20 22 01/26/2022 COMPR EHENS CABRERA METAB OLIC PANEL albumin 3.5 g/dL 3.6-5. 1 low Not Available [address], [address], 01/26/2022 17:33:08 01/22/20 22 01/26/2022 COMPR EHENS CABRERA METAB OLIC PANEL globulin 2.5 g/dL_ (calc ) 1.9-3. 7 normal Not Available [address], [address], 01/26/2022 17:33:08 01/22/20 22 01/26/2022 COMPR EHENS CABRERA METAB OLIC PANEL albumin/glob ulin ratio 1.4 (calc ) 1.0-2. 5 normal Not Available [address], [address], 01/26/2022 17:33:08 01/22/20 22 01/26/2022 COMPR EHENS CABRERA METAB OLIC PANEL bilirubin, total 0.3 mg/dL 0.2-1. 2 normal Not Available [address], [address], 01/26/2022 17:33:08 01/22/20 22 01/26/2022 COMPR EHENS CABRERA METAB OLIC PANEL alkaline phosphatase 82 U/L 37-153 normal Not Available [facility] [employer] [address] [address] [place], [address], 01/26/2022 17:33:08 01/22/20 22 01/26/2022 COMPR EHENS CABRERA METAB OLIC PANEL AST 14 U/L 10-35 normal Not Available [address], [address], 01/26/2022 17:33:08 01/22/20 22 01/26/2022 COMPR EHENS CABRERA METAB OLIC PANEL ALT 8 U/L 6-29 normal Not Available [address], [address], 01/26/2022 17:33:08 07/22/20 22 07/23/2022 TSH+F REE T4 TSH 0.26 mIU/L 0.40-4 .50 low Not Available [address], [address], 07/23/2022 17:22:22 07/22/20 22 07/23/2022 TSH+F REE T4 T4, free 1.1 NG/dL 0.8-1. 8 normal Not Available [address], [address], 07/23/2022 17:22:22 07/22/20 22 07/23/2022 VITAM IN [...] /MS is recom carmen d: order code 38063 (terrance ents >2yrs ). See Note 1 Note 1 For addit ional infor micheline bowles refer to http: //[facility] maria luz Price stDia gnost ics.c om/fa q/FAQ 199 (This link is being provi ded for infor iesha lance/ miguel douglas purpo ses only. ) Not Available [address] [place], [address], 07/23/2022 17:22:21 07/22/20 22 07/23/2022 T3, FREE T3, free 2.2 pg/mL 2.3-4. 2 low Not Available [facility] [address] [place], [address], 07/23/2022 17:22:21 07/22/20 22 07/23/2022 VITAM IN B12/F OLATE , SERUM PANEL vitamin B12 795 pg/mL 200-11 00 normal Not Available [address], [address], 07/23/2022 17:22:21 07/22/20 22 07/23/2022 VITAM IN B12/F OLATE , SERUM PANEL folate, serum >24.0 NG/mL normal Refer ence Range Low: <3.4 Borde rline : 3.4-5 .4 Marline l: >5.4 Not Available [address] [address] [place], [address], 07/23/2022 17:22:21 07/22/20 22 07/23/2022 THYRO ID PEROX IDASE ANTIB ODIES thyroid peroxidase antibodies 7 IU/mL <9 normal Not Available [address] [address] [place], [address], 07/23/2022 17:22:20 07/22/2007/23/2022 COMPR EHENS CABRERA METAB OLIC PANEL eGFR 72 mL/mi n/1.7 3m2 > or = 60 normal The eGFR is based on the CKD-E PI 2020 equat ion. To calcu late the new eGFR from a previ ous Creat inine or Cysta tin C resul t, go to https ://renee sandhu.robin stanford.o willie/pr august fernandesal s/ kdoqi /gfr% 5Fcal culat or Not Available [address], [address], 07/23/2022 17:22:19 07/22/20 22 07/23/2022 COMPR EHENS CABRERA METAB OLIC PANEL glucose 82 mg/dL 65-99 normal Fasti ng refer ence inter marbella Not Available [address], [address], 07/23/2022 17:22:19 07/22/20 22 07/23/2022 COMPR EHENS CABRERA METAB OLIC PANEL urea nitrogen (BUN) 23 mg/dL 7-25 normal Not Available [address], [address], 07/23/2022 17:22:19 07/22/20 22 07/23/2022 COMPR EHENS CABRERA METAB OLIC PANEL creatinine 0.87 mg/dL 0.50-1 .05 normal Not Available [address], [address], 07/23/2022 17:22:19 07/22/20 22 07/23/2022 COMPR EHENS CABRERA METAB OLIC PANEL BUN/creatini ne ratio not applic able (calc ) 6-22 Not Available [address], [address], 07/23/2022 17:22:19 07/22/20 22 07/23/2022 COMPR EHENS CABRERA METAB OLIC PANEL sodium 131 mmol/ L 135-14 6 low Not Available [address] [place], [address], 07/23/2022 17:22:19 07/22/2007/23/2022 COMPR EHENS CABRERA METAB OLIC PANEL potassium 5.2 mmol/ L 3.5-5. 3 normal Not Available [address], [address], 07/23/2022 17:22:19 07/22/20 22 07/23/2022 COMPR EHENS CABRERA METAB OLIC PANEL chloride 101 mmol/ L 98-110 normal Not Available [address], [address], 07/23/2022 17:22:19 07/22/20 22 07/23/2022 COMPR EHENS CABRERA METAB OLIC PANEL carbon dioxide 22 mmol/ L 20-32 normal Not Available [address], [address], 07/23/2022 17:22:19 07/22/20 22 07/23/2022 COMPR EHENS CABRERA METAB OLIC PANEL calcium 8.2 mg/dL 8.6-10 .4 low Not Available [address], [address], 07/23/2022 17:22:19 07/22/20 22 07/23/2022 COMPR EHENS CABRERA METAB OLIC PANEL protein, total 5.9 g/dL 6.1-8. 1 low Not Available [address], [address], 07/23/2022 17:22:19 07/22/20 22 07/23/2022 COMPR EHENS CABRERA METAB OLIC PANEL albumin 3.4 g/dL 3.6-5. 1 low Not Available [address], [address], 07/23/2022 17:22:19 07/22/20 22 07/23/2022 COMPR EHENS CABRERA METAB OLIC PANEL globulin 2.5 g/dL_ (calc ) 1.9-3. 7 normal Not Available [address], [address], 07/23/2022 17:22:19 07/22/20 22 07/23/2022 COMPR EHENS CABRERA METAB OLIC PANEL albumin/glob ulin ratio 1.4 (calc ) 1.0-2. 5 normal Not Available [address], [address], 07/23/2022 17:22:19 07/22/20 22 07/23/2022 COMPR EHENS CABRERA METAB OLIC PANEL bilirubin, total 0.2 mg/dL 0.2-1. 2 normal Not Available [address], [address], 07/23/2022 17:22:19 07/22/20 22 07/23/2022 COMPR EHENS CABRERA METAB OLIC PANEL alkaline phosphatase 75 U/L 37-153 normal Not Available [address], [address], 07/23/2022 17:22:19 07/22/20 22 07/23/2022 COMPR EHENS CABRERA METAB OLIC PANEL AST 19 U/L 10-35 normal Not Available [address], [address], 07/23/2022 17:22:19 07/22/20 22 07/23/2022 COMPR EHENS CABRERA METAB OLIC PANEL ALT 10 U/L 6-29 normal Not Available [address], [address], 07/23/2022 17:22:19 12/31/19 23 12/31/2022 LIPID PANEL , STAND BILLIE cholesterol, total 199 mg/dL <200 normal Not Available [address], [address], 12/31/2022 05:54:21 12/31/19 23 12/31/2022 LIPID PANEL , STAND BILLIE HDL cholesterol 85 mg/dL > or = 50 normal Not Available [facility] [address] [place] [address], [address], 12/31/2022 05:54:21 12/31/19 23 12/31/2022 LIPID PANEL , STAND BILLIE triglyceride s 62 mg/dL <150 normal Not Available [address], [address], 12/31/2022 05:54:21 12/31/19 23 12/31/2022 LIPID PANEL [...] lated using the April n-Hop kins calcu jordy n, which is a valid ated novel remy rogers than the Fried tigre equat ion in the estim ation of LDL-C . April kasper SS et al. HONEY. 2013; 310(1 9): 2061- 2068 (http ://ed ucati on.Chandana butler Videostir. com/f aq/FA Q164) Not Available [address], [address], 12/31/2022 05:54:21 12/31/19 23 12/31/2022 LIPID PANEL , STAND BILLIE chol/HDLC ratio 2.3 (calc ) <5.0 normal Not Available [facility] [address] [place] [address], [address], 12/31/2022 05:54:21 12/31/19 23 12/31/2022 LIPID PANEL , STAND BILLIE non HDL cholesterol 114 mg/dL _(sara c) <130 normal For patie nts with diabe tito plus 1 major ASCVD risk facto r, treat ing to a non-H DL-C goal of <100 mg/dL (LDL- C of <70 mg/dL ) is consi tari guillen optio n. Not Available [address] [address] [place], [address], 12/31/2022 05:54:21 12/31/19 23 12/31/2022 COMPR EHENS CABRERA METAB OLIC PANEL glucose 83 mg/dL 65-99 normal Fasti ng refer ence inter marbella Not Available [facility] [address] [address] [place], [address], 12/31/2022 05:54:22 12/31/19 23 12/31/2022 COMPR EHENS CABRERA METAB OLIC PANEL urea nitrogen (BUN) 29 mg/dL 7-25 high Not Available [facility] [address] [address] [place], [address], 12/31/2022 05:54:22 12/31/19 23 12/31/2022 COMPR EHENS CABRERA METAB OLIC PANEL creatinine 0.76 mg/dL 0.50-1 .05 normal Not Available [address] [address] [place], [address], 12/31/2022 05:54:22 12/31/19 23 12/31/2022 COMPR EHENS CABRERA METAB OLIC PANEL eGFR 85 mL/mi n/1.7 3m2 > or = 60 normal The eGFR is based on the CKD-E PI 2020 equat ion. To calcu late the new eGFR from a previ ous Creat inluz marina or Twila craft C resul t, go to https ://renee tapia/torey morton/ kdoqi /gfr% 5Fcal culat or Not Available [address] [address] [place], [address], 12/31/2022 05:54:22 12/31/19 23 12/31/2022 COMPR EHENS CABRERA METAB OLIC PANEL BUN/creatini ne ratio 38 (calc ) 6-22 high Not Available [address], [address], 12/31/2022 05:54:22 12/31/19 23 12/31/2022 COMPR EHENS CABRERA METAB OLIC PANEL sodium 126 mmol/ L 135-14 6 low Not Available [address], [address], 12/31/2022 05:54:22 12/31/19 23 12/31/2022 COMPR EHENS CABRERA METAB OLIC PANEL potassium 5.4 mmol/ L 3.5-5. 3 high Not Available [address], [address], 12/31/2022 05:54:22 12/31/19 23 12/31/2022 COMPR EHENS CABRERA METAB OLIC PANEL chloride 98 mmol/ L 98-110 normal Not Available [address], [address], 12/31/2022 05:54:22 12/31/19 23 12/31/2022 COMPR EHENS CABRERA METAB OLIC PANEL carbon dioxide 21 mmol/ L 20-32 normal Not Available [address], [address], 12/31/2022 05:54:22 12/31/19 23 12/31/2022 COMPR EHENS CABRERA METAB OLIC PANEL calcium 8.3 mg/dL 8.6-10 .4 low Not Available [address], [address], 12/31/2022 05:54:22 12/31/19 23 12/31/2022 COMPR EHENS CABRERA METAB OLIC PANEL protein, total 6.0 g/dL 6.1-8. 1 low Not Available [address] [place], [address], 12/31/2022 05:54:22 12/31/19 23 12/31/2022 COMPR EHENS CABRERA METAB OLIC PANEL albumin 3.5 g/dL 3.6-5. 1 low Not Available [address], [address], 12/31/2022 05:54:22 12/31/19 23 12/31/2022 COMPR EHENS CABRERA METAB OLIC PANEL globulin 2.5 g/dL_ (calc ) 1.9-3. 7 normal Not Available [address], [address], 12/31/2022 05:54:22 12/31/19 23 12/31/2022 COMPR EHENS CABRERA METAB OLIC PANEL albumin/glob ulin ratio 1.4 (calc ) 1.0-2. 5 normal Not Available [address], [address], 12/31/2022 05:54:22 12/31/19 23 12/31/2022 COMPR EHENS CABRERA METAB OLIC PANEL bilirubin, total 0.3 mg/dL 0.2-1. 2 normal Not Available [address], [address], 12/31/2022 05:54:22 12/31/19 23 12/31/2022 COMPR EHENS CABRERA METAB OLIC PANEL alkaline phosphatase 85 U/L 37-153 normal Not Available [facility] [employer] [address], [address], 12/31/2022 05:54:22 12/31/19 23 12/31/2022 COMPR EHENS CABRERA METAB OLIC PANEL AST 13 U/L 10-35 normal Not Available [address], [address], 12/31/2022 05:54:22 12/31/19 23 12/31/2022 COMPR EHENS CABRERA METAB OLIC PANEL ALT 10 U/L 6-29 normal Not Available [address], [address], 12/31/2022 05:54:22 12/31/19 23 12/31/2022 CBC (INCL UDES DIFF/ PLT) white blood cell count 5.3 thous and/u L 3.8-10 .8 normal Not Available [address], [address], 12/31/2022 05:54:23 12/31/1912/31/2022 CBC (INCL UDES DIFF/ PLT) red blood cell count 3.36 venu on/uL 3.80-5 .10 low Not Available [facility] [address], [address], 12/31/2022 05:54:23 12/31/19 23 12/31/2022 CBC (INCL UDES DIFF/ PLT) hemoglobin 10.2 g/dL 11.7-1 5.5 low Not Available [facility] [address], [address], 12/31/2022 05:54:23 12/31/1912/31/2022 CBC (INCL UDES DIFF/ PLT) hematocrit 31.2 % 35.0-4 5.0 low Not Available [facility] [address], [address], 12/31/2022 05:54:23 12/31/1912/31/2022 CBC (INCL UDES DIFF/ PLT) MCV 92.9 fL 80.0-1 00.0 normal Not Available [facility] [address], [address], 12/31/2022 05:54:23 12/31/1912/31/2022 CBC (INCL UDES DIFF/ PLT) MCH 30.4 pg 27.0-3 3.0 normal Not Available [address], [address], 12/31/2022 05:54:23 12/31/19 23 12/31/2022 CBC (INCL UDES DIFF/ PLT) MCHC 32.7 g/dL 32.0-3 6.0 normal Not Available [address], [address], 12/31/2022 05:54:23 12/31/19 23 12/31/2022 CBC (INCL UDES DIFF/ PLT) RDW 14.3 % 11.0-1 5.0 normal Not Available [address], [address], 12/31/2022 05:54:23 12/31/19 23 12/31/2022 CBC (INCL UDES DIFF/ PLT) platelet count 150 thous and/u L 140-40 0 normal Not Available [address], [address], 12/31/2022 05:54:23 12/31/19 23 12/31/2022 CBC (INCL UDES DIFF/ PLT) MPV 10.9 fL 7.5-12 .5 normal Not Available [address], [address], 12/31/2022 05:54:23 12/31/19 23 12/31/2022 CBC (INCL UDES DIFF/ PLT) absolute neutrophils 2629 cells /uL 1500-7 800 normal Not Available [facility] [address], [address], 12/31/2022 05:54:23 12/31/19 23 12/31/2022 CBC (INCL UDES DIFF/ PLT) absolute lymphocytes 1675 cells /uL 850-39 00 normal Not Available [address], [address], 12/31/2022 05:54:23 12/31/19 23 12/31/2022 CBC (INCL UDES DIFF/ PLT) absolute monocytes 875 cells /uL 200-95 0 normal Not Available [facility] [address], [address], 12/31/2022 05:54:23 12/31/19 23 12/31/2022 CBC (INCL UDES DIFF/ PLT) absolute eosinophils 80 cells /uL 15-500 normal Not Available [facility] [address], [address], 12/31/2022 05:54:23 12/31/1912/31/2022 CBC (INCL UDES DIFF/ PLT) absolute basophils 42 cells /uL 0-200 normal Not Available [facility] [address], [address], 12/31/2022 05:54:23 12/31/19 23 12/31/2022 CBC (INCL UDES DIFF/ PLT) neutrophils 49.6 % normal Not Available [facility] [address], [address], 12/31/2022 05:54:23 12/31/19 23 12/31/2022 CBC (INCL UDES DIFF/ PLT) lymphocytes 31.6 % normal Not Available [facility] [address], [address], 12/31/2022 05:54:23 12/31/19 23 12/31/2022 CBC (INCL UDES DIFF/ PLT) monocytes 16.5 % normal Not Available [facility] [address], [address], 12/31/2022 05:54:23 12/31/19 23 12/31/2022 CBC (INCL UDES DIFF/ PLT) eosinophils 1.5 % normal Not Available [facility] [address], [address], 12/31/2022 05:54:23 12/31/19 23 12/31/2022 CBC (INCL UDES DIFF/ PLT) basophils 0.8 % normal Not Available [address], [address], 12/31/2022 05:54:23 12/31/19 23 12/31/2022 VITAM IN B12/F OLATE , SERUM PANEL vitamin B12 692 pg/mL 200-11 00 normal Not Available [address], [address], 12/31/2022 05:54:24 12/31/1912/31/2022 VITAM IN B12/F OLATE , SERUM PANEL folate, serum 23.0 NG/mL normal Refer ence Range Low: <3.4 Borde rline : 3.4-5 .4 Marline l: >5.4 Not Available [address], [address], 12/31/2022 05:54:24 12/31/19 23 12/31/2022 T3, FREE T3, free 2.9 pg/mL 2.3-4. 2 normal Not Available [address], [address], 12/31/2022 05:54:24 12/31/1912/31/2022 VITAM IN D,25- OH,TO [...] /MS is recom carmen d: order code 69610 (terrance ents >2yrs ). See Note 1 Note 1 For addit ional infor micheline bowles e refer to http: //[facility] maria luz Juan gnost ics.c om/fa q/FAQ 199 (This link is being provi ded for infor iesha lance/ educalberto douglas purpo ses only. ) Not Available [address], [address], 12/31/2022 05:54:25 12/31/19 23 12/31/2022 TSH+F REE T4 TSH 0.17 mIU/L 0.40-4 .50 low Not Available [address], [address], 12/31/2022 05:54:26 12/31/19 23 12/31/2022 TSH+F REE T4 T4, free 1.5 NG/dL 0.8-1. 8 normal Not Available [address], [address], 12/31/2022 05:54:26 01/15/20 23 01/19/2023 ACTH, PLASM A acth, plasma 29 pg/mL 6-50 Refer ence range appli es only to speci mens colle cted betwe en 7am-1 0am. Not Available [address], [address], 01/19/2023 21:38:14 01/15/20 23 01/19/2023 CORTI JACLYN, A.M. cortisol, A.M. 11.8 mcg/d L normal Refer ence Range 8 a.m. (7-9 a.m.) Speci men: 4.0-2 2.0 Not Available [address], [address], 01/19/2023 21:38:15 02/09/20 23 02/08/2023 COMPR EHENS CABRERA METAB OLIC PANEL glucose 73 mg/dL 65-99 normal Fasti ng refer ence inter marbella Not Available [address] [address] [place], [address], 02/08/2023 21:28:13 02/09/20 23 02/08/2023 COMPR EHENS CABRERA METAB OLIC PANEL urea nitrogen (BUN) 21 mg/dL 7-25 normal Not Available [facility] [address] [address] [place], [address], 02/08/2023 21:28:13 02/09/20 23 02/08/2023 COMPR EHENS CABRERA METAB OLIC PANEL creatinine 0.80 mg/dL 0.60-1 .00 normal Not Available [facility] [address] [address] [place], [address], 02/08/2023 21:28:13 02/09/20 23 02/08/2023 COMPR EHENS [...] kdoqi /gfr% 5Fcal culat or Not Available [address] [address] [place], [address], 02/08/2023 21:28:13 02/09/20 23 02/08/2023 COMPR EHENS CABRERA METAB OLIC PANEL BUN/creatini ne ratio NOT APPLIC ABLE (calc ) 6-22 Not Available [address] [address] [place], [address], 02/08/2023 21:28:13 02/09/20 23 02/08/2023 COMPR EHENS CABRERA METAB OLIC PANEL sodium 128 mmol/ L 135-14 6 low Not Available [address] [address] [place], [address], 02/08/2023 21:28:13 02/09/20 23 02/08/2023 COMPR EHENS CABRERA METAB OLIC PANEL potassium 4.7 mmol/ L 3.5-5. 3 normal Not Available [address], [address], 02/08/2023 21:28:13 02/09/20 23 02/08/2023 COMPR EHENS CABRERA METAB OLIC PANEL chloride 99 mmol/ L 98-110 normal Not Available [address], [address], 02/08/2023 21:28:13 02/09/20 23 02/08/2023 COMPR EHENS CABRERA METAB OLIC PANEL carbon dioxide 17 mmol/ L 20-32 low Not Available [address], [address], 02/08/2023 21:28:13 02/09/20 23 02/08/2023 COMPR EHENS CABRERA METAB OLIC PANEL calcium 8.5 mg/dL 8.6-10 .4 low Not Available [address], [address], 02/08/2023 21:28:13 02/09/20 23 02/08/2023 COMPR EHENS CABRERA METAB OLIC PANEL protein, total 6.6 g/dL 6.1-8. 1 normal Not Available [address], [address], 02/08/2023 21:28:13 02/09/20 23 02/08/2023 COMPR EHENS CABRERA METAB OLIC PANEL albumin 3.9 g/dL 3.6-5. 1 normal Not Available [address], [address], 02/08/2023 21:28:13 02/09/20 23 02/08/2023 COMPR EHENS CABRERA METAB OLIC PANEL globulin 2.7 g/dL_ (calc ) 1.9-3. 7 normal Not Available [address], [address], 02/08/2023 21:28:13 02/09/20 23 02/08/2023 COMPR EHENS CABRERA METAB OLIC PANEL albumin/glob ulin ratio 1.4 (calc ) 1.0-2. 5 normal Not Available [address], [address], 02/08/2023 21:28:13 02/09/20 23 02/08/2023 COMPR EHENS CABRERA METAB OLIC PANEL bilirubin, total 0.3 mg/dL 0.2-1. 2 normal Not Available [address], [address], 02/08/2023 21:28:13 02/09/20 23 02/08/2023 COMPR EHENS CABRERA METAB OLIC PANEL alkaline phosphatase 104 U/L 37-153 normal Not Available [address], [address], 02/08/2023 21:28:13 02/09/20 23 02/08/2023 COMPR EHENS CABRERA METAB OLIC PANEL AST 14 U/L 10-35 normal Not Available [address], [address], 02/08/2023 21:28:13 02/09/20 23 02/08/2023 COMPR EHENS CABRERA METAB OLIC PANEL ALT 6 U/L 6-29 normal Not Available [address], [address], 02/08/2023 21:28:13 05/17/20 23 05/18/2023 CBC (INCL UDES DIFF/ PLT) white blood cell count 5.2 thous and/u L 3.8-10 .8 normal Not Available [address], [address], 05/18/2023 08:54:56 05/17/20 23 05/18/2023 CBC (INCL UDES DIFF/ PLT) red blood cell count 3.54 venu on/uL 3.80-5 .10 low Not Available [address], [address], 05/18/2023 08:54:56 05/17/20 23 05/18/2023 CBC (INCL UDES DIFF/ PLT) hemoglobin 10.8 g/dL 11.7-1 5.5 low Not Available [address], [address], 05/18/2023 08:54:56 05/17/20 23 05/18/2023 CBC (INCL UDES DIFF/ PLT) hematocrit 32.5 % 35.0-4 5.0 low Not Available [address], [address], 05/18/2023 08:54:56 05/17/20 23 05/18/2023 CBC (INCL UDES DIFF/ PLT) MCV 91.8 fL 80.0-1 00.0 normal Not Available [address], [address], 05/18/2023 08:54:56 05/17/20 23 05/18/2023 CBC (INCL UDES DIFF/ PLT) MCH 30.5 pg 27.0-3 3.0 normal Not Available [address], [address], 05/18/2023 08:54:56 05/17/20 23 05/18/2023 CBC (INCL UDES DIFF/ PLT) MCHC 33.2 g/dL 32.0-3 6.0 normal Not Available [address], [address], 05/18/2023 08:54:56 05/17/20 23 05/18/2023 CBC (INCL UDES DIFF/ PLT) RDW 14.4 % 11.0-1 5.0 normal Not Available [address], [address], 05/18/2023 08:54:56 05/17/20 23 05/18/2023 CBC (INCL UDES DIFF/ PLT) absolute neutrophils 2496 cells /uL 1500-7 800 normal Not Available [address], [address], 05/18/2023 08:54:56 05/17/20 23 05/18/2023 CBC (INCL UDES DIFF/ PLT) absolute lymphocytes 1966 cells /uL 850-39 00 normal Not Available [address], [address], 05/18/2023 08:54:56 05/17/20 23 05/18/2023 CBC (INCL UDES DIFF/ PLT) absolute monocytes 598 cells /uL 200-95 0 normal Not Available [address], [address], 05/18/2023 08:54:56 05/17/20 23 05/18/2023 CBC (INCL UDES DIFF/ PLT) absolute eosinophils 109 cells /uL 15-500 normal Not Available [address], [address], 05/18/2023 08:54:56 05/17/20 23 05/18/2023 CBC (INCL UDES DIFF/ PLT) absolute basophils 31 cells /uL 0-200 normal Not Available [address], [address], 05/18/2023 08:54:56 05/17/20 23 05/18/2023 CBC (INCL UDES DIFF/ PLT) neutrophils 48 % normal Not Available [address], [address], 05/18/2023 08:54:56 05/17/20 23 05/18/2023 CBC (INCL UDES DIFF/ PLT) lymphocytes 37.8 % normal Not Available [address], [address], 05/18/2023 08:54:56 05/17/20 23 05/18/2023 CBC (INCL UDES DIFF/ PLT) monocytes 11.5 % normal Not Available [address], [address], 05/18/2023 08:54:56 05/17/20 23 05/18/2023 CBC (INCL UDES DIFF/ PLT) eosinophils 2.1 % normal Not Available [address], [address], 05/18/2023 08:54:56 05/17/20 23 05/18/2023 CBC (INCL UDES DIFF/ PLT) basophils 0.6 % normal Not Available [address], [address], 05/18/2023 08:54:56 05/17/2005/18/2023 CBC (INCL UDES DIFF/ PLT) comment(s) Revie w of perip heral smear confi doreen autom ated resul ts. Not Available [address], [address], 05/18/2023 08:54:56 05/17/2005/18/2023 CBC (INCL UDES DIFF/ PLT) platelet count TNP TEST( S) NOT PERFO RMED: PLATE LET COUNT Unabl e to repor t due to signi fican t plate let clump ing. Plate let estim ate appea rs marline l. Not Available [address], [address], 05/18/2023 08:54:56 05/17/20 23 05/18/2023 VITAM IN B12/F OLATE , SERUM PANEL vitamin B12 759 pg/mL 200-11 00 normal Not Available [facility] [address] [place], [address], 05/18/2023 08:54:56 05/17/2005/18/2023 VITAM IN B12/F OLATE , SERUM PANEL folate, serum 18.7 NG/mL normal Refer ence Range Low: <3.4 Borde rline : 3.4-5 .4 Marline l: >5.4 Not Available [facility] [address] [place], [address], 05/18/2023 08:54:56 05/17/2005/18/2023 T3, FREE T3, free 2.5 pg/mL 2.3-4. 2 normal Not Available [facility] [place] [address] [address] [place], [address], 05/18/2023 08:54:57 05/17/2005/18/2023 VITAM IN D,25- OH,TO [...] /MS is recom carmen d: order code 21719 (terrance ents >2yrs ). See Note 1 Note 1 For addit ional infor micheline bowles e refer to http: //la Price stDia gnost ics.c om/fa q/FAQ 199 (This link is being provi ded for infor iesha lance/ educalberto douglas purpo ses only. ) Not Available [address], [address], 05/18/2023 08:54:58 05/17/2005/18/2023 TSH+F REE T4 TSH 2.82 mIU/L 0.40-4 .50 normal Not Available [address], [address], 05/18/2023 08:54:59 05/17/20 23 05/18/2023 TSH+F REE T4 T4, free 0.9 NG/dL 0.8-1. 8 normal Not Available [address], [address], 05/18/2023 08:54:59 05/17/2005/20/2023 LIPID PANEL , STAND BILLIE cholesterol, total 216 mg/dL <200 high Not Available [address], [address], 05/20/2023 12:38:43 05/17/20 23 05/20/2023 LIPID PANEL , [place] HDL cholesterol 89 mg/dL > or = 50 normal Not Available [address], [address], 05/20/2023 12:38:43 05/17/20 23 05/20/2023 LIPID PANEL , [place] triglyceride s 76 mg/dL <150 normal Not Available [address], [address], 05/20/2023 12:38:43 05/17/20 23 05/20/2023 LIPID PANEL , [place] LDL-choleste rol 110 mg/dL _(sara c) high Refer ence range : <100 Jen able range <100 mg/dL for prima ry preve ntion ; <70 mg/dL for patie nts with CHD or diabe tic patie nts with > or = 2 CHD risk facto rs. LDL-C is now calcu lated using the April n-Hop sunny spence n, which is a valid ated novel metho d provi katey vallejote r accur acy than the Fried tigre equat ion in the estim ation of LDL-C . April kasper SS et al. HONEY. 2013; 310(1 9): 2061- 2068 (http ://ed ucati on.Qu estDi [employer]. com/f aq/FA Q164) Not Available [address] [address] [place], [address], 05/20/2023 12:38:43 05/17/20 23 05/20/2023 LIPID PANEL , STAND [place] chol/HDLC ratio 2.4 (calc ) <5.0 normal Not Available [address] [address] [place], [address], 05/20/2023 12:38:43 05/17/2005/20/2023 LIPID PANEL , [place] non HDL cholesterol 127 mg/dL _(sara c) <130 normal For patie nts with diabe tito plus 1 major ASCVD risk facto r, treat ing to a non-H DL-C goal of <100 mg/dL (LDL- C of <70 mg/dL ) is dwayne guillen optio n. Not Available [address] [address] [place], [address], 05/20/2023 12:38:43 05/17/20 23 05/20/2023 COMPR EHENS CABRERA METAB OLIC PANEL glucose 79 mg/dL 65-139 normal Non-f astin g refer ence inter marbella Not Available [facility] [place] [address] [address] [place], [address], 05/20/2023 12:38:44 05/17/20 23 05/20/2023 COMPR EHENS CABRERA METAB OLIC PANEL urea nitrogen (BUN) 20 mg/dL 7-25 normal Not Available [facility] [place] [address] [place], [address], 05/20/2023 12:38:44 05/17/20 23 05/20/2023 COMPR EHENS CABRERA METAB OLIC PANEL creatinine 0.85 mg/dL 0.60-1 .00 normal Not Available [address], [address], 05/20/2023 12:38:44 05/17/20 23 05/20/2023 COMPR EHENS CABRERA METAB OLIC PANEL eGFR 74 mL/mi n/1.7 3m2 > or = 60 normal Not Available [address], [address], 05/20/2023 12:38:44 05/17/20 23 05/20/2023 COMPR EHENS CABRERA METAB OLIC PANEL BUN/creatini ne ratio SEE NOTE: (calc ) 6-22 Not Repor juany: BUN and Creat inine are withi n refer ence range . Not Available [address], [address], 05/20/2023 12:38:44 05/17/20 23 05/20/2023 COMPR EHENS CABRERA METAB OLIC PANEL sodium 127 mmol/ L 135-14 6 low Not Available [address], [address], 05/20/2023 12:38:44 05/17/20 23 05/20/2023 COMPR EHENS CABRERA METAB OLIC PANEL potassium 5.0 mmol/ L 3.5-5. 3 normal Not Available [address], [address], 05/20/2023 12:38:44 05/17/20 23 05/20/2023 COMPR EHENS CABRERA METAB OLIC PANEL chloride 95 mmol/ L 98-110 low Not Available [address], [address], 05/20/2023 12:38:44 05/17/20 23 05/20/2023 COMPR EHENS CABRERA METAB OLIC PANEL carbon dioxide 21 mmol/ L 20-32 normal Not Available [address], [address], 05/20/2023 12:38:44 05/17/20 23 05/20/2023 COMPR EHENS CABRERA METAB OLIC PANEL calcium 8.7 mg/dL 8.6-10 .4 normal Not Available [address], [address], 05/20/2023 12:38:44 05/17/20 23 05/20/2023 COMPR EHENS CABRERA METAB OLIC PANEL protein, total 6.4 g/dL 6.1-8. 1 normal Not Available [address], [address], 05/20/2023 12:38:44 05/17/20 23 05/20/2023 COMPR EHENS CABRERA METAB OLIC PANEL albumin 3.9 g/dL 3.6-5. 1 normal Not Available [address], [address], 05/20/2023 12:38:44 05/17/20 23 05/20/2023 COMPR EHENS CABRERA METAB OLIC PANEL globulin 2.5 g/dL_ (calc ) 1.9-3. 7 normal Not Available [address], [address], 05/20/2023 12:38:44 05/17/20 23 05/20/2023 COMPR EHENS CABRERA METAB OLIC PANEL albumin/glob ulin ratio 1.6 (calc ) 1.0-2. 5 normal Not Available [address], [address], 05/20/2023 12:38:44 05/17/20 23 05/20/2023 COMPR EHENS CABRERA METAB OLIC PANEL bilirubin, total 0.3 mg/dL 0.2-1. 2 normal Not Available [facility] [address] [place], [address], 05/20/2023 12:38:44 05/17/20 23 05/20/2023 COMPR EHENS CABRERA METAB OLIC PANEL alkaline phosphatase 92 U/L 37-153 normal Not Available [facility] [address] [place], [address], 05/20/2023 12:38:44 05/17/20 23 05/20/2023 COMPR EHENS CABRERA METAB OLIC PANEL AST 16 U/L 10-35 normal Not Available [address] [address] [place], [address], 05/20/2023 12:38:44 05/17/20 23 05/20/2023 COMPR EHENS CABRERA METAB OLIC PANEL ALT 9 U/L 6-29 normal Not Available [address] [address] [place], [address], 05/20/2023 12:38:44 03/03/20 23 03/03/2023 MRI, pitui tary, w/wo contr ast No observ ation record ed. [address], [place], [address], 03/07/2023 22:31:42 Result Notes None recorded. Problems Name Problem SNOMED Code Status Onset Date Resolution Date Notes Provider Name and Address Organization Details Recorded Time Seizure disorder 875713806 Active 1954 Not Available [facility] 3 02:38:27 History of anemia vitamin B12 deficient 969990392 Active 2020 Not Available [facility] 3 02:38:27 Hypertensive disorder 36010729 Active 2020 Not Available [facility] 3 02:38:27 Hypothyroidis m 00021909 Active 2020 Not Available [facility] 3 02:38:27 Disorder of vulva 9229782 Active 2020 Not Available [facility] 3 02:38:28 Hyperlipidemi a 26706864 Active 2020 Not Available [facility] 3 02:38:28 Screening for osteoporosis Active 2021 Not Available [facility] 3 02:38:27 Hypercortisol ism 22241059 Active 2021 Not Available [facility] 3 02:38:28 Acquired hypothyroidis m 271567483 Active 2021 Not Available [facility] 3 02:38:27 Postoperative hypothyroidis m 75663147 Active 2021 Not Available [facility] 3 02:38:27 Vitamin D deficiency 93874395 Active 2021 Not Available [facility] 3 02:38:27 Hypothyroidis m in 745474065 Active 2021 Not Available [facility] 3 02:38:27 Vitamin B12 deficiency (non anemic) 73141745 Active 2021 Not Available [facility] 3 02:38:28 Hypocalcemia 1448516 Active 2021 Not Available [facility] 3 02:38:28 Dyslipidemia 747948426 Active 2022 MD [address]ie [address], [place], [address] , [employer] [facility] 3 14:12:04 Pituitary function test outside reference range 494288190 Active 2022 MD [address]ie [address], [place], [address] , [employer] [facility] [employer] [facility] 3 00:51:48 Menopausal and postmenopausa l disorders 865624635 Active 2022 MD [address]ie [address], [place], [address] , [employer] [facility] [employer] [facility] 3 09:32:01 Hyponatremia 06199648 Active 2022 MD [address]ie [address], [place], [address] , [place] [facility] 3 09:33:49 Problem Notes None recorded. Procedures Surgical History Date Name Laterality Status Provider Name and Address Organization Details Recorded Time 2 Cyst Removal completed Not Available [facility] 023 02:32:22 Ankle Surgery completed Not Available [facility] 11/25/2022 02:32:22 bariatric operative procedure completed Not Available [facility] 11/25/2022 02:32:22 Colon Surgery completed Not Available [facility] 11/25/2022 02:32:22 Imaging Results None recorded. Procedure Notes None recorded. Medical Equipment None Reported. Allergies Allergen ID Allergen Name Allergen Category Reaction Reaction Severity Criticality Documentation Date Start Date Code Code System Note Provider Name and Address Organization Details Recorded Time 3801 latex environme nt,medica tion anaphylax is severe Not available 11/25/2022 77896 91 RxNorm Not Available [facility] 3 02:49:06 3802 codeine medicatio n itching moderate Not available 11/25/2022 2670 RxNorm Not Available [facility] 3 02:49:06 Medications Name Sig Start Date [...] mass index (BMI) Body height Oxygen saturation Heart rate Body temperature Body weight Systolic And Diastolic Provider Name and Address Organization Details Last Updated DateTime 2 40.6 kg/m2 149.86 cm 97 % 60 /min 97.7 [degF] 47927.0 7 g 110/72 mm[Hg] Not Available [facility] 3 02:34:44 Date Recorded Body height Body mass index (BMI) Body weight Body temperature Respiratory rate Heart rate Systolic And Diastolic Provider Name and Address Organization Details Last Updated DateTime 3 149.86 cm 38.1 kg/m2 65700.2 4 g 97.2 [degF] 18 /min 65 /min 142/65 mm[Hg] DAPHNEY Gallagher [facility] 3 09:15:01 Date Recorded Body mass index (BMI) Body height Oxygen saturation Heart rate Body temperature Body weight Systolic And Diastolic Provider Name and Address Organization Details Last Updated DateTime 2 42.5 kg/m2 149.86 cm 94 % 57 /min 98 [degF] 94459.1 9 g 110/65 mm[Hg] Not Available [facility] 3 02:34:45 Date Recorded Body height Body mass index (BMI) Body weight Body temperature Respiratory rate Heart rate Systolic And Diastolic Provider Name and Address Organization Details Last Updated DateTime 3 149.86 cm 38.8 kg/m2 87252.7 4 g 97.7 [degF] 18 /min 61 /min 133/62 mm[Hg] Ольга Joseph RN [facility] [employer] [facility] 3 09:17:14 Date Recorded Body mass index (BMI) Body height Heart rate Body temperature Body weight Systolic And Diastolic Provider Name and Address Organization Details Last Updated DateTime 2 37.7 kg/m2 149.86 cm 66 /min 96.9 [degF] 26153.0 5 g 108/62 mm[Hg] Not Available [facility] 3 02:34:45 Social History Question Answer Notes LastModified by Organizat ion Details LastModified Time Tobacco Smoking Status Never Smoker Not Available [facility] 11/25/2022 02:29:16 Are You Blind Or Do You Have Difficulty Seeing? No [id number].[id number] Information not available 11/25/2022 What Is Your Level Of Caffeine Consumption? Moderate MIGRATION.[id number] Information not available 11/25/2022 How Much Tobacco Do You Chew? None MIGRATION.603375 9995 Information not available 11/25/2022 In The 14 Days Before Symptom Onset, Have You Had Close Contact With A Laboratory-confirm ed COVID-19 While That Case Was Ill? No MIGRATION.[id number] 3194 Information not available 11/25/2022 In The 14 Days Before Symptom Onset, Have You Had Close Contact With A Person Who Is Under Investigation For COVID-19 While That Person Was Ill? No MIGRATION.004996 9538 Information not available 11/25/2022 Are You Deaf Or Do You Have Serious Difficulty Hearing? No MIGRATION.114729 4921 Information not available 11/25/2022 What Type Of Diet Are You Following? REGULAR MIGRATION.028676 2503 Information not available 11/25/2022 Which Illicit Or Recreational Drugs Have You Used? None MIGRATION.094415 4144 Information not available 11/25/2022 What Is Your Relationship Status? Single MIGRATION.015097 4132 Information not available 11/25/2022 Have You Recently Traveled Abroad? No MIGRATION.254808 2445 Information not available 11/25/2022 Do You Have Difficulty Walking Or Climbing Stairs? No MIGRATION.551640 9082 Information not available 11/25/2022 Do You Have Any Dietary Restrictions? No MIGRATION.285265 4444 Information not available 11/25/2022 Sex: Female Functional Status Question Answer Note LastModified by [employer] Details LastModified Time Do you use any illicit or recreational drugs? No MIGRATION.[id number] 3421 Information not available 11/25/2022 What is your level of alcohol consumption? None MIGRATION.513264 5779 Information not available 11/25/2022 Do you or have you ever used smokeless tobacco? Never used smokeless tobacco MIGRATION.325248 7303 Information not available 11/25/2022 Do you have transportation difficulties? No MIGRATION.003286 4346 Information not available 11/25/2022 Are you able to walk independently without assistance or assistive devices? YESWOREST MIGRATION.770807 3466 Information not available 11/25/2022 Do you have difficulty doing errands alone? No MIGRATION.279025 1576 Information not available 11/25/2022 Are you able to care for yourself independently? Yes MIGRATION.421998 0537 Information not available 11/25/2022 Do you have difficulty dressing, bathing, grooming, or toileting? No MIGRATION.510754 6324 Information not available 11/25/2022 Do you or have you ever used e-cigarettes or vape? Never used electronic cigarettes MIGRATION.680528 4378 Information not available 11/25/2022 Mental Status Question Answer Note LastModified by [employer] Details LastModified Time Do you have difficulty concentrating, remembering or making decisions? No MIGRATION.[id number] 6 Information not available 11/25/2022 Family History Nothing Reported. Medical History Condition Response USE OF BLOOD THINNERS N MRSA N SLEEP APNEA Y DIABETES, TYPE N ALLERGIES/HAYFEVER N PARATHYROID DISEASE N ENT N LUNG DISEASE/DISORDER N SEASONAL ALLERGIES Y HEARTBURN / REFLUX N INSOMNIA N COPD N RADIATION / CHEMOTHERAPY N HIGH CHOLESTEROL / HYPERLIPIDEMIA Y HYPERTHYROIDISM N BLOOD DISEASES N EAR OR HEARING PROBLEMS N HEPATITIS / LIVER DISEASE N HYPOTHYROIDISM Y DEPRESSION (INCLUDING POST ) Y SLEEP DISORDER N HAVE YOU BEEN HOSPITALIZED OR SEEN IN [facility] ER IN THE PAST YEAR ? N STROKE/TIA N ULCERS N HEADACHES/MIGRAINES Y SEIZURES/EPILEPSY Y CHF N PACEMAKER N DIZZINESS N HEART DISEASE/HEART PROBLEMS N AIDS/HIV N FRACTURES N HYPERTENSION Y CANCER: SPECIFY N TOURETTE'S N OBESITY N BLOOD TRANSFUSION N ANESTHESIA COMPLICATIONS N ANEMIA/BLOOD DISORDER Y CHRONIC EAR INFECTIONS N ANEURYSM N HISTORY WITH COMPLICATIONS WITH ANESTHES IA ? N TUBERCULOSIS N Gynecological HistoryNo gynecological history recorded. Obstetrics History GPAL:G 0 P 0 0 0 0 Immunizations Vaccine Type Date Status Note Provider [facility] e and Address Organization Details Recorded Time Influenza, adjuvanted, trivalent, PF 09/27/2020 completed Not Available [facility] 20[facility] 02:48:53 Past Encounters Encounter ID Performer Location Encounter Start Date Encounter Closed Date Diagnosis/Indication Diagnosis SNOMED-CT Code Diagnosis ICD10 Code Diagnosis IMO Codes Diagnosis Note [id number] Carmen Hathaway MD [facility] [place] [address] [place] [address] 12/30/2020 00:00:00 12/30/2020 13:01:22 [id number] Chidi Lam MD [facility] [place] [address] [place] [address] 03/24/2021 00:00:00 03/24/2021 15:11:27 [id number] [facility] [place] [address] [place] [address] 11/03/2021 00:00:00 11/03/2021 15:45:30 [id number] [facility] [place] [address] [place] [address] 02/02/2022 00:00:00 02/02/2022 09:58:25 [id number] [facility] [place] [address] [place] [address] 09/01/2022 00:00:00 09/01/2022 10:16:52 [id number] Carmen Hathaway MD [facility] [address] [place] [address] 01/25/2023 09:03:51 01/25/2023 09:43:14 Hypothyroidism 00765869 E03.9 FT4 high normal range- will reduce [...] in 2 weeks. Menopausal and postmenopausal disorders 363370285 N95.9 Send for bone density scan to screen for bone loss. Vitamin D deficiency 347 45765 E55.9 Continue on vitamin D 50 once [...] informatio n in the electronic health record, independen tly interpreti ng results and communicat ing results to the patient. RTC in 4-6 months. Patient was provided a handwritte n lab order which contains our fax number. If she chooses to go outside of the [facility] to obtain labwork she was [...] in her case. She voiced understand ing. [id number] Carmen Hathaway MD [facility] [address] [place] [address] 06/18/2023 09:10:58 06/18/2023 10:24:21 Hypothyroidism 14122422 E03.9 FT4 now in ideal range- continue [...] liters per day. Vitamin D deficiency 347 33525 E55.9 Continue on vitamin D 50 once [...] informatio n in the electronic health record, independen tly interpreti ng results and communicat ing [...] Recorded Advance Directives Directive None Recorded Payers Insurance Date Sequence Insurance Name Policy Number Policy Cifuentes Covered Member ID Cifuentes Member ID Guarantor Name 06/18/2023 1 [facility] - DOS ON OR AFTER 21 (MEDICAID REPLACEMENT - HMO) Keely Perkins [id number] Keely Perkins Notes Date Note Type Note Provider Name and Address Organization Details Recorded Time 01/25/2023 text/html ROS as noted in the HPI 68 yo female comes in for follow up in management of [...] 10.2/31.2Na low/K highprotein lowglucose 83 mg/dl Carmen Hathaway MD [address] [facility] [address], [place], [address], [place] [facility] 01/25/2023 10:04:55 06/18/2023 text/html ROS as noted in the HPI 68 yo female comes in for follow up in management of hypothyroidism, vit D def last seen in January we reduced her unithroid to 125 mcg daily. 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 She feels better when taking her iron and B12. She is still on vitamin D 50 once weekly and vitamin D in range. labs from 05/17/23:TSH of 2.82 uIU/mlFT4 of 0.9 ng/dLFT3 of 2.5 pg/mLvit D 35 ng/mLB12/folate normalglucose 79 mg/dLCr normalLFT normalH/H lowmcv bzksam466/76/89/110 Carmen Hathaway MD [address] [facility], [facility] [address], [place], [address], [facility] 06/18/2023 09:53:38 OBGyn Episode No OBEpisode recorded.
--- OUTSIDE RECORDS SUMMARY | 2025-09-21 07:12 | XMS_ITS | Data Portability ---
Author Organization [facility] [place] [place] Address [address] [place] [address] Care Team Providers Care Laborer/Key Man Name Role Phone DENISSE FERNANDES Primary Care Provider Assessment Encounter Date Assessment Date Assessment LastModified [...] Vitamin D FU 1 year or prn [email or web address] Not available 10/21/2020 12:08:42 10/30/2020 10/30/2020 vulvar biopsy done, will contact with results, call in 1 week if has not heard strongly suspect LS, will start clobetasol FU 09/2021 for WWE [email or web address] Not available 10/30/2020 13:17:27 02/17/2021 02/17/2021 stop nystatin continue triamcinolone, but once weekly. consider clobetasol ointment if still symptomatic. WWE due in Oct [email or web address] Not available 02/17/2021 14:13:21 Plan of Treatment [...] Address Organization Details Recorded Time Seizure disorder 299261761 Active 2020 Sade Garsia MD [address], [place], [address], [facility] 11:52:59 Body mass index 30+ - obesity 564865843 Active 2020 Sade Garsia MD [address], [place], [address], [facility] 11:53:05 Hypothyroidi sm 42621882 Active 2020 Sade Garsia MD [address], [place], [address], [facility] 11:53:12 Hypertensive disorder 48594880 Active 2020 Sade Garsia MD [address], [place], [address], [facility] 11:53:20 Genital lichen sclerosus 874155613 Active 2020 Sade Garsia MD [address], [place], [address], [facility] 13:13:36 Lichen sclerosus of female genitalia Active 2020 Sade Garsia MD [address], [place], [address], [facility] 14:12:36 Problem Notes None recorded. Procedures Surgical History Date Name Laterality Status Provider Name and Address Organization Details Recorded Time 10/30/19 21 Vulvar Biopsy completed Sade Garsia MD [address], [place], [address], [facility] 10/30/2020 13:14:55 10/29/19 21 Date of Last Pap Smear completed Anika Whiteside [facility] 11/25/2020 10:43:11 11/26/19 20 partial resection of colon completed Sade Garsia MD [address], [place], [address], [facility] 10/21/2020 11:54:04 09/27/18 80 procedure on ankle completed Gissel [facility] 10/21/2020 11:42:40 09/27/18 70 laparoscopic sleeve gastrectomy completed Gissel [facility] 10/21/2020 11:56:56 Imaging Results None recorded. Procedure Notes None recorded. Medical Equipment None Reported. Allergies Allergen ID Allergen Name Allergen Category Reaction Reaction Severity Criticality Documentation Date Start Date Code Code System Note Provider Name and Address Organization Details Recorded Time 36949 codeine medicatio n Not available Not available Not available 10/21/2020 2670 RxNorm Gissel [facility] eric, [facility] 11:33:30 36517 latex environme nt,medica tion Not available Not available Not available 10/21/2020 23583 91 RxNorm Gissel [facility] eric [facility] 11:33:34 Medications Name Sig Start Date [...] Body mass index (BMI) Body weight Systolic And Diastolic Systolic And Diastolic Provider Name and Address Organization Details Last Updated DateTime 10/21/2020 152.4 cm 38.3 kg/m2 72791.1 g 146/85 mm[Hg] 130/70 mm[Hg] Gissel [facility] 11:33:25 Date Recorded Body height Body mass index (BMI) Body weight Systolic And Diastolic Provider Name and Address Organization Details Last Updated DateTime 10/30/2020 152.4 cm 38.7 kg/m2 44361.29 g 139/83 mm[Hg] Gissel [facility] 10/30/2020 12:48:07 Date Recorded Body height Body mass index (BMI) Body weight Systolic And Diastolic Provider Name and Address Organization Details Last Updated DateTime 11/25/2020 152.4 cm 39.5 kg/m2 06250.66 g 138/78 mm[Hg] Anika Whiteside [facility] 11/25/2020 12:25:41 Date Recorded Body height Body mass index (BMI) Body weight Systolic And Diastolic Provider Name and Address Organization Details Last Updated DateTime 02/17/2021 152.4 cm 40.2 kg/m2 39777.03 g 131/66 mm[Hg] Gissel Box [facility] 02/17/2021 10:06:33 Social History Question Answer Notes LastModified by [employer] Details LastModified Time Tobacco Smoking Status Never Smoker Gissel reyes, [facility] 10/21/2020 11:34:10 What Is Your Level Of Caffeine Consumption? Moderate Information not available 10/21/2020 How Many Days Of Moderate To Strenuous Exercise, Like A Brisk Walk, Did You Do In The Last 7 Days? 0 Information not available 10/21/2020 Has Tobacco Cessation Counseling Been Provided? No Information not available 10/21/2020 Sex: Unknown Functional Status Question Answer Note LastModified by [employer] Details LastModified Time Do you use any illicit or recreational drugs? No Information not available 10/21/2020 Do you or have you ever used any other forms of tobacco or nicotine? No Information not available 10/21/2020 What is your level of alcohol consumption? None Information not available 10/21/2020 What is your exercise level? Occasional Information [...] (Food, seasonal, environmental ) N Other N Breast Cancer N Drug/Latex Allergies/Reactions N Blood Transfusion N Dermatologic Disorders N Lung Disease N Defects or Inherited Disease N Breast Problem N Gestational Diabetes N Hematologic disorders N Anesthesia Complications N History of STI N Deep Vein Thrombosis N Polycystic ovary syndrome N Anxiety Disorder N Autoimmune disease N Arthritis N Infertility N Polyps N Acid Reflux (GERD) N History of abnormal pap N Cancer N Stroke N Varicosities N Neurologic/Epilepsy Y Endometriosis N High Cholesterol N Headaches N Fibromyalgia N Kidney Disease N Heart Problems N Kidney or Bladder Problems N Thyroid Problems Y GI Problems N Eating Disorder N Anemia [...] ICD10 Code Diagnosis IMO Codes Diagnosis Note [id number] Sade Garsia MD [place] [address],[place] [address] 10/21/2020 11:21:56 10/21/2020 12:10:29 Gynecologic examination 97066751 Z01.419 Body mass index 30+ - obesity 379682807 Z68.38 Lichen scl erosus of female genitalia 744606980 N90.4 [id number] Sade Garsia MD [place] [address],[place] [address] 10/30/2020 12:16:57 10/30/2020 17:58:33 Genital lichen sclerosus 209281174 L90.0 Ulceration of vulva 6864 0004 N76.6 [id number] [facility] [address],[place] [address] 11/25/2020 12:11:57 11/25/2020 15:27:22 Genital lichen sclerosus 159000732 L90.0 We reviewed biopsy results in full [...] see's Dr. Elizabeth Eubanks at [facility] where she uses a similar regimen. We agreed that if we are not able to adequately manage moving forward a referral to [facility] vulvar clinic will be necessary F/U with Dr. Garsia next visit. Additional precaution lary measures were taken to minimize potential exposure to the Covid-19 virus during this patient s visit, including available hand it specialist upon arrive, temperatur e check and being [...] including time spent charting/r eviewing results/no tito. [id number] Sade Garsia MD [place] [address] [address] 02/17/2021 09:43:14 02/17/2021 16:43:52 Lichen sclerosus of female genitalia 546808117 N90.4 Health Concerns Section Related Observation LastModified by Organization Detai ls LastModified Time None Recorded Concern Status LastModified by Organization Details LastModified Time None Recorded Advance Directives Directive None Recorded Payers Insurance Date Sequence Insurance Name Policy Number Policy Cifuentes Covered Member ID Cifuentes Member ID Guarantor Name 02/14/2021 1 [facility] - DOS PRIOR TO 2021 (MEDICAID REPLACEMENT - HMO) Keely Perkins [id number] Keely Perkins Notes Date Note Type Note Provider Name and Address Organization Details Recorded Time 10/21/2020 text/html Patient is a 65yo G0 who presents for an annual exam. Here with her sister. Was in halfway, now living with her. Has not seen value analyst in 30 years. Menopause age 43. last pap-30 years mammo-03/2020 colonoscopy-10/2019, had benign mass removed in November dexa-few years menopause-43 sexually active-no seatbelts-yes exercise-no, encouraged depression-denies domestic violence-denies tobacco-no concerns-no Sade Garsia MD [address], [place], [address], [facility] 10/21/2020 12:09:55 10/30/2020 text/html here for vulvar biopsy suspected LS but ulcerated area inner right labia Sade Garsia MD [address], [place], [address], [facility] 10/30/2020 13:18:17 11/25/2020 text/html ROS as noted in the HPI Patient is a 65yo postmenopausal female here today with caregiver Erica to review recent vulvar bx results. Charis Grider, [facility]- [address], [place], [address], [facility] 11/25/2020 14:13:57 02/17/2021 text/html Here for follow up lichen sclerosus. Diagnosed in Oct, seen by CF in November. Using nystatin cream and triamcinolone cream both TID. Itching and rash much better. NO other concerns. no bleeding. Sade Garsia MD [address], [place], [address], [facility] 02/17/2021 14:13:37 OBGyn Episode No OBEpisode recorded.
--- OUTSIDE RECORDS SUMMARY | 2025-09-21 07:12 | XMS_ITS | Clinical Summary ---
Author Organization [employer] [facility] Address [address] [place] [address] Care Team Providers Care Medical Technologist Chief Name Role Phone No, Pcp SUPERVISOR COATING Primary Care Provider Unavailabl e Social History Tobacco Use Types Packs/Day Years Used Date Smoking Tobacco: Never Assessed Comments Unknown Sex and Gender Information Value Date Recorded Sex Assigned at Not on file Legal Sex Female 10:39 AM EST Gender Identity Not on file Sexual Orientation Not on file Plan of Treatment Not on file Medical Devices Not on file Care Teams Medical Technologist Chief Relationship Specialty Start Date End Date No, Pcp, SUPERVISOR COATING N/A Do not use PCP - General Family Medicine 10/11/20
--- OUTSIDE RECORDS SUMMARY | 2025-09-21 07:12 | XMS_ITS | Encounter Summary ---
Author Organization [facility] Address 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
--- OUTSIDE RECORDS SUMMARY | 2025-09-21 07:12 | XMS_ITS | Clinical Summary ---
Author Organization [facility] Address [address] [place] [address] Care Team Providers Care Senior Research Fellow Name Role Phone Oscar Mcelroy MD Primary Care Provider [phone] Source Comments [facility],non-[facility] Affiliates and Associated Physician Practices is amultiple site organization consisting of ambulatory clinics and hospital sitesin [place], [place], [place] and [place]. This disclosure is being madepursuant to the Care Everywhere program and may not contain all information available regarding this patient. Last updated 18.[facility] Allergies Active Allergy Reactions Criticality Noted Date [...] on file Legal Sex Female 3:58 PM SCIENTIFIC HELPER Gender Identity Not on file Sexual Orientation Not on file Last Filed Vital Signs Vital Sign Reading Time Taken Comments Blood Pressure 136/80 10/09/2020 10:03 AM SCIENTIFIC HELPER Pulse 70 11/27/2020 10:21 AM SCIENTIFIC HELPER Temperature 36.1 C (97 F) 11/27/2020 10:21 AM SCIENTIFIC HELPER Respiratory Rate 18 11/27/2020 10:21 AM SCIENTIFIC HELPER Oxygen Saturation 100% 11/27/2020 10:21 AM SCIENTIFIC HELPER Inhaled Oxygen Concentration - - Weight 91.6 kg (202 lb) 11/27/2020 10:21 AM SCIENTIFIC HELPER Height 152.4 cm (5') 11/27/2020 10:21 AM SCIENTIFIC HELPER Body Mass Index 39.45 11/27/2020 10:21 AM SCIENTIFIC HELPER Plan of Treatment Health Maintenance Due Date [...] of 2) 2003 SCREENING FOR DIABETES 10/09/2020 DEPRESSION SCREENING 09/27/2024 COVID-19 VACCINE (1 - 2024-2 6 season) 2025 INFLUENZA VACCINE (#1) 2025 , 06/17/2020 Respiratory Syncytial Virus (RSV) Vaccine Pt: [...] to complete this topic Insurance Care Teams Senior Research Fellow Relationship Specialty Start Date End Date Oscar Mcelroy MD [address] [facility] [address] [place] [address] PCP - General 11/20/21
--- OUTSIDE RECORDS SUMMARY | 2025-09-21 07:12 | XMS_ITS | Encounter Summary ---
Author Organization [facility] Address 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
--- OUTSIDE RECORDS SUMMARY | 2025-09-21 07:12 | XMS_ITS | Encounter Summary ---
Author Organization [facility] Address [address] [place] [address] Care Team Providers Care Director Of Community Life Name Role Phone Oscar Mcelroy MD Primary Care Provider [phone] Encounter Details Date Type Department Care Team (Late st Contact Info) Description 02/09/2025 Orders Only [facility] [address] [place] [id number] Scanning, Provider Social History Tobacco Use Types Packs/Day Years Used Date Smoking Tobacco: Never Smokeless Tobacco: Never Comments Unknown Sex and Gender Information Value Date Recorded Sex Assigned at Not on file Legal Sex Female 11:32 PM 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 Gender Identity Not on file Sexual Orientation Not on file documented as of this encounter Plan of Treatment Not on file documented as of this encounter Procedures Procedure Name Priority Date/Time Associated Diagnosis Comments SCAN - RADIOLOGY/IMAGING 02/09/2025 documented in this encounter Results * SCAN - RADIOLOGY/IMAGING (02/09/2025) Anatomical Region Laterality Modality Other us Provider Scanning Final Result documented in this encounter Visit Diagnoses Not on filedocumented in this encounter Care Teams Director Of Community Life Relationship Specialty Start Date End Date Oscar Mcelroy MD PCP - General Emergency Medicine 10/04/23 documented as of this encounter
== END 2025-09-21 07:10 | disposition home or self-care (01) ==
LOC: ANHFOHIMG 07:10
PROVIDERS: PCP Emergency Medicine; Visit Provider Emergency Medicine
DX: Z12.31 Encounter for screening mammogram for malignant neoplasm of breast (principal)
CPT/HCPCS: 77063; 77067